=== PATIENT | male | born 1955 | race Caucasian/White ===

== ENCOUNTER 2023-08-05 07:51 | Inpatient (IN) ==
--- OUTSIDE RECORDS SUMMARY | 2023-08-05 08:07 | External Medical Summary | Summary of Care ---
Author Name Unknown Organization [facility] Address [address] [place] [address] Phone [phone] Care Team Providers Care Air Control/Anti Air Warfare Officer Name Role Phone Scot Savage DO Primary Care Provider [phone] Reason for Visit * Reason Comments Medication Refill Encounter Details Date Type Department Care Team (Late st Contact Info) Description 07/28/2023 Refill Family Practice [facility] [address] [place] [address] Scot Savage [facility] [address] [facility] [phone] HTN, goal below 130/80 Allergies No known active allergiesdocumented as of this encounter (statuses as of 07/28/2023) Medications Medication Sig Dispensed Refills Start Date End Date Status docusate sodium (COLACE) 50 MG Capsule Take by mouth at bedtime. 0 Active Dicyclomine HCl 10 MG Oral Capsule (Bentyl)Indications :Irritable bowel syndrome with both constipation and diarrhea TAKE ONE CAPSULE BY MOUTH FOUR TIMES A DAY NEEDED FOR ABDOMINAL PAIN 360 Capsule 1 01/20/2023 01/20/2024 Active Lubiprostone 24 MCG Oral Capsule (Amitiza) TAKE ONE CAPSULE BY MOUTH TWICE A DAY WITH MORNING AND EVENING MEALS 180 Capsule 1 02/10/2023 02/10/2024 Active hydroCHLOROthiazide 25 MG Oral Tablet (Hydrodiuril)Indica tions:HTN, goal below 130/80 Take 1 tablet by mouth every morning. 90 Tablet 0 03/21/2023 Active hydrOXYzine HCl 10 MG Oral Tablet (Atarax)Indications :Generalized anxiety disorder Take 1 Tablet by mouth 2 times a day as needed for Nausea or Anxiety. 120 Tablet 0 04/09/2023 Active DULoxetine HCl 60 MG Oral Capsule Delayed Release Particles (Cymbalta)Indicatio ns:Episode of recurrent major depressive disorder, unspecified depression episode severity (HCC) Take 1 Capsule by mouth in the morning. 90 Capsule 0 05/13/2023 Active busPIRone HCl 7.5 MG Oral Tablet (Buspar)Indications :Generalized anxiety disorder Take 2 Tablets by mouth in the morning and 2 Tablets before bedtime. 360 Tablet 0 06/07/2023 Active DULoxetine HCl 30 MG Oral Capsule Delayed Release Particles (Cymbalta)Indicatio ns:Generalized anxiety disorder,Major depressive disorder, recurrent episode, mild (HCC) Take 1 Capsule by mouth daily at noon. 90 Capsule 1 06/07/2023 Active Escitalopram Oxalate 20 MG Oral Tablet (Lexapro)Indication s:Generalized anxiety disorder,Major depressive disorder, recurrent episode, mild (HCC) Take 1 Tablet by mouth in the morning. 90 Tablet 1 06/07/2023 Active Levothyroxine Sodium 25 MCG Oral Tablet (Levoxyl) Take 1 Tablet by mouth in the morning. (at least 30 min prior to breakfast or other meds). 30 Tablet 11 06/08/2023 Active Alfuzosin HCl ER 10 MG Oral Tablet Extended Release 24 Hour (Uroxatral) Take 1 Tablet by mouth in the morning. 90 Tablet 3 06/15/2023 Active Pantoprazole Sodium 40 MG Oral Tablet Delayed Release (Protonix)Indicatio ns:Gastroesophageal reflux disease without esophagitis TAKE ONE TABLET BY MOUTH EVERY DAY BEFORE BREAKFAST 90 Tablet 3 07/07/2023 07/06/2024 Active Lisinopril 40 MG Oral Tablet Take 1 Tablet by mouth in the morning. 90 Tablet 3 07/14/2023 Active hydroCHLOROthiazide 25 MG Oral Tablet (Hydrodiuril)Indica tions:HTN, goal below 130/80 TAKE ONE TABLET BY MOUTH EVERY MORNING 90 Tablet 3 07/28/2023 07/27/2024 Active documented as of this encounter (statuses as of 07/28/2023) Active Problems Problem Noted Date Diagnosed Date Panic disorder 05/31/2023 JANUARY (generalized anxiety disorder) 02/26/2022 Major depressive disorder, recurrent, unspecifie d 03/15/2020 HTN, goal below 130/80 02/09/2020 Diverticulosis of large intestine without hemorr ramirez 02/09/2020 BPH with obstruction/lower urinary tract symptom s 02/09/2020 Current episode of major dep ressive disorder without prior episode 02/09/2020 Tobacco use disorder 02/09/2020 Irritable bowel syndrome wit h both constipation and diarrhea 02/09/2020 Rotator cuff tendonitis, right 02/09/2020 Alcohol abuse 02/09/2020 documented as of this encounter (statuses as of 07/28/2023) Immunizations Name Administration Dates Next Due COVID-19 mRNA, LNP-s, No Pre serve, 2-Dose Series (Indicee) 10/19/2020,09/28/2020 COVID-19, LNP-s, No Preserve , Ketan-sucrose, Ages 12+ (Pfizer) 02/26/2022,05/19/2021 Pneumococcal Polysaccharide PPV23 (Pneumovax) Season Influenza, Quad, PF, Adjuvanted, 65+ Yrs, IM (FLUAD) 03/15/2020 Seasonal Influenza, Quadrivalent Hd (Fluzone Hd) 05/18/2022 TDAP (age 10 and older)(Boostrix) 10/19/2016 Zoster Vaccine Recombinant (Shingrix) 08/21/2020 ,03/15/2020 documented as of this encounter Social History Tobacco Use Types Packs/Day Years Used Date Smoking Tobacco: Former Cigars Smokeless Tobacco: Never Comments:history of 1-2x yea rly used to be more frequent; none currently Alcohol Use Standard Drinks/Week Comments Yes 7 (1 standard drink = 0.6 oz pur e alcohol) AUDIT-C Answer Date Recorded Q1: How often do you have a drink containing alc ohol? 2-3 times a week 03/31/2022 Q2: How many drinks containi ng alcohol do you have on a typical day when you are drinking? 1 or 2 03/31/2022 Q3: How often do you have si x or more drinks on one occasion? Less than monthly 03/31/2022 PHQ-2 Answer Date Recorded PHQ Adult Total Score 2 02/26/2022 Hunger Vital Sign Answer Date Recorded Within the past 12 months, y ou worried that your food would run out before you got the money to buy more. Patient refused Within the past 12 months, t he food you bought just didn't last and you didn't have money to get more. Patient refused Sex and Gender Information Value Date Recorded Sex Assigned at Male 02/09/2020 8:02 AM EDT Gender Identity Male 02/09/2020 8:02 AM EDT Sexual Orientation Straight 02/09/2020 8: 02 AM EDT Job Start Date Occupation Industry Not on file Not on file Not on file documented as of this encounter Miscellaneous Notes * Telephone Encounter - Scot Savage DO - 07/28/2023 12:18 PM ESTSigned Prescriptions: Disp Refills hydroCHLOROthiazide 25 MG Oral Tablet (Hyd*90 Tab*3 Sig: TAKE ONE TABLET BY MOUTH EVERY MORNINGAuthorizing Provider: SCOT SAVAGE documented in this encounter Plan of Treatment Upcoming Encounters Date Type Department Care Team (Latest Contact Info) Description 08/26/2023 1:30 PM EST Hospital Encounter ENDO OSS, Endoscopy Room [facility] [address] [place] [place] [phone] Zane Olson MD [address] [place] [address] 08/26/2023 1:30 PM EST - 08/26/2023 2:00 PM EST Surgery ENDO [facility], Endoscopy Room [facility] [address] [phone] Zane Olson MD [address] [place] [address] COLONOSCOPY FLEXIBLE PROXIMAL DIAGNOSTIC 08/30/2023 12:30 PM EST Office Visit Psychiatry, [facility] [address] [facility] [place], [place] [address] Ofelia Nielsen CRNP [address] [facility] [place] [address] 11/30/2023 1:20 PM EDT Office Visit Family Practice [facility] [address] [place] [address] Scot Savage, [address] [place] [address] 12/21/2023 1:30 PM EDT Office Visit Urology, [facility] [address] [facility] [place] [address] Valentín Azul MD [address] [facility] [address] [place] [address] Scheduled Procedures Name Priority Associated Diagnoses Date/Ti me COLONOSCOPY FLEXIBLE PROXIMAL DIAGNOSTIC History of colon polyps 08/26/2023 1:30 PM EST Health Maintenance Due Date Last Done Comments Pneumococcal Vaccine: 65+ Years (2 - PCV) 02/08/2021 02/09/2020 Depression Screening 02/26/2023 02/26/2022 COVID-19 Vaccine ( - 2022-24 season) 2023 02/26/2022, 05/19/2021, 10/19/2020, Additional history exists Influenza Vaccine (FLU shot) (#1) 2023 05/18/2022, 03/15/2020 COLONOSCOPY-EVERY 3 YRS AGES 18-100 07/25/2023 07/25/2020, 07/25/2020 TSH 05/31/2024 05/31/2023, 02/09/2020 GFR 06/18/2024 06/18/2023, 1212/2022, 05/31/2023, Additional history exists Albumin/Creatinine Ratio 05/31/2026 05/31/2023, 0802/2022 Diabetes Screening 06/18/2026 06/18/2023, 1 08/17/2022, 05/31/2023, Additional history exists DTaP,Tdap,and Td Vaccines (2 - Td or Tdap) 10/19/2026 10/19/2016 Lipid Panel 05/31/2028 05/31/2023, 0707/2019, 10/17/2018 AAA Screening Completed 02/14/2020 Zoster Vaccines Completed 08/21/2020, 03/15/2020 GARDASIL-HPV IMMUNIZATION SERIES Aged Out No longer eligible based on patient's age to complete this topic Hepatitis B Aged Out No longer eligi ble based on patient's age to complete this topic MENINGOCOCCAL (MENACTRA/MENVEO) Aged Out No longer eligible based on patient's age to complete this topic documented as of this encounter Medical Devices Implanted Type Area City Letter Carrier Device Identifier Shelf Expiration Date Model / Serial / Lot Lens Intraoc 22.5 - [id number] - [id number] Implanted:Qty: 1 on 06/16/2022 by Garcia Winters MD at OR [facility] Left: Eye [employer] 02/08/2027 [id number] / [id number] / [id number] Lens Intraoc 23.0 - [id number] - [id number] Implanted:Qty: 1 on 06/30/2022 by Garcia Winters MD at OR [facility] Right: Eye [employer]OM[employer] 02/08/2027 [id number] / [id number] / [id number] documented as of this encounter Visit Diagnoses Diagnosis HTN, goal below 130/80 Unspecified essential hypertension History of colon polyps Personal history of colonic polyps documented in this encounter Advance Directives Latest Code Status on File Code Status Date Activated Date Inactivated Comments No Code 06/30/2022 9:33 AM 06/30/2022 3:38 PM Thi s order reflects the patients wishes and were consensually agreed upon. Question Answer Comments Discussion of Advance Directives occurred with: Patient Does the patient have a Living Will? No Does the patient have Health Care Power of Last Chalker? No Code Status History Code Status Date Activated Date Inactivated Comments No Code 06/16/2022 12:24 PM 06/16/2022 6:37 PM This order reflects the patients wishes and were consensually agreed upon. Question Answer Comments Discussion of Advance Directives occurred with: Patient Does the patient have a Living Will? No Does the patient have Health Care Power of Last Chalker? No Care Teams Air Control/Anti Air Warfare Officer Relationship Specialty Start Date End Date Scot Savage DO [address] [address] PCP - General Family Medicine 05/31/23 documented as of this encounter
--- OUTSIDE RECORDS SUMMARY | 2023-08-05 08:07 | External Medical Summary | Summary of Care ---
Author Name Unknown Organization [facility] Address [address] [place] [address] Phone [phone] Care Team Providers Care Agency Sales Representative Name Role Phone Scot Savage DO Primary Care Provider [phone] Reason for Visit * Reason Onset Date Comments Medication Refill 07/30/2023 Encounter Details Date Type Department Care Team (Late st Contact Info) Description 07/30/2023 Refill Family Practice [facility] [address] [place] [address] Scot Savage DO [address] [place] [address] Allergies No known active allergiesdocumented as of this encounter (statuses as of 07/31/2023) Medications Medication Sig Dispensed Refills Start Date End Date Status docusate sodium (COLACE) 50 MG Capsule Take by mouth at bedtime. 0 Active Dicyclomine HCl 10 MG Oral Capsule (Bentyl)Indication s:Irritable bowel syndrome with both constipation and diarrhea TAKE ONE CAPSULE BY MOUTH FOUR TIMES A DAY NEEDED FOR ABDOMINAL PAIN 360 Capsule 1 01/20/2023 4 Active Lubiprostone 24 MCG Oral Capsule (Amitiza) TAKE ONE CAPSULE BY MOUTH TWICE A DAY WITH MORNING AND EVENING MEALS 180 Capsule 1 02/10/2023 4 Active hydroCHLOROthiazid e 25 MG Oral Tablet (Hydrodiuril)Indic ations:HTN, goal below 130/80 Take 1 tablet by mouth every morning. 90 Tablet 0 03/21/2023 Active hydrOXYzine HCl 10 MG Oral Tablet (Atarax)Indication s:Generalized anxiety disorder Take 1 Tablet by mouth 2 times a day as needed for Nausea or Anxiety. 120 Tablet 0 04/09/2023 Active DULoxetine HCl 60 MG Oral Capsule Delayed Release Particles (Cymbalta)Indicati ons:Episode of recurrent major depressive disorder, unspecified depression episode severity (HCC) Take 1 Capsule by mouth in the morning. 90 Capsule 0 05/13/2023 Active busPIRone HCl 7.5 MG Oral Tablet (Buspar)Indication s:Generalized anxiety disorder Take 2 Tablets by mouth in the morning and 2 Tablets before bedtime. 360 Tablet 0 06/07/2023 Active DULoxetine HCl 30 MG Oral Capsule Delayed Release Particles (Cymbalta)Indicati ons:Generalized anxiety disorder,Major depressive disorder, recurrent episode, mild (HCC) Take 1 Capsule by mouth daily at noon. 90 Capsule 1 06/07/2023 Active Escitalopram Oxalate 20 MG Oral Tablet (Lexapro)Indicatio ns:Generalized anxiety disorder,Major depressive disorder, recurrent episode, mild (HCC) Take 1 Tablet by mouth in the morning. 90 Tablet 1 06/07/2023 Active Alfuzosin HCl ER 10 MG Oral Tablet Extended Release 24 Hour (Uroxatral) Take 1 Tablet by mouth in the morning. 90 Tablet 3 06/15/2023 Active Pantoprazole Sodium 40 MG Oral Tablet Delayed Release (Protonix)Indicati ons:Gastroesophage al reflux disease without esophagitis TAKE ONE TABLET BY MOUTH EVERY DAY BEFORE BREAKFAST 90 Tablet 3 07/07/2023 4 Active Lisinopril 40 MG Oral Tablet Take 1 Tablet by mouth in the morning. 90 Tablet 3 07/14/2023 Active hydroCHLOROthiazid e 25 MG Oral Tablet (Hydrodiuril)Indic ations:HTN, goal below 130/80 TAKE ONE TABLET BY MOUTH EVERY MORNING 90 Tablet 3 07/28/2023 5 Active Levothyroxine Sodium 25 MCG Oral Tablet (Levoxyl) Take 1 Tablet by mouth in the morning. (at least 30 min prior to breakfast or other meds). 90 Tablet 3 07/31/2023 Active Levothyroxine Sodium 25 MCG Oral Tablet (Levoxyl) Take 1 Tablet by mouth in the morning. (at least 30 min prior to breakfast or other meds). 30 Tablet 11 06/08/2023 4 Discontinue d(Refill) documented as of this encounter (statuses as of 07/31/2023) Active Problems Problem Noted Date Diagnosed Date [...] as of this encounter (statuses as of 07/31/2023) Immunizations Name Administration Dates Next Due COVID-19 mRNA, LNP-s, No Pre serve, 2-Dose Series (Pfizer) 10/19/2020,09/28/2020 COVID-19, LNP-s, No Preserve , Ketan-sucrose, [...] Telephone Encounter - Scot Savage DO - 07/31/2023 2:12 PM ESTSigned Prescriptions: Disp Refills Levothyroxine Sodium 25 MCG Oral Tablet (L*90 Tab*3 Sig: Take 1 Tablet by mouth in the morning. (at least 30 min prior to breakfast or other meds). Authorizing Provider: SCOT SAVAGE * Telephone Encounter - Cassidy Valdovinos LPN - 07/30/2023 2:43 PM ESTPending Prescriptions: Disp Refills Levothyroxine Sodium 25 MCG Oral Tablet (L*90 Tab*3 Sig: Take 1 Tablet by mouth in the morning. (at least 30 min prior to breakfast or other meds). * Telephone Encounter - Cassidy Valdovinos LPN - 07/30/2023 2:42 PM EST Pending Prescriptions: Disp Refills Levothyroxine Sodium 25 MCG Oral Tablet (*90 Tab*3 Sig: Take 1 Tablet by mouth in the morning. (at least 30 min prior to breakfast or other meds). Last Visit: 05/31/2023 (in office), 06/14/2020 (telemedicine) 90 DAY SUPPLY Next Visit: 11/30/2023 Last date the medication was ordered: 06/08/23 Patient Active Problem List Diagnosis Code HTN, goal below 130/80 I10 Diverticulosis of large intestine without hemorrhage K57.30 BPH with obstruction/lower urinary tract symptoms N40.1, N13.8 Current episode of major depressive disorder without prior episode F32.9 Tobacco use disorder F17.200 Irritable bowel syndrome with both constipation and diarrhea K58.2 Rotator cuff tendonitis, right M75.81 Alcohol abuse F10.10 Major depressive disorder, recurrent, unspecified (HCC) F33.9 JANUARY (generalized anxiety disorder) F41.1 Panic disorder F41.0 Labs: Lab Results Component Value Date/Time CREATININE - [facility] 1.1 06/18/2023 09:14 AM CREATININE - [facility] 1.1 02/09/2020 09:26 AM CREATININE, RANDOM URINE - [facility] 127 05/31/2023 12:37 PM CREATININE, RANDOM URINE - [facility] 121 03/15/2020 04:19 PM CREATININE-OUTSIDE LAB 1.06 10/17/2018 09:35 AM Lab Results Component Value Date/Time POTASSIUM - [facility] 3.5 06/18/2023 09:14 AM POTASSIUM - [facility] 4.4 02/09/2020 09:26 AM POTASSIUM-OUTSIDE LAB 3.9 10/17/2018 09:35 AM Lab Results Component Value Date/Time TSH - [facility] 6.58 (H) 05/31/2023 12:33 PM TSH - [facility] 3.24 02/09/2020 09:26 AM Lab Results Component Value Date/Time LDL (CALCULATED)-OUTSIDE LAB 87 10/17/2018 09:35 AM LDL CHOLESTEROL (CALCULATED) - [facility] 43 05/31/2023 12:33 PM LDL CHOLESTEROL (CALCULATED) - [facility] 76 02/09/2020 09:26 AM LDL CHOLESTEROL (DIRECT MEASURE) - [facility] NOT APPLICABLE 02/09/2020 09:26 AM Lab Results Component Value Date/Time ALT - [facility] 25 06/16/2023 12:49 PM ALT - [facility] 18 02/09/2020 09:26 AM ALT-OUTSIDE LAB 19 10/17/2018 09:35 AM Hemoglobin AIC Results: No results found for: "HEMOGLOBIN A1C" * Telephone Encounter - Deana Blackman OSA - 07/30/2023 1:05 PM EST Did you pend patient's preferred pharmacy and medication before forwarding?yes Pharmacy: [id number] [address] [facility] Pending Prescriptions: Disp Refills Levothyroxine Sodium 25 MCG Oral Tablet (*30 Tab*11 Sig: Take 1 Tablet by mouth in the morning. (at least 30 min prior to breakfast or other meds). Last Visit: 05/31/2023 (in office), 06/14/2020 (telemedicine) Next Visit: 11/30/2023 If no future appointments scheduled, and last appointment is greater than a year ago, please schedule patient for a follow-up appointment Last date the medication was ordered: 06.08.23 Is this request for a controlled substance?No 90 day refill request Urine Drug Screen:No results found for this or any previous visit. Patient Phone Numbers Labs: Lab Results Component Value Date/Time CREAT 1.1 06/18/2023 09:14 AM CREAT 1.1 02/09/2020 09:26 AM POTASSIUM 3.5 06/18/2023 09:14 AM POTASSIUM 4.4 02/09/2020 09:26 AM TSH 6.58 (H) 05/31/2023 12:33 PM TSH 3.24 02/09/2020 09:26 AM LDLCALC 43 05/31/2023 12:33 PM LDLCALC 76 02/09/2020 09:26 AM LDLDIRECT NOT APPLICABLE 02/09/2020 09:26 AM ALT 25 06/16/2023 12:49 PM ALT 18 02/09/2020 09:26 AM documented in this encounter Plan of Treatment Upcoming Encounters Date Type Department Care Team (Latest Contact Info) Description 08/26/2023 1:30 PM EST Hospital Encounter ENDO [facility], Endoscopy Room [facility] [address] [place] [address] Zane Olson MD [address] [place] [address] 08/26/2023 1:30 PM EST - 08/26/2023 2:00 PM EST Surgery ENDO [facility], Endoscopy Room [facility] [address] [place] [phone] Zane Olson MD [address] [place] [address] COLONOSCOPY FLEXIBLE PROXIMAL DIAGNOSTIC 08/30/2023 12:30 PM EST Office Visit Psychiatry, [facility] [address] [place] [address] Ofelia Nielsen CRNP [address] [place] [address] 11/30/2023 1:20 PM EDT Office Visit Family Practice [facility] [address] [place] [address] Scot Savage DO [address] [place] [address] 12/21/2023 1:30 PM EDT Office Visit Urology, [facility] [address] [place] [address] Valentín Azul MD [address] [place] [address] Scheduled Procedures Name Priority Associated Diagnoses Date/Ti me COLONOSCOPY FLEXIBLE PROXIMAL DIAGNOSTIC History of colon polyps 08/26/2023 1:30 PM EST Health Maintenance Due Date Last Done Comments Pneumococcal Vaccine: 65+ Years (2 - PCV) 02/08/2021 02/09/2020 Depression Screening 02/26/2023 02/26/2022 COVID-19 Vaccine ( - 2022- season) 2023 02/26/2022, 05/19/2021, 10/19/2020, Additional history exists Influenza Vaccine (FLU shot) (#1) 2023 05/18/2022, 03/15/2020 COLONOSCOPY-EVERY 3 YRS AGES 18-100 07/25/2023 07/25/2020, 07/25/2020 TSH 05/31/2024 05/31/2023, 02/09/2020 GFR 06/18/2024 06/18/2023, 1212/2022, 05/31/2023, Additional history exists Albumin/Creatinine Ratio 05/31/2026 05/31/2023, 08/02/2022 Diabetes Screening 06/18/2026 06/18/2023, 1 08/17/2022, 05/31/2023, Additional history exists DTaP,Tdap,and Td Vaccines (2 - Td or Tdap) 10/19/2026 10/19/2016 Lipid Panel 05/31/2028 05/31/2023, 07/3 07/2019, 10/17/2018 AAA Screening Completed 02/14/2020 Zoster Vaccines [...] this encounter Medical Devices Implanted Type Area Electronic Device Repairer Device Identifier Shelf Expiration Date Model / Serial / Lot Lens Intraoc 22.5 - [id number] - [id number] Implanted:Qty: 1 on 06/16/2022 by Garcia Winters MD at OR [facility] Left: Eye [employer] 02/08/2027 [id number] / [id number] / [id number] Lens Intraoc 23.0 - [id number] - [id number] Implanted:Qty: 1 on 06/30/2022 by Garcia Winters MD at OR [facility] Right: Eye [employer]OMB 02/08/2027 [id number] / [id number] / [id number] documented as of this encounter Advance Directives Latest Code Status on File Code Status Date Activated Date Inactivated Comments No Code 06/30/2022 9:33 AM 06/30/2022 3:38 PM Thi s order reflects the patients wishes and were consensually agreed upon. Question Answer Comments Discussion of Advance Directives occurred with: Patient Does the patient have a Living Will? No Does the patient have Health Care Power of Commercial Loan Assistant? No Code Status History Code Status Date Activated Date Inactivated Comments No Code 06/16/2022 12:24 PM 06/16/2022 6:37 PM This order reflects the patients wishes and were consensually agreed upon. Question Answer Comments Discussion of Advance Directives occurred with: Patient Does the patient have a Living Will? No Does the patient have Health Care Power of Commercial Loan Assistant? No Care Teams Agency Sales Representative Relationship Specialty Start Date End Date Scot Savage DO [address] [place] [address] PCP - General Family Medicine 05/31/23 documented as of this encounter
--- OUTSIDE RECORDS SUMMARY | 2023-08-05 08:07 | External Medical Summary | Summary of Care ---
Author Name Unknown Organization [facility] Address [address] [place] [address] Phone [phone] Care Team Providers Care Medical Data Analyst Name Role Phone Kimberly Sidhu DO Primary Care Provider [phone] Reason for Visit * Reason Comments Medication Management Follow Up Encounter Details Date Type Department Care Team (Late st Contact Info) Description 07/19/2023 12:30 PM EST Office Visit Psychiatry, [facility] [address] [place] [address] Ofelia Nielsen CRNP [address] [place] [address] Generalized anxiety disorder*; Major depressive disorder, recurrent episode, mild (HCC); Panic disorder; Insomnia due to other mental disorder Allergies No known active allergiesdocumented as of this encounter (statuses as of 07/21/2023) Medications Medication Sig Dispensed Refills Start Date [...] the morning. 90 Tablet 3 07/14/2023 Active documented as of this encounter (statuses as of 07/21/2023) Active Problems Problem Noted Date Diagnosed Date [...] as of this encounter (statuses as of 07/21/2023) Immunizations Name Administration Dates Next Due COVID-19 mRNA, LNP-s, No Pre serve, 2-Dose Series (Photoways) 10/19/2020,09/28/2020 COVID-19, LNP-s, No Preserve , Ketan-sucrose, [...] on file documented as of this encounter Progress Notes * Ofelia Nielsen CRNP - 07/19/2023 12:32 PM EST OUTPATIENT PSYCHIATRY DIVISION OF PSYCHIATRY [facility] [address] [place] [address] MEDICATION MANAGEMENT & PSYCHOTHERAPY RETURN VISIT NOTE Name: Haroon Colmenares : 1955 Date Seen: 07/19/23 LOCATION FROM WHICH SERVICE IS DELIVERED [facility] PATIENT'S CURRENT PHYSICAL LOCATION [facility] The patient was seen and interviewed, and available records and data were reviewed today. SUBJECTIVE: Haroon Colmenares is a 67 year old male presenting for follow-up of depression and anxiety. 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 He also relates experiencing mild to moderate depression on and off throughout his life. He states his current depressed mood and anxiety is related to his GI issues and his inability to find relief. He is currently participating in pelvic floor training with PT, as well as trying to eat better and living a better lifestyle. He relates that he loves life and is grateful for all that he has, but he wants to have his stomach and bowels to feel better. CURRENT PSYCHIATRIC PROVIDERS/SERVICES: none MEDICATION SIDE EFFECTS/ADHERENCE: Negative side effects from current prescribed psychotropic medications: none Medication adherence: good PREVIOUS PSYCHOTROPIC MEDICATION TRIALS: amitriptyline RELEVANT PSYCHIATRIC, MEDICAL, FAMILY OR SOCIAL HISTORY/UPDATE: Current living situation: Live in [facility] Marital status: Sexually active: n/a Plans for : n/a Contraceptive plan: n/a Children: 4 children (one son is incarcerated due to drug use; this is stressful for pt) Childhood/raised by: mother and father - good childhood Siblings: sister older brother History of past or current CYS involvement: none History of homelessness/prison living? none Social support/supportive people in life: oldest son Leisure/recreational activities: camp, fishing, hiking, camp style cooking, like to cook Hoahaoism/philosophical beliefs: none H.S. Graduate - technical school for [employer] retired from [employer] Mental illness: Mother had anxiety Completed/attempted suicides: no Drug and alcohol abuse: Son - heroin use Is seeing a woman who lives in his building. CHANGE IN SUBSTANCE USE PATTERNS: Occasionally has beer - approx 1-2 several times per week OBJECTIVE DATA: Review of patient's allergies indicates: No Known Allergies There were no vitals filed for this visit. There is no height or weight on file to calculate BMI. No height and weight on file for this encounter. Weight at last 3 appointments: Wt Readings from Last 3 Encounters: 05/31/23 67 kg (147 lb 12.8 oz) 07/27/22 70.7 kg (155 lb 14.4 oz) 06/30/22 68 kg (150 lb) LABORATORY RESULTS: Recent Results (from the past 1344 hour(s)) COMPREHENSIVE METABOLIC PANEL Collection Time: 05/31/23 12:33 PM Result Value Ref Range BUN 19 6 - 20 mg/dL Creatinine 1.2 0.6 - 1.2 mg/dL Estimated Glomerular Filtration Rate 65 >=60 mL/min Sodium 133 (L) 135 - 146 mmol/L Potassium 4.6 3.5 - 5.1 mmol/L Chloride 92 (L) 98 - 107 mmol/L CO2 26 22 - 32 mmol/L Anion Gap 15 7 - 15 mmol/L Glucose 96 70 - 120 mg/dL Albumin 4.5 3.8 - 5.0 g/dL AST 30 10 - 50 U/L Alkaline Phosphatase 77 35 - 130 U/L Bilirubin, Total 0.6 <=1.2 mg/dL Calcium 10.3 (H) 8.4 - 10.2 mg/dL Protein 7.4 6.0 - 8.3 g/dL ALT 40 10 - 50 U/L TSH WITH FREE T4 IF INDICATED Collection Time: 05/31/23 12:33 PM Result Value Ref Range TSH 6.58 (H) 0.27 - 4.20 uIU/mL LIPID PANEL WITH DIRECT LDL IF TG IS HIGH Collection Time: 05/31/23 12:33 PM Result Value Ref Range Triglycerides 121 <=174 mg/dL Cholesterol 126 <200 mg/dL HDL Cholesterol 59 >39 mg/dL Non-HDL Cholesterol 67 <=159 mg/dL LDL Cholesterol 43 <=129 mg/dL VITAMIN B12 Collection Time: 05/31/23 12:33 PM Result Value Ref Range Vitamin B12 617 232 - 1,245 pg/mL MAGNESIUM Collection Time: 05/31/23 12:33 PM Result Value Ref Range Magnesium 1.6 1.5 - 2.6 mg/dL PSA Collection Time: 05/31/23 12:33 PM Result Value Ref Range PSA 5.05 (H) <4.10 ng/mL CBC Collection Time: 05/31/23 12:33 PM Result Value Ref Range WBC 11.93 (H) 4.00 - 10.80 K/uL RBC 4.35 4.50 - 5.25 M/uL HGB 14.9 14.0 - 16.8 g/dL HCT 40.9 40.0 - 48.4 % MCV 94.0 82.0 - 99.5 fL MCH 34.3 27.0 - 34.0 pg MCHC 36.4 32.0 - 36.0 g/dL RDW 12.8 11.5 - 15.5 % PLT 419 (H) 140 - 400 K/uL MPV 9.5 6.6 - 11.1 fL DIFFERENTIAL, AUTOMATED Collection Time: 05/31/23 12:33 PM Result Value Ref Range WBC 11.93 (H) 4.00 - 10.80 K/uL Neutrophils % 68.2 40.0 - 75.0 % Lymphocytes % 19.4 18.0 - 42.0 % Monocytes % 8.2 1.0 - 11.0 % Eosinophils % 3.9 0.0 - 6.0 % Basophils % 0.3 0.0 - 2.0 % Absolute Neutrophils 8.14 (H) 1.80 - 7.70 K/uL Absolute Lymphocytes 2.31 1.00 - 4.80 K/ul Absolute Monocytes 0.98 0.00 - 1.10 K/uL Absolute Eosinophils 0.46 0.00 - 0.70 K/uL Absolute Basophils 0.04 0.00 - 0.20 K/uL PTH Collection Time: 05/31/23 12:33 PM Result Value Ref Range PTH 42 15 - 65 pg/mL 25-HYDROXY VITAMIN D Collection Time: 05/31/23 12:33 PM Result Value Ref Range 25-Hydroxy Vitamin D 76 >19 ng/mL T4, FREE Collection Time: 05/31/23 12:33 PM Result Value Ref Range T4, Free 1.2 0.9 - 1.7 ng/dL THYROID ANTIBODY AND TPO ANTIBODY Collection Time: 05/31/23 12:33 PM Result Value Ref Range Thyroid Peroxidase Antibody 206.1 (H) <34.0 IU/mL Thyroglobulin Antibody 99.6 <115.0 IU/mL ALBUMIN / CREATININE RATIO, URINE Collection Time: 05/31/23 12:37 PM Result Value Ref Range Albumin, Random Urine <1.20 mg/dL Creatinine, Random Urine 127 mg/dL Albumin / Creatinine Ratio, Urine <9 <30 mg/g Creat BASIC METABOLIC PANEL Collection Time: 06/16/23 12:49 PM Result Value Ref Range BUN 20 6 - 20 mg/dL Creatinine 1.5 (H) 0.6 - 1.2 mg/dL Estimated Glomerular Filtration Rate 51 (L) >=60 mL/min Sodium 132 (L) 135 - 146 mmol/L Potassium 3.9 3.5 - 5.1 mmol/L Chloride 91 (L) 98 - 107 mmol/L CO2 28 22 - 32 mmol/L Anion Gap 13 7 - 15 mmol/L Glucose 91 70 - 120 mg/dL Calcium 10.5 (H) 8.4 - 10.2 mg/dL CBC Collection Time: 06/16/23 12:49 PM Result Value Ref Range WBC 15.17 (H) 4.00 - 10.80 K/uL RBC 4.30 4.50 - 5.25 M/uL HGB 14.9 14.0 - 16.8 g/dL HCT 40.9 40.0 - 48.4 % MCV 95.1 82.0 - 99.5 fL MCH 34.7 27.0 - 34.0 pg MCHC 36.4 32.0 - 36.0 g/dL RDW 13.0 11.5 - 15.5 % PLT 409 (H) 140 - 400 K/uL MPV 10.1 6.6 - 11.1 fL DIFFERENTIAL, AUTOMATED Collection Time: 06/16/23 12:49 PM Result Value Ref Range WBC 15.17 (H) 4.00 - 10.80 K/uL Neutrophils % 67.6 40.0 - 75.0 % Lymphocytes % 21.4 18.0 - 42.0 % Monocytes % 8.2 1.0 - 11.0 % Eosinophils % 2.6 0.0 - 6.0 % Basophils % 0.2 0.0 - 2.0 % Absolute Neutrophils 10.25 (H) 1.80 - 7.70 K/uL Absolute Lymphocytes 3.24 1.00 - 4.80 K/ul Absolute Monocytes 1.25 (H) 0.00 - 1.10 K/uL Absolute Eosinophils 0.40 0.00 - 0.70 K/uL Absolute Basophils 0.03 0.00 - 0.20 K/uL DIFFERENTIAL, TECHNOLOGIST REVIEW Collection Time: 06/16/23 12:49 PM Result Value Ref Range nRBCs HEPATIC FUNCTION PANEL Collection Time: 06/16/23 12:49 PM Result Value Ref Range Albumin 4.6 3.8 - 5.0 g/dL AST 24 10 - 50 U/L Alkaline Phosphatase 77 35 - 130 U/L ALT 25 10 - 50 U/L Bilirubin, Total 0.6 <=1.2 mg/dL Bilirubin, Direct 0.2 0.0 - 0.3 mg/dL Protein 7.5 6.0 - 8.3 g/dL LIPASE Collection Time: 06/16/23 12:49 PM Result Value Ref Range Lipase 26 13 - 60 U/L BASIC METABOLIC PANEL Collection Time: 06/18/23 9:14 AM Result Value Ref Range BUN 15 6 - 20 mg/dL Creatinine 1.1 0.6 - 1.2 mg/dL Estimated Glomerular Filtration Rate 71 >=60 mL/min Sodium 130 (L) 135 - 146 mmol/L Potassium 3.5 3.5 - 5.1 mmol/L Chloride 92 (L) 98 - 107 mmol/L CO2 28 22 - 32 mmol/L Anion Gap 10 7 - 15 mmol/L Glucose 112 70 - 120 mg/dL Calcium 9.8 8.4 - 10.2 mg/dL CBC Collection Time: 06/18/23 9:14 AM Result Value Ref Range WBC 9.81 4.00 - 10.80 K/uL RBC 3.90 4.50 - 5.25 M/uL HGB 13.7 (L) 14.0 - 16.8 g/dL HCT 37.4 (L) 40.0 - 48.4 % MCV 95.9 82.0 - 99.5 fL MCH 35.1 27.0 - 34.0 pg MCHC 36.6 32.0 - 36.0 g/dL RDW 12.6 11.5 - 15.5 % PLT 364 140 - 400 K/uL MPV 9.8 6.6 - 11.1 fL DIFFERENTIAL, AUTOMATED Collection Time: 06/18/23 9:14 AM Result Value Ref Range WBC 9.81 4.00 - 10.80 K/uL Neutrophils % 64.7 40.0 - 75.0 % Lymphocytes % 22.1 18.0 - 42.0 % Monocytes % 9.7 1.0 - 11.0 % Eosinophils % 3.3 0.0 - 6.0 % Basophils % 0.2 0.0 - 2.0 % Absolute Neutrophils 6.35 1.80 - 7.70 K/uL Absolute Lymphocytes 2.17 1.00 - 4.80 K/ul Absolute Monocytes 0.95 0.00 - 1.10 K/uL Absolute Eosinophils 0.32 0.00 - 0.70 K/uL Absolute Basophils 0.02 0.00 - 0.20 K/uL REVIEW OF SYSTEMS: continues to experience abdominal pain and bowel discomfort at times MENTAL STATUS EVALUATION: General Appearance: appropriately dressed, appropriately groomed, and good eye contact Attitude/Behavior: cooperative, open and friendly, engaged Motor Behavior/Muscle Strength & Tone/Gait & Station: no abnormalities noted Speech: normal, rate, tone and volume and goal directed Mood: "I'm not really doing okay." Affect: euthymic Thought Process: linear Thought Content/Perceptions: denies suicidal ideations, homicidal ideations, auditory hallucinations, visual hallucinations, delusions, impulsivity to act out or preoccupation with violence; Patient does not appear to be internally preoccupied. No evidence of illusions, depersonalization, derealization, or dissociation. Attention span/concentration as evidenced by: ability to sustain attention to examiner - intact andspelling WORLD backwards - intact Orientation: Oriented to person, place, time, and situation Abstract Reasoning: not tested Recent memory as evidenced by recall of recent circumstances: intact Remote memory as evidenced by recall of remote life events: intact Language as evidenced by ability to repeat phrase and name object: intact Estimated Intelligence & Fund of Knowledge: Normal Insight: fair Judgement: fair Impulse Control: good Bradley Suicide Severity Rating Scale Results 07/19/2023 12:35 [place] SUICIDE SEVERITY RATING SCALE (C-SSRS) Have you wished you were or wished you could go to sleep and not wake up? (In the Past Month or Since Last Visit) No Have you had any actual thoughts of killing yourself? (In the Past Month or Since Last Visit) No Have you been thinking about how you might do this? (In the Past Month or Since Last Visit) No Have you had thoughts and had some intention of acting on them? (In the Past Month or Since Last Visit) No Have you started to work out or worked out the details of how to kill yourself? Do you intend to carry out this plan? (In the Past Month or Since Last Visit) No Have you ever done anything, started to do anything, or prepared to do anything to end your life? (Lifetime) No Was this within the past 3 months? No Level of Risk No Risk Identified Outpatient Adult Psychiatry Treatment Plan Treatment plan was developed on 04/09/23, treatment will continue to focus on goals below; Treatmentupdate will occur when clinically indicated or by 10/08/23. Patient's goals captured in patient's words: anxiety work Crisis Planning: What I can do if I ever experience a crisis (much worse symptoms, severe distress or thoughts of self-harm): walk away People I can call in the event of a crisis: Family Member son Additional resources I can utilize if the previous steps are ineffective (e.g: ED, hotlines): Suicide and Crisis [place] [id number] and [facility] Patient/Family Received Copy of Treatment Plan: Patient has access to [facility] Signature Obtained on Treatment Plan: Treatment plan developed with patient and/or family during telemedicine/telephonic visit. No treatment plan signature page was signed. Will obtain signatures once sessions resume in clinic. Expected family or significant other involvement: Offer Support and Crisis Support Patient strengths and facilitating factors to care:Recognizes need for change, Seeking help, Goal Oriented, Attempting to realize ones potential, Has a purpose in life, Good support system, Access tohousing, Cooperative and Able to care for own personal hygiene Patient Identified Needs/Goals Interventions/Type of Service Duration of Treatment Frequency of Treatment Objective/ Discharge Criteria Problem/Need1: Medication Management Medication Management 1 year Q2 Months Achieved maintenance treatment phase at full therapeutic dosage for 6-12 months ASSESSMENT, FORMULATION, AND PLAN: Haroon Colmenares is a 66 year old male with presenting symptoms of mild depression and generalized anxiety as noted above. He has been treated by PCP for mood and anxiety. In speaking with pt's son, Pt has not been tried on SSRI to date. Pt is unable to identify positive benefit from current medications. As Pt's son reported Cymbalta is prescribed for pain, this medication will remain as prescribed by PCP. After discussion, amitriptyline will be discontinued to avoid polypharmacy, as this is prescribed at a very low dose and reported for sleep; Pt is prescribed trazodone for sleep support. This will continue to be prescribed. Pt will start lexapro 5 mg for 7 days and then increase to 10 mg da radha for management of anxiety and depressive symptoms, as Lexapro is well tolerated and has low drug-drug interactions. Will follow up with pt and his son in 6 weeks for medication effectiveness. 05/27/22: Haroon presents as experiencing modest improvement in mood and anxiety. He discussed being involved in social activities and having a new relationship. He reminisced about his happy childhood and discussed being proud of his children. He continues to experience stomach and bowel pain and discussed the medical treatment/testing he is receiving to manage the pain he experiences. He did relate drinking alcohol relieved some of the discomfort. We discussed the possibility of alcohol promoting relaxation, but that alcohol is not beneficial to him. Recommendation made to increase Lexapro to further address anxiety and to support mood. Pt in agreement. Instructions provided for medication adjustment from 10 mg in the morning to 20 mg in the morning. All other medications will continue to be managed by PCP. 07/08/22: Pt appears more relaxed during appt today. He was receptive to feedback regarding positive communication. He feels depression and anxiety have improved and he presents with congruent affect. Increase in Lexapro has been helpful in reducing symptoms. No changes are indicated at this time with medication treatment plan. No prescriptions are needed today. 08/19/22: Pt presents with stable mood. He has a somewhat elevated level of anxiety due to continued GI discomfort with no defined medical reason. He is scheduled for small intestinal bacterial overgrowth (SIBO) breath test next week and is hopeful results assist in treatment plan to reduce his discomfort. At this time, no changes will be made with his medication plan, but based on SIBO testing results, adjustment to Cymbalta dose will be considered to further address mood, anxiety and pain. 09/16/22: Haroon presents with increased anxiety today. He is apprehensive about the benefit of antibiotic treatment to reduce/relieve his GI discomfort. We discussed benefits of exercise, establishinga daily schedule, and ways to identify negative thinking and challenge the negative with positive alternative thoughts. Haroon was receptive to feedback. At this time, no changes will be made with medication treatment plan. We will reassess after antibiotic course is completed, as anxiety and mood may improve with relief of GI concerns. If no improvement with mood/motivation, will consider addingWellbutrin. 10/09/22: Pt continues to experience GI discomfort even though he has finished antibiotic course. Hecontinues to experience anxiety and a sad mood. We discussed how anxiety and sadness can impact GI concerns. Haroon spoke of this anxiety related to the safety of one son who is currently incarcerated and struggles with MAURI, anxiety over the financial security of another son and the relationships between his children. These worried thoughts have significant impact on his health and mood. Haroon notes he had been without Lexapro for approx four days until new prescription refill was received. Wediscussed benefit of adding Buspar 7.5 mg BID to relieve anxiety. Pt is in agreement. 10/30/22: Continues to worry about his son, who is currently incarcerated. Feels addition of Buspar has been somewhat helpful; describes feeling somewhat happier. Is not feeling as irritable. Feels very positive about response to Buspar. Pt continues to have disrupted sleep nightly due to GI issues.He is scheduled to follow up with GI. Although mood is better, he continues to have anxiety at times. Pt related he and his son would like to discuss medication and the ability to reduce amount of medications if possible. Discussed that is sleep initiation is not an issue and he is able to return to sleep after waking for GI issues, trazodone can be used only as needed for sleep support. Plan is to increase Buspar to 7.5 mg three times a day for anxiety management. Change trazodone to as needed. 11/27/22: Feeling frustrated with his GI issues. Continues to have pain upon waking and urgency to have BM. Having intense, bizarre dreams that are waking him from sleep. He recently fell due to feeling need to void upon waking suddenly. Discussed notes/messages from GI provider from regarding symptom management. Pt feels if dreams were not disturbing his sleep he would feel better. Ptdoes related increased dose of Buspar has been helpful in reducing anxiety overall - he does not feel as irritable. Pt has continued to use trazodone routinely at night for sleep support. Discussed trazodone might be cause for dreams and recommended dc of med on trial to determine if this is the case. Pt is to reach out if sleep initiation is issue without trazodone. Pt is in agreement with plan.No other changes to med plan. 12/30/22: Pt's discussion is focused on bowel and bowel distress. Pt discussed that he is going to reach out to his PCP regarding referral to new GI specialist due to feeling dismissed by previous provider. Pt continues to have bizarre dreams even after stopping trazodone. The theme of the dreams isconfusion and being reprimanded in a work setting. He is consistently woken from the dreams with immediate need to empty his bowels, but then is unable to or has diarrhea. Pt confirms on nights he does not have dreams, he does not have GI urgency. We discussed connection between anxiety, dreams, and GI distress. Pt relates he continues to have worried thoughts. Pt shared that he feels anxiety started when his son got into trouble with the law. Pt was provided positive feedback regarding connecting this stressful event with is emotional response. Pt did divert the conversation back to physicalconcerns. Pt is in agreement with individual therapy, but has not been assigned to provider. He wasreferred approx one year ago to [facility] psychology. We will continue to discuss therapy options during appts. We discussed possible side effects of current medications. Due to GI distress, I will reach out to pt's PCP to discuss change from Cymbalta (currently prescribed by PCP for pain management). Plan: increase Buspar to 15 mg BID for improved anxiety management. (pt has large supply of 7.5 mg pills at home and would like to use the supply he has; he was instructed to take 2 tablets twice perday.) 01/20/23: Pt relates no significant change in anxiety symptoms with adjustment in Buspar dose/timing. He has not experienced any SE with slight increase in medication. He does relate working on improving his ability to cope with GI distress. He is only waking one time through the night now due to disrupted sleep. Troubling dreams have subsided. Pt relates his family is doing okay. Son is coming back to pt's living area around [place] after completing boot camp. His son was transitioned from incarceration to boot camp that is only 45 minutes away from pt's home. We discussed how patient feelsabout his son's MAURI and his recovery. Discussed pt's plans for visiting his son in the next two weeks. Pt is looking forward to the visit. Pt acknowledges his anxiety has somewhat decreased with his son's release from senior care setting. Pt presents with decreased anxiety. He appears more relaxed during the appt. Plan is to continue current medication as prescribed. 03/01/23: Pt continues to report bad dreams several times per week. These dreams are very real and they cause increased GI distress. Discussed increased anxiety. Pt in agreement with adding additionaldose of Cymbalta 30 mg at noon to his 60 mg AM dose to address pain, anxiety and mood. Pt appeared to have some confusion related to his current medications and the recommendation for additional doseof Cymbalta. Pt will bring list of medications to next appt. He was also encouraged to use a pill minder for ease of med administration through the week. 04/09/23: Pt's stomach is cramping and nights are not restful. Focused on medical concerns. Discussed bowels and prostate. Is in better control of his anxiety. Pt describes having "frantic" moments, sweat, chills, nausea, -in stores and when working on cars, two to three times/month for approx 15 minutes. States he has always had these episodes, but the were worse in the past. Pt states he is alway s thinking; worried thoughts. Pt identifies symptoms of panic attacks as noted below. Educated pt on what he is experiencing. Although he has some ongoing concerns physically and residual anxiety symptoms, he states overall he is managing symptoms of anxiety and depression a little better since last appt. Denies SE. Plan is to add panic disorder to working dx. Will start hydroxyzine 10 mg BID PRN for anxiety and panic attacks. Panic: Recurrent unexpected abrupt fear: yes Fear of another attack: yes Change in behavior related to attacks: no Physical symptoms Heart palpitations Sweating Weakness Nausea Dizzy/lightheaded heat sensations Derealization/depersonalization Fear of losing control 06/07/23: Patient reports he continues to have anxiety. These episodes have increased slightly from2-3 times per month to 3-4 times per month. Patient does not find hydroxyzine to be especially helpful. Patient discussed his medical status. He continues to have pain in his abdomen and is concerned with GI. His primary care provider has referred him to urology. Patient does have slightly elevated PSA. TSH also elevated at 6.58. We will collaborate with primary care provider regarding treatment. Patient continues to have disrupted sleep related to bowel pain stating he spends 2-3 hours per night in the bathroom. Psychosocially we discussed his son is to be released in July from incarceration. Plan is for his son to stay with his brother, patient's other son, and patient admits this makes him nervous. He wants his son to be successful but he is concerned nonetheless. We discussed how this may be impacting his abdominal pain and his increased anxiety level. Plan is to increase hydroxyzine to 20 mg as needed for improved benefit for anxiety management. No other changes to be made to medications at this time. 07/19/23: reviewed medications. Pt's anxiety is high. His son will be released from incarceration this month and he is very worried about this. We discussed what he control and what he cannot regarding his son. Pt states he can decide how to interact with his kids. We discussed pt's difficulty with not focusing on past. Discussed milk intake and alcohol intake. Pt admits he has not decreased alcohol. We discussed feelings of guilt related to alcohol use. Discussed [facility] [employer] and individual therapy - pt is declining both at this time. He continues to be concerned about GI discomfort and worried there is something wrong that isn't being found with testing. Plan is to continue medication as prescribed. Diagnosis: Major depressive disorder, recurrent, mild Generalized Anxiety Disorder Panic disorder Medications: Continue Duloxetine 60 mg in the morning and 30 mg at noon Continue Lexapro to 20 mg daily for anxiety and depressive symptoms Continue Buspar to 15 mg to BID for anxiety continue hydroxyzine 10 - 20 mg BID PRN for anxiety/panic attacks I have reviewed the patient's controlled substance dispensing history in the Prescription Drug Monitoring Program in compliance with the [facility] regulations before prescribing a controlled substance. Laboratory/Diagnostics: None Counseling: Continue to offer psychotherapy utilizing Supportive listening as adjunct to evaluation, managementand prescription of psychiatric medications. PCP/medical: Continue to follow up with primary care provider and/or medical specialists as scheduled/appropriate. Return Appointment: Haroon Colmenares is to return in 4 weeks. Sooner PRN. This treatment plan was reviewed and discussed with the patient. He and/or family had the opportunity to ask questions and agreed with the treatment plan and course of care. Crisis and Treatment Planning: The crisis plan was completed/reviewed and updated as appropriate with the patient. Haroon Colmenares participated in developing a crisis plan should he/she experience worsening of symptoms before next follow-up appointment, including being aware of what resources to use according to the urgency and severity of symptoms. Haroon Colmenares was able to verbalize understanding of the steps necessary to obtain help between appointments should be needed, from requesting a phone call, to requesting an appointment sooner, including reaching clinic after hours, or [facility], either at a local emergency department or by activating mobile crisis teams and EMS. Psychoeducation was provided regarding patient's diagnoses and potential treatment modalities, including psychotherapeutic and psychopharmacologic options for treatment. Risks, benefits, alternativesand side effects of medication/s were explained, and the patient verbalized understanding of the ris ks and benefits of using medication as prescribed. The benefits of treatment outweigh the risks. Patient cautioned not to drive, operate heavy machinery, or participate in other tasks requiring full cognitive alertness until they know how new medications will affect them. Pt encouraged to keep all medications out of the reach of children. The patient participated in the development of the treatment plan, verbalized understanding, voices no concerns and is agreeable to the treatment plan. Patient is making an informed medical decision to follow the recommendations outlined in this note. Directed pt to call with any questions or concerns, worsening symptoms and/or ask for earlier appointment. Risk Assessment: Risk assessment was performed for Haroon Colmenares. This patient is being treated for mental health conditions as characterized above; at the time of this visit, there was no indication that this patient was either a risk to self, others, or gravely disabled by symptoms of a mental illness. At the time of this evaluation, there were enough protective factors in place and it was deemed safe to continue with treatment on a outpatient basis with return to clinic in the timeframe described above. Health Maintenance: Haroon Colmenares was encouraged to keep up to date on regular health maintenanceper primary care provider recommendations. Haroon Colmenares was encouraged to keep active in productive hobbies and exercise, as this can help manage emotions, improve sleep, wellbeing and overall health. Pt was cautioned to not drink alcohol or use illicit drugs as these can make symptoms worse by b locking the effects of prescribed medications. Advised to avoid tobacco and products containing nicotine and to limit caffeine use. Nicotine and caffeine are stimulants that can cause difficulty withsymptom management and pose increased health risks. Please note >17 minutes of counseling time over and above medication management was spent with patient discussing self care and providing supportive therapy, including Supportive listening Ofelia Nielsen, MSN, MULTIPLE KNIFE EDGE TRIMMER OPERATOR, PMHNP-[facility] Psychiatry [facility] Current Outpatient Medications Medication Sig Dispense Refill DULoxetine HCl 60 MG Oral Capsule Delayed Release Particles (Cymbalta) Take 1 Capsule by mouth in the morning. 90 Capsule 0 docusate sodium (COLACE) 50 MG Capsule Take by mouth at bedtime. Dicyclomine HCl 10 MG Oral Capsule (Bentyl) TAKE ONE CAPSULE BY MOUTH FOUR TIMES A DAY NEEDED FOR ABDOMINAL PAIN 360 Capsule 1 Lubiprostone 24 MCG Oral Capsule (Amitiza) TAKE ONE CAPSULE BY MOUTH TWICE A DAY WITH MORNING AND EVENING MEALS 180 Capsule 1 hydroCHLOROthiazide 25 MG Oral Tablet (Hydrodiuril) Take 1 tablet by mouth every morning. 90 Tablet0 hydrOXYzine HCl 10 MG Oral Tablet (Atarax) Take 1 Tablet by mouth 2 times a day as needed for Nausea or Anxiety. 120 Tablet 0 busPIRone HCl 7.5 MG Oral Tablet (Buspar) Take 2 Tablets by mouth in the morning and 2 Tablets before bedtime. 360 Tablet 0 DULoxetine HCl 30 MG Oral Capsule Delayed Release Particles (Cymbalta) Take 1 Capsule by mouth daily at noon. 90 Capsule 1 Escitalopram Oxalate 20 MG Oral Tablet (Lexapro) Take 1 Tablet by mouth in the morning. 90 Tablet 1 Levothyroxine Sodium 25 MCG Oral Tablet (Levoxyl) Take 1 Tablet by mouth in the morning. (at least 30 min prior to breakfast or other meds). 30 Tablet 11 Alfuzosin HCl ER 10 MG Oral Tablet Extended Release 24 Hour (Uroxatral) Take 1 Tablet by mouth in the morning. 90 Tablet 3 Pantoprazole Sodium 40 MG Oral Tablet Delayed Release (Protonix) TAKE ONE TABLET BY MOUTH EVERY DAYBEFORE BREAKFAST 90 Tablet 3 Lisinopril 40 MG Oral Tablet Take 1 Tablet by mouth in the morning. 90 Tablet 3 No current facility-administered medications for this visit. documented in this encounter Plan of Treatment Upcoming Encounters Date Type Department Care Team (Latest Contact Info) Description 08/26/2023 1:30 PM EST Hospital Encounter ENDO OSSC, Endoscopy Room [facility] [address] [phone] Zane Olson MD [address] [address] 08/26/2023 1:30 PM EST - 08/26/2023 2:00 PM EST Surgery ENDO [facility], Endoscopy Room [facility] [address] [phone] Zane Olson MD [address] [address] COLONOSCOPY FLEXIBLE PROXIMAL DIAGNOSTIC 08/30/2023 12:30 PM EST Office Visit Psychiatry, [facility] [address] [facility] [place] [address] Ofelia Nielsen CRNP [address] [facility] [place] [address] 11/30/2023 1:20 PM EDT Office Visit Family Practice [facility] [address] [address] Kimberly Sidhu DO [address] [address] 12/21/2023 1:30 PM EDT Office Visit Urology, [facility] [address] [place] [address] Valentín Azul MD [address] [facility] [address] [address] Scheduled Procedures Name Priority Associated Diagnoses Date/Ti me COLONOSCOPY FLEXIBLE PROXIMAL DIAGNOSTIC History of colon polyps 08/26/2023 1:30 PM EST Health Maintenance Due Date Last Done Comments Pneumococcal Vaccine: 65+ Years (2 - PCV) 02/08/2021 02/09/2020 Depression Screening 02/26/2023 02/26/2022 COVID-19 Vaccine (5 - 2022-24 season) 2023 02/26/2022, 05/19/2021, 10/19/2020, Additional history exists Influenza Vaccine (FLU shot) (#1) 2023 05/18/2022, 03/15/2020 COLONOSCOPY-EVERY 3 YRS AGES 18-100 07/25/2023 07/25/2020, 07/25/2020 TSH 05/31/2024 05/31/2023, 02/09/2020 GFR 06/18/2024 06/18/2023, 12/12/2022, 05/31/2023, Additional history exists Albumin/Creatinine Ratio 05/31/2026 05/31/2023, 02/09 Diabetes Screening 06/18/2026 06/18/2023, 1 08/17/2022, 05/31/2023, Additional history exists DTaP,Tdap,and Td Vaccines (2 - Td or Tdap) 10/19/2026 10/19/2016 Lipid Panel 05/31/2028 05/31/2023, 01/11, 10/17/2018 AAA Screening Completed 02/14/2020 Zoster Vaccines [...] this encounter Medical Devices Implanted Type Area Retail Sales Manager Device Identifier Shelf Expiration Date Model / Serial / Lot Lens Intraoc 22.5 - [id number] - [id number] Implanted:Qty: 1 on 06/16/2022 by Garcia Winters MD at OR [facility] Left: Eye [employer]OM[employer] 02/08/2027 [id number] / [id number] / [id number] Lens Intraoc 23.0 - [id number] - [id number] Implanted:Qty: 1 on 06/30/2022 by Garcia Winters MD at OR [facility] Right: Eye [employer] LOMB 02/08/2027 [id number] / [id number] / [id number] documented as of this encounter Visit Diagnoses Diagnosis Generalized anxiety disorder- Primary Major depressive disorder, recurrent episode, mild (HCC) Major depressive disorder, recurrent episode, mild Panic disorder Panic disorder without agoraphobia Insomnia due to other mental disorder History of colon polyps Personal history of [...] the patient have Health Care Power of Chainstitch Pants Outseamer? No Code Status History Code Status Date Activated Date Inactivated Comments No Code 06/16/2022 12:24 PM 06/16/2022 6:37 PM This order reflects the patients wishes and were consensually agreed upon. Question Answer Comments Discussion of Advance Directives occurred with: Patient Does the patient have a Living Will? No Does the patient have Health Care Power of Chainstitch Pants Outseamer? No Care Teams Medical Data Analyst Relationship Specialty Start Date End Date Kimberly Sidhu DO [address] [address] PCP - General Family Medicine 05/31/23 documented as of this encounter
--- OUTSIDE RECORDS SUMMARY | 2023-08-05 08:07 | External Medical Summary | Summary of Care ---
Author Name Unknown Organization [facility] Address [address] [place] [address] Phone [phone] Care Team Providers Care Amusement Or Recreation Card Checker Name Role Phone Kimberly Sidhu DO Primary Care Provider [phone] Reason for Visit * Reason Onset Date Comments Appointment 08/04/2023 Pt calling to [place] all appointments scheduled. Encounter Details Date Type Department Care Team (Late st Contact Info) Description 08/04/2023 Telephone Family Practice [facility] [address] [facility] [address] [facility]hu [facility] [address] App[facility]ment (Pt calling to verify all appo... Allergies No known active allergiesdocumented as of this encounter (statuses as of 08/04/2023) Medications Medication Sig Dispensed Refills Start Date [...] MORNING 90 Tablet 3 07/28/2023 07/27/2024 Active Levothyroxine Sodium 25 MCG Oral Tablet (Levoxyl) Take 1 Tablet by mouth in the morning. (at least 30 min prior to breakfast or other meds). 90 Tablet 3 07/31/2023 Active documented as of this encounter (statuses as of 08/04/2023) Active Problems Problem Noted Date Diagnosed Date [...] as of this encounter (statuses as of 08/04/2023) Immunizations Name Administration Dates Next Due COVID-19 mRNA, LNP-s, No Pre serve, 2-Dose Series (Talko) 10/19/2020,09/28/2020 COVID-19, LNP-s, No Preserve , Ketan-sucrose, Ages 12+ (Talko) 02/26/2022,05/19/2021 Pneumococcal Polysaccharide PPV23 (Pneumovax) Season Influenza, [...] encounter Miscellaneous Notes * Telephone Encounter - Rima Floyd OSA - 08/04/2023 9:23 AM EST Pt calling to verify all appointments scheduled. documented in this encounter Plan of Treatment Upcoming Encounters Date Type Department Care Team (Latest Contact Info) Description 08/26/2023 1:30 PM EST Hospital Encounter ENDO OSSC, Endoscopy Room [facility] [address] [phone] Zane Olson MD [address] [address] 08/26/2023 1:30 PM EST - 08/26/2023 2:00 PM EST Surgery ENDO OSSC, Endoscopy Room [facility] [address] [phone] Zane Olson MD [address] [place] [address] COLONOSCOPY FLEXIBLE PROXIMAL DIAGNOSTIC 08/30/2023 12:30 PM EST Office Visit Psychiatry, [facility] [address] [place] [address] Ofelia Nielsen CRNP [address] [place] [address] 11/30/2023 1:20 PM EDT Office Visit Family Practice [facility] [address] [place] [address] Kimberly Sidhu DO [address] [place] [address] 12/21/2023 1:30 PM EDT Office Visit Urology, [facility] [address] [place] [address] Valentín Azul MD [address] [address] Scheduled Procedures Name Priority Associated Diagnoses Date/Ti me COLONOSCOPY FLEXIBLE PROXIMAL DIAGNOSTIC History of colon polyps 08/26/2023 1:30 PM EST Health Maintenance Due Date Last Done Comments Pneumococcal Vaccine: 65+ Years (2 - PCV) 02/08/2021 02/09/2020 Depression Screening 02/26/2023 02/26/2022 COVID-19 Vaccine (2022- season) 2023 02/26/2022, 05/19/2021, 10/19/2020, Additional history [...] this encounter Medical Devices Implanted Type Area Digital Marketing Assistant Device Identifier Shelf Expiration Date Model / Serial / Lot Lens Intraoc 22.5 - [id number] - [id number] Implanted:Qty: 1 on 06/16/2022 by Garcia Winters MD at OR [facility] Left: Eye [employer]CH [employer] LOMB 02/08/2027 [id number] / [id number] / [id number] Lens Intraoc 23.0 - [id number] - [id number] Implanted:Qty: 1 on 06/30/2022 by Garcia Winters MD at OR [facility] Right: Eye [employer]CH [employer] LOMB 02/08/2027 [id number] / [id number] / [id number] documented as of this encounter Advance Directives [...] the patient have Health Care Power of Radiation Therapy Technician? No Code Status History Code Status Date Activated Date Inactivated Comments No Code 06/16/2022 12:24 PM 06/16/2022 6:37 PM This order reflects the patients wishes and were consensually agreed upon. Question Answer Comments Discussion of Advance Directives occurred with: Patient Does the patient have a Living Will? No Does the patient have Health Care Power of Radiation Therapy Technician? No Care Teams Amusement Or Recreation Card Checker Relationship Specialty Start Date End Date Kimberly Sidhu DO [address] [address] PCP - General Family Medicine 05/31/23 documented as of this encounter
[2023-08-05 08:48] LABS: Basophils # (auto) 0.02 K/uL (0.00-0.20); Basophils % (auto) 0.2 %; Eosinophils # (auto) 0.05 K/uL (0.00-0.50); Eosinophils % (auto) 0.4 %; Hematocrit (blood only) 42.8 % (42.0-52.0); Hemoglobin 15.9 g/dl (14.0-18.0); Immature Granulocytes # (auto) 0.12 K/uL (0.01-0.20); Immature Granulocytes % (auto) 0.9 %; Lymphocytes # (auto) 1.99 K/uL (1.20-3.40); Lymphocytes % (auto) 15.2 %; Mean Corpuscular Hemoglobin 34.8 pg (25.0-34.0); Mean Corpuscular Hgb Conc 37.1 g/dL (32.0-36.0); Mean Corpuscular Volume 93.7 fL (80.0-100.0); Monocytes # (auto) 0.73 K/uL (0.11-0.59); Monocytes % (auto) 5.6 %; Neutrophils # (auto) 10.14 K/uL (1.40-6.50); Neutrophils % (auto) 77.7 %; Platelet Count 405 K/uL (130-400); RDW Standard Deviation 41.3 fL (36.4-46.3); Red Blood Count 4.57 M/uL (4.70-6.10); White Blood Count 13.05 K/ul (4.8-10.8)
[2023-08-05] MEDS ORDERED: SODIUM CHLORIDE 0.9% 500 ML IV SCH (09:00)
[2023-08-05] MEDS ORDERED: MECLIZINE HCL 25 MG TAB PO STA (09:02)
[2023-08-05] MEDS ORDERED: SODIUM CHLORIDE 0.9% 1,000 ML IV ONE (09:02)
--- NOTE | 2023-08-05 09:02 | Emergency Department Note ---
Impression & Plan Acute renal failure (ARF), Hyponatremia, Hypomagnesemia, Metabolic acidosis, Vertigo, Ambulatory dysfunction ED Provider Note NAME: JERONIMO DUBON AGE: 67 SEX: M : 1955 ARRIVES VIA: Walk-In INFORMANT: Patient, ED PROVIDER(S): Cj Mena MD CHIEF COMPLAINT: Vertigo MEDICAL DECISION MAKING: Patient presents due to concern for vertiginous symptoms and difficulty with balance and walking. IV was established blood work is obtained along with an EKG troponin CT of the head and CT angiography of the head and neck. Patient was ordered IV fluids as well as meclizine. After reviewing the patient's medication list I did ask whether not the patient did stop taking hydrochlorothiazide which was also mentioned in the patient's outpatient nephrology note. Family at bedside stated the patient was still taking this. Patient's blood work shows a white count of 13 with a normal H&H and mild thrombocytosis of 4-5. Kidney function acute renal failure and associated metabolic acidosis. Creat of 6. This is an acute change. CT angiography's were canceled given the patient's elevated creatinine. A lactate was ordered the patient did have a CT of the abdomen pelvis ordered. Magnesium low at 1.5. The patient was ordered replete meant. Alcohol ordered. I did speak with Dr. Berg who agreed with the plan of care but did suggest switching to an isotonic solution no NS which is Plasma-Lyte which was ordered. Nursing was advised to stop the normal saline. The patient did have urine and serum osmolality ordered and urine electrolytes. Subsequently did speak with Olimpia Kenyon PA-C and Dr. Holder. Patient was admitted to the medicine service. There is concern that the patient's acute renal failure may have been exacerbated by his history of chronic alcohol use poor p.o. intake doubling his lisinopril and not stopping his hydrochlorothiazide. Discussion w/ other healthcare providers: Olimpia Kenyon PA-C and Dr. Holder [facility] Dr. [place] nephrology Prior /Outside records reviewed: I did review most recent nephrology visit from July 14, [address] Peacock. Patient was noted to have recent episode of HUGO hypercalcemia and hyponatremia hyponatremia. After the initial visit sodium dropped to 127 and hydrochlorothiazide was stopped. Lisinopril was increased to 20 mg twice daily. Patient was advised to avoid excessive alcohol. Differential diagnosis: Benign positional vertigo, dehydration, hypovolemia, anemia, infection, hypoglycemia, electrolyte abnormalities, arrhythmia, tox among others were considered. Diagnostics, as interpreted by me: ECG: Normal sinus rhythm, rate of 86, normal intervals, normal axis no ST elevations or TWI. Cardiac monitoring: An order was placed for continuous cardiac monitoring. The monitor shows a rate of 85 with sinus rhythm. Patient was placed on pulse oximetry Medical decision rules: None Imaging studies: I informally interpreted the patient's CT head which does not show obvious ICH with formal report to follow. I informally interpreted the patient's CT abdomen pelvis which does not show obvious hydronephrosis. HPI: Patient presents due to concern for gait and balance and difficulty with walking. This been ongoing for the last week. Patient denies any chest pains or shortness of breath. Initial triage assessment was that the patient had syncope which was not true per her son at bedside. The patient states that he gets lightheaded dizzy and feels off balance to reduce fall to his knees. The patient believes that he did strike the front of his head this morning. The patient denies any hearing loss or changes in elevation or underwater activities. The patient has had tinnitus bilaterally for "some time." Patient denies any chest pains or shortness of breath. The patient is had chronic abdominal issues and has a history of diverticulosis and constipation but without any recent bouts of diverticulitis. Patient states that he does drink alcohol but does not drink daily. Son also provides history stating that he was recently seen by Dr. Peacock and did have medication changes but is unsure as to what medication was removed but that his lisinopril was increased to 40 mg. Further history was obtained from the sons at bedside while the patient was out of the room. They do report that the patient has suffered from more excessive alcohol use but in light of the patient's worsening kidney function this month they had advised him to stop believes that he had started to stop drinking but unsure as to whether or not he had any recent. PAST MEDICAL HISTORY: See Below PAST SURGICAL HISTORY: See Below SOCIAL HISTORY: See Below HOME MEDICATIONS: See Below ALLERGIES: See Below VITALS: See Below PHYSICAL EXAMINATION: GENERAL: NAD, non-toxic. EYE EXAM: Normal conjunctiva. PERRL, no anisocoria and EOM's grossly intact w/o pain. OROPHARYNX: Dry mucus membranes, grossly normal dentition. NECK: Supple, no nuchal rigidity, no adenopathy, non-tender. No signs of meningismus. FROM of the neck with good chin to chest and neck extension. No stridor. LUNGS: Clear to auscultation. Normal chest wall mechanics. HEART: NSR, no MRG. ABDOMEN: Abdomen soft, non-tender, no masses, no rebound or guarding. BACK: No CVA TTP. SKIN: No rashes and no bruising. UPPER EXTREMITIES: Upper extremities are grossly normal. LOWER EXTREMITIES: Grossly normal, no edema. NEURO EXAM: A&O x3, cranial nerves II-XII grossly intact, normal speech, moves all 4 extremities. Difficulty with upper extremity [id number] with eyes closed. After several tries he does accomplish this but initially strikes his forehead. Good [id number]. No sensory deficits. Past Med/Surg History Medical History (Updated 08/05/23 @ 10:45 by Cj Mena MD) Hypomagnesemia Hypokalemia Hypercalcemia Hyponatremia Acute kidney injury Diverticulitis HTN (hypertension) Surgical History (Updated 08/24/22 @ 08:53 by Elvia Galeas RN) History of bilateral cataract extraction H/O hernia repair History of ankle surgery bilateral Social History Smoking Status: Never smoker Preferred Language: Tanzanian Feels Safe at Home: Yes Allergies Allergies Allergy/AdvReac Type Severity Reaction Status Date / Time No Known Allergies Allergy Verified 07/14/23 12:42 Home Meds Home Medications Medication Instructions Recorded Confirmed dicyclomine 10 mg capsule 10 mg PO QID PRN Abdominal Pain 02/18/20 08/05/23 escitalopram oxalate 20 mg tablet 20 mg PO DAILY 08/24/22 08/05/23 lubiprostone 24 mcg capsule 24 mcg PO BID 08/24/22 08/05/23 pantoprazole 40 mg tablet,delayed 40 mg PO QAM 08/24/22 08/05/23 release alfuzosin 10 mg tablet,extended 10 mg PO QAM 06/17/23 08/05/23 release 24 hr duloxetine 30 mg capsule,delayed 30 mg PO .NOON 06/17/23 08/05/23 release levothyroxine 25 mcg tablet 25 mcg PO QAM 06/17/23 08/05/23 buspirone 7.5 mg tablet 15 mg PO BID 08/05/23 08/05/23 duloxetine 60 mg capsule,delayed 60 mg PO QAM 08/05/23 08/05/23 release hydrochlorothiazide 25 mg tablet 25 mg PO QAM 08/05/23 08/05/23 lisinopril 40 mg tablet 40 mg PO QAM 08/05/23 08/05/23 Previous Rx's Medication Instructions Recorded magnesium chloride 71.5 mg 71.5 mg PO BID #60 tabs 06/28/23 (magnesium chloride) tablet,delayed release (Slow-Mag) Results & Data (ED) Vital Signs Vital Signs - 24 hr 08/05/23 07:53 08/05/23 08:24 08/05/23 08:47 Temperature 36.5 C Temperature Source Temporal Artery Scan Pulse Rate 96 H 77 Pulse Rhythm Regular Respiratory Rate 22 Respiratory Effort / Characteristics Non-Labored Spontaneous Respiratory Depth Normal Blood Pressure 100/83 Blood Pressure Mean 88 Pulse Oximetry 98 99 Oxygen Delivery Method Room Air Room Air Sepsis Recent Fever Within 48 Hours No Sepsis New/Unexplained Change in Mental Status No Sepsis Action Taken by Nursing No Action Required 08/05/23 08:49 Temperature Temperature Source Pulse Rate Pulse Rhythm Respiratory Rate Respiratory Effort / Characteristics Respiratory Depth Blood Pressure Blood Pressure Mean Pulse Oximetry Oxygen Delivery Method Room Air Sepsis Recent Fever Within 48 Hours Sepsis New/Unexplained Change in Mental Status Sepsis Action Taken by Retirement Medications Current Medication List: was personally reviewed by me Laboratory Data Attestation: I reviewed the patient's lab results. 08/05/23 08:06 08/05/23 08:06 Lab Results 08/05/23 08/05/23 Range/Units 08:06 10:11 WBC 13.05 H (4.8-10.8) K/ul RBC 4.57 L (4.70-6.10) M/uL Hgb 15.9 (14.0-18.0) g/dl Hct 42.8 (42.0-52.0) % MCV 93.7 (80.0-100.0) fL MCH 34.8 H (25.0-34.0) pg MCHC 37.1 H (32.0-36.0) g/dL RDW Std Deviation 41.3 (36.4-46.3) fL RDW Coeff of Suresh 12.0 (11.5-14.5) % Plt Count 405 H (130-400) K/uL MPV 11.0 (9.4-12.4) fL Immature Gran % (Auto) 0.9 % Neut % (Auto) 77.7 % Lymph % (Auto) 15.2 % [place] % (Auto) 5.6 % Eos % (Auto) 0.4 % Baso % (Auto) 0.2 % Neut # (Auto) 10.14 H (1.40-6.50) K/uL Lymph # (Auto) 1.99 (1.20-3.40) K/uL [place] # (Auto) 0.73 H (0.11-0.59) K/uL Eos # (Auto) 0.05 (0.00-0.50) K/uL Baso # (Auto) 0.02 (0.00-0.20) K/uL Immature Gran # (Auto) 0.12 (0.01-0.20) K/uL PT 10.9 (9.0-12.0) Seconds INR 1.0 (0.9-1.1) APTT 30 (21-31) Seconds PTT Ratio 1.1 Sodium 127 L (136-145) mmol/L Potassium 3.7 (3.5-5.1) mmol/L Chloride 94 L (98-107) mmol/L Carbon Dioxide 16 L (21-32) mmol/L Anion Gap 17 H (3-11) BUN 66 H (6-23) mg/dl Creatinine 6.26 H* (0.6-1.4) mg/dl Est Cr Clr Drug Dosing Not Reportable Est GFR ( Amer) 9.6 ml/min Est GFR (Non-Af Amer) 8.3 ml/min BUN/Creatinine Ratio 10.5 (10-20) Glucose 112 H (70-99(Fasting)) mg/dl Osmolality 288 (280-300) mOsm/kg Lactate 1.8 (0.4-2.0) mmol/L Calcium 10.8 H (8.6-10.3) mg/dl Magnesium 1.5 L (1.7-2.4) mg/dl Total Bilirubin 0.6 (0.2-1.0) mg/dl AST 11 L (13-39) U/L ALT 12 (7-52) U/L Alkaline Phosphatase 49 (34-104) U/L Troponin I High Sens 10.9 (0-20) pg/ml Total Protein 7.8 (6.0-8.3) gm/dl Albumin 4.5 (3.4-5.0) gm/dl Globulin 3.3 (2.5-4.0) gm/dl Albumin/Globulin Ratio 1.4 (0.9-2) Administered Medications Parenteral Electrolytes (Plasma-Lyte A Ph 7.4) 1,000 mls @ 999 mls/hr IV .Q1H1M ONE Stop: 08/05/23 10:47 Last Admin: 08/05/23 10:30 Dose: 999 mls/hr Documented By: HAIR Discontinued Medications Sodium Chloride (Nss) 500 mls @ 999 mls/hr IV .Q31M SADIA Stop: 08/05/23 09:30 Last Admin: 08/05/23 10:05 Dose: Not Given Documented By: HAIR Sodium Chloride (Nss) 1,000 mls @ 999 mls/hr IV .Q1H1M ONE Stop: 08/05/23 10:02 Last Admin: 08/05/23 10:05 Dose: Not Given Documented By: HAIR Meclizine HCl (Meclizine Hcl 25 Mg Tab) 25 mg PO NOW STA Stop: 08/05/23 09:03 Last Admin: 08/05/23 09:42 Dose: 25 mg Documented By: HAIR Imaging Data Radiologist's Impression: Head CT 08/05/23 09:00 CT head/brain wo con CLINICAL HISTORY: 67 years-old Male with syncope. Acute syncope with confusion TECHNIQUE: Multiple axial CT images of the head were obtained without contrast. A dose lowering technique was utilized adhering to the principles of ALARA. CT DOSE: 625.8 mGy.cm COMPARISON: None. FINDINGS: No acute intracranial hemorrhage, midline shift, intracranial mass, hydrocephalus, territorial ischemia or abnormal extra-axial collection. Involutional changes with white matter hypodensities, likely representing chronic microvascular ischemic disease. The calvarium is intact. The paranasal sinuses, mastoid air cells, and middle ear cavities are clear. IMPRESSION: No acute intracranial abnormality. ACT 112: Negative or not required by law. The above report was generated using voice recognition software. It may contain grammatical, syntax or spelling errors. Electronically signed by: Moisés Guerrier M.D. 08/05/2023 10:19 AM Abdomen/Pelvis CT 08/05/23 09:[address] WITHOUT CONTRAST CT DOSE: 628.37 mGy.cm HISTORY: Acute renal failure arf TECHNIQUE: Multiaxial CT images of the abdomen and pelvis were performed without contrast. A dose lowering technique was utilized adhering to the principles of ALARA. COMPARISON STUDY: CT 02/18/2020 FINDINGS: No acute abnormality identified within the imaged lower chest. 6 mm indeterminate subpleural nodule of the basal right lower lobe on image 42. No free air. The unenhanced spleen, and adrenal glands are unremarkable. There is questioned fundal adenomyomatosis of the gallbladder. There are a few scattered subcentimeter parenchymal calcifications of the pancreas suggestive of sequela of chronic pancreatitis. Unremarkable liver. There is mild nonspecific bilateral perinephric stranding. Subcentimeter hypodensity of the superior pole right kidney is too small to characterize, likely a small cyst. No renal or ureteral calculi or hydronephrosis. Decompressed bladder with circumferential wall thickening. Prostatomegaly. Atherosclerosis of the aorta without aneurysm. No lymphadenopathy. There is no bowel obstruction or bowel wall thickening. Colonic diverticulosis. Normal appendix. Tiny fat filled umbilical hernia. No acute fracture identified. IMPRESSION: 1. No renal or ureteral calculi or hydronephrosis. 2. Prostatectomy with findings suggestive of chronic outlet obstruction. Correlate with urinalysis. 3. Colonic diverticulosis. 4. 6 mm solid nodule of the right lower lobe. 5. Additional findings as above. Please refer to below summary of Fleischner criteria recommendations for follow- up of incidental CT nodules (Tito Collins, Guidelines for management of small pulmonary nodules detected on CT scans: A statement from the Fleischner Society, Radiology 237: [phone].) SOLID NODULES Solitary nodule size: <6 mm * Low risk patients: no follow-up needed * high risk patients: optional CT at 12 months Note: newly detected indeterminate nodule in persons 35 years of age or older. * Low risk patients: minimal or absent history of smoking and/or other known risk factors * high risk patients: history of smoking or of other known risk factors (e.g. first degree relative with lung cancer, or exposure to asbestos, radon, uranium) * if a nodule up to 8 mm is partly solid or is ground glass further follow-up is required after 24 months to exclude possible slow growing adenocarcinoma (FRANCIE) ACT 112: Negative or not required by law. The above report was generated using voice recognition software. It may contain grammatical, syntax or spelling errors. Electronically signed by: Moisés Guerrier M.D. 08/05/2023 10:34 AM Discharge Plan Visit Data Chief Complaint: Syncope Stated Complaint: syncope yesterday and today, disoriented ED Provider: Cj Mena Discharge Problem: Acute renal failure (ARF), Hyponatremia, Hypomagnesemia, Metabolic acidosis, Vertigo, Ambulatory dysfunction Forms Stand Alone Forms: [facility] [employer] Prescriptions Prescriptions: No Action Slow-Mag 71.5 mg tablet,delayed release (DR/EC) 71.5 mg PO BID Qty: 60 3RF Rx Instructions: Please advise to take 2 tab bid today and then continue 1 tab bid levothyroxine 25 mcg tablet 25 mcg PO QAM alfuzosin 10 mg tablet extended release 24 hr 10 mg PO QAM Rx Instructions: administer after the same meal each day dicyclomine 10 mg Capsule 10 mg PO QID PRN (Reason: Abdominal Pain) duloxetine 30 mg capsule,delayed release(DR/EC) 30 mg PO .NOON buspirone 7.5 mg tablet 15 mg PO BID hydrochlorothiazide 25 mg tablet 25 mg PO QAM lisinopril 40 mg tablet 40 mg PO QAM duloxetine 60 mg capsule,delayed release(DR/EC) 60 mg PO QAM pantoprazole 40 mg Tablet,Delayed Release (Dr/Ec) 40 mg PO QAM escitalopram oxalate 20 mg Tablet 20 mg PO DAILY lubiprostone 24 mcg Capsule 24 mcg PO BID Referrals Referrals: Michele Bone DO [Primary Care Provider] - Discharge Problem: Acute renal failure (ARF) Qualifiers: Acute renal failure type: unspecified Qualified Code(s): N17.9 - Acute kidney failure, unspecified
[2023-08-05 09:09] LABS: Alanine Aminotransferase 12 U/L (7-52); Albumin Globulin Ratio 1.4 (0.9-2); Albumin Level 4.5 gm/dl (3.4-5.0); Alkaline Phosphatase 49 U/L (34-104); Anion Gap 17 (3-11); Aspartate Aminotransferase 11 U/L (13-39); BUN Creatinine Ratio 10.5 (10-20); Bilirubin,Total 0.6 mg/dl (0.2-1.0); Blood Urea Nitrogen 66 mg/dl (6-23); Calcium 10.8 mg/dl (8.6-10.3); Carbon Dioxide 16 mmol/L (21-32); Chloride 94 mmol/L (98-107); Est GFR (African American) 9.6 ml/min; Est GFR (Non-African American) 8.3 ml/min; Globulin 3.3 gm/dl (2.5-4.0); Glucose 112 mg/dl (70-99(Fasting)); Potassium 3.7 mmol/L (3.5-5.1); Sodium 127 mmol/L (136-145); Total Protein 7.8 gm/dl (6.0-8.3)
[2023-08-05 09:14] LABS: Troponin I High Sensitivity 10.9 pg/ml (0-20)
[2023-08-05 09:17] LABS: Partial Thromboplastin Ratio 1.1; Partial Thromboplastin Time 30 Seconds (21-31); Prothrombin Time 10.9 Seconds (9.0-12.0)
[2023-08-05 09:27] LABS: Magnesium 1.5 mg/dl (1.7-2.4)
[2023-08-05] MEDS ORDERED: PLASMA-LYTE A 1,000 ML IV ONE (09:47)
[2023-08-05] MEDS ORDERED: MAGNESIUM SULFATE / D5W 1 GM/100 ML BAG IV STA (09:47)
--- NOTE | 2023-08-05 10:21 | CT Scan Report ---
CT head/brain wo con CLINICAL HISTORY: 67 years-old Male with syncope. Acute syncope with confusion TECHNIQUE: Multiple axial CT images of the head were obtained without contrast. A dose lowering tech nique was utilized adhering to the principles of ALARA. CT DOSE: 625.8 mGy.cm COMPARISON: None. FINDINGS: No acute intracranial hemorrhage, midline shift, intracranial mass, hydrocephalus, territorial ischem ia or abnormal extra-axial collection. Involutional changes with white matter hypodensities, likely r epresenting chronic microvascular ischemic disease. The calvarium is intact. The paranasal sinuses, mastoid air cells, and middle ear cavities are clear . IMPRESSION: No acute intracranial abnormality. ACT 112: Negative or not required by law. The above report was generated using voice recognition software. It may contain grammatical, syntax o r spelling errors. Electronically signed by: Moisés Guerrier M.D. 08/05/2023 10:19 AM
--- NOTE | 2023-08-05 10:37 | CT Scan Report ---
ABDOMEN AND PELVIS CT WITHOUT CONTRAST CT DOSE: 628.37 mGy.cm HISTORY: Acute renal failure arf TECHNIQUE: Multiaxial CT images of the abdomen and pelvis were performed without contrast. A dose lo wering technique was utilized adhering to the principles of ALARA. COMPARISON STUDY: CT 02/18/2020 FINDINGS: No acute abnormality identified within the imaged lower chest. 6 mm indeterminate subpleura l nodule of the basal right lower lobe on image 42. No free air. The unenhanced spleen, and adrenal g lands are unremarkable. There is questioned fundal adenomyomatosis of the gallbladder. There are a fe w scattered subcentimeter parenchymal calcifications of the pancreas suggestive of sequela of chronic pancreatitis. Unremarkable liver. There is mild nonspecific bilateral perinephric stranding. Subcentimeter hypodensity of the superior pole right kidney is too small to characterize, likely a small cyst. No renal or ureteral calculi or hydronephrosis. Decompressed bladder with circumferential wall thickening. Prostatomegaly. Atheroscle rosis of the aorta without aneurysm. No lymphadenopathy. There is no bowel obstruction or bowel wall thickening. Colonic diverticulosis. Normal appendix. Tiny fat filled umbilical hernia. No acute fracture identified. IMPRESSION: 1. No renal or ureteral calculi or hydronephrosis. 2. Prostatectomy with findings suggestive of chronic outlet obstruction. Correlate with urinalysis. 3. Colonic diverticulosis. 4. 6 mm solid nodule of the right lower lobe. 5. Additional findings as above. Please refer to below summary of Fleischner criteria recommendations for follow-up of incidental CT n odules (Tito Collins, Guidelines for management of small pulmonary nodules detected on CT scans: A sta tement from the Fleischner Society, Radiology 237: [phone].) SOLID NODULES Solitary nodule size: <6 mm * Low risk patients: no follow-up needed * high risk patients: optional CT at 12 months Note: newly detected indeterminate nodule in persons 35 years of age or older. * Low risk patients: minimal or absent history of smoking and/or other known risk factors * high risk patients: history of smoking or of other known risk factors (e.g. first degree relative with lung cancer, or exposure to asbestos, radon, uranium) * if a nodule up to 8 mm is partly solid or is ground glass further follow-up is required after 24 m onths to exclude possible slow growing adenocarcinoma (FRANCIE) ACT 112: Negative or not required by law. The above report was generated using voice recognition software. It may contain grammatical, syntax o r spelling errors. Electronically signed by: Moisés Guerrier M.D. 08/05/2023 10:34 AM
--- NOTE | 2023-08-05 10:44 | History & Physical Report ---
Date of Service August 05, 2023 Assessment & Plan (1) Acute kidney injury superimposed on CKD: Plan: This is a 67-year-old male with PMH of hypertension, BPH, depression, tobacco use, alcohol use disorder, generalized anxiety disorder, IBS with constipation and diarrhea and other medical problems listed below who presents with dizziness, difficulty with balance and walking. In setting of chronic alcohol use, poor nutrition, dehydration and chronic bladder outlet obstruction Cr elevated at 6.26 (baseline Cr ~1.1) Urine lytes pending Recently saw Dr. Nguyen and was instructed to dc hctz and increased lisinopril to 40mg but unfortunately there was miscommunication and patient has continued hctz Discontinue hctz Hold lisinopril in setting of HUGO Avoid any contrasted imaging studies until Cr improves CT abd/pelvis with prostatectomy with findings suggestive of chronic outlet obstruction. Correlate with urinalysis Recently started on alfuzosin by urology. Bladder scan Q6H and monitor for retention ED provider discussed with Dr. Milton of nephrology who suggested switching to an isotonic solution, so Plasma-Lyte was ordered. Appreciate nephro recs Repeat BMP pending, avoid nephrotoxic agents (2) Ambulatory dysfunction: (3) Disequilibrium: Plan: In setting of chronic etoh use CT head without acute abnormalities Obtaining brain MRI wo contrast to rule out stroke giving cerebellar symptoms although underlying chronic alcoholism is a major contributor Fall precautions, eventual PT/OT (4) Alcohol use disorder: Plan: Daily bourbon and beer, extensive discussion about importance of etoh cessation for overall health with sons at bedside AWSS protocol, PRN ativan, B12 and Folate levels pending, plan to supplement (5) High anion gap metabolic acidosis: Plan: AG 17, bicarb 16 in setting of HUGO Monitor with serial BMPs, expect improvement with resolution of kidney injury, improvement of nutritional status (6) Hyponatremia: Plan: Sodium 127 (noted to be chronically low 125-132 in setting of alcoholism). Serum osm WNL, urine osm and lytes pending Monitor with serial BMPs Nephrology consulted as above (7) Bladder outlet obstruction: Plan: Cont alfuzosin for now, consider addition of Flomax, bladder scan as above. Established with Dr. Azul of [facility] urology (8) Hypomagnesemia: Plan: Initial Mag 1.5 in ED. Replaced, cont. home PO supplement (9) HTN (hypertension): Plan: BP lower end of normal at 105/60. Holding lisinopril, hctx discontinued. Continue to monitor DVT Ppx: SQ heparin Code status: FULL PCP: [facility] Dispo: Admitted to PCU Patient seen in collaboration with Dr. Holder. Please see addendum. I spent a total of 80 minutes coordinating, documenting, and providing care for this patient excluding time spent in the performance of separately billed services. History of Present Illness Primary Care Provider: Michele Bone DO This is a 67-year-old male with PMH of hypertension, BPH, depression, tobacco use, alcohol use disorder, generalized anxiety disorder, IBS with constipation and diarrhea and other medical problems listed below who presents with dizziness, difficulty with balance and walking. Patient is a poor historian, but states he has been having intermittent issues with dizziness, weakness and coordination with walking over the past few weeks. He felt his worse this morning around 4 AM, and called his sons for help. It took both of them to help him ambulate into the car and come to the ED for further evaluation. Patient with significant alcoholism at baseline, endorsing 1/2 pint of bourbon daily and up to an additional 3 16 ounce beers a day. Last drink was last evening. Follows with Dr. Nguyen of nephrology and was last seen at the beginning of July with recent episode of HUGO, hypercalcemia and hyponatremia. At that time, creatinine was 1.5 with sodium of 130 and calcium of 10.2. [place] that hyponatremia and hypercalcemia were multifactorial including excessive alcohol consumption and hydrochlorothiazide. Was directed to discontinue hydrochlorothiazide and lisinopril was increased to 20 mg twice daily, however there was some confusion about medication reconciliation due to switching PCPs and patient has continued on the HCTZ as well as increasing lisinopril to 40 mg daily. Currently feels comfortable at rest although rundown. Also with intermittent feelings of nausea in the morning over the past few years and has undergone an outpatient workup with scope per family that was negative. Does have history of diverticulosis and IBS but states abdominal symptoms have not changed or worsened recently. Denies any fever, chills, headache, chest pain, shortness of breath, vomiting, dysuria, diarrhea or constipation. No blood in bowel movements. ED provider discussed with Dr. Milton of nephrology who suggested switching to an isotonic solution, so Plasma-Lyte was ordered. Allergies Allergy/AdvReac Type Severity Reaction Status Date / Time No Known Allergies Allergy Verified 07/14/23 12:42 Home Medications Medication Instructions Recorded Confirmed Type dicyclomine 10 mg capsule 10 mg PO QID PRN Abdominal Pain 02/18/20 08/05/23 History lubiprostone 24 mcg capsule 24 mcg PO BID 08/24/22 08/05/23 History pantoprazole 40 mg tablet,delayed 40 mg PO QAM 08/24/22 08/05/23 History release alfuzosin 10 mg tablet,extended 10 mg PO QAM 06/17/23 08/05/23 History release 24 hr levothyroxine 25 mcg tablet 25 mcg PO QAM 06/17/23 08/05/23 History magnesium chloride 71.5 mg 71.5 mg PO BID #60 tabs 06/28/23 08/05/23 Rx (magnesium chloride) tablet,delayed release (Slow-Mag) buspirone 7.5 mg tablet 15 mg PO BID 08/05/23 08/05/23 History duloxetine 60 mg capsule,delayed 60 mg PO QAM 08/05/23 08/05/23 History release hydrochlorothiazide 25 mg tablet 25 mg PO QAM 08/05/23 08/05/23 History lisinopril 40 mg tablet 40 mg PO QAM 08/05/23 08/05/23 History Past Med/Surg History Medical History (Updated 08/05/23 @ 13:22 by Olimpia Kenyon PA-C) Alcohol use disorder Hypomagnesemia Hyponatremia Diverticulitis HTN (hypertension) Surgical History History of bilateral cataract extraction H/O hernia repair History of ankle surgery bilateral Family History (Updated 08/05/23 @ 13:17 by Olimpia Kenyon PA-C) Other Mood disorder Social History Smoking Status: Never smoker Preferred Language: Azeri Feels Safe at Home: Yes Review of Systems Review of Systems: At least ten systems reviewed and negative except as noted in the HPI. Physical Exam Physical Exam: General Appearance: WD/WN, vitals as above, NAD, sitting up in bed, pleasant, conversing easily Head: normocephalic, atraumatic Eyes: normal inspection, PERRL, conjunctivae normal, anicteric sclerae, no nystagmus ENT: external ear and nose normal, oropharynx with dry mucous membranes, poor dentition Neck: normal visual inspection, trachea midline, no thyromegaly Respiratory: normal respiratory effort, lungs clear to auscultation, no wheeze, rales, rhonchi. No accessory muscle use Cardiovascular: regular rate, rhythm, no murmur, normal peripheral pulses, no BLE edema. Vessels: no JVD Chest: normal inspection of chest Abdomen/GI: normal bowel sounds, soft, nontender, no hepatosplenomegaly Extremities/Musculoskeletal: no cyanosis or clubbing, extremities motor strength 5/5 Neurologic: PERRL, EOMI, accommodation nl, no face palsy, no dysarthria, CN's II-XI intact bilaterally and moves all extremities, + some dysmetria noted on [id number] Psychiatric: A+Ox3, euthymic affect Skin: no rashes, normal color, warm/dry Results & Data Results & Data Vital Signs (Past 12 Hours) Vital Signs Temp Pulse Resp BP Pulse Ox O2 Del Method 08/05/23 08:49 Room Air 08/05/23 08:47 99 Room Air 08/05/23 08:24 77 08/05/23 07:53 36.5 C 96 H 22 100/83 98 Room Air Laboratory Results Short CBC 08/05/23 Range/Units 08:06 WBC 13.05 H (4.8-10.8) K/ul Hgb 15.9 (14.0-18.0) g/dl Hct 42.8 (42.0-52.0) % Plt Count 405 H (130-400) K/uL BMP 08/05/23 08:06 Sodium 127 L Potassium 3.7 Chloride 94 L Carbon Dioxide 16 L BUN 66 H Creatinine 6.26 H* Glucose 112 H Calcium 10.8 H Liver Function 08/05/23 Range/Units 08:06 Total Bilirubin 0.6 (0.2-1.0) mg/dl AST 11 L (13-39) U/L ALT 12 (7-52) U/L Alkaline Phosphatase 49 (34-104) U/L Albumin 4.5 (3.4-5.0) gm/dl Diagnostic Findings Head CT 08/05/23 09:00 CT head/brain wo con CLINICAL HISTORY: 67 years-old Male with syncope. Acute syncope with confusion TECHNIQUE: Multiple axial CT images of the head were obtained without contrast. A dose lowering technique was utilized adhering to the principles of ALARA. CT DOSE: 625.8 mGy.cm COMPARISON: None. FINDINGS: No acute intracranial hemorrhage, midline shift, intracranial mass, hydrocephalus, territorial ischemia or abnormal extra-axial collection. Involutional changes with white matter hypodensities, likely representing chronic microvascular ischemic disease. The calvarium is intact. The paranasal sinuses, mastoid air cells, and middle ear cavities are clear. IMPRESSION: No acute intracranial abnormality. ACT 112: Negative or not required by law. The above report was generated using voice recognition software. It may contain grammatical, syntax or spelling errors. Electronically signed by: Moisés Guerrier M.D. 08/05/2023 10:19 AM Abdomen/Pelvis CT 08/05/23 09:[address] WITHOUT CONTRAST CT DOSE: 628.37 mGy.cm HISTORY: Acute renal failure arf TECHNIQUE: Multiaxial CT images of the abdomen and pelvis were performed without contrast. A dose lowering technique was utilized adhering to the principles of ALARA. COMPARISON STUDY: CT 02/18/2020 FINDINGS: No acute abnormality identified within the imaged lower chest. 6 mm indeterminate subpleural nodule of the basal right lower lobe on image 42. No free air. The unenhanced spleen, and adrenal glands are unremarkable. There is questioned fundal adenomyomatosis of the gallbladder. There are a few scattered subcentimeter parenchymal calcifications of the pancreas suggestive of sequela of chronic pancreatitis. Unremarkable liver. There is mild nonspecific bilateral perinephric stranding. Subcentimeter hypodensity of the superior pole right kidney is too small to characterize, likely a small cyst. No renal or ureteral calculi or hydronephrosis. Decompressed bladder with circumferential wall thickening. Prostatomegaly. Atherosclerosis of the aorta without aneurysm. No lymphadenopathy. There is no bowel obstruction or bowel wall thickening. Colonic diverticulosis. Normal appendix. Tiny fat filled umbilical hernia. No acute fracture identified. IMPRESSION: 1. No renal or ureteral calculi or hydronephrosis. 2. Prostatectomy with findings suggestive of chronic outlet obstruction. Correlate with urinalysis. 3. Colonic diverticulosis. 4. 6 mm solid nodule of the right lower lobe. 5. Additional findings as above. Please refer to below summary of Fleischner criteria recommendations for follow- up of incidental CT nodules (Tito Collins, Guidelines for management of small pulmonary nodules detected on CT scans: A statement from the Fleischner So [facility], Radiology 237: [phone].) SOLID NODULES Solitary nodule size: <6 mm * Low risk patients: no follow-up needed * high risk patients: optional CT at 12 months Note: newly detected indeterminate nodule in persons 35 years of age or older. * Low risk patients: minimal or absent history of smoking and/or other known risk factors * high risk patients: history of smoking or of other known risk factors (e.g. first degree relative with lung cancer, or exposure to asbestos, radon, uranium) * if a nodule up to 8 mm is partly solid or is ground glass further follow-up is required after 24 months to exclude possible slow growing adenocarcinoma (FRANCIE) ACT 112: Negative or not required by law. The above report was generated using voice recognition software. It may contain grammatical, syntax or spelling errors. Electronically signed by: Moisés Guerrier M.D. 08/05/2023 10:34 AM Code Status & VTE Plan VTE Prophylaxis Plan VTE Prophylaxis will be ordered: Yes Supervising Physician Co-Signing Physician Notes I have seen and examined the patient and have discussed the case with the provider above. I agree with the assessment and plan as stated. 67-year-old alcoholic man presents with fatigue disequilibrium and acute renal failure. Workup also revealed a sodium of 127. Patient is a chronic alcoholic drinking 2+ beer cans and half pint of bourbon daily, last drink was last evening. In addition to the alcoholic malnutrition that is present he is also been taking an increased dose of lisinopril in addition to his HCTZ as noted above. He does have prostate enlargement and is taking Uroxatrol for this. He reports some suprapubic "soreness" but no guero dysuria. Urine studies are pending. He does report a chronic annoying discomfort in his epigastric region stating this is not as high to be heartburn and not as strong to be pain. We discussed a trial of Carafate which she was in support of. He is very clear in his statements that he is an alcoholic and needs to quit drinking. All of these issues have likely contributed to his worsening kidney function and subsequent dizziness, fatigue and imbalance. On exam vitals are stable and he is in no acute distress. He is a medium to thin build with poor dentition. He has no gross focal neurologic deficits and no asterixis. CV and pulmonary exams are unremarkable. Abdomen is soft nontender nondistended. Skin is warm and dry. Workup including CBC with mild leukocytosis and platelet count likely secondary to reactive thrombocytosis present. Chemistry panel reflects a NAGMA with hyponatremia and a BUN of 66 creatinine of 6.26 with a baseline of 1-1.1. Glucose is normal. Calcium is elevated at 10.8 and mag is 1.5. LFTs and INR are within normal limits. Additional urine studies are pending. Head CT and abdominal pelvis CT were reviewed. Troponin normal and EKG without evidence of acute ischemia. 1. Acute renal failure 2. Alcoholism at risk for withdrawal 3. Disequilibrium 4. NAGMA 5. Hyponatremia/hypomagnesemia 6. BPH As noted above acute renal failure likely secondary to a combination of factors including BPH, poor nutrition and p.o. intake, alcoholism, increased dose of lisinopril and ongoing HCTZ. Agree with consulting nephrology and continuing with IV fluid administration with frequent BMP checks. No contrasted studies were performed today and will continue to renally dose medications and hold JEANNETTE and diuretic at this time. Regarding his alcoholism continue with [facility] protocol for patient at risk. Rehab strongly recommended. Disequilibrium may be a side effect of ongoing underlying systemic issues however agree with plans for MRI of brain without contrast to ensure no evidence of stroke is present. Will also check B12 and folate and will give supplemental thiamine empirically. Acidosis expected to improve with improvement of renal failure. Magnesium replaced and continue monitoring sodium closely. Encourage p.o. solid food intake. Urine studies pending. Appreciate nephrology recommendations. Would avoid additional meclizine in setting of BPH to avoid urinary retention as an undesirable side effect. Patient also has been rapidly titrated on his SSRI recently, Cymbalta 30mg to 60mg and then to Lexapro 20mg by different providers. It is unclear how much of any or all he has actually been ingesting, but doesn't exhibit signs/symptoms of serotonin syndrome at this time. This may be contributing to his hyponatremia, also. [place], I spent a total [id number] coordinating, documenting, and providing care for this patient excluding time spent in the performance of separately billed services
[2023-08-05] MEDS ORDERED: MAGNESIUM SULFATE / D5W 1 GM/100 ML BAG IV ONE (12:26)
[2023-08-05] MEDS ORDERED: LORazepam 1 MG TAB PO PRN (12:27)
[2023-08-05] MEDS ORDERED: THIAMINE HCL 100 MG TAB PO STA (13:05)
[2023-08-05] MEDS ORDERED: THIAMINE HCL 100 MG TAB PO SCH (13:15)
[2023-08-05] MEDS: SUCRALFATE 1 GM/10 ML UDC PO SCH ×3 (13:40→20:47)
[2023-08-05 13:50] LABS: Phosphorus 3.1 mg/dl (2.5-4.9)
[2023-08-05 13:57] LABS: Thyroid Stimulating Hormone 1.601 uIu/ml (0.300-4.500)
[2023-08-05 14:07] LABS: Folate (Folic Acid),Ser orPlas 7.36 ng/ml (>5.38)
[2023-08-05] MEDS ORDERED: ONDANSETRON INJ 2 MG/ML 2 ML VIAL IV PRN (14:08)
[2023-08-05] MEDS ORDERED: ACETAMINOPHEN 325 MG TAB PO PRN (14:08)
[2023-08-05] MEDS ORDERED: Patient's HEIGHT &/or WEIGHT Needed STA (14:26)
[2023-08-05] MEDS ORDERED: DULoxetine HCL 30 MG CAP PO SCH (14:30)
[2023-08-05 14:46] LABS: Anion Gap 13 (3-11); BUN Creatinine Ratio 11.8 (10-20); Blood Urea Nitrogen 66 mg/dl (6-23); Calcium 9.6 mg/dl (8.6-10.3); Carbon Dioxide 19 mmol/L (21-32); Chloride 95 mmol/L (98-107); Est GFR (African American) 11.1 ml/min; Est GFR (Non-African American) 9.5 ml/min; Glucose 107 mg/dl (70-99(Fasting)); Sodium 127 mmol/L (136-145)
[2023-08-05] MEDS: HEPARIN SOD 5,000 UNIT/0.5 ML VIAL SQ SCH ×2 (15:43→20:48)
[2023-08-05 16:12] LABS: Appearance Urine Cloudy (Clear); Bacteria Urine Automated Negative (Negative); Bilirubin Urine Negative (Negative); Blood Urine Negative (Negative); Color Urine Yellow; Glucose Urine UA Negative (Negative); Ketones Urine Negative (Negative); Leukocyte Esterase Urine Negative (Negative); Nitrite Urine Negative (Negative); Protein Urine Trace (Negative); Specific Gravity Urine 1.012 (1.000-1.030); Urobilinogen Urine Negative (Negative)
[2023-08-05 16:35] LABS: Urine Potassium 26.2 mmol/L
[2023-08-05] MEDS ORDERED: PLASMA-LYTE A 1,000 ML IV SCH (18:15)
[2023-08-05 18:50] LABS: Calcium 9.6 mg/dl (8.6-10.3); Creatinine Clr Calc Pharmacy 10.6 ml/min; Est GFR (African American) 12.4 ml/min; Est GFR (Non-African American) 10.7 ml/min; Potassium 3.4 mmol/L (3.5-5.1)
--- NOTE | 2023-08-05 19:52 | Magnetic Resonance Report ---
MR brain wo con CLINICAL HISTORY: ataxia, dysmetria TECHNIQUE: Multiplanar and multisequence MR images of the brain were obtained without intravenous con trast. Comparison: Comparison is made to CT head 08/05/2023 FINDINGS: Multiple tiny foci of restricted diffusion are seen in the right peripheral cerebrum. The white matte r is unremarkable. Ex vacuo ventriculomegaly and sulcal enlargement is noted compatible with diffuse volume loss. No mass is seen. There is no mass effect or midline shift. There is no evidence of acute intraparenchymal hemorrhage. No extra axial fluid collections are seen. The corpus callosum, pituita ry gland, and cerebellar tonsils appear grossly unremarkable. Flow voids of the major intracranial arterial vessels are identified. The imaged portions of the para nasal sinuses, mastoid air cells, and orbits are unremarkable. 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 No evidence of hemorrhage. ACT 112: Negative or not required by law. Electronically signed by: Dewayne Pillai M.D. 08/05/2023 7:49 PM
--- NOTE | 2023-08-05 19:57 | Electrocardiogram Report ---
Test Reason : Blood Pressure : / mmHG Vent. Rate : 086 BPM Atrial Rate : 086 BPM P-R Int : 140 ms QRS Dur : 082 ms QT Int : 378 ms P-R-T Axes : 050 -09 023 degrees QTc Int : 452 ms Normal sinus rhythm Cannot rule out Inferior infarct , age undetermined Abnormal ECG No previous ECGs available Confirmed by Elio Harmon ([id number]) on 08/05/2023 7:57:10 PM Referred By: Confirmed By:Chapito Harmon
[2023-08-05] MEDS ORDERED: PHARMACIST DISCHARGE MED REC CONSULT PRN (20:14)
[2023-08-05] MEDS ORDERED: ASPIRIN 81 MG CHEW PO ONE (20:14)
[2023-08-05] MEDS: LUBIPROSTONE 8 MCG CAP PO SCH (20:46)
[2023-08-05] MEDS: busPIRone 7.5 MG TAB PO SCH (20:46)
[2023-08-05] MEDS: MAGNESIUM CHLORIDE W/CALCIUM 64MG DELAYED REL TAB PO SCH (20:47)
[2023-08-05 22:21] LABS: BUN Creatinine Ratio 13.6 (10-20); Calcium 9.7 mg/dl (8.6-10.3); Creatinine Clr Calc Pharmacy 11.4 ml/min; Est GFR (African American) 13.6 ml/min; Est GFR (Non-African American) 11.7 ml/min; Potassium 3.3 mmol/L (3.5-5.1)
[2023-08-06 01:17] LABS: BUN Creatinine Ratio 15.1 (10-20); Calcium 9.4 mg/dl (8.6-10.3); Creatinine Clr Calc Pharmacy 12.3 ml/min; Est GFR (African American) 14.9 ml/min; Est GFR (Non-African American) 12.9 ml/min; Potassium 3.3 mmol/L (3.5-5.1)
[2023-08-06] MEDS ORDERED: POTASSIUM CHLORIDE CRTAB 20 MEQ TABCR PO STA (02:29)
[2023-08-06] MEDS ORDERED: ALBUMIN 25% 25 GM/100 ML VIAL IV ONE ×2 (02:29→07:00)
[2023-08-06] MEDS: ATORVASTATIN 40 MG TAB PO SCH ×2 (03:36→21:08)
[2023-08-06 05:35] LABS: Base Excess VBG -5.2 mEq/L; HCO3 VBG 19 mmol/L; Oxygen Saturation VBG 98.6 %; PCO2 VBG 32 mmHg (38-50); PO2 VBG 91 mmHg; pH VBG 7.38 (7.36-7.41)
[2023-08-06 05:46] LABS: Basophils # (auto) 0.02 K/uL (0.00-0.20); Basophils % (auto) 0.3 %; Eosinophils % (auto) 1.4 %; Hematocrit (blood only) 35.1 % (42.0-52.0); Immature Granulocytes # (auto) 0.03 K/uL (0.01-0.20); Immature Granulocytes % (auto) 0.4 %; Lymphocytes % (auto) 24.2 %; Mean Corpuscular Volume 94.6 fL (80.0-100.0); Mean Platelet Volume 10.5 fL (9.4-12.4); Monocytes # (auto) 0.52 K/uL (0.11-0.59); Monocytes % (auto) 7.4 %; Neutrophils # (auto) 4.65 K/uL (1.40-6.50); Neutrophils % (auto) 66.3 %; Platelet Count 318 K/uL (130-400); RDW Coefficient of Variation 12.1 % (11.5-14.5); RDW Standard Deviation 42.2 fL (36.4-46.3); Red Blood Count 3.71 M/uL (4.70-6.10); White Blood Count 7.02 K/ul (4.8-10.8)
[2023-08-06 05:56] LABS: BUN Creatinine Ratio 17.1 (10-20); Calcium 9.5 mg/dl (8.6-10.3); Chol HDL Ratio 3.2 (0-5); Creatinine Clr Calc Pharmacy 14.1 ml/min; Est GFR (African American) 17.6 ml/min; Est GFR (Non-African American) 15.2 ml/min; Magnesium 2.5 mg/dl (1.7-2.4); Potassium 3.9 mmol/L (3.5-5.1)
[2023-08-06] MEDS: HEPARIN SOD 5,000 UNIT/0.5 ML VIAL SQ SCH ×3 (06:41→21:09)
[2023-08-06 07:03] LABS: Estimated Average Glucose 94 mg/dl; Hemoglobin A1C 4.9 % (4.5-5.6)
--- NOTE | 2023-08-06 07:29 | Ultrasound Report ---
CAROTID ARTERY ULTRASOUND CLINICAL HISTORY: embolic stroke COMPARISON STUDY: None. TECHNIQUE: Real-time, grayscale, and color Doppler sonography of the carotid and vertebral arteries w as performed. Images were viewed in the transverse and longitudinal planes. FINDINGS: There is moderate atherosclerotic plaque. Velocity measurements are listed below. COMMON CAROTID PEAK SYSTOLIC VELOCITY (CM/S): RIGHT 87 LEFT 101 ICA PEAK SYSTOLIC VELOCITY (CM/S): RIGHT 121 LEFT 92 Systolic ratios between the internal to common carotid arteries were normal. Antegrade flow is seen in the vertebral arteries. The external carotid arteries are patent. IMPRESSION: Moderate atherosclerotic plaque without evidence for a hemodynamically significant steno sis. ACT 112: Negative or not required by law. Electronically signed by: Luis Eduardo Dowling M.D. 08/06/2023 7:26 AM
[2023-08-06] MEDS: POLYETHYLENE (MIRALAX) 17 GM PACK PO PRN (08:18)
[2023-08-06] MEDS: LEVOTHYROXINE SODIUM 25 MCG TABLET PO SCH (08:19)
[2023-08-06] MEDS: FOLIC ACID 1 MG TAB PO SCH (08:20)
[2023-08-06] MEDS: LUBIPROSTONE 8 MCG CAP PO SCH ×2 (08:20→21:08)
[2023-08-06] MEDS: busPIRone 7.5 MG TAB PO SCH ×2 (08:20→21:11)
[2023-08-06] MEDS: MAGNESIUM CHLORIDE W/CALCIUM 64MG DELAYED REL TAB PO SCH ×2 (08:21→21:10)
[2023-08-06] MEDS: SUCRALFATE 1 GM/10 ML UDC PO SCH ×4 (08:22→21:08)
[2023-08-06] MEDS ORDERED: THIAMINE HCL 100 MG TAB PO SCH (09:00)
--- NOTE | 2023-08-06 09:44 | Nephrology Consultation ---
Date of Consultation August 06, 2023 Assessment & Plan (1) Acute kidney injury superimposed on CKD: Baseline creatinine 1.2-1.5 mg/dL. No proteinuria by history. HUGO consistent with prerenal physiology complicated by HCTZ and lisinopril use. Creatinine is trending down. Electrolytes acceptable. Volume status remains hypovolemic. CT did not demonstrate hydronephrosis. There is no emergent indication for dialysis. UA notable for microscopic hematuria and hyaline casts. Urine microscopy will be repeated this AM. Continue IVF to encourage a positive fluid balance. Document strict I/O's. Repeat metabolic profile this afternoon. Medications are appropriately dosed for kidney function. Hold HCTZ and lisinopril. Favor electrolyte neutral or balanced IVF to normal saline, as needed in setting of metabolic acidosis. Oral NaHCO3 replacement ordered. (2) Bladder outlet obstruction: Maintained on Flomax now. CT did not demonstrate hydronephrosis or evidence of obstructive nephropathy. Bladder scan PRN. (3) Hypomagnesemia: Attributed to HCTZ and ETOH. Replacement provided. Repeat labs ordered. (4) Hyponatremia: Remains volume depleted. I suspect this is a manifestation of ETOH, poor oral solute intake, and HCTZ. Oral free water restriction has been established. Document strict I/O's. Repeat sodium pending. Cannot exclude underlying SIADH. HCTZ held. Encourage oral solute. Repeat urine osmolality ordered now to help guide IVF use. CT did demonstrate a 6 mm RLL nodule in a smoker which will require follow up evaluation. (5) HTN (hypertension): BP acceptable. Lisinopril and HCTZ held. (6) Hypercalcemia: Attributed to HCTZ. Prospective monitoring. Cannot exclude underlying pathology such as malignancy, sarcoidosis, hyperparathyroidism, or plasma cell disorder but these would be much less likely. Haroon has not had findings to support another diagnosis. Hold HCTZ and provide close outpatient follow up with Dr. Nguyen post discharge. History of Present Illness Reason for Consultation: HUGO Requesting Physician: Alfred Veronica MD Attending Physician: Alfred Veronica MD History of Present Illness Mr. Haroon Colmenares is a 67 year-old male with hypertension, IBS-C, chronic lower back pain, OA/DJD, BPH, JANUARY/MDD, hypothyroidism, smoking history, and alcohol abuse. Haroon has been following with Dr. Nguyen in the [facility] nephrology clinic for evaluation of a history of hyponatremia, hypomagnesemia, and hypercalcemia. Laboratory studies in May 2022 notable for a serum creatinine of 1.2 mg/dL, sodium of 133 mmol/L, and calcium of 10.3 mg/dL. In June 2022, creat 1.5 mg/dL, sodium 132 mmol/L, and calcium 10.5 mg/dL. Electrolyte abnormalities were attributed to alcohol use disorder and hydrochlo rothiazide. It was recommended that Haroon stop HCTZ and increase lisinopril. He misunderstood and increased lisinopril but did not stop HCTZ. Haroon states that he continued to feel well but developed some difficulty voiding approximately 1 month ago prompting evaluation with Dr. Azul in the urology clinic. Evaluation demonstrated BPH. Symptoms included weak stream and sensation of incomplete v oid. Haroon denies dysuria or hematuria. He denies pain. Alfuzosin was prescribed but Haroon does not feel there was significant improvement in the medication. He states that he has been taking the medication for 3-4 weeks. Otherwise, there has not been any recent change in medications. Haroon admits that he has been drinking excessively and not eating regular meals. He presented to the ER at [facility] yesterday with complaints of feeling dizzy as well was difficulty walking due to loss of balance. Evaluation notable for a serum creatinine >6 mg/dL, sodium of 127 mmol/L, and calcium of 10.8 mg/dL. Haroon was found to be volume depleted and received 1 L NSS in the ER. He was then admitted with IV plasma-lyte infusing. CT of the abdomen demonstrated the kidneys to be unobstructed. Evidence of chronic bladder outlet obstruction noted without hydronephrosis. Haroon has been non-oliguric. Creatinine is trending down. Isotonic fluids were stopped due to persistent hyponatremia. SP albumin was inf using this AM. Haroon denies any recent NSAID use. He denies diarrhea. He reports improved urine output overnight. He feels well overall this AM. No fevers or chills reported. Dizziness has improved. CT abdomen and pelvis did demonstrate a 6 mm solid RLL pulmonary nodule. MRI of the head demonstrated multiple punctate foci consistent with small embolic infarcts. Haroon is maintained on monitoring for potential alcohol withdrawal. He has received thiamine and folic acid. Appetite is good. Urine microscopy on admission notable for 10-30 RBC, no RBCs, 5-10 hyaline casts. Urine osmolality 282 mOsm/L. Allergies Allergy/AdvReac Type Severity Reaction Status Date / Time No Known Allergies Allergy Verified 07/14/23 12:42 Home Medications Medication Instructions Recorded Confirmed Type dicyclomine 10 mg capsule 10 mg PO QID PRN Abdominal Pain 02/18/20 08/05/23 History lubiprostone 24 mcg capsule 24 mcg PO BID 08/24/22 08/05/23 History pantoprazole 40 mg tablet,delayed 40 mg PO QAM 08/24/22 08/05/23 History release alfuzosin 10 mg tablet,extended 10 mg PO QAM 06/17/23 08/05/23 History release 24 hr levothyroxine 25 mcg tablet 25 mcg PO QAM 06/17/23 08/05/23 History magnesium chloride 71.5 mg 71.5 mg PO BID #60 tabs 06/28/23 08/05/23 Rx (magnesium chloride) tablet,delayed release (Slow-Mag) buspirone 7.5 mg tablet 15 mg PO BID 08/05/23 08/05/23 History duloxetine 60 mg capsule,delayed 60 mg PO QAM 08/05/23 08/05/23 History release hydrochlorothiazide 25 mg tablet 25 mg PO QAM 08/05/23 08/05/23 History lisinopril 40 mg tablet 40 mg PO QAM 08/05/23 08/05/23 History Patient History Medical History Alcohol use disorder Hypomagnesemia Hyponatremia Diverticulitis HTN (hypertension) Surgical History History of bilateral cataract extraction H/O hernia repair History of ankle surgery bilateral Family History Other Mood disorder Social History Smoking Status: Former smoker Second Hand Exposure: No; Do You Dip or Chew Tobacco: No; Tobacco Cessation Education Requested by Patient: No Hx Alcohol Use: Yes Alcohol type: hard liquor Hx Substance Use: No Preferred Language: Georgian Communication Ability: Effective Environmental Lawyer Required: No Beliefs That Will Affect Care: None Current Living Situation: Alone Other Information That Helps Us Care for You: No Feels Safe at Home: Yes Safety Concerns: Feels Safe At This Time Assistive Devices: None Review of Systems Review of Systems: All systems reviewed & are unremarkable except as noted in HPI & below Physical Exam Constitutional: well developed; no acute distress Eyes: no scleral abnormality and no corneal abnormality ENMT: Mouth: no oral mucosal abnormality and oral mucous membranes not dry Neck: normal visual inspection and trachea midline Respiratory: normal respiratory effort Auscultation: lungs clear to auscultation bilaterally Cardiovascular: Rate/Rhythm: regular rate Heart Sounds: normal S1 and normal S2 Extremities: no edema Musculoskeletal: Extremities: no cyanosis and no clubbing Skin: + turgor decreased; no lesions Neurologic: Motor/Sensory: no tremor and no asterixis Psychiatric: Orientation: alert and oriented x 3 Results & Data Vital Signs (Past 12 Hours) Vital Signs Temp Pulse Pulse Resp BP Pulse Ox O2 Del Method 08/06/23 07:33 36.7 C 66 16 112/74 100 Room Air 08/06/23 03:09 36.5 C 79 18 112/67 96 Room Air 08/05/23 22:05 100 H 08/05/23 22:00 36.4 C L 89 18 100/66 100 Room Air Laboratory Results Laboratory Results - last 24 hr 08/05/23 08/05/23 08/05/23 08:06 10:07 10:11 WBC RBC Hgb Hct MCV MCH MCHC RDW Std Deviation RDW Coeff of Suresh Plt Count MPV Immature Gran % (Auto) Neut % (Auto) Lymph % (Auto) [place] % (Auto) Eos % (Auto) Baso % (Auto) Neut # (Auto) Lymph # (Auto) [place] # (Auto) Eos # (Auto) Baso # (Auto) Immature Gran # (Auto) VBG pH VBG pCO2 VBG pO2 VBG HCO3 VBG O2 Saturation VBG Base Excess Sodium Potassium Chloride Carbon Dioxide Anion Gap BUN Creatinine Est Cr Clr Drug Dosing Est GFR ( Amer) Est GFR (Non-Af Amer) BUN/Creatinine Ratio Glucose Estimat Average Glucose Hemoglobin A1c Osmolality 288 Lactate 1.8 Calcium Phosphorus Magnesium Total Creatine Kinase Triglycerides Cholesterol LDL Cholesterol, Calc VLDL Cholesterol, Calc HDL Cholesterol Cholesterol/HDL Ratio Vitamin B12 Folate TSH Urine Color Urine Appearance Urine pH Ur Specific [place] Urine Protein Urine Glucose (UA) Urine Ketones Urine Blood Urine Nitrite Urine Bilirubin Urine Urobilinogen Ur Leukocyte Esterase Urine WBC (Auto) Urine RBC (Auto) U Hyaline Cast (Auto) U Epithel Cells (Auto) Urine Bacteria (Auto) Urine Osmolality Urine Sodium Urine Potassium Urine Chloride Ethyl Alcohol mg/dL < 10.0 08/05/23 08/05/23 08/05/23 13:10 14:08 15:48 WBC RBC Hgb Hct MCV MCH MCHC RDW Std Deviation RDW Coeff of Suresh Plt Count MPV Immature Gran % (Auto) Neut % (Auto) Lymph % (Auto) [place] % (Auto) Eos % (Auto) Baso % (Auto) Neut # (Auto) Lymph # (Auto) [place] # (Auto) Eos # (Auto) Baso # (Auto) Immature Gran # (Auto) VBG pH VBG pCO2 VBG pO2 VBG HCO3 VBG O2 Saturation VBG Base Excess Sodium 127 L Potassium 4.0 Chloride 95 L Carbon Dioxide 19 L Anion Gap 13 H BUN 66 H Creatinine 5.59 H* D Est Cr Clr Drug Dosing Not Reportable Est GFR ( Amer) 11.1 Est GFR (Non-Af Amer) 9.5 BUN/Creatinine Ratio 11.8 Glucose 107 H Estimat Average Glucose Hemoglobin A1c Osmolality Lactate Calcium 9.6 Phosphorus 3.1 Magnesium Total Creatine Kinase 101 Triglycerides Cholesterol LDL Cholesterol, Calc VLDL Cholesterol, Calc HDL Cholesterol Cholesterol/HDL Ratio Vitamin B12 1327 H Folate 7.36 TSH 1.601 Urine Color Yellow Urine Appearance Cloudy A Urine pH 5.0 Ur Specific [place] 1.012 Urine Protein Trace H Urine Glucose (UA) Negative Urine Ketones Negative Urine Blood Negative Urine Nitrite Negative Urine Bilirubin Negative Urine Urobilinogen Negative Ur Leukocyte Esterase Negative Urine WBC (Auto) 1-5 Urine RBC (Auto) 10-30 H U Hyaline Cast (Auto) 5-10 H U Epithel Cells (Auto) 10-20 H Urine Bacteria (Auto) Negative Urine Osmolality 282 L Urine Sodium 34 Urine Potassium 26.2 Urine Chloride 32 Ethyl Alcohol mg/dL 08/05/23 08/05/23 08/06/23 17:55 21:35 00:47 WBC RBC Hgb Hct MCV MCH MCHC RDW Std Deviation RDW Coeff of Suresh Plt Count MPV Immature Gran % (Auto) Neut % (Auto) Lymph % (Auto) [place] % (Auto) Eos % (Auto) Baso % (Auto) Neut # (Auto) Lymph # (Auto) [place] # (Auto) Eos # (Auto) Baso # (Auto) Immature Gran # (Auto) VBG pH VBG pCO2 VBG pO2 VBG HCO3 VBG O2 Saturation VBG Base Excess Sodium 126 L 129 L 127 L Potassium 3.4 L 3.3 L 3.3 L Chloride 96 L 96 L 99 Carbon Dioxide 16 L 20 L 17 L Anion Gap 14 H 13 H 11 BUN 66 H 64 H 66 H Creatinine 5.09 H* D 4.72 H* D 4.37 H D Est Cr Clr Drug Dosing 10.6 11.4 12.3 Est GFR ( Amer) 12.4 13.6 14.9 Est GFR (Non-Af Amer) 10.7 11.7 12.9 BUN/Creatinine Ratio 13.0 13.6 15.1 Glucose 94 90 110 H Estimat Average Glucose Hemoglobin A1c Osmolality Lactate Calcium 9.6 9.7 9.4 Phosphorus Magnesium Total Creatine Kinase Triglycerides Cholesterol LDL Cholesterol, Calc VLDL Cholesterol, Calc HDL Cholesterol Cholesterol/HDL Ratio Vitamin B12 Folate TSH Urine Color Urine Appearance Urine pH Ur Specific [place] Urine Protein Urine Glucose (UA) Urine Ketones Urine Blood Urine Nitrite Urine Bilirubin Urine Urobilinogen Ur Leukocyte Esterase Urine WBC (Auto) Urine RBC (Auto) U Hyaline Cast (Auto) U Epithel Cells (Auto) Urine Bacteria (Auto) Urine Osmolality Urine Sodium Urine Potassium Urine Chloride Ethyl Alcohol mg/dL 08/06/23 05:23 WBC 7.02 RBC 3.71 L Hgb 13.0 L D Hct 35.1 L MCV 94.6 MCH 35.0 H MCHC 37.0 H RDW Std Deviation 42.2 RDW Coeff of Suresh 12.1 Plt Count 318 MPV 10.5 Immature Gran % (Auto) 0.4 Neut % (Auto) 66.3 Lymph % (Auto) 24.2 [place] % (Auto) 7.4 Eos % (Auto) 1.4 Baso % (Auto) 0.3 Neut # (Auto) 4.65 Lymph # (Auto) 1.70 [place] # (Auto) 0.52 Eos # (Auto) 0.10 Baso # (Auto) 0.02 Immature Gran # (Auto) 0.03 VBG pH 7.38 VBG pCO2 32 L VBG pO2 91 VBG HCO3 19 VBG O2 Saturation 98.6 VBG Base Excess -5.2 Sodium 128 L Potassium 3.9 Chloride 99 Carbon Dioxide 16 L Anion Gap 13 H BUN 65 H Creatinine 3.81 H D Est Cr Clr Drug Dosing 14.1 Est GFR ( Amer) 17.6 Est GFR (Non-Af Amer) 15.2 BUN/Creatinine Ratio 17.1 Glucose 92 Estimat Average Glucose 94 Hemoglobin A1c 4.9 Osmolality Lactate Calcium 9.5 Phosphorus Magnesium 2.5 H Total Creatine Kinase Triglycerides 109 Cholesterol 115 LDL Cholesterol, Calc 57 VLDL Cholesterol, Calc 22 HDL Cholesterol 36 Cholesterol/HDL Ratio 3.2 Vitamin B12 Folate TSH Urine Color Urine Appearance Urine pH Ur Specific [place] Urine Protein Urine Glucose (UA) Urine Ketones Urine Blood Urine Nitrite Urine Bilirubin Urine Urobilinogen Ur Leukocyte Esterase Urine WBC (Auto) Urine RBC (Auto) U Hyaline Cast (Auto) U Epithel Cells (Auto) Urine Bacteria (Auto) Urine Osmolality Urine Sodium Urine Potassium Urine Chloride Ethyl Alcohol mg/dL Diagnostic Findings ABDOMEN AND PELVIS CT WITHOUT CONTRAST COMPARISON STUDY: CT 02/18/2020 FINDINGS: No acute abnormality identified within the imaged lower chest. 6 mm indeterminate subpleural nodule of the basal right lower lobe on image 42. No free air. The unenhanced spleen, and adrenal glands are unremarkable. There is questioned fundal adenomyomatosis of the gallbladder. There are a few scattered subcentimeter parenchymal calcifications of the pancreas suggestive of sequela of chronic pancreatitis. Unremarkable liver. There is mild nonspecific bilateral perinephric stranding. Subcentimeter hypoden sity of the superior pole right kidney is too small to characterize, likely a small cyst. No renal or ureteral calculi or hydronephrosis. Decompressed bladder with circumferential wall thickening. Prostatomegaly. Atherosclerosis of the aorta without aneurysm. No lymphadenopathy. There is no bowel obstruction or bowel wall thickening. Colonic diverticulosis. Normal appendix. Tiny fat filled umbilical hernia. No acute fracture identified. IMPRESSION: 1. No renal or ureteral calculi or hydronephrosis. 2. Prostatectomy with findings suggestive of chronic outlet obstruction. Correlate with urinalysis. 3. Colonic diverticulosis. 4. 6 mm solid nodule of the right lower lobe. PG Care Time/CCT Total # of Minutes Spent Total Time Spent with Patient: Total time spent is greater than 50% in coordination of care (as documented) at patient's floor/unit and/or counseling patient: Coding Level of Care Code 53246 IN/OBS CONSULT LVL 4,60M Diagnoses Acute kidney injury superimposed on CKD N17.9; N18.9 Bladder outlet obstruction N32.0 Hypomagnesemia E83.42 Hyponatremia E87.1 HTN (hypertension) I10 Hypercalcemia E83.52
[2023-08-06 10:19] LABS: Hyaline Casts Urine 0-5 /lpf (0-5)
[2023-08-06 10:20] LABS: Bacteria Urine 1+ (Negative); Mucus Urine Present (None Prsent); RBC Urine 0-4 /hpf (0-4); WBC Urine 0-5 /hpf (0-5)
[2023-08-06] MEDS: ASPIRIN 81 MG ECTAB PO SCH (10:30)
[2023-08-06] MEDS: PANTOprazole 40 MG TAB PO SCH (10:30)
[2023-08-06] MEDS: TAMSULOSIN HCL 0.4 MG CAP PO SCH (10:30)
[2023-08-06] MEDS: DULoxetine HCL 60 MG CAP PO SCH (10:30)
[2023-08-06] MEDS: SODIUM BICARBONATE 650 MG TAB PO SCH ×2 (11:20→21:10)
[2023-08-06] MEDS ORDERED: THIAMINE HCL 500 MG in SODIUM CHLORIDE 0.9% 50 ML IV STA (11:48)
[2023-08-06] MEDS ORDERED: PLASMA-LYTE A 500 ML IV ONE (12:23)
--- NOTE | 2023-08-06 13:01 | Neurology Consultation ---
Date of Consultation August 06, 2023 Assessment & Plan (1) Stroke: Plan 67 y/o male with history of HTN and alcohol use disorder that presented with two month history of dizziness and gait instability upon standing, worsening over the last week. Found to have acute on chronic kidney injury at admission. MRI brain with punctate restricted diffusion in right cerebral hemisphere, which is most likely an incidental finding. History is suggestive of orthostasis in the setting of volume depletion. Would proceed with remainder of stroke work-up including MRA and zio patch. 1. MRA head/neck 2. Orthostatic vitals 3. Telemetry 4. Zio patch on discharge 5. Aspirin 81 mg 6. Atorvastatin [address]/PT/OT Telehealth Consultation Telehealth Information Telehealth Information: I performed this visit using a real-time telehealth connection between my location and the patients location ([facility]). After connecting through interactive tele-video, patient was identified by name and date of and/or wristband check.Patient (or authorized healthcare reimbursement representative) was informed that this was a telemedicine visit and it was being conducted confidentially over secure lines. My office door was closed and no one else was present in the room with me.Patient (or authorized healthcare reimbursement representative) provided consent to proceed with the visit, expressed an un derstanding of privacy and security of the telemedicine visit, and gave permission to have a hospital reimbursement representative in the room in order to assist with the visit and to conduct portions of the visit, as needed. I informed the patient (or authorized healthcare reimbursement representative) that I reviewed their record and presented the opportunity for them to ask any questions regarding the visit today. The patient agreed to participate. 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 Anai Holder Attending Physician: Alfred Veronica MD History of Present Illness He states that for about two months, he has had dizziness with standing. He describes this dizziness as lightheadedness but denies any room spinning sens ation. After a while, it started to be these episodes would be associated with gait imbalance when he first stoop up and sometimes falling. However, he states this would improve or resolve the longer he was standing. Over the last week, he noticed that the symptoms started to worsen, with shaking of his legs when he stands up and feeling that he was generally weak with standing.He has also sometimes had blurred vision when these symptoms happen. He is unsure but thinks when his legs shake they may also tingle a bit. He denies any change in his speech, vision loss, diplopia, or numbness. Allergies Allergy/AdvReac Type Severity Reaction Status Date / Time No Known Allergies Allergy Verified 07/14/23 12:42 Home Medications Medication Instructions Recorded Confirmed Type dicyclomine 10 mg capsule 10 mg PO QID PRN Abdominal Pain 02/18/20 08/05/23 History lubiprostone 24 mcg capsule 24 mcg PO BID 08/24/22 08/05/23 History pantoprazole 40 mg tablet,delayed 40 mg PO QAM 08/24/22 08/05/23 History release alfuzosin 10 mg tablet,extended 10 mg PO QAM 06/17/23 08/05/23 History release 24 hr levothyroxine 25 mcg tablet 25 mcg PO QAM 06/17/23 08/05/23 History magnesium chloride 71.5 mg 71.5 mg PO BID #60 tabs 06/28/23 08/05/23 Rx (magnesium chloride) tablet,delayed release (Slow-Mag) buspirone 7.5 mg tablet 15 mg PO BID 08/05/23 08/05/23 History duloxetine 60 mg capsule,delayed 60 mg PO QAM 08/05/23 08/05/23 History release hydrochlorothiazide 25 mg tablet 25 mg PO QAM 08/05/23 08/05/23 History lisinopril 40 mg tablet 40 mg PO QAM 08/05/23 08/05/23 History Patient History Medical History Alcohol use disorder Hypomagnesemia Hyponatremia Diverticulitis HTN (hypertension) Surgical History History of bilateral cataract extraction H/O hernia repair History of ankle surgery bilateral Family History Other Mood disorder Social History Smoking Status: Former smoker Second Hand Exposure: No; Do You Dip or Chew Tobacco: No; Tobacco Cessation Education Requested by Patient: No Hx Alcohol Use: Yes Alcohol type: hard liquor Hx Substance Use: No Preferred Language: Czech Communication Ability: Effective Hospital Security Officer Required: No Beliefs That Will Affect Care: None Current Living Situation: Alone Other Information That Helps Us Care for You: No Feels Safe at Home: Yes Safety Concerns: Feels Safe At This Time Assistive Devices: None Physical Exam AAO X 3 No aphasia or dsyarthria VFF grossly intact EOMI, no nystagmus Facial sensations intact No facial asymmetry No facial asymmetry Tongue protrudes midline Motor: Mves Results & Data Vital Signs (Past 12 Hours) Vital Signs Temp Pulse Pulse Resp BP Pulse Ox O2 Del Method 08/06/23 11:20 36.3 C L 79 18 109/68 100 Room Air 08/06/23 08:00 61 08/06/23 07:33 36.7 C 66 16 112/74 100 Room Air 08/06/23 03:09 36.5 C 79 18 112/67 96 Room Air Laboratory Results WBC 7.02, HGB 13.0, HCT 35.1, Plts 318, venous blood gas ph 7.38, pCO@ 32, pO2 91, Sodium 126, carbon dioxide 16, BUN 65, Creatinine 3.81, Glucose 92, A1C 4.9, Calcium 9.5, phosphorous 3.1, magnesium 2.5, , LDL 57, B12 1327, folate 7.36, TS H 1.601, Urine negative nitrite, negative leukocyte esterase, 10-30 RBC, bacteria 1+, urine sodium 34, urine osmolality 356 Diagnostic Findings CTH: No acute intracranial abnormality. MRI: Multiple punctate foci of restricted diffusion compatible with small embolic infarcts. No evidence of hemorrhage. Carotid doppler:Moderate atherosclerotic plaque without evidence for a hemodynamically significant stenosis. TTE: EF 60-65%, normal sized left atrium, no ASD or shunt
[2023-08-06] MEDS: SODIUM CHLORIDE 1 GM TABLET PO SCH ×2 (14:05→21:09)
--- NOTE | 2023-08-06 14:26 | Hospitalist Progress Note ---
Date of Service August 06, 2023 Assessment & Plan (1) Stroke: (2) Disequilibrium: Plan 67-year-old male with PMH of hypertension, BPH, depression, tobacco use, alcohol use disorder, generalized anxiety disorder, IBS with constipation and diarrhea and other medical problems listed below who presents with dizziness, difficulty with balance and walking. He is being managed for the following: Ambulatory dysfunction Disequilibrium Stroke Chronic alcohol use disorder Patient came in with complaint of intermittent issues with dizziness, weakness and coordination with walking over the past few weeks. Admitting CT head with no acute finding. 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 Carotid artery ultrasound with moderate atherosclerotic plaque without evidence for a hemodynamically significant stenosis. Chronic alcohol use disorder could also be contributing to his ambulatory dysfunction. Echo with EF of 60 to 65%, grade 1 diastolic dysfunction, no interatrial shunt noted. No atrial septal defect noted. A1c 4.9, LDL 57. Fall precaution, PT/OT. Orthostatic vitals. Neurology evaluated, agrees with aspirin and statin, other recs are Zio patch monitoring on discharge, MRA head and neck. Will get MRA head and neck once renal function improved. Continue with neurochecks and telemetry monitoring. Telemetry review with no A-fib since presentation. Patient consumes alcohol (1/2 pint of bourbon daily and upto additional three 16 ounces beers a day) regularly for many years per Pt, last drink 08/04 evening, VADIM S protocol. Folic acid and IV thiamine. Monitor replete electrolytes. Patient understands that he needs to quit drinking, he is not willing to go to inpatient alcoholic rehab at this time. But he will think about it once disc harged per him. Acute kidney injury over CKD II High anion gap metabolic acidosis: Likely secondary to acute renal injury. NaHCO3 ordered. Trend with improvement in renal function. In setting of chronic alcohol use, poor nutrition, dehydration and chronic bladder outlet obstruction At presentation Cr elevated at 6.26 (baseline Cr ~1.2-1.5) Recently saw Dr. Nguyen and was instructed to dc hctz and increased lisinopril to 40mg but unfortunately there was miscommunication and patient has continued hctz CTAP with no hydronephrosis. Consistent with prerenal physiology. DC hydrochlorothiazide. Hold lisinopril. Continue with IV fluid, creatinine trending down. Labs today afternoon and in AM. Avoid any contrasted imaging studies until Cr improves Chronic bladder outlet obstruction: CT abd/pelvis with prostatectomy with findings suggestive of chronic outlet obstruction. Urinalysis negative for UTI. Recently started on alfuzosin by urology. Bladder scan Q6H and monitor for retention Cont alfuzosin for now, consider addition of Flomax, bladder scan as above. Established with Dr. Azul of [facility] urology Follow-up with urology on discharge. RLL nodule: 6 mm solid nodule noted on CTAP at admission. Follow-up CT scan in 12 months. Hyponatremia: Admitting sodium of 127, chronically low sodium in the range of 1 25-1 32 in the setting of chronic alcoholic use disorder/poor solute intake complicated by HCTZ use. Neurology on board, appreciate recommendation. Increase protein intake in diet. Hypomagnesemia: Monitor and replete. Hypertension: Blood pressure fairly under control. Hold lisinopril. HCTZ d iscontinued. Continue to monitor. Resume blood pressure medication gradually as able. DVT Ppx: SQ heparin Code status: FULL PCP: Nahum Dispo: Admitted to PCU Admission and Anticipated Discharge Date Admission Date: August 05, 2023 Subjective Patient was seen and examined at bedside. Patient was sitting up in bed, on room air, resting comfortably, not in any acute distress. Patient reports eating okay and moving bowels okay, denies headache or chest pain or abdominal pain. Patient reports having balance problem with ambulation. Physical Exam Physical Exam: GENERAL: Alert and oriented x3. NAD, on RA. Appears older than his stated age. HEENT: No pallor, no icterus. Pupils equal, round and reactive to light. Oral mucosa moist. NECK: No JVD, no neck masses. HEART: S1 and S2 heard. Regular rate and rhythm. No murmur, no gallop. RESPIRATORY SYSTEM: Normal AP diameter. No accessory muscle use. No wheezing, no crackles. ABDOMEN: Soft, bowel sounds present, nontender, no distention. CENTRAL NERVOUS SYSTEM: No facial droop. Speech is clear. Obeys simple commands. Moves extremities. EXTREMITIES: No edema, no erythema seen. Results & Data Results & Data Vital Signs (Past 12 Hours) Vital Signs Temp Pulse Pulse Resp BP Pulse Ox O2 Del Method 08/06/23 11:20 36.3 C L 79 18 109/68 100 Room Air 08/06/23 08:00 61 08/06/23 07:33 36.7 C 66 16 112/74 100 Room Air 08/06/23 03:09 36.5 C 79 18 112/67 96 Room Air
[2023-08-06] MEDS ORDERED: LORazepam 1 MG TAB PO PRN ×2 (15:13)
[2023-08-06] MEDS ORDERED: Ativan PO Alcohol Withdrawal--Active Protocol PO PRN (15:13)
[2023-08-06] MEDS: PLASMA-LYTE A 1,000 ML IV SCH (15:27)
[2023-08-06 15:32] LABS: Albumin Level 4.4 gm/dl (3.4-5.0); BUN Creatinine Ratio 18.2 (10-20); Calcium 9.6 mg/dl (8.6-10.3); Creatinine Clr Calc Pharmacy 16.6 ml/min; Est GFR (African American) 21.4 ml/min; Est GFR (Non-African American) 18.5 ml/min; Magnesium 2.3 mg/dl (1.7-2.4); Phosphorus 1.6 mg/dl (2.5-4.9); Potassium 3.9 mmol/L (3.5-5.1)
[2023-08-06] MEDS ORDERED: POTASSIUM PHOS 3 MMOL/1 ML INFUSION IV STA (16:02)
[2023-08-06] MEDS ORDERED: POTASSIUM PHOSPHATE 15 MMOL in SODIUM CHLORIDE 0.9% 250 ML IV ONE (16:30)
[2023-08-07] MEDS: LEVOTHYROXINE SODIUM 25 MCG TABLET PO SCH (06:02)
[2023-08-07] MEDS: HEPARIN SOD 5,000 UNIT/0.5 ML VIAL SQ SCH ×3 (06:02→20:49)
[2023-08-07 07:27] LABS: Basophils # (auto) 0.02 K/uL (0.00-0.20); Basophils % (auto) 0.3 %; Eosinophils # (auto) 0.14 K/uL (0.00-0.50); Eosinophils % (auto) 2.1 %; Hematocrit (blood only) 33.9 % (42.0-52.0); Hemoglobin 12.3 g/dl (14.0-18.0); Immature Granulocytes # (auto) 0.01 K/uL (0.01-0.20); Immature Granulocytes % (auto) 0.1 %; Lymphocytes # (auto) 1.77 K/uL (1.20-3.40); Lymphocytes % (auto) 26.5 %; Mean Corpuscular Hemoglobin 34.5 pg (25.0-34.0); Mean Corpuscular Hgb Conc 36.3 g/dL (32.0-36.0); Mean Platelet Volume 11.1 fL (9.4-12.4); Monocytes # (auto) 0.57 K/uL (0.11-0.59); Monocytes % (auto) 8.5 %; Neutrophils # (auto) 4.18 K/uL (1.40-6.50); Neutrophils % (auto) 62.5 %; Platelet Count 302 K/uL (130-400); RDW Coefficient of Variation 12.1 % (11.5-14.5); RDW Standard Deviation 42.5 fL (36.4-46.3); Red Blood Count 3.57 M/uL (4.70-6.10); White Blood Count 6.69 K/ul (4.8-10.8)
[2023-08-07 08:16] LABS: BUN Creatinine Ratio 21.3 (10-20); Calcium 9.1 mg/dl (8.6-10.3); Creatinine Clr Calc Pharmacy 23.9 ml/min; Est GFR (African American) 33.2 ml/min; Est GFR (Non-African American) 28.7 ml/min; Phosphorus 2.6 mg/dl (2.5-4.9)
[2023-08-07] MEDS: ASPIRIN 81 MG ECTAB PO SCH (08:30)
[2023-08-07] MEDS: DULoxetine HCL 60 MG CAP PO SCH (08:30)
[2023-08-07] MEDS: MAGNESIUM CHLORIDE W/CALCIUM 64MG DELAYED REL TAB PO SCH ×2 (08:30→20:48)
[2023-08-07] MEDS: SODIUM BICARBONATE 650 MG TAB PO SCH ×2 (08:30→20:47)
[2023-08-07] MEDS: THIAMINE HCL 200 MG in SODIUM CHLORIDE 0.9% 50 ML IV SCH (08:31)
[2023-08-07] MEDS: LUBIPROSTONE 8 MCG CAP PO SCH ×2 (08:31→20:48)
[2023-08-07] MEDS: busPIRone 7.5 MG TAB PO SCH ×2 (08:31→20:48)
[2023-08-07] MEDS: SODIUM CHLORIDE 1 GM TABLET PO SCH ×2 (08:31→20:47)
[2023-08-07] MEDS: TAMSULOSIN HCL 0.4 MG CAP PO SCH (08:31)
[2023-08-07] MEDS: PANTOprazole 40 MG TAB PO SCH (08:31)
[2023-08-07] MEDS: FOLIC ACID 1 MG TAB PO SCH (08:31)
[2023-08-07] MEDS: SUCRALFATE 1 GM/10 ML UDC PO SCH ×4 (08:32→20:46)
--- NOTE | 2023-08-07 08:57 | Nephrology Progress Note ---
Date of Service August 07, 2023 Assessment & Plan (1) Acute kidney injury: Plan: * HUGO due to dehydration in the setting of thiazide + ACEi therapy * Thiazide and ACEi have been held. Patient is tolerating gentle hydration. Creatinine peaked at 6.26 but has improved to 2.25 this am. Patient is nonoliguric * Volume status and electrolyte balance remain acceptable at this time. Continue gentle hydration w/ Plasmalyte * Continue NaHCO3 supplementation * PRP in am (2) Chronic kidney disease, stage II (mild): Plan: * Baseline Cr 1.2-1.5. Primary Community Program Assistant is Dr. Nguyen (3) Hyponatremia: Plan: * Serum Na 134 this am * Continue NaCl 1g po BID * CT did demonstrate a 6 mm RLL nodule in a smoker which will require follow up evaluation. (4) Hypomagnesemia: Plan: * Attributed to HCTZ and ETOH * Now corrected (5) HTN (hypertension): Plan: * BP acceptable * Lisinopril and HCTZ held due to HUGO (6) Bladder outlet obstruction: Plan: * Maintained on Flomax. CT did not demonstrate hydronephrosis or evidence of obstructive nephropathy Admission and Anticipated Discharge Date Admission Date: August 05, 2023 Subjective Mr. Colmenares was evaluated in his hospital room this morning. He was tolerating IV hydration without dyspnea or edema. Mr. Colmenares denied fever, flank pain or difficulty voiding. He voiced no new medical concerns. Review of Systems Constitutional: no fever Eyes: no problem reported Ear, Nose, Mouth, Throat: no problem reported Respiratory: no cough and no dyspnea Cardiovascular: no chest pain Gastrointestinal: no abdominal pain, no nausea, no vomiting and no diarrhea/loose stools Genitourinary: no dysuria, no difficulty urinating or no hematuria Integumentary: no rash Physical Exam Constitutional: not in distress Eyes: PERRL, conjunctivae normal, anicteric sclerae ENMT: external ear and nose normal, oropharynx normal Neck: trachea midline, no thyromegaly Respiratory: normal respiratory effort, lungs clear to auscultation Cardiovascular: Rate/Rhythm: regular rate and regular rhythm Gastrointestinal (Abdomen): normal bowel sounds, soft, nontender, no hepatosplenomegaly Skin: no rashes, warm and dry Neurologic: awake Speech / Cognition: normal speech Results & Data Vital Signs (Past 12 Hours) Vital Signs Temp Pulse Pulse Resp BP Pulse Ox O2 Del Method 08/07/23 07:48 63 08/07/23 07:42 36.6 C 65 16 93/61 L 98 Room Air 08/07/23 03:18 36.7 C 65 18 93/61 L 98 Room Air 08/06/23 23:56 73 08/06/23 23:20 36.5 C 69 18 95/62 L 99 Room Air Laboratory Results Laboratory Results - last 24 hr 08/06/23 08/06/23 08/06/23 09:40 10:25 14:51 WBC RBC Hgb Hct MCV MCH MCHC RDW Std Deviation RDW Coeff of Suresh Plt Count MPV Immature Gran % (Auto) Neut % (Auto) Lymph % (Auto) [place] % (Auto) Eos % (Auto) Baso % (Auto) Neut # (Auto) Lymph # (Auto) [place] # (Auto) Eos # (Auto) Baso # (Auto) Immature Gran # (Auto) Sodium 126 L 129 L Potassium 3.9 Chloride 98 Carbon Dioxide 22 Anion Gap 9 BUN 59 H Creatinine 3.24 H D Est Cr Clr Drug Dosing 16.6 Est GFR ( Amer) 21.4 Est GFR (Non-Af Amer) 18.5 BUN/Creatinine Ratio 18.2 Glucose 104 H Calcium 9.6 Phosphorus 1.6 L D Magnesium 2.3 Albumin 4.4 Urine RBC 0-4 Urine WBC 0-5 Ur Epithelial Cells 5-10 H Urine Bacteria 1+ H Hyaline Casts 0-5 Urine Mucus Present A Urine Osmolality 356 L 08/07/23 07:00 WBC 6.69 RBC 3.57 L Hgb 12.3 L Hct 33.9 L MCV 95.0 MCH 34.5 H MCHC 36.3 H RDW Std Deviation 42.5 RDW Coeff of Suresh 12.1 Plt Count 302 MPV 11.1 Immature Gran % (Auto) 0.1 Neut % (Auto) 62.5 Lymph % (Auto) 26.5 [place] % (Auto) 8.5 Eos % (Auto) 2.1 Baso % (Auto) 0.3 Neut # (Auto) 4.18 Lymph # (Auto) 1.77 [place] # (Auto) 0.57 Eos # (Auto) 0.14 Baso # (Auto) 0.02 Immature Gran # (Auto) 0.01 Sodium 134 L Potassium 4.0 Chloride 105 Carbon Dioxide 22 Anion Gap 7 BUN 48 H Creatinine 2.25 H D Est Cr Clr Drug Dosing 23.9 Est GFR ( Amer) 33.2 Est GFR (Non-Af Amer) 28.7 BUN/Creatinine Ratio 21.3 H Glucose 99 Calcium 9.1 Phosphorus 2.6 D Magnesium 2.0 Albumin Urine RBC Urine WBC Ur Epithelial Cells Urine Bacteria Hyaline Casts Urine Mucus Urine Osmolality PG Care Time/CCT Total # of Minutes Spent Total Time Spent with Patient: Total time spent is greater than 50% in coordination of care (as documented) at patient's floor/unit and/or counseling patient: Coding Level of Care Code 11537 SUB INP/OBS CARE 3/50MIN Diagnoses Acute kidney injury N17.9 Chronic kidney disease, stage II (mild) N18.2 Hyponatremia E87.1 Hypomagnesemia E83.42 HTN (hypertension) I10 Bladder outlet obstruction N32.0
[2023-08-07] MEDS: PLASMA-LYTE A 1,000 ML IV SCH (11:04)
--- NOTE | 2023-08-07 14:29 | Hospitalist Progress Note ---
Date of Service August 07, 2023 Assessment & Plan (1) Stroke: (2) Disequilibrium: Plan 67-year-old male with PMH of hypertension, BPH, depression, tobacco use, alcohol use disorder, generalized anxiety disorder, IBS with constipation and diarrhea and other medical problems listed below who presents with dizziness, difficulty with balance and walking. He is being managed for the following: Ambulatory dysfunction Disequilibrium Stroke Chronic alcohol use disorder Patient came in with complaint of intermittent issues with dizziness, weakness and coordination with walking over the past few weeks. Admitting CT head with no acute finding. 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 Carotid artery ultrasound with moderate atherosclerotic plaque without evidence for a hemodynamically significant stenosis. Chronic alcohol use disorder could also be contributing to his ambulatory dysfunction. Echo with EF of 60 to 65%, grade 1 diastolic dysfunction, no interatrial shunt noted. No atrial septal defect noted. A1c 4.9, LDL 57. Fall precaution, PT/OT. Orthostatic vitals negative. Neurology evaluated, agrees with aspirin and statin, other recs are Zio patch monitoring on discharge, MRA head and neck. Will get MRA head and neck once renal function improved. Continue with neurochecks and telemetry monitoring. Patient consumes alcohol (1/2 pint of bourbon daily and upto additional three 16 ounces beers a day) regularly for many years per Pt, last drink 08/04 evening, VADIM S protocol. Folic acid and IV thiamine. Monitor replete electrolytes. Patient understands that he needs to quit drinking, he is not willing to go to inpatient alcoholic rehab at this time. But he will think about it once discharged per him. Acute kidney injury over CKD II High anion gap metabolic acidosis: Likely secondary to acute renal injury. NaHCO3 ordered. Trend with improvement in renal function. In setting of chronic alcohol use, poor nutrition, dehydration and chronic bladder outlet obstruction At presentation Cr elevated at 6.26 (baseline Cr ~1.2-1.5) Recently saw Dr. Nguyen and was instructed to dc hctz and increased lisinopril to 40mg but unfortunately there was miscommunication and patient has continued hctz CTAP with no hydronephrosis. Consistent with prerenal physiology. DC hydrochlorothiazide. Hold lisinopril. Continue with IV fluid, creatinine trending down. Labs in AM. Avoid any contrasted imaging studies until Cr improves Chronic bladder outlet obstruction: CT abd/pelvis with prostatectomy with findings suggestive of chronic outlet obstruction. Urinalysis negative for UTI. Recently started on alfuzosin by urology. Bladder scan Q6H and monitor for retention Cont alfuzosin for now, consider addition of Flomax, bladder scan as above. Established with Dr. Azul of [facility] urology Follow-up with urology on discharge. RLL nodule: 6 mm solid nodule noted on CTAP at admission. Follow-up CT scan in 12 months. Hyponatremia: Admitting sodium of 127, chronically low sodium in the range of 1 25-1 32 in the setting of chronic alcoholic use disorder/poor solute intake complicated by HCTZ use. Nephrology on board, appreciate recommendation. Increase protein intake in diet. Hypomagnesemia: Monitor and replete. Hypertension: Blood pressure fairly under control. Hold lisinopril. HCTZ discontinued. Continue to monitor. Resume blood pressure medication gradually as able. DVT Ppx: SQ heparin Code status: FULL PCP: Nahum Dispo: Admitted to PCU Pt's son eduar was updated over the phone 08/07, answered all this queries. about 15 min. he voice understanding. Admission and Anticipated Discharge Date Admission Date: August 05, 2023 Subjective Patient was seen and examined at bedside. Patient was sitting up in bed, on room air, resting comfortably, not in any acute distress. Patient reports eating okay and moving bowels okay, denies headache or chest pain or abdominal pain. Patient reports having balance problem with ambulation. Reports improving ambulation and declined PT therapy. Physical Exam Physical Exam: GENERAL: Alert and oriented x3. NAD, on RA. Appears older than his stated age. HEENT: No pallor, no icterus. Pupils equal, round and reactive to light. Oral mucosa moist. NECK: No JVD, no neck masses. HEART: S1 and S2 heard. Regular rate and rhythm. No murmur, no gallop. RESPIRATORY SYSTEM: Normal AP diameter. No accessory muscle use. No wheezing, no crackles. ABDOMEN: Soft, bowel sounds present, nontender, no distention. CENTRAL NERVOUS SYSTEM: No facial droop. Speech is clear. Obeys simple commands. Moves extremities. EXTREMITIES: No edema, no erythema seen. Results & Data Results & Data Vital Signs (Past 12 Hours) Vital Signs Temp Pulse Pulse Resp BP Pulse Ox O2 Del Method 08/07/23 11:41 36.7 C 79 18 113/72 100 Room Air 08/07/23 07:48 63 08/07/23 07:42 36.6 C 65 16 93/61 L 98 Room Air 08/07/23 03:18 36.7 C 65 18 93/61 L 98 Room Air
[2023-08-07] MEDS: ATORVASTATIN 40 MG TAB PO SCH (20:47)
[2023-08-08] MEDS ORDERED: LORazepam 0.5 MG TAB PO STA (01:41)
[2023-08-08] MEDS: HEPARIN SOD 5,000 UNIT/0.5 ML VIAL SQ SCH ×4 (06:00→20:55)
[2023-08-08] MEDS: LEVOTHYROXINE SODIUM 25 MCG TABLET PO SCH (06:00)
[2023-08-08 06:35] LABS: Basophils # (auto) 0.02 K/uL (0.00-0.20); Basophils % (auto) 0.3 %; Eosinophils # (auto) 0.14 K/uL (0.00-0.50); Eosinophils % (auto) 1.8 %; Hematocrit (blood only) 34.6 % (42.0-52.0); Hemoglobin 12.4 g/dl (14.0-18.0); Immature Granulocytes # (auto) 0.01 K/uL (0.01-0.20); Immature Granulocytes % (auto) 0.1 %; Lymphocytes % (auto) 33.1 %; Mean Corpuscular Hemoglobin 34.3 pg (25.0-34.0); Mean Corpuscular Hgb Conc 35.8 g/dL (32.0-36.0); Mean Corpuscular Volume 95.6 fL (80.0-100.0); Mean Platelet Volume 11.4 fL (9.4-12.4); Monocytes # (auto) 0.71 K/uL (0.11-0.59); Neutrophils # (auto) 4.37 K/uL (1.40-6.50); Neutrophils % (auto) 55.7 %; Platelet Count 291 K/uL (130-400); RDW Coefficient of Variation 12.1 % (11.5-14.5); RDW Standard Deviation 42.4 fL (36.4-46.3); Red Blood Count 3.62 M/uL (4.70-6.10); White Blood Count 7.85 K/ul (4.8-10.8)
[2023-08-08 07:06] LABS: BUN Creatinine Ratio 23.6 (10-20); Calcium 9.1 mg/dl (8.6-10.3); Creatinine Clr Calc Pharmacy 36.4 ml/min; Est GFR (African American) 55.2 ml/min; Est GFR (Non-African American) 47.6 ml/min; Potassium 4.1 mmol/L (3.5-5.1)
[2023-08-08] MEDS: ASPIRIN 81 MG ECTAB PO SCH (07:45)
[2023-08-08] MEDS: MAGNESIUM CHLORIDE W/CALCIUM 64MG DELAYED REL TAB PO SCH ×2 (07:46→20:55)
[2023-08-08] MEDS: FOLIC ACID 1 MG TAB PO SCH (07:46)
[2023-08-08] MEDS: TAMSULOSIN HCL 0.4 MG CAP PO SCH (07:46)
[2023-08-08] MEDS: LUBIPROSTONE 8 MCG CAP PO SCH ×2 (07:47→20:56)
[2023-08-08] MEDS: PANTOprazole 40 MG TAB PO SCH (07:47)
[2023-08-08] MEDS: SODIUM CHLORIDE 1 GM TABLET PO SCH (07:48)
[2023-08-08] MEDS: SODIUM BICARBONATE 650 MG TAB PO SCH (07:48)
[2023-08-08] MEDS: busPIRone 7.5 MG TAB PO SCH ×2 (07:48→20:55)
[2023-08-08] MEDS: DULoxetine HCL 60 MG CAP PO SCH (07:49)
[2023-08-08] MEDS: SUCRALFATE 1 GM/10 ML UDC PO SCH ×4 (07:49→20:55)
[2023-08-08] MEDS: THIAMINE HCL 200 MG in SODIUM CHLORIDE 0.9% 50 ML IV SCH (07:59)
--- NOTE | 2023-08-08 09:25 | Nephrology Progress Note ---
Date of Service August 08, 2023 Assessment & Plan (1) Acute kidney injury: Plan: * HUGO due to dehydration in the setting of thiazide + ACEi therapy * Thiazide and ACEi have been held. IV hydration provided. Creatinine peaked at 6.26 but has improved to 1.48 this am. Patient is nonoliguric * Volume status and electrolyte balance remain acceptable at this time. IVF has been stopped. Encourage oral hydration * Serum bicarbonate has corrected. Will stop NaHCO3 supplement * PRP in am (2) Chronic kidney disease, stage II (mild): Plan: * Baseline Cr 1.2-1.5. Primary Management Planner is Dr. Nguyen (3) Hyponatremia: Plan: * Serum Na 136 this am * Will stop NaCl supplement * CT did demonstrate a 6 mm RLL nodule in a smoker which will require follow up evaluation. (4) Hypomagnesemia: Plan: * Attributed to HCTZ and ETOH * Now corrected (5) HTN (hypertension): Plan: * BP acceptable * Continue to hold Lisinopril and HCTZ (6) Bladder outlet obstruction: Plan: * Maintained on Flomax. CT did not demonstrate hydronephrosis or evidence of obstructive nephropathy Admission and Anticipated Discharge Date Admission Date: August 05, 2023 Subjective Mr. Colmenares was evaluated in his hospital room this morning. Mr. Colmenares denied fever, flank pain or difficulty voiding. He voiced no new medical concerns. Review of Systems Constitutional: no fever Eyes: no problem reported Ear, Nose, Mouth, Throat: no problem reported Respiratory: no cough and no dyspnea Cardiovascular: no chest pain Gastrointestinal: no abdominal pain, no nausea, no vomiting and no diarrh ea/loose stools Genitourinary: no dysuria, no difficulty urinating or no hematuria Integumentary: no rash Physical Exam Constitutional: not in distress Eyes: PERRL, conjunctivae normal, anicteric sclerae ENMT: external ear and nose normal, oropharynx normal Neck: trachea midline, no thyromegaly Respiratory: normal respiratory effort, lungs clear to auscultation Cardiovascular: Rate/Rhythm: regular rate and regular rhythm Gastrointestinal (Abdomen): normal bowel sounds, soft, nontender, no hepatosplenomegaly Skin: no rashes, warm and dry Neurologic: awake Speech / Cognition: normal speech Results & Data Vital Signs (Past 12 Hours) Vital Signs Temp Pulse Pulse Resp BP Pulse Ox O2 Del Method 01/28/24 07:38 36.6 C 72 18 111/72 99 Room Air 08/08/23 07:06 71 08/08/23 06:10 68 20 118/76 96 Room Air 08/08/23 02:00 68 08/07/23 23:31 36.7 C 64 18 124/68 95 Room Air Laboratory Results Laboratory Results - last 24 hr 08/08/23 05:29 WBC 7.85 RBC 3.62 L Hgb 12.4 L Hct 34.6 L MCV 95.6 MCH 34.3 H MCHC 35.8 RDW Std Deviation 42.4 RDW Coeff of Suresh 12.1 Plt Count 291 MPV 11.4 Immature Gran % (Auto) 0.1 Neut % (Auto) 55.7 Lymph % (Auto) 33.1 [place] % (Auto) 9.0 Eos % (Auto) 1.8 Baso % (Auto) 0.3 Neut # (Auto) 4.37 Lymph # (Auto) 2.60 [place] # (Auto) 0.71 H Eos # (Auto) 0.14 Baso # (Auto) 0.02 Immature Gran # (Auto) 0.01 Sodium 136 Potassium 4.1 Chloride 107 Carbon Dioxide 24 Anion Gap 5 BUN 35 H Creatinine 1.48 H D Est Cr Clr Drug Dosing 36.4 Est GFR ( Amer) 55.2 Est GFR (Non-Af Amer) 47.6 BUN/Creatinine Ratio 23.6 H Glucose 88 Calcium 9.1 PG Care Time/CCT Total # of Minutes Spent Total Time Spent with Patient: Total time spent is greater than 50% in coordination of care (as documented) at patient's floor/unit and/or counseling patient: Coding Level of Care Code 68419 SUB INP/OBS CARE 3/50MIN Diagnoses Acute kidney injury N17.9 Chronic kidney disease, stage II (mild) N18.2 Hyponatremia E87.1 Hypomagnesemia E83.42 HTN (hypertension) I10 Bladder outlet obstruction N32.0
--- NOTE | 2023-08-08 18:30 | Hospitalist Progress Note ---
Date of Service August 08, 2023 Assessment & Plan (1) Stroke: (2) Disequilibrium: Plan 67-year-old male with PMH of hypertension, BPH, depression, tobacco use, alcohol use disorder, generalized anxiety disorder, IBS with constipation and diarrhea and other medical problems listed below who presents with dizziness, difficulty with balance and walking. He is being managed for the following: Ambulatory dysfunction Disequilibrium Stroke Chronic alcohol use disorder Patient came in with complaint of intermittent issues with dizziness, weakness and coordination with walking over the past few weeks. Admitting CT head with no acute finding. 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 Carotid artery ultrasound with moderate atherosclerotic plaque without evidence for a hemodynamically significant stenosis. Chronic alcohol use disorder could also be contributing to his ambulatory dysfunction. Echo with EF of 60 to 65%, grade 1 diastolic dysfunction, no interatrial shunt noted. No atrial septal defect noted. A1c 4.9, LDL 57. Fall precaution, PT/OT. Orthostatic vitals negative. Neurology evaluated, agrees with aspirin and statin, other recs are Zio patch monitoring on discharge, MRA head and neck. Will get MRA head and neck once renal function improved. Continue with neurochecks and telemetry monitoring. Patient consumes alcohol (1/2 pint of bourbon daily and upto additional three 16 ounces beers a day) regularly for many years per Pt, last drink 08/04 evening, VADIM S protocol. Folic acid and IV thiamine. Monitor replete electrolytes. Patient understands that he needs to quit drinking, he is not willing to go to inpatient alcoholic rehab at this time. But he will think about it once discharged per him. Acute kidney injury over CKD II High anion gap metabolic acidosis: Likely secondary to acute renal injury. NaHCO3 ordered. Trend with improvement in renal function. In setting of chronic alcohol use, poor nutrition, dehydration and chronic bladder outlet obstruction At presentation Cr elevated at 6.26 (baseline Cr ~1.2-1.5) Recently saw Dr. Nguyen and was instructed to dc hctz and increased lisinopril to 40mg but unfortunately there was miscommunication and patient has continued hctz CTAP with no hydronephrosis. Consistent with prerenal physiology. DC hydrochlorothiazide. Hold lisinopril. s/p IV fluid, creatinine trending down. Labs in AM. Avoid any contrasted imaging studies until Cr improves Chronic bladder outlet obstruction: CT abd/pelvis with prostatectomy with findings suggestive of chronic outlet obstruction. Urinalysis negative for UTI. Recently started on alfuzosin by urology. Bladder scan Q6H and monitor for re tention Cont alfuzosin for now, consider addition of Flomax, bladder scan as above. Established with Dr. Azul of [facility] urology Follow-up with urology on discharge. RLL nodule: 6 mm solid nodule noted on CTAP at admission. Follow-up CT scan in 12 months. Pt and pt's son were made aware. Hyponatremia: Admitting sodium of 127, chronically low sodium in the range of 1 25-1 32 in the setting of chronic alcoholic use disorder/poor solute intake complicated by HCTZ use. Nephrology on board, appreciate recommendation. Increase protein intake in diet. Hypomagnesemia: Monitor and replete. Hypertension: Blood pressure fairly under control. Hold lisinopril. HCTZ discontinued. Continue to monitor. Resume blood pressure medication gradually as able. DVT Ppx: SQ heparin Code status: FULL PCP: Nahum Dispo: Admitted to PCU Pt's son eduar was updated over the phone 08/07, answered all this queries. about 15 min. he voice understanding. Admission and Anticipated Discharge Date Admission Date: August 05, 2023 Subjective Patient was seen and examined at bedside. Patient was sitting up in bed, on room air, resting comfortably, not in any acute distress. Patient reports eating okay and moving bowels okay, denies headache or chest pain or abdominal pain. Patient reports having balance problem with ambulation. Reports improving ambulation and has declined PT therapy. Physical Exam Physical Exam: GENERAL: Alert and oriented x3. NAD, on RA. Appears older than his stated age. HEENT: No pallor, no icterus. Pupils equal, round and reactive to light. Oral mucosa moist. NECK: No JVD, no neck masses. HEART: S1 and S2 heard. Regular rate and rhythm. No murmur, no gallop. RESPIRATORY SYSTEM: Normal AP diameter. No accessory muscle use. No wheezing, no crackles. ABDOMEN: Soft, bowel sounds present, nontender, no distention. CENTRAL NERVOUS SYSTEM: No facial droop. Speech is clear. Obeys simple commands. Moves extremities. EXTREMITIES: No edema, no erythema seen. Results & Data Results & Data Vital Signs (Past 12 Hours) Vital Signs Temp Pulse Pulse Resp BP Pulse Ox O2 Del Method 08/08/23 15:44 36.7 C 62 19 106/70 98 Room Air 08/08/23 15:01 62 08/08/23 11:17 36.7 C 78 18 112/73 99 Room Air 08/08/23 07:38 36.6 C 72 18 111/72 99 Room Air 08/08/23 07:06 71
[2023-08-08] MEDS: ATORVASTATIN 40 MG TAB PO SCH (20:55)
[2023-08-09] MEDS: HEPARIN SOD 5,000 UNIT/0.5 ML VIAL SQ SCH ×3 (05:58→20:51)
[2023-08-09] MEDS: LEVOTHYROXINE SODIUM 25 MCG TABLET PO SCH (05:58)
[2023-08-09 06:40] LABS: Hematocrit (blood only) 35.6 % (42.0-52.0); Hemoglobin 12.7 g/dl (14.0-18.0); Mean Corpuscular Hemoglobin 34.3 pg (25.0-34.0); Mean Corpuscular Hgb Conc 35.7 g/dL (32.0-36.0); Mean Corpuscular Volume 96.2 fL (80.0-100.0); Mean Platelet Volume 11.3 fL (9.4-12.4); Platelet Count 296 K/uL (130-400); RDW Coefficient of Variation 12.2 % (11.5-14.5); RDW Standard Deviation 43.3 fL (36.4-46.3); White Blood Count 8.29 K/ul (4.8-10.8)
[2023-08-09 07:03] LABS: BUN Creatinine Ratio 18.7 (10-20); Calcium 9.4 mg/dl (8.6-10.3); Creatinine Clr Calc Pharmacy 35.9 ml/min; Est GFR (African American) 54.3 ml/min; Est GFR (Non-African American) 46.8 ml/min; Magnesium 1.5 mg/dl (1.7-2.4); Phosphorus 1.8 mg/dl (2.5-4.9); Potassium 4.6 mmol/L (3.5-5.1)
[2023-08-09] MEDS: busPIRone 7.5 MG TAB PO SCH ×2 (07:26→20:53)
[2023-08-09] MEDS: POLYETHYLENE (MIRALAX) 17 GM PACK PO PRN (07:26)
[2023-08-09] MEDS: LUBIPROSTONE 8 MCG CAP PO SCH ×2 (07:27→20:52)
[2023-08-09] MEDS: ASPIRIN 81 MG ECTAB PO SCH (07:27)
[2023-08-09] MEDS: DULoxetine HCL 60 MG CAP PO SCH (07:27)
[2023-08-09] MEDS: TAMSULOSIN HCL 0.4 MG CAP PO SCH (07:27)
[2023-08-09] MEDS: SUCRALFATE 1 GM/10 ML UDC PO SCH ×4 (07:28→20:52)
[2023-08-09] MEDS: MAGNESIUM CHLORIDE W/CALCIUM 64MG DELAYED REL TAB PO SCH ×2 (07:28→20:52)
[2023-08-09] MEDS: THIAMINE HCL 200 MG in SODIUM CHLORIDE 0.9% 50 ML IV SCH (07:28)
[2023-08-09] MEDS: PANTOprazole 40 MG TAB PO SCH (07:29)
[2023-08-09] MEDS: FOLIC ACID 1 MG TAB PO SCH (07:29)
--- NOTE | 2023-08-09 08:55 | Nephrology Progress Note ---
Date of Service August 09, 2023 Assessment & Plan (1) Acute kidney injury: Plan: * HUGO due to dehydration in the setting of thiazide + ACEi therapy * Thiazide and ACEi have been held. IV hydration provided. Creatinine peaked at 6.26 but has improved to 1.5 this am. Patient is nonoliguric * Volume status and electrolyte balance remain acceptable at this time. Continue to encourage oral hydration * Serum bicarbonate has corrected, NaHCO3 supplement has been stopped * PRP in am (2) Chronic kidney disease, stage II (mild): Plan: * Baseline Cr 1.2-1.5. Primary Adult Education Professional is Dr. Nguyen (3) Hyponatremia: Plan: * Serum Na 137 this am * NaCl supplement has been stopped * CT did demonstrate a 6 mm RLL nodule in a smoker which will require follow up evaluation. (4) Hypomagnesemia: Plan: * Attributed to HCTZ and ETOH * On MgCl 65 mg po BID (5) HTN (hypertension): Plan: * BP acceptable * Continue to hold Lisinopril and HCTZ (6) Bladder outlet obstruction: Plan: * Maintained on Flomax. CT did not demonstrate hydronephrosis or evidence of obstructive nephropathy (7) Embolic stroke: Plan: * 08/05/23 Brain MRI - Multiple punctate foci of restricted diffusion compatible with small embolic infarcts. No evidence of hemorrhage * 08/06/23 Carotid doppler - Moderate atherosclerotic plaque without evidence for a hemodynamically significant stenosis * Neurology distributed energy systems consultant recommends MRA of brain and Zio patch Admission and Anticipated Discharge Date Admission Date: August 05, 2023 Subjective Mr. Colmenares was evaluated in his hospital room this morning. He slept poorly and c/o constipation Review of Systems Constitutional: no fever Eyes: no problem reported Ear, Nose, Mouth, Throat: no problem reported Respiratory: no cough and no dyspnea Cardiovascular: no chest pain Gastrointestinal: no abdominal pain, no nausea, no vomiting and no diarrhea/loose stools Genitourinary: no dysuria, no difficulty urinating or no hematuria Integumentary: no rash Physical Exam Constitutional: not in distress Eyes: PERRL, conjunctivae normal, anicteric sclerae ENMT: external ear and nose normal, oropharynx normal Neck: trachea midline, no thyromegaly Respiratory: normal respiratory effort, lungs clear to auscultation Cardiovascular: Rate/Rhythm: regular rate and regular rhythm Gastrointestinal (Abdomen): normal bowel sounds, soft, nontender, no hepato splenomegaly Skin: no rashes, warm and dry Neurologic: awake Speech / Cognition: normal speech Results & Data Vital Signs (Past 12 Hours) Vital Signs Temp Pulse Pulse Resp BP BP Pulse Ox 08/09/23 08:31 58 L 08/09/23 07:12 36.4 C L 64 18 147/85 H 100 08/09/23 04:17 36.4 C L 64 18 148/89 H 100 08/09/23 00:13 64 08/08/23 22:54 36.6 C 20 105/62 98 O2 Del Method 08/09/23 08:31 08/09/23 07:12 Room Air 08/09/23 04:17 Room Air 08/09/23 00:13 08/08/23 22:54 Room Air Laboratory Results Laboratory Results - last 24 hr 08/09/23 05:52 WBC 8.29 RBC 3.70 L Hgb 12.7 L Hct 35.6 L MCV 96.2 MCH 34.3 H MCHC 35.7 RDW Std Deviation 43.3 RDW Coeff of Suresh 12.2 Plt Count 296 MPV 11.3 Sodium 137 Potassium 4.6 Chloride 108 H Carbon Dioxide 25 Anion Gap 4 BUN 28 H Creatinine 1.50 H Est Cr Clr Drug Dosing 35.9 Est GFR ( Amer) 54.3 Est GFR (Non-Af Amer) 46.8 BUN/Creatinine Ratio 18.7 Glucose 98 Calcium 9.4 Phosphorus 1.8 L Magnesium 1.5 L PG Care Time/CCT Total # of Minutes Spent Total Time Spent with Patient: Total time spent is greater than 50% in coordination of care (as documented) at patient's floor/unit and/or counseling patient: Coding Level of Care Code 26062 SUB INP/OBS CARE 3/50MIN Diagnoses Acute kidney injury N17.9 Chronic kidney disease, stage II (mild) N18.2 Hyponatremia E87.1 Hypomagnesemia E83.42 HTN (hypertension) I10 Bladder outlet obstruction N32.0 Embolic stroke I63.9
--- NOTE | 2023-08-09 09:06 | Pharmacy Report ---
- Date of Service August 09, 2023 - Pharmacy CVA/TIA Medication Review Medications to Prevent Stroke handout has been added to the patients discharge packet. Antiplatelet(s) * Aspirin 81 mg PO daily Cholesterol * High intensity statin: atorvastatin 40 mg daily DVT Prophylaxis * Heparin SQ Therapeutic Anticoagulation * No history of Afib/Aflutter noted Type 2 Diabetes * Patient does not have T2DM
[2023-08-09] MEDS: MAGNESIUM SULFATE / D5W 1 GM/100 ML BAG IV SCH ×2 (09:10→11:02)
[2023-08-09] MEDS: POT PHOSPHATE MONOBASIC W/ SOD TAB PO SCH ×4 (10:05→20:52)
[2023-08-09] MEDS: SODIUM CHLORIDE 0.9% 1,000 ML IV SCH (10:06)
[2023-08-09] MEDS ORDERED: SENNA 8.6 MG TAB PO PRN (13:37)
[2023-08-09] MEDS ORDERED: LORazepam 0.5 MG TAB PO PRN (13:38)
--- NOTE | 2023-08-09 15:53 | Hospitalist Progress Note ---
Date of Service August 09, 2023 Assessment & Plan (1) Stroke: (2) Disequilibrium: Plan 67-year-old male with PMH of hypertension, BPH, depression, tobacco use, alcohol use disorder, generalized anxiety disorder, IBS with constipation and diarrhea and other medical problems listed below who presents with dizziness, difficulty with balance and walking. He is being managed for the following: Ambulatory dysfunction Disequilibrium Stroke Chronic alcohol use disorder Patient came in with complaint of intermittent issues with dizziness, weakness and coordination with walking over the past few weeks. Admitting CT head with no acute finding. 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 Carotid artery ultrasound with moderate atherosclerotic plaque without evidence for a hemodynamically significant stenosis. Chronic alcohol use disorder could also be contributing to his ambulatory dysfunction. Echo with EF of 60 to 65%, grade 1 diastolic dysfunction, no interatrial shunt noted. No atrial septal defect noted. A1c 4.9, LDL 57. Fall precaution, PT/OT. Orthostatic vitals negative. Neurology evaluated, agrees with aspirin and statin, other recs are Zio patch monitoring on discharge, MRA head and neck. Discussed with nephrology, will get MRA head and neck today. As needed Ativan dose prior to MRI ordered. Continue with neurochecks and telemetry monitoring. Patient consumes alcohol (1/2 pint of bourbon daily and upto additional three 16 ounces beers a day) regularly for many years per Pt, last drink 08/04 evening, VADIM S protocol. Folic acid and IV thiamine. Monitor replete electrolytes. Patient understands that he needs to quit drinking, he is not willing to go to inpatient alcoholic rehab at this time. But he will think about it once discharged per him. On gentle ivf due contrast studies Acute kidney injury over CKD II High anion gap metabolic acidosis: Likely secondary to acute renal injury. NaHCO3 ordered. Trend with improvement in renal function. In setting of chronic alcohol use, poor nutrition, dehydration and chronic bladder outlet obstruction At presentation Cr elevated at 6.26 (baseline Cr ~1.2-1.5) Recently saw Dr. Nguyen and was instructed to dc hctz and increased lisinopril to 40mg but unfortunately there was miscommunication and patient has continued hctz CTAP with no hydronephrosis. Consistent with prerenal physiology. DC hydrochlorothiazide. Hold lisinopril. s/p IV fluid, creatinine trending down. Labs in AM. Continue to hold lisinopril and hydrochlorothiazide per nephrology. Chronic bladder outlet obstruction: CT abd/pelvis with prostatectomy with findings suggestive of chronic outlet obstruction. Urinalysis negative for UTI. Recently started on alfuzosin by urology. Bladder scan Q6H and monitor for retention Cont alfuzosin for now, consider addition of Flomax, bladder scan as above. Established with Dr. Azul of [facility] urology Follow-up with urology on discharge. RLL nodule: 6 mm solid nodule noted on CTAP at admission. Follow-up CT scan in 12 months. Pt and pt's son were made aware. Hyponatremia: Admitting sodium of 127, chronically low sodium in the range of 1 25-1 32 in the setting of chronic alcoholic use disorder/poor solute intake c omplicated by HCTZ use. Nephrology on board, appreciate recommendation. Increase protein intake in diet. Hypomagnesemia: Monitor and replete. Hypertension: Blood pressure fairly under control. Hold lisinopril. HCTZ discontinued. Continue to monitor. Resume blood pressure medication gradually as able. DVT Ppx: SQ heparin Code status: FULL PCP: Nahum Dispo: Admitted to PCU Pt's son eduar was updated over the phone 08/07, answered all this queries. about 15 min. he voice understanding. Admission and Anticipated Discharge Date Admission Date: August 05, 2023 Subjective Patient was seen and examined at bedside. Patient was sitting up in bed, on room air, eating his breakfast, not in any acute distress. Patient reports eating okay and has not moved bowels and asking for bowel regimen, added Senokot on top of as needed MiraLAX, denies headache or chest pain or abdominal pain. Patient now reports moving around okay without issues. He feels comfortable. Physical Exam Physical Exam: GENERAL: Alert and oriented x3. NAD, on RA. Appears older than his stated age. HEENT: No pallor, no icterus. Pupils equal, round and reactive to light. Oral mucosa moist. NECK: No JVD, no neck masses. HEART: S1 and S2 heard. Regular rate and rhythm. No murmur, no gallop. RESPIRATORY SYSTEM: Normal AP diameter. No accessory muscle use. No wheezing, no crackles. ABDOMEN: Soft, bowel sounds present, nontender, no distention. CENTRAL NERVOUS SYSTEM: No facial droop. Speech is clear. Obeys simple commands. Moves extremities. EXTREMITIES: No edema, no erythema seen. Results & Data Results & Data Vital Signs (Past 12 Hours) Vital Signs Temp Pulse Pulse Resp BP BP Pulse Ox 08/09/23 15:40 36.5 C 74 18 154/89 H 99 08/09/23 15:00 68 08/09/23 11:58 36.8 C 88 18 123/81 100 08/09/23 08:31 58 L 08/09/23 07:12 36.4 C L 64 18 147/85 H 100 08/09/23 04:17 36.4 C L 64 18 148/89 H 100 O2 Del Method 08/09/23 15:40 Room Air 08/09/23 15:00 08/09/23 11:58 Room Air 08/09/23 08:31 08/09/23 07:12 Room Air 08/09/23 04:17 Room Air
--- NOTE | 2023-08-09 17:15 | Magnetic Resonance Report ---
MR ANGIOGRAM OF THE BRAIN CLINICAL HISTORY: Stroke. COMPARISON STUDY: MRI of the brain dated 08/05/2023. TECHNIQUE: 3-D [id number] MR angiography of the intracranial circulation is performed. 3-D tumble views are created and assessed. IV contrast was not administered for this examination. FINDINGS: The internal carotid arteries are widely patent bilaterally, as are the anterior and middle cerebral arteries. The vertebrobasilar system and posterior cerebral arteries are widely patent. The right vertebral artery is dominant. There is no aneurysm, high-grade stenosis, or focal vessel cuto ff seen throughout the intracranial circulation. IMPRESSION: Unremarkable MR angiogram of the brain. ACT 112: Negative or not required by law. Electronically signed by: Yo Hunt M.D. 08/09/2023 5:13 PM
--- NOTE | 2023-08-09 18:08 | Magnetic Resonance Report ---
MR ANGIOGRAM OF THE NECK COMBO CLINICAL HISTORY: Stroke. COMPARISON STUDY: Carotid artery ultrasound dated 08/05/2023. TECHNIQUE: Axial 3-D [id number] MR angiography of the neck is performed. Subsequently, following the IV administration of 6.5 cc of Gadavist. Coronal MR angiogram of the neck was performed to corrob orate the findings. 3-D reformats are created and assessed. All measurements were calculated based on NASCET criteria. FINDINGS: Visualized portions of the thoracic aorta are normal in caliber. The aortic arch demonstrat es bovine variant anatomy. The subclavian arteries are widely patent bilaterally. The right common ca rotid artery is widely patent. There is approximately 50% stenosis at the origin of the right interna l carotid artery. The remainder of the right internal carotid artery is widely patent, as is the righ t external carotid artery. The left common carotid artery is widely patent, as are the left internal and external carotid arteries. The vertebral arteries are widely patent. The vertebral arteries are c odominant. The visualized intracranial vessels at the skull base appear patent. IMPRESSION: 1. There is approximately 50% stenosis at the origin of the right internal carotid artery. 2. Otherwise unremarkable MR angiogram of the neck. ACT 112: Negative or not required by law. Electronically signed by: Yo Hunt M.D. 08/09/2023 6:06 PM
[2023-08-09] MEDS: ATORVASTATIN 40 MG TAB PO SCH (20:52)
[2023-08-10] MEDS: HEPARIN SOD 5,000 UNIT/0.5 ML VIAL SQ SCH ×3 (05:43→20:07)
[2023-08-10] MEDS: LEVOTHYROXINE SODIUM 25 MCG TABLET PO SCH (05:43)
[2023-08-10] MEDS: SODIUM CHLORIDE 0.9% 1,000 ML IV SCH (05:44)
[2023-08-10 07:13] LABS: BUN Creatinine Ratio 19.5 (10-20); Calcium 9.2 mg/dl (8.6-10.3); Creatinine Clr Calc Pharmacy 43.8 ml/min; Est GFR (Non-African American) 59.5 ml/min; Magnesium 1.6 mg/dl (1.7-2.4); Phosphorus 2.8 mg/dl (2.5-4.9); Potassium 4.1 mmol/L (3.5-5.1)
[2023-08-10] MEDS: ASPIRIN 81 MG ECTAB PO SCH (08:17)
[2023-08-10] MEDS: busPIRone 7.5 MG TAB PO SCH ×2 (08:17→20:06)
[2023-08-10] MEDS: PANTOprazole 40 MG TAB PO SCH (08:18)
[2023-08-10] MEDS: TAMSULOSIN HCL 0.4 MG CAP PO SCH (08:18)
[2023-08-10] MEDS: MAGNESIUM CHLORIDE W/CALCIUM 64MG DELAYED REL TAB PO SCH ×2 (08:18→20:06)
[2023-08-10] MEDS: SUCRALFATE 1 GM/10 ML UDC PO SCH ×4 (08:18→20:05)
[2023-08-10] MEDS: FOLIC ACID 1 MG TAB PO SCH (08:18)
[2023-08-10] MEDS: DULoxetine HCL 60 MG CAP PO SCH (08:18)
[2023-08-10] MEDS: THIAMINE HCL 200 MG in SODIUM CHLORIDE 0.9% 50 ML IV SCH (08:18)
[2023-08-10] MEDS: POLYETHYLENE (MIRALAX) 17 GM PACK PO PRN (08:18)
[2023-08-10] MEDS: POT PHOSPHATE MONOBASIC W/ SOD TAB PO SCH ×4 (08:18→20:06)
[2023-08-10] MEDS: LUBIPROSTONE 8 MCG CAP PO SCH ×2 (08:18→20:06)
--- NOTE | 2023-08-10 08:57 | Nephrology Progress Note ---
Date of Service August 10, 2023 Assessment & Plan (1) Acute kidney injury: Plan: * HUGO due to dehydration in the setting of thiazide and ACEi therapy - resolved * Thiazide and ACEi have been held. IV hydration provided. Creatinine peaked at 6.26 but has improved to 1.2 this am. Patient is nonoliguric * Encourage oral hydration * No further Nephrology evaluation indicated at this time. Will sign off. Please have patient follow up w/ Dr. Nguyen within 2 weeks of hospital discharge (2) Chronic kidney disease, stage II (mild): Plan: * Baseline Cr 1.2-1.5. Primary Vehicle Controls Engineer is Dr. Nguyen (3) Hyponatremia: Plan: * Corrected - serum Na 139 this am * CT did demonstrate a 6 mm RLL nodule in a smoker which will require follow up evaluation. (4) Hypomagnesemia: Plan: * Attributed to HCTZ and ETOH * On MgCl 65 mg po BID * Serum Mg improved to 1.6 this am (5) HTN (hypertension): Plan: * BP acceptable * Continue to hold Lisinopril and HCTZ (6) Bladder outlet obstruction: Plan: * Maintained on Flomax. CT did not demonstrate hydronephrosis or evidence of obstructive nephropathy (7) Embolic stroke: Plan: * 08/05/23 Brain MRI - Multiple punctate foci of restricted diffusion compatible with small embolic infarcts. No evidence of hemorrhage * 08/06/23 Carotid doppler - Moderate atherosclerotic plaque without evidence for a hemodynamically significant stenosis * 08/09/23 MRA of head and neck - 50% stneosis at origin of R ICA. No other vascular aneurysm or stenosis reported * Neurology oracle identity management consultant recommends Zio patch Admission and Anticipated Discharge Date Admission Date: August 05, 2023 Subjective Mr. Colmenares was evaluated in his hospital room this morning. He reports that his constipation is mildly improved this am and he is tolerating small amounts of an oral diet Review of Systems Constitutional: no fever Eyes: no problem reported Ear, Nose, Mouth, Throat: no problem reported Respiratory: no cough and no dyspnea Cardiovascular: no chest pain Gastrointestinal: no abdominal pain, no nausea, no vomiting and no diarrhea/loose stools Genitourinary: no dysuria, no difficulty urinating or no hematuria Integumentary: no rash Physical Exam Constitutional: not in distress Eyes: PERRL, conjunctivae normal, anicteric sclerae ENMT: external ear and nose normal, oropharynx normal Neck: trachea midline, no thyromegaly Respiratory: normal respiratory effort, lungs clear to auscultation Cardiovascular: Rate/Rhythm: regular rate and regular rhythm Gastrointestinal (Abdomen): normal bowel sounds, soft, nontender, no hepa tosplenomegaly Skin: no rashes, warm and dry Neurologic: awake Speech / Cognition: normal speech Results & Data Vital Signs (Past 12 Hours) Vital Signs Temp Pulse Pulse Resp BP Pulse Ox O2 Del Method 08/10/23 07:59 36.5 C 80 18 143/87 H 99 Room Air 08/10/23 04:32 36.5 C 68 18 145/88 H 100 Room Air 08/09/23 23:13 58 L 08/09/23 22:47 36.5 C 59 L 20 114/74 98 Room Air Laboratory Results Laboratory Results - last 24 hr 08/10/23 06:03 Sodium 139 Potassium 4.1 Chloride 109 H Carbon Dioxide 25 Anion Gap 5 BUN 24 H Creatinine 1.23 Est Cr Clr Drug Dosing 43.8 Est GFR ( Amer) 69.0 Est GFR (Non-Af Amer) 59.5 BUN/Creatinine Ratio 19.5 Glucose 88 Calcium 9.2 Phosphorus 2.8 D Magnesium 1.6 L PG Care Time/CCT Total # of Minutes Spent Total Time Spent with Patient: Total time spent is greater than 50% in coordination of care (as documented) at patient's floor/unit and/or counseling patient: Coding Level of Care Code 96441 SUB INP/OBS CARE 3/50MIN Diagnoses Acute kidney injury N17.9 Chronic kidney disease, stage II (mild) N18.2 Hyponatremia E87.1 Hypomagnesemia E83.42 HTN (hypertension) I10 Bladder outlet obstruction N32.0 Embolic stroke I63.9
[2023-08-10] MEDS: MAGNESIUM SULFATE / D5W 1 GM/100 ML BAG IV SCH ×3 (09:09→13:59)
--- NOTE | 2023-08-10 14:42 | XRay Report ---
KUB CLINICAL HISTORY: Generalized abdominal pain. Nausea. FINDINGS: 2 AP supine abdominal radiographs are correlated with abdominal CT dated 08/05/2023. There i s a nonobstructed abdominal bowel gas pattern. No evidence of intraperitoneal free air is seen on the se supine images. There are no abnormal abdominal calcifications. The bony structures appear intact. The lung bases are clear as imaged. IMPRESSION: No acute abnormality is identified. Electronically signed by: Yo Hunt M.D. 08/10/2023 2:41 PM
[2023-08-10] MEDS ORDERED: LACTULOSE SYRUP 20 GM/30 ML UDC PO PRN (14:58)
--- NOTE | 2023-08-10 15:05 | Hospitalist Progress Note ---
Date of Service August 10, 2023 Assessment & Plan (1) Stroke: (2) Disequilibrium: Plan 67-year-old male with PMH of hypertension, BPH, depression, tobacco use, alcohol use disorder, generalized anxiety disorder, IBS with constipation and diarrhea and other medical problems listed below who presents with dizziness, difficulty with balance and walking. He is being managed for the following: Ambulatory dysfunction Disequilibrium Stroke Chronic alcohol use disorder Patient came in with complaint of intermittent issues with dizziness, weakness and coordination with walking over the past few weeks. Admitting CT head with no acute finding. 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 Carotid artery ultrasound with moderate atherosclerotic plaque without evidence for a hemodynamically significant stenosis. Chronic alcohol use disorder could also be contributing to his ambulatory dysfunction. Echo with EF of 60 to 65%, grade 1 diastolic dysfunction, no interatrial shunt noted. No atrial septal defect noted. A1c 4.9, LDL 57. Fall precaution, PT/OT. Orthostatic vitals negative. Neurology evaluated, agrees with aspirin and statin, other recs are Zio patch monitoring on discharge, MRA head and neck. Discussed with nephrology, will get MRA head and neck today. As needed Ativan dose prior to MRI ordered. Continue with neurochecks and telemetry monitoring. Patient consumes alcohol (1/2 pint of bourbon daily and upto additional three 16 ounces beers a day) regularly for many years per Pt, last drink 08/04 evening, VADIM S protocol. Folic acid and IV thiamine. Monitor replete electrolytes. Patient understands that he needs to quit drinking, he is not willing to go to inpatient alcoholic rehab at this time. But he will think about it once discharged per him. Acute kidney injury over CKD II High anion gap metabolic acidosis: Likely secondary to acute renal injury. NaHCO3 ordered. Trend with improvement in renal function. In setting of chronic alcohol use, poor nutrition, dehydration and chronic bladder outlet obstruction At presentation Cr elevated at 6.26 (baseline Cr ~1.2-1.5) Recently saw Dr. Nguyen and was instructed to dc hctz and increased lisinopril to 40mg but unfortunately there was miscommunication and patient has continued hctz CTAP with no hydronephrosis. Consistent with prerenal physiology. DC hydrochlorothiazide. s/p IV fluid, creatinine trended down. Labs in AM. Discussed with nephrology, resuming lisinopril for blood pressure control Chronic bladder outlet obstruction: CT abd/pelvis with prostatectomy with findings suggestive of chronic outlet obstruction. Urinalysis negative for UTI. Recently started on alfuzosin by urology. Bladder scan Q6H and monitor for retention Cont alfuzosin for now. Established with Dr. Azul of [facility] urology Follow-up with urology on discharge. RLL nodule: 6 mm solid nodule noted on CTAP at admission. Follow-up CT scan in 12 months. Pt and pt's son were made aware. Hyponatremia: Admitting sodium of 127, chronically low sodium in the range of 1 25-1 32 in the setting of chronic alcoholic use disorder/poor solute intake complicated by HCTZ use. Nephrology on board, appreciate recommendation. Increase protein intake in diet. Hypomagnesemia: Monitor and replete. Hypertension: Blood pressure fairly under control. Resumed lisinopril. HCTZ discontinued. Continue to monitor. DVT Ppx: SQ heparin Code status: FULL PCP: Nahum Dispo: Admitted to PCU, likely DC tomorrow. Pt's son eduar was updated over the phone 08/07, answered all this queries. about 15 min. he voice understanding. Patient's 2 sons updated at bedside, they would like to take him tomorrow. Admission and Anticipated Discharge Date Admission Date: August 05, 2023 Subjective Patient was seen and examined at bedside. Patient was sitting up in bed, on room air, not in any acute distress. Patient reports cramping abdominal pain, x-ray KUB reviewed with no acute finding. It appears that it is his chronic intermittent abdominal pain which has been extensively evaluated by GI as an outpatient. Discussed with patient's sons at bedside later in the day, they did not feel him comfortable going home today, would like to take him tomorrow. Patient has not moved bowels in several days, will give lactulose dose, follow. Patient reports eating okay, denies headache or chest pain or abdominal pain. Patient now reports moving around okay without issues. He feels comfortable. Physical Exam Physical Exam: GENERAL: Alert and oriented x3. NAD, on RA. Appears older than his stated age. HEENT: No pallor, no icterus. Pupils equal, round and reactive to light. Oral mucosa moist. NECK: No JVD, no neck masses. HEART: S1 and S2 heard. Regular rate and rhythm. No murmur, no gallop. RESPIRATORY SYSTEM: Normal AP diameter. No accessory muscle use. No wheezing, no crackles. ABDOMEN: Soft, bowel sounds present, nontender, no distention. CENTRAL NERVOUS SYSTEM: No facial droop. Speech is clear. Obeys simple commands. Moves extremities. EXTREMITIES: No edema, no erythema seen. Results & Data Results & Data Vital Signs (Past 12 Hours) Vital Signs Temp Pulse Resp BP Pulse Ox O2 Del Method 08/10/23 11:47 36.7 C 81 18 150/89 H 99 Room Air 08/10/23 07:59 36.5 C 80 18 143/87 H 99 Room Air 08/10/23 04:32 36.5 C 68 18 145/88 H 100 Room Air
[2023-08-10] MEDS: lisinopril 40 MG TAB PO SCH (16:24)
[2023-08-10] MEDS: ATORVASTATIN 40 MG TAB PO SCH (20:06)
[2023-08-11] MEDS: LEVOTHYROXINE SODIUM 25 MCG TABLET PO SCH (05:56)
[2023-08-11] MEDS: HEPARIN SOD 5,000 UNIT/0.5 ML VIAL SQ SCH (05:59)
[2023-08-11] MEDS: POLYETHYLENE (MIRALAX) 17 GM PACK PO PRN (07:09)
[2023-08-11] MEDS ORDERED: ALPRAZolam 0.5 MG TABLET PO STA (07:34)
[2023-08-11] MEDS ORDERED: MAGNESIUM HYDROXIDE SUSP 30 ML UDC PO ONE (07:34)
[2023-08-11 07:39] LABS: BUN Creatinine Ratio 13.9 (10-20); Calcium 9.6 mg/dl (8.6-10.3); Creatinine Clr Calc Pharmacy 50.6 ml/min; Est GFR (African American) 74.8 ml/min; Est GFR (Non-African American) 64.6 ml/min; Magnesium 1.9 mg/dl (1.7-2.4); Potassium 4.1 mmol/L (3.5-5.1)
[2023-08-11] MEDS: ASPIRIN 81 MG ECTAB PO SCH (09:41)
[2023-08-11] MEDS: SUCRALFATE 1 GM/10 ML UDC PO SCH (09:41)
[2023-08-11] MEDS: FOLIC ACID 1 MG TAB PO SCH (09:41)
[2023-08-11] MEDS: LUBIPROSTONE 8 MCG CAP PO SCH (09:42)
[2023-08-11] MEDS: TAMSULOSIN HCL 0.4 MG CAP PO SCH (09:42)
[2023-08-11] MEDS: busPIRone 7.5 MG TAB PO SCH (09:42)
[2023-08-11] MEDS: MAGNESIUM CHLORIDE W/CALCIUM 64MG DELAYED REL TAB PO SCH (09:42)
[2023-08-11] MEDS: PANTOprazole 40 MG TAB PO SCH (09:43)
[2023-08-11] MEDS: lisinopril 40 MG TAB PO SCH (09:43)
[2023-08-11] MEDS: DULoxetine HCL 60 MG CAP PO SCH (09:43)
[2023-08-11] MEDS: THIAMINE HCL 200 MG in SODIUM CHLORIDE 0.9% 50 ML IV SCH (09:44)
--- NOTE | 2023-08-11 15:58 | Discharge Summary ---
Date of Service August 11, 2023 Admission HPI Per Admitting Provider This is a 67-year-old male with PMH of hypertension, BPH, depression, tobacco use, alcohol use disorder, generalized anxiety disorder, IBS with constipation and diarrhea and other medical problems listed below who presents with dizziness, difficulty with balance and walking. Patient is a poor historian, but states he has been having intermittent issues with dizziness, weakness and coordination with walking over the past few weeks. He felt his worse this morning around 4 AM, and called his sons for help. It took both of them to help him ambulate into the car and come to the ED for further evaluation. Patient with significant alcoholism at baseline, endorsing 1/2 pint of bourbon daily and up to an additional 3 16 ounce beers a day. Last drink was last evening. Follows with Dr. Nguyen of nephrology and was last seen at the beginning of July with recent episode of HUGO, hypercalcemia and hyponatremia. At that time, creatinine was 1.5 with sodium of 130 and calcium of 10.2. [place] that hyponatremia and hypercalcemia were multifactorial including excessive alcohol consumption and hydrochlorothiazide. Was directed to discontinue hydrochlorothiazide and lisinopril was increased to 20 mg twice daily, however there was some confusion about medication reconciliation due to switching PCPs and patient has continued on the HCTZ as well as increasing lisinopril to 40 mg daily. Currently feels comfortable at rest although rundown. Also with intermittent feelings of nausea in the morning over the past few years and has undergone an outpatient workup with scope per family that was negative. Does have history of diverticulosis and IBS but states abdominal symptoms have not changed or worsened recently. Denies any fever, chills, headache, chest pain, shortness of breath, vomiting, dysuria, diarrhea or constipation. No blood in bowel movements. ED provider discussed with Dr. Milton of nephrology who suggested switching to an isotonic solution, so Plasma-Lyte was ordered. Admission Exam Per Admitting Provider General Appearance: WD/WN, vitals as above, NAD, sitting up in bed, pleasant, conversing easily Respiratory: normal respiratory effort, lungs clear to auscultation, no wheeze, rales, rhonchi. No accessory muscle use Cardiovascular: regular rate, rhythm, no murmur, normal peripheral pulses, no BLE edema. Vessels: no JVD Chest: normal inspection of chest Abdomen/GI: normal bowel sounds, soft, nontender, no hepatosplenomegaly Extremities/Musculoskeletal: no cyanosis or clubbing, extremities motor strength 5/5 Neurologic: PERRL, EOMI, accommodation nl, no face palsy, no dysarthria, CN's II-XI intact bilaterally and moves all extremities, + some dysmetria noted on [id number] Psychiatric: A+Ox3, euthymic affect Skin: no rashes, normal color, warm/dry Principal Diagnosis Ambulatory dysfunction Disequilibrium Stroke Chronic alcohol use disorder Acute kidney injury over CKD II High anion gap metabolic acidosis Discharge Exam GENERAL: Alert and oriented x3. NAD, on RA. Appears older than his stated age. HEENT: No pallor, no icterus. Pupils equal, round and reactive to light. Oral mucosa moist. NECK: No JVD, no neck masses. HEART: S1 and S2 heard. Regular rate and rhythm. No murmur, no gallop. RESPIRATORY SYSTEM: Normal AP diameter. No accessory muscle use. No wheezing, no crackles. ABDOMEN: Soft, bowel sounds present, nontender, no distention. CENTRAL NERVOUS SYSTEM: No facial droop. Speech is clear. Obeys simple commands. Moves extremities. EXTREMITIES: No edema, no erythema seen. Discharge Data Allergies Allergy/AdvReac Type Severity Reaction Status Date / Time No Known Allergies Allergy Verified 07/14/23 12:42 Consultations 08/05/23 11:25 ED Decision to Admit Stat 08/05/23 13:40 Consult Nephrology Routine 08/05/23 20:15 Consult Neurology Routine Ordered Studies 08/05/23 09:00 CT head/brain wo con Stat 08/05/23 09:47 CT abd pelvis wo con Stat 08/05/23 12:26 MRI Brain [MR brain wo con] Routine 08/05/23 20:14 US carotid doppler BI Routine 08/09/23 09:00 MR angio head wo con Routine MR angio neck wo/w con Routine Hospital Course (1) Stroke: (2) Disequilibrium: Plan 67-year-old male with PMH of hypertension, BPH, depression, tobacco use, alcohol use disorder, generalized anxiety disorder, IBS with constipation and diarrhea and other medical problems listed below who presents with dizziness, difficulty with balance and walking. He is being managed for the following: Ambulatory dysfunction Disequilibrium Stroke Chronic alcohol use disorder Patient came in with complaint of intermittent issues with dizziness, weakness and coordination with walking over the past few weeks. Admitting CT head with no acute finding. 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 Carotid artery ultrasound with moderate atherosclerotic plaque without evidence for a hemodynamically significant stenosis. Chronic alcohol use disorder could also be contributing to his ambulatory dysfunction. Echo with EF of 60 to 65%, grade 1 diastolic dysfunction, no interatrial shunt noted. No atrial septal defect noted. A1c 4.9, LDL 57. MRA head and neck did not show any acute finding. During hospitalization,neurology evaluated, agrees with aspirin and statin, other recs are Zio patch monitoring on discharge, Acute kidney injury over CKD II In setting of chronic alcohol use, poor nutrition, dehydration and chronic bladder outlet obstruction At presentation Cr elevated at 6.26 (baseline Cr ~1.2-1.5) Recently saw Dr. Nguyen and was instructed to dc hctz and increased lisinopril to 40mg but unfortunately there was miscommunication and patient has continued hctz CTAP with no hydronephrosis. At discharge, creatinine has down trended and normalized. Hydrochlorothiazide were stopped at discharge. Chronic bladder outlet obstruction: CT abd/pelvis with prostatectomy with findings suggestive of chronic outlet obstruction. Urinalysis negative for UTI. Recently started on alfuzosin by urology. n Cont alfuzosin for now. Established with Dr. Azul of [facility] urology Follow-up with urology on discharge. RLL nodule: 6 mm solid nodule noted on CTAP at admission. Follow-up CT scan in 12 months. Discussion was done with patient. Please note the above document was generated using voice recognition software. It may contain grammatical, syntax or spelling errors. Any formal questions or concerns about the content, text or information contained within the body of this dictation should be directly addressed to the provider for clarification Total Time Total Time Spent Total Time Spent (In Minutes): 45 Total Time Includes: Examination of the Patient, Discharge Planning, Medication Reconciliation, Communication With Other Providers and Other Discharge Plan Discharge Items Patient Disposition: Home - Self-Care Reason For Visit: HUGO, HIGH ANION GAP ACIDOSIS Discharge Diagnosis: Ambulatory dysfunction Stroke HUGO Activity: Resume your previous activity Non-emergency contact: Primary Care Provider Call non-emergency contact if: you have any medication questions and your symptoms worsen Follow-up/Referrals: Annmarie Nguyen MD [Physician] - 08/25/23 1:15 pm Celeste Rothman PA-C [Physician Tank Car Repairer] - 09/14/23 11:20 am (Date & Time 09/14/2023 11:20 AM Provider Celeste Rothman PA-C Department Neurology [facility] ) Kimberly Sidhu DO [Outside Practitioners] - 08/17/23 3:00 pm (Date & Time 08/17/2023 3:00 PM Provider Eleanor Benítez DO Department Family Practice [facility] ) Diet: Regular Addtl Attending Provider Instructions: You were admitted to the hospital due to ambulatory dysfunction. MRI of the brain was done which suggest small strokes. You are prescribed following medications: 1) take Lipitor 40 mg once a day 2) take aspirin 81 mg once a day. You will need outpatient Zio patch monitor to monitor irregular heart rhythms. Please follow-up with your primary care doctor as scheduled. For the high blood pressure, please stop taking hydrochlorothiazide. Continue taking lisinopril. Follow-up with your business applications manager. Pending Studies at Discharge: No Stand-Alone Forms: My [facility] [employer], Smoking Cessation, Medications to Prevent Stroke Medications and DC Order Prescriptions: New atorvastatin 40 mg Tablet 40 mg PO HS Qty: 30 0RF aspirin 81 mg Tablet,Delayed Release (Dr/Ec) 81 mg PO QAM Qty: 30 0RF Continued Slow-Mag 71.5 mg tablet,delayed release (DR/EC) 71.5 mg PO BID Qty: 60 3RF Rx Instructions: Please advise to take 2 tab bid today and then continue 1 tab bid levothyroxine 25 mcg tablet 25 mcg PO QAM alfuzosin 10 mg tablet extended release 24 hr 10 mg PO QAM Rx Instructions: administer after the same meal each day dicyclomine 10 mg Capsule 10 mg PO QID PRN (Reason: Abdominal Pain) buspirone 7.5 mg tablet 15 mg PO BID lisinopril 40 mg tablet 40 mg PO QAM duloxetine 60 mg capsule,delayed release(DR/EC) 60 mg PO QAM pantoprazole 40 mg Tablet,Delayed Release (Dr/Ec) 40 mg PO QAM lubiprostone 24 mcg Capsule 24 mcg PO BID Discontinued hydrochlorothiazide 25 mg tablet 25 mg PO QAM Discharge Orders: Discharge Order (Routine); Ordered 08/11/23 Ordered By: Joseph Hall Admission Data Admit Date/Time: 08/05/23 10:42 Attending Provider: Joseph Hall Admit Provider: Anai Holder Primary Care Provider: Michele Bone Other Providers: Anai Holder; Romeo Milton; Queenie Rene Other Interventions: Discharge Summary Assessment (RN) Last Done: 08/11/23 10:36
== END 2023-08-11 11:23 | disposition home or self-care (01) | DRG 682 ==
LOC: ED 07:51 → EDINP 10:42 → SUATTDRO 10:42 → 2S 19:29

== ENCOUNTER 2023-08-25 11:08 | Inpatient (IN) ==
--- NOTE | 2023-08-25 11:23 | Emergency Department Note ---
Impression & Plan Acute renal failure, Hypomagnesemia, Generalized weakness ED Provider Note HISTORY OF PRESENT ILLNESS: Patient is a 67-year-old male presenting with lightheadedness and hypotension. Patient reports he woke up this morning and was feeling generally unwell. Son reports that the patient called him and stated that his blood pressure was in the 170s systolic but he did not feel well so son went over to the patient's house. Son reports that the patient had lowered himself to the ground and stated he did not feel well and felt lightheaded. States the patient's eyes rolled to the back of his head and he started falling backwards but did not strike his head. Patient denies any chest pain or shortness of breath. Reports poor oral intake since being discharged from the hospital. He reports chronic diarrhea. Denies any nausea or vomiting. Reports constant abdominal pain that has been ongoing for weeks. He denies any fevers. Denies any dysuria or hematuria. On EMS arrival, the patient's blood pressure was in the 70s systolic. He was given 500 cc of fluid and route. ROS: as above PHYSICAL EXAM: Constitutional: Patient appears in no acute distress. HENT: Head: Normocephalic and atraumatic. Eyes: EOMI, PERRL Mouth/Throat: Mucous membranes moist. Neck: Trachea midline. Neck supple. Cardiovascular: RRR, No murmurs, rubs or gallops. Intact distal pulses. Pulmonary/Chest: No respiratory distress. Breath sounds clear and equal bilaterally. No wheezes or rales. Abdominal: Abdomen soft, no tenderness, rebound or guarding. Musculoskeletal: No edema, tenderness or deformity noted. Skin: Warm and dry. No rash, erythema, pallor or cyanosis Psychiatric: Appropriate mood and affect for situation. Neurological: Alert and keenly responsive. CN II-XII grossly intact, moving all extremities equally and fully. MDM: - Vitals signs stable. - History obtained via patient. Patient presents with lightheadedness and hypotension. Patient reports that he woke up this morning feeling generally unwell. He states that he felt lightheaded like he was going to pass out and lowered himself to the ground. He did make it to his bed and son found him in bed. States that when he tried to get him up his eyes rolled into the back of his head and he became unresponsive for seconds. They called 911. Patient denies any chest pain or shortness of breath. Reports chronic diarrhea. Denies any nausea or vomiting. Denies any fevers or dysuria. - Chronic conditions affecting care: CVA; hypomagnesemia; hyponatremia; HTN - Differential diagnoses include, but are not limited to: CVA; electrolyte abnormality; dysrhythmia; dehydration; pneumonia; UTI - Order placed for continuous cardiac monitoring. At this time, monitor showed rate of 92 bpm with normal sinus rhythm, per my interpretation. - External medical records reviewed. EMS run sheet was reviewed. Patient was initially hypotensive on their arrival and he was given 500 cc of fluid and route. - EKG interpreted by myself showed normal sinus rhythm. Rate 94 bpm. QT 368. No acute ischemic changes. - Laboratory workup interpreted by myself showed leukocytosis (WBC 12.58); normal lactate; slight hyponatremia (Na 135); elevated anion gap (14); acute renal failure (Cr 6.96); normal troponin; hypomagnesemia (Mg 1.4); normal procalcitonin; normal lipase; negative serum ethanol - UA negative for infection - UDS positive for THC - Patient given 1g IV magnesium for electrolyte replacement and 2L NS for hydration. Sharma catheter inserted to monitor I&O in setting of acute renal failure - CT abdomen/pelvis wo contrast negative for acute pathology. - Patient given 50 mcg IV fentanyl for pain after Sharma insertion. - Discussion was had with clinical care leader about patient's case and need for admission - Hospitalist consulted for admission - Patient admitted to [facility] for further evaluation and management. ASSESSMENT AND PLAN: Diagnosis: acute renal failure; hypomagnesemia; generalized weakness Plan: admit Past Med/Surg History Medical History Embolic stroke Alcohol use disorder Hypomagnesemia Hyponatremia Diverticulitis HTN (hypertension) Surgical History History of bilateral cataract extraction H/O hernia repair History of ankle surgery bilateral Family History Other Mood disorder Social History Smoking Status: Former smoker Second Hand Exposure: No; Do You Dip or Chew Tobacco: No; Hx Alcohol Use: Yes Alcohol type: hard liquor Hx Substance Use: No Preferred Language: Chinese Communication Ability: Effective Toy Packer Required: No Beliefs That Will Affect Care: None Current Living Situation: Alone Feels Safe at Home: Yes Assistive Devices: None Allergies Allergies Allergy/AdvReac Type Severity Reaction Status Date / Time No Known Allergies Allergy Verified 07/14/23 12:42 Home Meds Home Medications Medication Instructions Recorded Confirmed dicyclomine 10 mg capsule 10 mg PO QID PRN Abdominal Pain 02/18/20 08/25/23 lubiprostone 24 mcg capsule 24 mcg PO BID 08/24/22 08/25/23 pantoprazole 40 mg tablet,delayed 40 mg PO QAM 08/24/22 08/25/23 release alfuzosin 10 mg tablet,extended 10 mg PO QAM 06/17/23 08/25/23 release 24 hr levothyroxine 25 mcg tablet 25 mcg PO QAM 06/17/23 08/25/23 buspirone 7.5 mg tablet 15 mg PO BID 08/05/23 08/25/23 duloxetine 60 mg capsule,delayed 60 mg PO QAM 08/05/23 08/25/23 release lisinopril 40 mg tablet 40 mg PO QAM 08/05/23 08/25/23 hydroxyzine HCl 10 mg tablet 10 mg PO BID PRN anxiety 08/25/23 08/25/23 Previous Rx's Medication Instructions Recorded magnesium chloride 71.5 mg 71.5 mg PO BID #60 tabs 06/28/23 (magnesium chloride) tablet,delayed release (Slow-Mag) aspirin 81 mg tablet,delayed 81 mg PO QAM #30 tabs 08/11/23 release atorvastatin 40 mg tablet 40 mg PO HS #30 tabs 08/11/23 Results & Data (ED) Vital Signs Vital Signs - 24 hr 08/25/23 11:17 08/25/23 11:31 Temperature 36.7 C Temperature Source Oral Pulse Rate 91 H 93 H Respiratory Rate 23 Respiratory Depth Normal Blood Pressure 116/76 Blood Pressure Mean 89 Pulse Oximetry 99 Oxygen Delivery Method Room Air Sepsis Recent Fever Within 48 Hours No Sepsis New/Unexplained Change in Mental Status No Sepsis Action Taken by Nursing No Action Required Laboratory Data 08/25/23 11:25 08/25/23 11:25 Lab Results 08/25/23 08/25/23 08/25/23 Range/Units 11:25 11:44 11:45 WBC 12.58 H (4.8-10.8) K/ul RBC 4.29 L (4.70-6.10) M/uL Hgb 14.5 (14.0-18.0) g/dl Hct 41.0 L (42.0-52.0) % MCV 95.6 (80.0-100.0) fL MCH 33.8 (25.0-34.0) pg MCHC 35.4 (32.0-36.0) g/dL RDW Std Deviation 43.2 (36.4-46.3) fL RDW Coeff of Suresh 12.4 (11.5-14.5) % Plt Count 359 (130-400) K/uL MPV 11.0 (9.4-12.4) fL Immature Gran % (Auto) 0.5 % Neut % (Auto) 80.2 % Lymph % (Auto) 13.8 % [place] % (Auto) 4.7 % Eos % (Auto) 0.6 % Baso % (Auto) 0.2 % Neut # (Auto) 10.10 H (1.40-6.50) K/uL Lymph # (Auto) 1.73 (1.20-3.40) K/uL [place] # (Auto) 0.59 (0.11-0.59) K/uL Eos # (Auto) 0.08 (0.00-0.50) K/uL Baso # (Auto) 0.02 (0.00-0.20) K/uL Immature Gran # (Auto) 0.06 (0.01-0.20) K/uL PT 10.9 (9.0-12.0) Seconds INR 1.0 (0.9-1.1) Sodium 135 L (136-145) mmol/L Potassium 4.3 (3.5-5.1) mmol/L Chloride 106 (98-107) mmol/L Carbon Dioxide 15 L (21-32) mmol/L Anion Gap 14 H (3-11) BUN 49 H (6-23) mg/dl Creatinine 6.96 H* (0.6-1.4) mg/dl Est Cr Clr Drug Dosing 7.7 ml/min Est GFR ( Amer) 8.5 ml/min Est GFR (Non-Af Amer) 7.3 ml/min BUN/Creatinine Ratio 7.0 L (10-20) Glucose 115 H (70-99(Fasting)) mg/dl Lactate 1.2 (0.4-2.0) mmol/L Calcium 10.1 (8.6-10.3) mg/dl Phosphorus 3.2 (2.5-4.9) mg/dl Magnesium 1.4 L (1.7-2.4) mg/dl Total Bilirubin 0.4 (0.2-1.0) mg/dl AST 11 L (13-39) U/L ALT 16 (7-52) U/L Alkaline Phosphatase 58 (34-104) U/L Troponin I High Sens 9.1 (0-20) pg/ml Total Protein 7.4 (6.0-8.3) gm/dl Albumin 4.3 (3.4-5.0) gm/dl Globulin 3.1 (2.5-4.0) gm/dl Albumin/Globulin Ratio 1.4 (0.9-2) Lipase 58 (11-82) U/L Procalcitonin 0.47 (0-0.5) ng/ml Urine Color Urine Appearance (Clear) Urine pH (4.5-7.5) Ur Specific [place] (1.000-1.030) Urine Protein (Negative) Urine Glucose (UA) (Negative) Urine Ketones (Negative) Urine Blood (Negative) Urine Nitrite (Negative) Urine Bilirubin (Negative) Urine Urobilinogen (Negative) Ur Leukocyte Esterase (Negative) Urine WBC (Auto) (0-5) /hpf Urine RBC (Auto) (0-4) /hpf U Hyaline Cast (Auto) (0-5) /lpf U Epithel Cells (Auto) (0-5) /lpf Urine Bacteria (Auto) (Negative) Ur Renal Epithelial Cell Urine Crystals Urine Yeast Urine Opiates Screen (Neg) Ur Methadone, Qual (Neg) Urine Barbiturates (Neg) Ur Phencyclidine (PCP) (Neg) U Amphetamin/Meth Scrn (Neg) MDMA (Ecstasy) Screen (Neg) U Benzodiazepines Scrn (Neg) Ur Cocaine Metabolite (Neg) U Marijuana (THC) Screen (Neg) Ethyl Alcohol mg/dL (<10.0) mg/dl Adenovirus (PCR) Not Detected (NotDetected) B. pertussis DNA (PCR) Not Detected (NotDetected) B.parapertussis DNA PCR Not Detected (NotDetected) C. pneumoniae DNA (PCR) Not Detected (NotDetected) Coronavirus OC43 (PCR) Not Detected (NotDetected) Coronavirus HKU1 (PCR) Not Detected (NotDetected) Coronavirus 229E (PCR) Not Detected (NotDetected) SARS-CoV-2 (PCR) Not Detected (NotDetected) Coronavirus NL63 (PCR) Not Detected (NotDetected) Human Metapneumovir PCR Not Detected (NotDetected) Influenza Type A (PCR) Not Detected (NotDetected) Influenza Type B (PCR) Not Detected (NotDetected) M. pneumoniae (PCR) Not Detected (NotDetected) Parainfluenza 1 (PCR) Not Detected (NotDetected) Parainfluenza 2 (PCR) Not Detected (NotDetected) Parainfluenza 3 (PCR) Not Detected (NotDetected) Parainfluenza 4 (PCR) Not Detected (NotDetected) RSV (PCR) Not Detected (NotDetected) Entero/Rhino (PCR) Not Detected (NotDetected) 08/25/23 08/25/23 Range/Units 11:59 Unknown WBC (4.8-10.8) K/ul RBC (4.70-6.10) M/uL Hgb (14.0-18.0) g/dl Hct (42.0-52.0) % MCV (80.0-100.0) fL MCH (25.0-34.0) pg MCHC (32.0-36.0) g/dL RDW Std Deviation (36.4-46.3) fL RDW Coeff of Suresh (11.5-14.5) % Plt Count (130-400) K/uL MPV (9.4-12.4) fL Immature Gran % (Auto) % Neut % (Auto) % Lymph % (Auto) % [place] % (Auto) % Eos % (Auto) % Baso % (Auto) % Neut # (Auto) (1.40-6.50) K/uL Lymph # (Auto) (1.20-3.40) K/uL [place] # (Auto) (0.11-0.59) K/uL Eos # (Auto) (0.00-0.50) K/uL Baso # (Auto) (0.00-0.20) K/uL Immature Gran # (Auto) (0.01-0.20) K/uL PT (9.0-12.0) Seconds INR (0.9-1.1) Sodium (136-145) mmol/L Potassium (3.5-5.1) mmol/L Chloride (98-107) mmol/L Carbon Dioxide (21-32) mmol/L Anion Gap (3-11) BUN (6-23) mg/dl Creatinine (0.6-1.4) mg/dl Est Cr Clr Drug Dosing ml/min Est GFR ( Amer) ml/min Est GFR (Non-Af Amer) ml/min BUN/Creatinine Ratio (10-20) Glucose (70-99(Fasting)) mg/dl Lactate (0.4-2.0) mmol/L Calcium (8.6-10.3) mg/dl Phosphorus (2.5-4.9) mg/dl Magnesium (1.7-2.4) mg/dl Total Bilirubin (0.2-1.0) mg/dl AST (13-39) U/L ALT (7-52) U/L Alkaline Phosphatase (34-104) U/L Troponin I High Sens (0-20) pg/ml Total Protein (6.0-8.3) gm/dl Albumin (3.4-5.0) gm/dl Globulin (2.5-4.0) gm/dl Albumin/Globulin Ratio (0.9-2) Lipase (11-82) U/L Procalcitonin (0-0.5) ng/ml Urine Color Dark Yellow Urine Appearance Turbid A (Clear) Urine pH 5.0 (4.5-7.5) Ur Specific [place] 1.015 (1.000-1.030) Urine Protein 2+ H (Negative) Urine Glucose (UA) Negative (Negative) Urine Ketones Negative (Negative) Urine Blood 3+ H (Negative) Urine Nitrite Negative (Negative) Urine Bilirubin Negative (Negative) Urine Urobilinogen Negative (Negative) Ur Leukocyte Esterase Trace H (Negative) Urine WBC (Auto) 5-10 H (0-5) /hpf Urine RBC (Auto) 5-10 H (0-4) /hpf U Hyaline Cast (Auto) 1-5 (0-5) /lpf U Epithel Cells (Auto) >30 H (0-5) /lpf Urine Bacteria (Auto) Negative (Negative) Ur Renal Epithelial Cell Not Reportable Urine Crystals Not Reportable Urine Yeast Not Reportable Urine Opiates Screen Neg (Neg) Ur Methadone, Qual Neg (Neg) Urine Barbiturates Neg (Neg) Ur Phencyclidine (PCP) Neg (Neg) U Amphetamin/Meth Scrn Neg (Neg) MDMA (Ecstasy) Screen Neg (Neg) U Benzodiazepines Scrn Neg (Neg) Ur Cocaine Metabolite Neg (Neg) U Marijuana (THC) Screen Pos H (Neg) Ethyl Alcohol mg/dL < 10.0 (<10.0) mg/dl Adenovirus (PCR) (NotDetected) B. pertussis DNA (PCR) (NotDetected) B.parapertussis DNA PCR (NotDetected) C. pneumoniae DNA (PCR) (NotDetected) Coronavirus OC43 (PCR) (NotDetected) Coronavirus HKU1 (PCR) (NotDetected) Coronavirus 229E (PCR) (NotDetected) SARS-CoV-2 (PCR) (NotDetected) Coronavirus NL63 (PCR) (NotDetected) Human Metapneumovir PCR (NotDetected) Influenza Type A (PCR) (NotDetected) Influenza Type B (PCR) (NotDetected) M. pneumoniae (PCR) (NotDetected) Parainfluenza 1 (PCR) (NotDetected) Parainfluenza 2 (PCR) (NotDetected) Parainfluenza 3 (PCR) (NotDetected) Parainfluenza 4 (PCR) (NotDetected) RSV (PCR) (NotDetected) Entero/Rhino (PCR) (NotDetected) Administered Medications Sodium Chloride (Nss) 2,000 mls @ 999 mls/hr IV .Q2H1M ONE Stop: 08/25/23 14:26 Last Admin: 08/25/23 12:35 Dose: 999 mls/hr Documented By: NRB Discontinued Medications Fentanyl Citrate (Fentanyl Citrate Pf 100 Mcg/2 Ml Vial) 50 mcg IV NOW STA Stop: 08/25/23 13:34 Last Admin: 08/25/23 13:42 Dose: 50 mcg Documented By: SLB Sodium Chloride (Nss) 1,000 mls @ 999 mls/hr IV .Q1H1M STA Stop: 08/25/23 12:21 Last Infusion: 08/25/23 12:33 Dose: Infused Documented By: Admin: 08/25/23 11:41 Dose: 999 mls/hr Documented By: NRB Imaging Data Radiologist's Impression: Chest X-Ray 08/25/23 11:21 XR chest 1V portable CLINICAL HISTORY: lightheadedness TECHNIQUE: Single frontal radiograph of the chest was obtained. Comparison: None available at the time of this dictation. FINDINGS: No lines and tubes are seen. The aorta is tortuous. The remainder of the cardiomediastinal silhouette is unremarkable. The lungs are clear. No evidence of pleural effusion or pneumothorax. IMPRESSION: No acute chest disease. ACT 112: Negative or not required by law. Electronically signed by: Dewayne Pillai M.D. 08/25/2023 11:55 AM Abdomen/Pelvis CT 08/25/23 12:27 CT abd pelvis wo con CLINICAL HISTORY: acute renal failure; abdominal pain TECHNIQUE: Helical axial images of the abdomen and pelvis were obtained. Automated dose lowering techniques and/or adjustment according to patient size were utilized for this exam. This exam was performed without intravenous contrast. CT DOSE: 673.24 mGy.cm COMPARISON: Comparison is made to CT abdomen pelvis 07/26/2023 FINDINGS: Lower chest: Bibasilar atelectasis versus scarring is seen. Stable right lower lobe nodule measuring 6 mm. Liver: Unremarkable. No focal lesions are seen. Gallbladder and biliary tree: No calcified gallstones. Normal caliber wall. No intra- or extrahepatic biliary ductal dilation. Pancreas: Unremarkable, no focal lesions. Spleen: Unremarkable. Adrenals: Unremarkable. Kidneys and ureters: Perinephric stranding is noted bilaterally. Bladder: Sharma catheter is seen. Reproductive organs: Prostatomegaly is seen. Bowel: Diverticulosis is seen without evidence of diverticulitis. Lymph nodes Retroperitoneal: Unremarkable. Pelvic: Unremarkable. Mesenteric: Unremarkable. Peritoneum: Normal. Vessels: Atherosclerotic calcifications are seen. Abdominal wall: A fat-containing umbilical hernia is seen. Bones: Degenerative changes in the visualized spine. IMPRESSION: 1. No acute abnormalities and in particular no evidence of hydronephrosis. Bladder wall thickening may be due to underdistention or chronic outlet obstruction. 2. Stable right lower lobe nodule. ACT 112: Negative or not required by law. Electronically signed by: Dewayne Pillai M.D. 08/25/2023 2:05 PM Discharge Plan Visit Data Chief Complaint: Hypotension ED Provider: Mikci De Oliveira Discharge Problem: Acute renal failure, Hypomagnesemia, Generalized weakness Forms Stand Alone Forms: [employer] Prescriptions Prescriptions: No Action Slow-Mag 71.5 mg tablet,delayed release (DR/EC) 71.5 mg PO BID Qty: 60 3RF Rx Instructions: Please advise to take 2 tab bid today and then continue 1 tab bid levothyroxine 25 mcg tablet 25 mcg PO QAM alfuzosin 10 mg tablet extended release 24 hr 10 mg PO QAM Rx Instructions: administer after the same meal each day dicyclomine 10 mg Capsule 10 mg PO QID PRN (Reason: Abdominal Pain) buspirone 7.5 mg tablet 15 mg PO BID lisinopril 40 mg tablet 40 mg PO QAM duloxetine 60 mg capsule,delayed release(DR/EC) 60 mg PO QAM atorvastatin 40 mg Tablet 40 mg PO HS Qty: 30 0RF aspirin 81 mg Tablet,Delayed Release (Dr/Ec) 81 mg PO QAM Qty: 30 0RF pantoprazole 40 mg Tablet,Delayed Release (Dr/Ec) 40 mg PO QAM lubiprostone 24 mcg Capsule 24 mcg PO BID hydroxyzine HCl 10 mg tablet 10 mg PO BID PRN (Reason: anxiety ) Referrals Referrals: Michele Bone DO [Outside Practitioners] -
[2023-08-25] MEDS: SODIUM CHLORIDE 0.9% 1,000 ML IV STA (11:41)
[2023-08-25 11:48] LABS: Basophils # (auto) 0.02 K/uL (0.00-0.20); Basophils % (auto) 0.2 %; Eosinophils # (auto) 0.08 K/uL (0.00-0.50); Eosinophils % (auto) 0.6 %; Hemoglobin 14.5 g/dl (14.0-18.0); Immature Granulocytes # (auto) 0.06 K/uL (0.01-0.20); Immature Granulocytes % (auto) 0.5 %; Lymphocytes # (auto) 1.73 K/uL (1.20-3.40); Lymphocytes % (auto) 13.8 %; Mean Corpuscular Hemoglobin 33.8 pg (25.0-34.0); Mean Corpuscular Hgb Conc 35.4 g/dL (32.0-36.0); Mean Corpuscular Volume 95.6 fL (80.0-100.0); Monocytes # (auto) 0.59 K/uL (0.11-0.59); Monocytes % (auto) 4.7 %; Neutrophils % (auto) 80.2 %; Platelet Count 359 K/uL (130-400); RDW Coefficient of Variation 12.4 % (11.5-14.5); RDW Standard Deviation 43.2 fL (36.4-46.3); Red Blood Count 4.29 M/uL (4.70-6.10); White Blood Count 12.58 K/ul (4.8-10.8)
--- NOTE | 2023-08-25 11:57 | XRay Report ---
XR chest 1V portable CLINICAL HISTORY: lightheadedness TECHNIQUE: Single frontal radiograph of the chest was obtained. Comparison: None available at the time of this dictation. FINDINGS: No lines and tubes are seen. The aorta is tortuous. The remainder of the cardiomediastinal silhouette is unremarkable. The lungs are clear. No evidence of pleural effusion or pneumothorax. IMPRESSION: No acute chest disease. ACT 112: Negative or not required by law. Electronically signed by: Dewayne Pillai M.D. 08/25/2023 11:55 AM
[2023-08-25 12:25] LABS: Prothrombin Time 10.9 Seconds (9.0-12.0)
[2023-08-25 12:26] LABS: Albumin Globulin Ratio 1.4 (0.9-2); Albumin Level 4.3 gm/dl (3.4-5.0); Bilirubin,Total 0.4 mg/dl (0.2-1.0); Calcium 10.1 mg/dl (8.6-10.3); Creatinine Clr Calc Pharmacy 7.7 ml/min; Est GFR (African American) 8.5 ml/min; Est GFR (Non-African American) 7.3 ml/min; Globulin 3.1 gm/dl (2.5-4.0); Magnesium 1.4 mg/dl (1.7-2.4); Potassium 4.3 mmol/L (3.5-5.1); Total Protein 7.4 gm/dl (6.0-8.3); Troponin I High Sensitivity 9.1 pg/ml (0-20)
[2023-08-25] MEDS: SODIUM CHLORIDE 0.9% 2,000 ML IV ONE (12:35)
[2023-08-25 12:41] LABS: Adenovirus PCR Not Detected (NotDetected); Bordetella parapertussis PCR Not Detected (NotDetected); Bordetella pertussis PCR Not Detected (NotDetected); Chlamydia pneumoniae PCR Not Detected (NotDetected); Coronavirus 229E PCR Not Detected (NotDetected); Coronavirus CoV-2 (COVID19)PCR Not Detected (NotDetected); Coronavirus HKU1 PCR Not Detected (NotDetected); Coronavirus NL63 PCR Not Detected (NotDetected); Coronavirus OC43PCR Not Detected (NotDetected); Human Metapneumovirus PCR Not Detected (NotDetected); Influenza A PCR Not Detected (NotDetected); Influenza B PCR Not Detected (NotDetected); Mycoplasma pneumoniae PCR Not Detected (NotDetected); Parainfluenza Virus 1 PCR Not Detected (NotDetected); Parainfluenza Virus 2 PCR Not Detected (NotDetected); Parainfluenza Virus 3 PCR Not Detected (NotDetected); Parainfluenza Virus 4 PCR Not Detected (NotDetected); Respiratory Syncytial VirusPCR Not Detected (NotDetected); Rhinovirus/Enterovirus PCR Not Detected (NotDetected)
[2023-08-25 13:34] LABS: Appearance Urine Turbid (Clear); Bacteria Urine Automated Negative (Negative); Bilirubin Urine Negative (Negative); Blood Urine 3+ (Negative); Color Urine Dark Yellow; Epithelial Cell Urine Auto >30 /lpf (0-5); Glucose Urine UA Negative (Negative); Ketones Urine Negative (Negative); Leukocyte Esterase Urine Trace (Negative); Nitrite Urine Negative (Negative); Protein Urine 2+ (Negative); Specific Gravity Urine 1.015 (1.000-1.030); Urobilinogen Urine Negative (Negative)
[2023-08-25] MEDS: fentaNYL citrate PF 100 MCG/2 ML VIAL IV STA (13:42)
[2023-08-25 14:04] LABS: Amphetamines+Metham, Urine Neg (Neg); Barbiturates, Urine Neg (Neg); Benzodiazepine, Urine Neg (Neg); Cocaine, Urine Neg (Neg); MDMA (Ecstacy), Urine Neg (Neg); Marijuana, Urine Pos (Neg); Methadone, Urine Neg (Neg); Opiate, Urine Neg (Neg); Phencyclidine, Urine Neg (Neg)
--- NOTE | 2023-08-25 14:06 | CT Scan Report ---
CT abd pelvis wo con CLINICAL HISTORY: acute renal failure; abdominal pain TECHNIQUE: Helical axial images of the abdomen and pelvis were obtained. Automated dose lowering tech niques and/or adjustment according to patient size were utilized for this exam. This exam was perfor med without intravenous contrast. CT DOSE: 673.24 mGy.cm COMPARISON: Comparison is made to CT abdomen pelvis 07/26/2023 FINDINGS: Lower chest: Bibasilar atelectasis versus scarring is seen. Stable right lower lobe nodule measuring 6 mm. Liver: Unremarkable. No focal lesions are seen. Gallbladder and biliary tree: No calcified gallstones. Normal caliber wall. No intra- or extrahepatic biliary ductal dilation. Pancreas: Unremarkable, no focal lesions. Spleen: Unremarkable. Adrenals: Unremarkable. Kidneys and ureters: Perinephric stranding is noted bilaterally. Bladder: Sharma catheter is seen. Reproductive organs: Prostatomegaly is seen. Bowel: Diverticulosis is seen without evidence of diverticulitis. Lymph nodes Retroperitoneal: Unremarkable. Pelvic: Unremarkable. Mesenteric: Unremarkable. Peritoneum: Normal. Vessels: Atherosclerotic calcifications are seen. Abdominal wall: A fat-containing umbilical hernia is seen. Bones: Degenerative changes in the visualized spine. IMPRESSION: 1. No acute abnormalities and in particular no evidence of hydronephrosis. Bladder wall thickening m ay be due to underdistention or chronic outlet obstruction. 2. Stable right lower lobe nodule. ACT 112: Negative or not required by law. Electronically signed by: Dewayne Pillai M.D. 08/25/2023 2:05 PM
--- NOTE | 2023-08-25 14:27 | History & Physical Report ---
Date of Service August 25, 2023 Assessment & Plan (1) Acute renal failure: (2) High anion gap metabolic acidosis: (3) Hypomagnesemia: (4) Generalized weakness: (5) Bladder outlet obstruction: (6) Leukocytosis: Plan This is a 67-year-old male who has a significant past medical history of recent diagnosis of CVA, HTN, hypothyroidism, BPH, depression with anxiety, alcohol abuse disorder, tobacco use disorder, IBS who presents to ED secondary to generalized weakness. Acute renal failure High anion gap metabolic acidosis Generalized weakness Bladder outlet obstruction Admit to med tele place on 1/2NS bicarb gtt 125cc/hr repeat bmp @ 1900 repeat urine microscopy in a.m consult nephrology pt follows with [facility] recurrent HUGO likely all pre renal CT a/p still w/o evidence of obstructive nephropathy consult urology to eval for b.o.o. hold lisinopril for now, will place on oral hydralazine PRN avoid nephrotoxic agents Hypomagnesemia replace Leukocytosis possible reactive empirically place on IV ceftriaxone await urine culture Hx of CVA recent dx on ASA, statin currently has ZIO monitor in place on LACW Generalized weakness PT/OT Alcohol use disorder reports being abstinent for 3 weeks add thiamine and folic acid DVT ppx: SQ Heparin FULL CODE PCP: Kimberly Sidhu Dispo: admit to tele Pt was seen and examined in collaboration with Dr. Jeffers, please see addendum A total of 76 minutes was spent coordinating, documenting, and providing care for this patient excluding time spent in the performance of separately billed services. This included personally viewing all current laboratories and imaging studies, medication reconciliation, outpatient chart review, and discussion with specialists. History of Present Illness Chief Complaint: Weakness. Primary Care Provider: Kimberly Sidhu, This is a 67-year-old male who has a significant past medical history of recent diagnosis of CVA HTN, hypothyroidism, BPH, depression with anxiety, alcohol abuse disorder, tobacco use disorder, IBS who presents to ED secondary to generalized weakness. Of significance patient was recently hospitalized 08/04 to 08/11 secondary to dizziness, difficulty with balance and walking. On admission MRI was obtained which was suggestive of small embolic infarcts in the right peripheral cerebrum. He was also diagnosed with HUGO on admission with a creatinine at 6.26. It was felt this was secondary to use of HCTZ, lisinopril as well as overall poor nutrition status. Upon discharge patient creatinine had returned to baseline with IV hydration. He was seen and evaluated by nephrology. He also had a component of hyponatremia. He was also seen and evaluated by neurology during admission who recommended continuing with aspirin, statin and obtaining a Zio patch monitoring at discharge. An echocardiogram was obtained during that admission which revealed an EF of 60 to 65%, grade 1 diastolic dysfunction. He states he came to hospital because he, "passed out." This has been going on for a few weeks. After being discharged he feels he didn't get any better. He woke up this morning feeling generally unwell. According to ED provider history was provided by son that he went over to the patient's house and the patient was reporting he felt lightheaded. He was sitting on the ground and 1 son tried to help him get up states the patient's eyes rolled to the back of his head that he started falling backwards. He did not strike his head. He overall reports poor oral intake since discharge. He does live alone at home. He has a previous history of alcohol abuse but states he has been abstinent since the beginning of his last hospitalization. He currently denies any fever, chills, sweats, chest pain, shortness of breath, change in vision or hearing, nausea, vomiting, abdominal pain he is currently having excruciating pain in his penis. A Sharma catheter was placed in the ED as directed by ED provider for strict intake and output. He does admit to using marijuana but states it was last used months ago. In ED patient remained hemodynamically stable. Allergies Allergy/AdvReac Type Severity Reaction Status Date / Time No Known Allergies Allergy Verified 07/14/23 12:42 Home Medications Medication Instructions Recorded Confirmed Type dicyclomine 10 mg capsule 10 mg PO QID PRN Abdominal Pain 02/18/20 08/25/23 History lubiprostone 24 mcg capsule 24 mcg PO BID 08/24/22 08/25/23 History pantoprazole 40 mg tablet,delayed 40 mg PO QAM 08/24/22 08/25/23 History release alfuzosin 10 mg tablet,extended 10 mg PO QAM 06/17/23 08/25/23 History release 24 hr levothyroxine 25 mcg tablet 25 mcg PO QAM 06/17/23 08/25/23 History magnesium chloride 71.5 mg 71.5 mg PO BID #60 tabs 06/28/23 08/25/23 Rx (magnesium chloride) tablet,delayed release (Slow-Mag) buspirone 7.5 mg tablet 15 mg PO BID 08/05/23 08/25/23 History duloxetine 60 mg capsule,delayed 60 mg PO QAM 08/05/23 08/25/23 History release lisinopril 40 mg tablet 40 mg PO QAM 08/05/23 08/25/23 History aspirin 81 mg tablet,delayed 81 mg PO QAM #30 tabs 08/11/23 08/25/23 Rx release atorvastatin 40 mg tablet 40 mg PO HS #30 tabs 08/11/23 08/25/23 Rx hydroxyzine HCl 10 mg tablet 10 mg PO BID PRN anxiety 08/25/23 08/25/23 History Past Med/Surg History Medical History Embolic stroke Alcohol use disorder Hypomagnesemia Hyponatremia Diverticulitis HTN (hypertension) Surgical History History of bilateral cataract extraction H/O hernia repair History of ankle surgery bilateral Family History Other Mood disorder Social History Smoking Status: Former smoker Second Hand Exposure: No; Do You Dip or Chew Tobacco: No; Hx Alcohol Use: No Hx Substance Use: No Preferred Language: Maltese Communication Ability: Effective Purchasing Administrator Required: No Beliefs That Will Affect Care: None Current Living Situation: Alone Feels Safe at Home: Yes Safety Concerns: Feels Safe At This Time Assistive Devices: None Review of Systems Review of Systems: All systems reviewed & are unremarkable except as noted in HPI & below Physical Exam Physical Exam: please refer to Dr. Jeffers addendum for physical exam findings. Results & Data Results & Data Vital Signs (Past 12 Hours) Vital Signs Temp Pulse Resp BP Pulse Ox O2 Del Method 08/25/23 11:31 93 H 08/25/23 11:17 36.7 C 91 H 23 116/76 99 Room Air Laboratory Results I have independently reviewed and interpreted patient's admitting labs including CBC, CMP, PT/INR, mag, lipase, procal, and troponin. UA and resp biofire also reviewed. +Marijuana on drug screen. Diagnostic Findings Chest X-Ray 08/25/23 11:21 XR chest 1V portable CLINICAL HISTORY: lightheadedness TECHNIQUE: Single frontal radiograph of the chest was obtained. Comparison: None available at the time of this dictation. FINDINGS: No lines and tubes are seen. The aorta is tortuous. The remainder of the cardiomediastinal silhouette is unremarkable. The lungs are clear. No evidence of pleural effusion or pneumothorax. IMPRESSION: No acute chest disease. ACT 112: Negative or not required by law. Electronically signed by: Dewayne Pillai M.D. 08/25/2023 11:55 AM Abdomen/Pelvis CT 08/25/23 12:27 CT abd pelvis wo con CLINICAL HISTORY: acute renal failure; abdominal pain TECHNIQUE: Helical axial images of the abdomen and pelvis were obtained. Automated dose lowering techniques and/or adjustment according to patient size were utilized for this exam. This exam was performed without intravenous contrast. CT DOSE: 673.24 mGy.cm COMPARISON: Comparison is made to CT abdomen pelvis 07/26/2023 FINDINGS: Lower chest: Bibasilar atelectasis versus scarring is seen. Stable right lower lobe nodule measuring 6 mm. Liver: Unremarkable. No focal lesions are seen. Gallbladder and biliary tree: No calcified gallstones. Normal caliber wall. No intra- or extrahepatic biliary ductal dilation. Pancreas: Unremarkable, no focal lesions. Spleen: Unremarkable. Adrenals: Unremarkable. Kidneys and ureters: Perinephric stranding is noted bilaterally. Bladder: Sharma catheter is seen. Reproductive organs: Prostatomegaly is seen. Bowel: Diverticulosis is seen without evidence of diverticulitis. Lymph nodes Retroperitoneal: Unremarkable. Pelvic: Unremarkable. Mesenteric: Unremarkable. Peritoneum: Normal. Vessels: Atherosclerotic calcifications are seen. Abdominal wall: A fat-containing umbilical hernia is seen. Bones: Degenerative changes in the visualized spine. IMPRESSION: 1. No acute abnormalities and in particular no evidence of hydronephrosis. Bladder wall thickening may be due to underdistention or chronic outlet obstruction. 2. Stable right lower lobe nodule. ACT 112: Negative or not required by law. Electronically signed by: Dewayne Pillai M.D. 08/25/2023 2:05 PM Medications Administered Medication List Sodium Chloride (Nss) 2,000 mls @ 999 mls/hr IV .Q2H1M ONE Stop: 08/25/23 14:26 Last Admin: 08/25/23 12:35 Dose: 999 mls/hr Documented By: NRB Discontinued Medications Fentanyl Citrate (Fentanyl Citrate Pf 100 Mcg/2 Ml Vial) 50 mcg IV NOW STA Stop: 08/25/23 13:34 Last Admin: 08/25/23 13:42 Dose: 50 mcg Documented By: HAIR Sodium Chloride (Nss) 1,000 mls @ 999 mls/hr IV .Q1H1M STA Stop: 08/25/23 12:21 Last Infusion: 08/25/23 12:33 Dose: Infused Documented By: Admin: 08/25/23 11:41 Dose: 999 mls/hr Documented By: NRB ECG Additional Comments: I have independently reviewed and interpreted patient's admitting EKG which revealed: 94 NSR, QTC 460ms no st or t wave changes COVID-19 Results Results COVID-19 Adm Lab Results: RBC 4.29 M/uL (4.70-6.10) L 08/25/23 WBC 12.58 K/ul (4.8-10.8) H 08/25/23 Hgb 14.5 g/dl (14.0-18.0) 08/25/23 Hct 41.0 % (42.0-52.0) L 08/25/23 Plt Count 359 K/uL (130-400) 08/25/23 Neutrophils (%) (Auto) 80.2 % 08/25/23 Lymphocytes (%) (Auto) 13.8 % 08/25/23 Monocytes # (Auto) 0.59 K/uL (0.11-0.59) 08/25/23 Eosinophils # (Auto) 0.08 K/uL (0.00-0.50) 08/25/23 Immature Granulocyte % (Auto) 0.5 % 08/25/23 Neutrophils # (Auto) 10.10 K/uL (1.40-6.50) H 08/25/23 Lymphocytes # (Auto) 1.73 K/uL (1.20-3.40) 08/25/23 Monocytes # (Auto) 0.59 K/uL (0.11-0.59) 08/25/23 Eosinophils # (Auto) 0.08 K/uL (0.00-0.50) 08/25/23 Basophils # (Auto) 0.02 K/uL (0.00-0.20) 08/25/23 Immature Granulocyte # (Auto) 0.06 K/uL (0.01-0.20) 4 Na 136 mmol/L (136-145) 08/25/23 K 4.2 mmol/L (3.5-5.1) 08/25/23 Cl 111 mmol/L (98-107) H 08/25/23 CO2 15 mmol/L (21-32) L 08/25/23 Anion Gap 10 (3-11) 08/25/23 BUN 47 mg/dl (6-23) H 08/25/23 Creatinine 6.53 mg/dl (0.6-1.4) H* 08/25/23 BUN/Creatinine Ratio 7.2 (10-20) L 08/25/23 Glucose Level 112 mg/dl (70-99(Fasting)) H 08/25/23 Ca 8.7 mg/dl (8.6-10.3) 08/25/23 Phosphorus Level 3.2 mg/dl (2.5-4.9) 08/25/23 Total Bilirubin 0.4 mg/dl (0.2-1.0) 08/25/23 AST/SGOT 11 U/L (13-39) L 08/25/23 ALT/SGPT 16 U/L (7-52) 08/25/23 Alkaline Phosphatase 58 U/L (34-104) 08/25/23 Total Protein 7.4 gm/dl (6.0-8.3) 08/25/23 Albumin 4.3 gm/dl (3.4-5.0) 08/25/23 Globulin 3.1 gm/dl (2.5-4.0) 08/25/23 Albumin/Globulin Ratio 1.4 (0.9-2) 08/25/23 Procalcitonin 0.47 ng/ml (0-0.5) 08/25/23 INR 1.0 (0.9-1.1) 08/25/23 Adenovirus (PCR) Not Detected (NotDetected) 08/25/23 B. parapertussis DNA (PCR) Not Detected (NotDetected) 08/12 11/02 B. pertussis DNA (PCR) Not Detected (NotDetected) 08/25/23 C. pneumoniae DNA (PCR) Not Detected (NotDetected) Coronavirus Type OC43 (PCR) Not Detected (NotDetected) Coronavirus Type HKU1 (PCR) Not Detected (NotDetected) Coronavirus Type 229E (PCR) Not Detected (NotDetected) COVID-19 PCR Not Detected (NotDetected) 08/25/23 Coronavirus Type NL63 (PCR) Not Detected (NotDetected) Human Metapneumovirus (PCR) Not Detected (NotDetected) Influenza Virus Type A (PCR) Not Detected (NotDetected) Influenza Virus Type B (PCR) Not Detected (NotDetected) M. pneumoniae (PCR) Not Detected (NotDetected) 08/25/23 Parainfluenza Type 1 (PCR) Not Detected (NotDetected) 08/12 11/02 Parainfluenza Type 2 (PCR) Not Detected (NotDetected) 08/12 11/02 Parainfluenza Type 3 (PCR) Not Detected (NotDetected) 08/12 11/02 Parainfluenza Type 4 (PCR) Not Detected (NotDetected) 08/12 11/02 RSV (PCR) Not Detected (NotDetected) 08/25/23 Enterovirus/Rhinovirus (PCR) Not Detected (NotDetected) Chest X-Ray 08/25/23 Code Status & VTE Plan Code Status FULL CODE Supervising Physician Co-Signing Physician Notes Patient is a 67-year-old male with history of CVA, BPH, alcohol use disorder and other medical problems presents with history of generalized weakness and near syncope. He was recently hospitalized at [facility] and was treated for CVA, ambulatory dysfunction, disequilibrium, HUGO. Patient is a very poor historian. He admits to have poor oral intake and has been having ongoing diarrhea. He states being unwell since last discharge. Reports intermittent dizziness and has been having issues with balance and ambulation. He denies any recent alcohol and THC use since last discharge. Please review HPI for complete details of presentation. Blood work showed leukocytosis 12.58 K, sodium 135, bicarbonate 15, anion gap 14, BUN 49, creatinine 6.96, glucose 115, magnesium 1.4. Chest x- ray showed no acute process. CT abdomen suggestive bladder wall thickening, possible chronic outlet obstruction. Also noted right lower lobe lung nodule. Patient is admitted for management of HUGO, anion gap metabolic acidosis, hypomagnesemia. Generalized weakness likely secondary to acute renal failure. Hold lisinopril. Avoid nephrotoxic agents as able. Continue IV fluids with bicarbonate. Nephrology consulted. Bladder scan as needed. Replace electrolytes as needed. PT OT, fall precautions requested. On exam patient is moderately built and nourished, mild distress secondary to catheter pain, normocephalic atraumatic, EOMI, normal breath sounds, clear to auscultation, S1- S2, no murmur, no pedal edema, abdomen soft, nontender, normal bowel sounds, alert, awake, oriented, grossly no focal deficits. I personally interviewed and examined at bedside. Patient's care is coordinated with Kayla Merritt PA-C. I have reviewed the advanced practitioner's documentation, and I agree with, and take responsibility for that plan of care. Please refer to the documentation above for details of patient's presentation and for discussion of other issues. I spent a total of30 minutes coordinating, documenting, and providing care for this patient excluding time spent in the performance of separately billed services.
[2023-08-25] MEDS ORDERED: STAT IV/IM STA (15:17)
[2023-08-25] MEDS ORDERED: hydrOXYzine HCl 10 MG TAB PO PRN (15:26)
[2023-08-25] MEDS ORDERED: PHENAZOPYRIDINE HCL 200 MG TAB PO PRN (15:26)
[2023-08-25] MEDS ORDERED: ONDANSETRON INJ 2 MG/ML 2 ML VIAL IV PRN (15:26)
[2023-08-25] MEDS ORDERED: DICYCLOMINE HCL 10 MG CAP PO PRN (15:26)
[2023-08-25] MEDS: MAGNESIUM SULFATE / D5W 1 GM/100 ML BAG IV SCH (15:42)
[2023-08-25] MEDS: MoRPHine SULFATE 2 MG/ML CARP IV PRN (15:42)
[2023-08-25] MEDS: SODIUM BICARBONATE 8.4% 75 MEQ in SODIUM CHLORIDE 0.45 % 1,000 ML IV SCH (15:42)
[2023-08-25] MEDS: MAGNESIUM SULFATE / D5W 1 GM/100 ML BAG IV STA (15:58)
[2023-08-25] MEDS: hydrALAZINE 10 MG TAB PO PRN (16:10)
--- NOTE | 2023-08-25 16:21 | Urology Consultation ---
Date of Consultation August 25, 2023 Assessment & Plan (1) Acute kidney injury: (2) Bladder outlet obstruction: (3) Hematuria, microscopic: Plan 67-year-old male admitted for acute renal failure. Urology consulted for possible bladder outlet obstruction. Given that he has 2 [address] scans without hydronephrosis, I do not suspect this is related to bladder outlet obstruction. His creatinine improved last visit back to baseline before discharge without catheter placement. His CT scan again today shows no evidence of bladder outlet obstruction causing his HUGO as there is no hydronephrosis. The reads do question bladder wall thickening but without hydronephrosis, and HUGO in the setting is not typically due to obstruction in nature. No urgent urologic intervention necessary Based on minimal output from catheter and no hydronephrosis on CT scan, I do not think this is obstructive in nature Recommend further workup by medicine and nephrology No indication to have catheter from a urologic perspective. Management per primary team. Can add oxybutynin as needed for catheter discomfort. Patient can follow-up with primary urologist (Steve Montiel). He did have microscopic hematuria so they should follow-up with that in clinic as well. Urology to sign off History of Present Illness Attending Physician: Evangelista Jeffers MD History of Present Illness 67-year-old male admitted due to an HUGO. He recently was admitted to the hospital for the same issue on 08/04/2023. Creatinine had returned to baseline prior to discharge and he had been evaluated by nephrology. A CT scan at that visit was performed which I independently reviewed and showed no hydronephrosis or obstructive uropathy. He returned to the hospital today with weakness. Labs were significant with an HUGO with a creatinine of 6.96. Urinalysis did show 5-[address] scan of the abdomen pelvis was again performed after catheter was well-placed which I independently reviewed and shows no hydronephrosis. Patient reports he had a small amount of difficulty urinating before he came in here but per nursing, minimal output when catheter was placed. He does follow with Dr. zAul with Steve and recently saw him. He has a follow-up with him in a couple weeks per the patient. He does have significant bother from the catheter Allergies Allergy/AdvReac Type Severity Reaction Status Date / Time No Known Allergies Allergy Verified 07/14/23 12:42 Home Medications Medication Instructions Recorded Confirmed Type dicyclomine 10 mg capsule 10 mg PO QID PRN Abdominal Pain 02/18/20 08/25/23 History lubiprostone 24 mcg capsule 24 mcg PO BID 08/24/22 08/25/23 History pantoprazole 40 mg tablet,delayed 40 mg PO QAM 08/24/22 08/25/23 History release alfuzosin 10 mg tablet,extended 10 mg PO QAM 06/17/23 08/25/23 History release 24 hr levothyroxine 25 mcg tablet 25 mcg PO QAM 06/17/23 08/25/23 History magnesium chloride 71.5 mg 71.5 mg PO BID #60 tabs 06/28/23 08/25/23 Rx (magnesium chloride) tablet,delayed release (Slow-Mag) buspirone 7.5 mg tablet 15 mg PO BID 08/05/23 08/25/23 History duloxetine 60 mg capsule,delayed 60 mg PO QAM 08/05/23 08/25/23 History release lisinopril 40 mg tablet 40 mg PO QAM 08/05/23 08/25/23 History aspirin 81 mg tablet,delayed 81 mg PO QAM #30 tabs 08/11/23 08/25/23 Rx release atorvastatin 40 mg tablet 40 mg PO HS #30 tabs 08/11/23 08/25/23 Rx hydroxyzine HCl 10 mg tablet 10 mg PO BID PRN anxiety 08/25/23 08/25/23 History Patient History Medical History Embolic stroke Alcohol use disorder Hypomagnesemia Hyponatremia Diverticulitis HTN (hypertension) Surgical History History of bilateral cataract extraction H/O hernia repair History of ankle surgery bilateral Family History Other Mood disorder Social History Smoking Status: Former smoker Second Hand Exposure: No; Do You Dip or Chew Tobacco: No; Hx Alcohol Use: Yes Alcohol type: hard liquor Hx Substance Use: No Preferred Language: Luxembourgish Communication Ability: Effective Marketing Associate Required: No Beliefs That Will Affect Care: None Current Living Situation: Alone Feels Safe at Home: Yes Assistive Devices: None Review of Systems Review of Systems: 14 point review of systems negative outs zack of what is listed above in HPI Physical Exam Physical Exam: General: Alert and oriented, no acute distress HEENT: Normocephalic, mucous membranes moist Pulmonary: Nonlabored respirations Abdomen: Nondistended : Circumcised phallus with orthotopic meatus. Catheter in place draining clear yellow urine Extremities: Moves all 4 spontaneously Neuro: No gross deficits Skin: Warm, dry, no rashes noted Results & Data Vital Signs (Past 12 Hours) Vital Signs Temp Pulse Resp BP Pulse Ox O2 Del Method 08/25/23 11:31 93 H 08/25/23 11:17 36.7 C 91 H 23 116/76 99 Room Air PG Care Time/CCT Total # of Minutes Spent Total Time Spent with Patient: Total time spent is greater than 50% in coordination of care (as documented) at patient's floor/unit and/or counseling patient: Coding Level of Care Code 58498 INT INP/OBS CARE 2/55MIN Diagnoses Acute kidney injury N17.9 Bladder outlet obstruction N32.0 Hematuria, microscopic R31.29
[2023-08-25] MEDS: PLASMA-LYTE A 1,000 ML IV SCH (16:34)
[2023-08-25] MEDS: cefTRIAXone SODIUM 1,000 MG in DEXTROSE 5 % MINI-B 50 ML IV SCH (16:51)
--- NOTE | 2023-08-25 18:18 | Nephrology Consultation ---
Date of Consultation August 25, 2023 Assessment & Plan (1) Acute kidney injury superimposed on CKD: Baseline creatinine 1.2-1.5 mg/dL. No proteinuria by history. HUGO consistent with prerenal physiology complicated by lisinopril use. Urine output improving. Electrolytes acceptable. Volume status remains hypovolemic. CT did not demonstrate hydronephrosis. There is no emergent indication for dialysis. UA notable for microscopic hematuria and hyaline casts. Urine microscopy will be repeated tomorrow. Continue IVF to encourage a positive fluid balance. Document strict I/O's. Repeat metabolic profile tomorrow AM. Medications are appropriately dosed for kidney function. Hold lisinopril. In setting of metabolic acidosis, 1/2 NS + NaHCO3 is being provided. (2) Bladder outlet obstruction: Maintained on Flomax now. CT did not demonstrate hydronephrosis or evidence of obstructive nephropathy. Sharma remains in place. (3) HTN (hypertension): BP acceptable. Lisinopril and HCTZ held. (4) Hypomagnesemia: IV replacement infusing. Repeat labs tomorrow AM. History of Present Illness Reason for Consultation: HUGO Requesting Physician: Evangelista Jeffers MD Attending Physician: Evangelista Jeffers MD History of Present Illness Mr. Haroon Colmenares is a 67 year-old male with hypertension, IBS-C, chronic lower back pain, OA/DJD, BPH, JANUARY/MDD, hypothyroidism, smoking history, and alcohol abuse. Haroon has been following with Dr. Nguyen in the [facility] nephrology clinic for a history of hyponatremia, hypomagnesemia, and hypercalcemia. Electrolyte abnormalities have been attributed to alcohol use disorder and hydrochlorothiazide. He has a baseline serum creatinine of 1.2 mg/dL. He was admitted to [facility] from August 05 through with acute kidney injury attributed to dehydration complicated by thiazide and ACEi use. Creatinine peaked at 6.25 mg/dL and improved to 1.2 mg/dL with supportive care. There was some concern for urinary retention at that time. However, this was no well supported. Haroon developed some difficulty voiding approximately 2 months ago prompting evaluation with Dr. Azul in the urology clinic. Evaluation demonstrated BPH. Symptoms included weak stream and sensation of incomplete void. Haroon denies dysuria or hematuria. He denies pain. Alfuzosin was prescribed but Haroon has not experienced significant improvement in the medication. He appeared to be voiding reasonably during his recent hospitalization without significant PVR documented. Otherwise, there have not been any recent change in medications. However, Haroon is not able to identify his home medications. He expressed significant confusion regarding his medications. He states "I take 10 pills in the morning and another half-dozen in the afternoon." He does not recall stopping HCTZ. In the past there was concern that he inadvertently doubled his HCTZ when asked to stop the medication. He denies any NSAID use. He presented to the ER at [facility] today reporting that he passed out. He states that he has not felt well since his recent hospitalization. He felt particularly weak today. He was extremely lightheaded and weak. A presyncope or syncopal event occurred when his son tried to lift him to stand. Appetite has been poor and Haroon admits to not eating well. He has not consumed alcohol since his recent hospitalization. He denies diarrhea but states that he is having small and loose bowel movements multiple times each day. He states that sometimes he feels the urge to move his bowels but simply passes air. CT abdomen and pelvis did not demonstrate the kidneys to be obstructed. The study was obtained post Sharma placement. UA demonstrates 2+ protein, 3+ blood. Microscopy notable for 5-10 WBC, 5-10 RBC, and hyaline casts. Haroon presented with a serum creatinine of 6.25 mg/dL. Electrolytes are normal. IVF are being provided. Sharma was placed in the ER. There was not a significant amount of urine when Sharma was initially inserted. Urine output has increased. Haroon is not non-oliguric with clear yellow urine draining into Sharma bag. Allergies Allergy/AdvReac Type Severity Reaction Status Date / Time No Known Allergies Allergy Verified 07/14/23 12:42 Home Medications Medication Instructions Recorded Confirmed Type dicyclomine 10 mg capsule 10 mg PO QID PRN Abdominal Pain 02/18/20 08/25/23 History lubiprostone 24 mcg capsule 24 mcg PO BID 08/24/22 08/25/23 History pantoprazole 40 mg tablet,delayed 40 mg PO QAM 08/24/22 08/25/23 History release alfuzosin 10 mg tablet,extended 10 mg PO QAM 06/17/23 08/25/23 History release 24 hr levothyroxine 25 mcg tablet 25 mcg PO QAM 06/17/23 08/25/23 History magnesium chloride 71.5 mg 71.5 mg PO BID #60 tabs 06/28/23 08/25/23 Rx (magnesium chloride) tablet,delayed release (Slow-Mag) buspirone 7.5 mg tablet 15 mg PO BID 08/05/23 08/25/23 History duloxetine 60 mg capsule,delayed 60 mg PO QAM 08/05/23 08/25/23 History release lisinopril 40 mg tablet 40 mg PO QAM 08/05/23 08/25/23 History aspirin 81 mg tablet,delayed 81 mg PO QAM #30 tabs 08/11/23 08/25/23 Rx release atorvastatin 40 mg tablet 40 mg PO HS #30 tabs 08/11/23 08/25/23 Rx hydroxyzine HCl 10 mg tablet 10 mg PO BID PRN anxiety 08/25/23 08/25/23 History Patient History Medical History Embolic stroke Alcohol use disorder Hypomagnesemia Hyponatremia Diverticulitis HTN (hypertension) Surgical History History of bilateral cataract extraction H/O hernia repair History of ankle surgery bilateral Family History Other Mood disorder Social History Smoking Status: Former smoker Second Hand Exposure: No; Do You Dip or Chew Tobacco: No; Hx Alcohol Use: No Hx Substance Use: No Preferred Language: Filipino Communication Ability: Effective Enamel Shader Required: No Beliefs That Will Affect Care: None Current Living Situation: Alone Feels Safe at Home: Yes Safety Concerns: Feels Safe At This Time Assistive Devices: None Review of Systems Review of Systems: All systems reviewed & are unremarkable except as noted in HPI & below Physical Exam Constitutional: well developed; no acute distress Eyes: no scleral abnormality and no corneal abnormality ENMT: Mouth: no oral mucosal abnormality and oral mucous membranes not dry Neck: normal visual inspection and trachea midline Respiratory: normal respiratory effort Auscultation: lungs clear to auscultation bilaterally Cardiovascular: Rate/Rhythm: regular rate Heart Sounds: normal S1 and normal S2 Extremities: no edema Musculoskeletal: Extremities: no cyanosis and no clubbing Skin: + turgor decreased; no lesions Neurologic: Motor/Sensory: no tremor and no asterixis Psychiatric: Orientation: alert and oriented x 3 Results & Data Vital Signs (Past 12 Hours) Vital Signs Temp Pulse Pulse Resp BP BP Pulse Ox 08/25/23 17:46 92 H 08/25/23 16:40 36.8 C 90 18 117/75 98 08/25/23 15:30 89 21 120/83 98 08/25/23 15:20 90 08/25/23 14:30 96 H 19 110/84 99 08/25/23 14:00 91 H 26 H 122/75 97 08/25/23 13:30 97 H 32 H 132/79 08/25/23 13:00 85 26 H 108/80 08/25/23 12:30 90 22 111/81 08/25/23 11:39 95 H 22 94/72 L 98 08/25/23 11:31 93 H 08/25/23 11:17 36.7 C 91 H 23 116/76 99 O2 Del Method 08/25/23 17:46 08/25/23 16:40 Room Air 08/25/23 15:30 08/25/23 15:20 08/25/23 14:30 08/25/23 14:00 08/25/23 13:30 08/25/23 13:00 08/25/23 12:30 08/25/23 11:39 08/25/23 11:31 08/25/23 11:17 Room Air Laboratory Results Laboratory Results - last 24 hr 08/25/23 08/25/23 08/25/23 11:25 11:44 11:45 WBC 12.58 H RBC 4.29 L Hgb 14.5 Hct 41.0 L MCV 95.6 MCH 33.8 MCHC 35.4 RDW Std Deviation 43.2 RDW Coeff of Suresh 12.4 Plt Count 359 MPV 11.0 Immature Gran % (Auto) 0.5 Neut % (Auto) 80.2 Lymph % (Auto) 13.8 Sublette % (Auto) 4.7 Eos % (Auto) 0.6 Baso % (Auto) 0.2 Neut # (Auto) 10.10 H Lymph # (Auto) 1.73 Sublette # (Auto) 0.59 Eos # (Auto) 0.08 Baso # (Auto) 0.02 Immature Gran # (Auto) 0.06 PT 10.9 INR 1.0 Sodium 135 L Potassium 4.3 Chloride 106 Carbon Dioxide 15 L Anion Gap 14 H BUN 49 H Creatinine 6.96 H* Est Cr Clr Drug Dosing 7.7 Est GFR ( Amer) 8.5 Est GFR (Non-Af Amer) 7.3 BUN/Creatinine Ratio 7.0 L Glucose 115 H Lactate 1.2 Calcium 10.1 Phosphorus 3.2 Magnesium 1.4 L Total Bilirubin 0.4 AST 11 L ALT 16 Alkaline Phosphatase 58 Troponin I High Sens 9.1 Total Protein 7.4 Albumin 4.3 Globulin 3.1 Albumin/Globulin Ratio 1.4 Lipase 58 Procalcitonin 0.47 Urine Color Urine Appearance Urine pH Ur Specific Woodson Urine Protein Urine Glucose (UA) Urine Ketones Urine Blood Urine Nitrite Urine Bilirubin Urine Urobilinogen Ur Leukocyte Esterase Urine WBC (Auto) Urine RBC (Auto) U Hyaline Cast (Auto) U Epithel Cells (Auto) Urine Bacteria (Auto) Ur Renal Epithelial Cell Urine Crystals Urine Yeast Urine Opiates Screen Ur Methadone, Qual Urine Barbiturates Ur Phencyclidine (PCP) U Amphetamin/Meth Scrn MDMA (Ecstasy) Screen U Benzodiazepines Scrn Ur Cocaine Metabolite U Marijuana (THC) Screen U Marijuana THC Carboxy Drug Screen Comment Ethyl Alcohol mg/dL Adenovirus (PCR) Not Detected B. pertussis DNA (PCR) Not Detected B.parapertussis DNA PCR Not Detected C. pneumoniae DNA (PCR) Not Detected Coronavirus OC43 (PCR) Not Detected Coronavirus HKU1 (PCR) Not Detected Coronavirus 229E (PCR) Not Detected SARS-CoV-2 (PCR) Not Detected Coronavirus NL63 (PCR) Not Detected Human Metapneumovir PCR Not Detected Influenza Type A (PCR) Not Detected Influenza Type B (PCR) Not Detected M. pneumoniae (PCR) Not Detected Parainfluenza 1 (PCR) Not Detected Parainfluenza 2 (PCR) Not Detected Parainfluenza 3 (PCR) Not Detected Parainfluenza 4 (PCR) Not Detected RSV (PCR) Not Detected Entero/Rhino (PCR) Not Detected 02/14/24 02/14/24 11:59 Unknown WBC RBC Hgb Hct MCV MCH MCHC RDW Std Deviation RDW Coeff of Suresh Plt Count MPV Immature Gran % (Auto) Neut % (Auto) Lymph % (Auto) Sublette % (Auto) Eos % (Auto) Baso % (Auto) Neut # (Auto) Lymph # (Auto) Sublette # (Auto) Eos # (Auto) Baso # (Auto) Immature Gran # (Auto) PT INR Sodium Potassium Chloride Carbon Dioxide Anion Gap BUN Creatinine Est Cr Clr Drug Dosing Est GFR ( Amer) Est GFR (Non-Af Amer) BUN/Creatinine Ratio Glucose Lactate Calcium Phosphorus Magnesium Total Bilirubin AST ALT Alkaline Phosphatase Troponin I High Sens Total Protein Albumin Globulin Albumin/Globulin Ratio Lipase Procalcitonin Urine Color Dark Yellow Urine Appearance Turbid A Urine pH 5.0 Ur Specific Woodson 1.015 Urine Protein 2+ H Urine Glucose (UA) Negative Urine Ketones Negative Urine Blood 3+ H Urine Nitrite Negative Urine Bilirubin Negative Urine Urobilinogen Negative Ur Leukocyte Esterase Trace H Urine WBC (Auto) 5-10 H Urine RBC (Auto) 5-10 H U Hyaline Cast (Auto) 1-5 U Epithel Cells (Auto) >30 H Urine Bacteria (Auto) Negative Ur Renal Epithelial Cell Not Reportable Urine Crystals Not Reportable Urine Yeast Not Reportable Urine Opiates Screen Neg Ur Methadone, Qual Neg Urine Barbiturates Neg Ur Phencyclidine (PCP) Neg U Amphetamin/Meth Scrn Neg MDMA (Ecstasy) Screen Neg U Benzodiazepines Scrn Neg Ur Cocaine Metabolite Neg U Marijuana (THC) Screen Pos H U Marijuana THC Carboxy Pending Drug Screen Comment Pending Ethyl Alcohol mg/dL < 10.0 Adenovirus (PCR) B. pertussis DNA (PCR) B.parapertussis DNA PCR C. pneumoniae DNA (PCR) Coronavirus OC43 (PCR) Coronavirus HKU1 (PCR) Coronavirus 229E (PCR) SARS-CoV-2 (PCR) Coronavirus NL63 (PCR) Human Metapneumovir PCR Influenza Type A (PCR) Influenza Type B (PCR) M. pneumoniae (PCR) Parainfluenza 1 (PCR) Parainfluenza 2 (PCR) Parainfluenza 3 (PCR) Parainfluenza 4 (PCR) RSV (PCR) Entero/Rhino (PCR) Diagnostic Findings CT abd pelvis wo con COMPARISON: Comparison is made to CT abdomen pelvis 07/26/2023 FINDINGS: Lower chest: Bibasilar atelectasis versus scarring is seen. Stable right lower lobe nodule measuring 6 mm. Liver: Unremarkable. No focal lesions are seen. Gallbladder and biliary tree: No calcified gallstones. Normal caliber wall. No intra- or extrahepatic biliary ductal dilation. Pancreas: Unremarkable, no focal lesions. Spleen: Unremarkable. Adrenals: Unremarkable. Kidneys and ureters: Perinephric stranding is noted bilaterally. Bladder: Sharma catheter is seen. Reproductive organs: Prostatomegaly is seen. Bowel: Diverticulosis is seen without evidence of diverticulitis. Lymph nodes Retroperitoneal: Unremarkable. Pelvic: Unremarkable. Mesenteric: Unremarkable. Peritoneum: Normal. Vessels: Atherosclerotic calcifications are seen. Abdominal wall: A fat-containing umbilical hernia is seen. Bones: Degenerative changes in the visualized spine. IMPRESSION: 1. No acute abnormalities and in particular no evidence of hydronephrosis. Bladder wall thickening may be due to underdistention or chronic outlet obstruction. 2. Stable right lower lobe nodule. PG Care Time/CCT Total # of Minutes Spent Total Time Spent with Patient: Total time spent is greater than 50% in coordination of care (as documented) at patient's floor/unit and/or counseling patient: Coding Level of Care Code 45539 IN/OBS CONSULT LVL 5,80M Diagnoses Acute kidney injury superimposed on CKD N17.9; N18.9 Bladder outlet obstruction N32.0 HTN (hypertension) I10 Hypomagnesemia E83.42
--- OUTSIDE RECORDS SUMMARY | 2023-08-25 18:34 | External Medical Summary | Summary of Care ---
Author Name Unknown Organization [facility] Address [address] [place] [address] Phone [phone] Care Team Providers Care Qa Specialist Name Role Phone Kimberly Sidhu DO Primary Care Provider [phone] Reason for Visit * Reason Comments Outpatient Testing Encounter Details Date Type Department Care Team (Late st Contact Info) Description 08/17/2023 4:40 PM EST Laboratory Laboratory, [facility] [address] [place] [address] [facility] [address] [place] [address] Acquired hypothyroidism; Hypercalcemia; Leukocytosis, unspecified type; Thrombocytosis; Hyponatremia; HTN, goal below 130/80; HUGO (acute kidney injury) (HCC); Alcohol abuse Allergies No known active allergiesdocumented as of this encounter (statuses as of 08/17/2023) Medications Medication Sig Dispensed Refills Start Date [...] MEALS 180 Capsule 1 02/10/2023 02/10/2024 Active hydrOXYzine HCl 10 MG Oral Tablet [...] before bedtime. 360 Tablet 0 06/07/2023 Active Alfuzosin HCl ER 10 MG [...] the morning. 90 Tablet 3 07/14/2023 Active Levothyroxine Sodium 25 MCG Oral Tablet (Levoxyl) Take 1 Tablet by mouth in the morning. (at least 30 min prior to breakfast or other meds). 90 Tablet 3 07/31/2023 Active Atorvastatin Calcium 40 MG Oral Tablet (Lipitor) 1 Tablet. 0 08/11/2023 Active Aspirin 81 MG Oral Tablet ChewableIndications :Cerebrovascular accident (CVA) due to embolism of cerebral artery (HCC) Take 1 Tablet by mouth in the morning. with food.. 0 08/17/2023 Active Slow-Mag 71.5-119 MG Oral Tablet Delayed Release (Magnesium Cl-Calcium Carbonate) Take 71.5 mg by mouth in the morning and 71.5 mg before bedtime. 0 08/17/2023 Active documented as of this encounter (statuses as of 08/17/2023) Active Problems Problem Noted Date Diagnosed Date [...] as of this encounter (statuses as of 08/17/2023) Immunizations Name Administration Dates Next Due COVID-19 [...] on file documented as of this encounter Plan of Treatment Upcoming Encounters Date Type Department Care Team (Latest Contact Info) Description 08/26/2023 1:30 PM EST Hospital Encounter ENDO [facility], Endoscopy Room [facility] [address] [place] [phone] Zane Olson MD [address] [place] [phone] 08/26/2023 1:30 PM EST - 08/26/2023 2:00 PM EST Surgery ENDO [facility], Endoscopy Room [facility] [address] [place] [phone] Zane Olson MD [address] [place] [id number] COLONOSCOPY FLEXIBLE PROXIMAL DIAGNOSTIC 08/30/2023 12:30 PM EST Office Visit Psychiatry, [facility] [address] [facility] [place] [address] Ofelia Nielsen CRNP [address] [facility] [place] [address] 09/14/2023 11:20 AM EST Office Visit Neurology [facility] [place] [address] [place] [address] Celeste Rothman PA-C [address] [place] [address] 11/30/2023 1:20 PM EDT Office Visit [facility] [address] [place] [address] Kimberly Sidhu DO [address] [place] [phone] 12/21/2023 1:30 PM EDT Office Visit Urology, [facility] [address] [facility] [place] [address] Valentín Azul MD [address] [place] [address] 08/17/2024 10:00 AM EST Imaging Radiology [facility] [facility], [place] [address] [facility] [place] [address] Pending Results Name Type Priority Associated Diagnoses Date /Time TSH WITH FREE T4 IF INDICATED Lab Routine Acquired hypothyroidism 08/17/2023 4:38 PM EST COMPREHENSIVE METABOLIC PANEL Lab Routine Hypercalcemia Leukocytosis, unspecified type Thrombocytosis Hyponatremia Acquired hypothyroidism 08/17/2023 4:38 PM EST CBC WITH WBC DIFFERENTIAL AND ANEMIA REFLEX WORKUP Lab Routine HTN, goal below 130/80 HUGO (acute kidney injury) ([facility]) 08/17/2023 4:38 PM EST AMMONIA Lab Routine Alcohol abuse 08/17/2023 4:38 PM EST VITAMIN B12 Lab Routine Alcohol abuse 08/17/2023 4:38 PM EST FOLIC ACID Lab Routine Alcohol abuse 08/17/2023 4:38 PM EST ANEMIA CBC Lab Routine HTN, goal below 130/80 HUGO (acute kidney injury) ([facility]) 08/17/2023 4:38 PM EST DIFFERENTIAL, AUTOMATED Lab Routine HTN, goal below 130/80 HUGO (acute kidney injury) ([facility]) 08/17/2023 4:38 PM EST ANEMIA REFLEX CHEMISTRY HOLD Lab Routine HTN, goal below 130/80 HUGO (acute kidney injury) ([facility]) 08/17/2023 4:38 PM EST Scheduled Procedures Name Priority Associated Diagnoses Date/Ti me COLONOSCOPY FLEXIBLE PROXIMAL DIAGNOSTIC History of colon polyps 08/26/2023 1:30 PM EST Health Maintenance Due Date Last Done Comments Pneumococcal Vaccine: 65+ Years (2 - PCV) 02/08/2021 02/09/2020 Depression Screening 02/26/2023 02/26/2022 COVID-19 Vaccine (2022-24 season) 2023 02/26/2022, 05/19/2021, 05/19/2021, Additional history exists Influenza Vaccine (FLU shot) [...] this encounter Medical Devices Implanted Type Area Strategy Manager Device Identifier Shelf Expiration Date Model / Serial / Lot Lens Intraoc 22.5 - [id number] - [id number] Implanted:Qty: 1 on 06/16/2022 by Garcia Winters MD at OR [facility] Left: Eye [employer] 02/08/2027 [id number] / [id number] / [id number] Lens Intraoc 23.0 - [id number] - [id number] Implanted:Qty: 1 on 06/30/2022 by Garcia Winters MD at OR [facility] Right: Eye [employer]OM[employer] 02/08/2027 [id number] / [id number] / [id number] documented as of this encounter Visit Diagnoses Diagnosis Acquired hypothyroidism Unspecified hypothyroidism Hypercalcemia Leukocytosis, unspecified type Thrombocytosis Essential thrombocythemia Hyponatremia Hyposmolality and/or hyponatremia HTN, goal below 130/80 Unspecified essential hypertension HUGO (acute kidney injury) (HCC) Acute kidney failure, unspecified Alcohol abuse Alcohol abuse, unspecified History of colon polyps Personal history of [...] the patient have Health Care Power of Block Mechanic? No Code Status History Code Status Date Activated Date Inactivated Comments No Code 06/16/2022 12:24 PM 06/16/2022 6:37 PM This order reflects the patients wishes and were consensually agreed upon. Question Answer Comments Discussion of Advance Directives occurred with: Patient Does the patient have a Living Will? No Does the patient have Health Care Power of Block Mechanic? No Care Teams Qa Specialist Relationship Specialty Start Date End Date Kimberly Sidhu DO [address] [place] [phone] PCP - General Family Medicine 05/31/23 documented as of this encounter
--- OUTSIDE RECORDS SUMMARY | 2023-08-25 18:34 | External Medical Summary | Summary of Care ---
Author Name Unknown Organization [facility] Address [address] [place] [address] Phone [phone] Care Team Providers Care Welding Machine Operator Submerged Arc Name Role Phone Kimberly Sidhu DO Primary Care Provider [phone] Reason for Visit * Reason Onset Date Comments Advice 08/18/2023 Encounter Details Date Type Department Care Team (Late st Contact Info) Description 08/18/2023 Telephone Family Practice [facility] [address] [place] [address] Eleanor Benítez DO [address] [place] [address] Advice Allergies No known active allergiesdocumented as of this encounter (statuses as of 08/20/2023) Medications Medication Sig Dispensed Refills Start Date [...] Calcium 40 MG Oral Tablet (Lipitor) 1 Tablet at bedtime. 0 08/11/2023 Active Aspirin 81 MG Oral Tablet ChewableIndications :Cerebrovascular accident (CVA) due to embolism of cerebral artery (HCC) Take 1 Tablet by mouth in the morning. with food.. 0 08/17/2023 Active Slow-Mag 71.5-119 MG Oral Tablet Delayed Release (Magnesium Cl-Calcium Carbonate) Take 71.5 mg by mouth in the morning and 71.5 mg before bedtime. 0 08/17/2023 Active Folic Acid 1 MG Oral TabletIndications:F olic acid deficiency Take 1 Tablet by mouth in the morning. 90 Tablet 3 08/18/2023 Active documented as of this encounter (statuses as of 08/20/2023) Active Problems Problem Noted Date Diagnosed Date [...] as of this encounter (statuses as of 08/20/2023) Immunizations Name Administration Dates Next Due COVID-19 [...] encounter Miscellaneous Notes * Telephone Encounter - Irene Sosa LPN - 08/20/2023 11:12 AM EST Called work number and spoke with pt's son regarding message below, he will check to be sure he picked of the supplement at the pharmacy and is taking it. * Telephone Encounter - Eleanor Benítez DO - 08/18/2023 3:04 PM EST Please call patient His folic acid levels are low This can impair memory, nerve functioning Rec starting a supplement which I sent to pharmacy - 1 daily F/u w/pcp as scheduled documented in this encounter Plan of Treatment Upcoming Encounters Date Type Department Care Team (Latest Contact Info) Description 08/30/2023 12:30 PM EST Office Visit Psychiatry, [facility] [address] [place] [address] Ofelia Nielsen CRNP [address] [place] [address] 09/14/2023 11:20 AM EST Office Visit Neurology [facility] [address] [place] [address] Celeste Rothman PA-C [address] [place] [address] 10/18/2023 2:30 PM EDT Hospital Encounter ENDO [facility], Endoscopy Room [facility] [address] [place] [phone] Zane Olson MD [address] [place] [address] 10/18/2023 2:30 PM EDT - 10/18/2023 3:00 PM EDT Surgery ENDO [facility], Endoscopy Room [facility] [address] [place] [phone] Zane Olson MD [address] [place] [address] COLONOSCOPY FLEXIBLE PROXIMAL DIAGNOSTIC 11/30/2023 1:20 PM EDT Office Visit Family Practice [facility] [address] [place] [address] Kimberly Sidhu DO [address] [place] [address] 12/21/2023 1:30 PM EDT Office Visit Urology, [facility] [address] [place] [address] Valentín Azul MD [address] [facility] [address] [place] [address] [address] 08/17/2024 10:00 AM EST Imaging Radiology [address] [place] [address] Scheduled Procedures Name Priority Associated Diagnoses Date/Ti me COLONOSCOPY FLEXIBLE PROXIMAL DIAGNOSTIC Recall History of colon polyps 10/18/2023 2:30 PM EDT Health Maintenance Due Date Last Done Comments Pneumococcal Vaccine: 65+ Years (2 - PCV) 02/08/2021 02/09/2020 Depression Screening 02/26/2023 02/26/2022 COVID-19 Vaccine (5 - 2022-24 season) 2023 02/26/2022, 05/19/2021, 05/19/2021, Additional history exists Influenza Vaccine (FLU shot) (#1) 2023 05/18/2022, 03/15/2020 COLONOSCOPY-EVERY 3 YRS AGES 18-100 07/25/2023 07/25/2020, 07/25/2020 GFR 08/17/2024 08/17/2023, 02/2023, 06/16/2023, Additional history exists TSH 08/17/2024 08/17/2023, 05/13, 02/09/2020 Albumin/Creatinine Ratio 05/31/2026 05/31/2023, 02/09 Diabetes Screening 08/17/2026 08/17/2023, 1 08/19/2022, 06/16/2023, Additional history exists DTaP,Tdap,and Td Vaccines (2 [...] this encounter Medical Devices Implanted Type Area Information And Data Architect Analyst Device Identifier Shelf Expiration Date Model / Serial / Lot Lens Intraoc 22.5 - [id number] - [id number] Implanted:Qty: 1 on 06/16/2022 by Garcia Winters MD at OR [facility] Left: Eye [employer] LOMB 02/08/2027 [id number] / [id number] / [id number] Lens Intraoc 23.0 - [id number] - [id number] Implanted:Qty: 1 on 06/30/2022 by Garcia Winters MD at OR [facility] Right: Eye BAUSCH & LOMB 02/08/2027 [id number] / [id number] / [id number] documented as of this encounter Visit Diagnoses Diagnosis Folic acid deficiency- Primary Other B-complex deficiencies History of colon polyps Personal history of [...] the patient have Health Care Power of Gaming Department Head? No Code Status History Code Status Date Activated Date Inactivated Comments No Code 06/16/2022 12:24 PM 06/16/2022 6:37 PM This order reflects the patients wishes and were consensually agreed upon. Question Answer Comments Discussion of Advance Directives occurred with: Patient Does the patient have a Living Will? No Does the patient have Health Care Power of Gaming Department Head? No Care Teams Welding Machine Operator Submerged Arc Relationship Specialty Start Date End Date Kimberly Sidhu DO [address] [address] PCP - General Family Medicine 05/31/23 documented as of this encounter
--- OUTSIDE RECORDS SUMMARY | 2023-08-25 18:34 | External Medical Summary ---
Author Name Unknown Address Unknown Organization [id number]:LAB[facility]ATORY [facility] [place] - [address] [place] [address] Laboratory Report Ordering Provider Test Date Status GLENISINNA 08/17/2023 16:38:21 Final Observation Date Value Abnormality Reference (Units ) Status WBC, Total 08/17/2023 16:38:21 11.68 Above high normal 4 .00-10.80 (K/uL) Final RBC 08/17/2023 16:38:21 4.19 4.50-5.25 (M/uL) Final Hemoglobin 08/17/2023 16:38:21 14.4 14.0-16.8 (g/dL) Final Anemia reflex testing trigge rs on a HGB < 12.0 for Females and HGB < 13.0 for Males in accordance with the WHO Anemia Guidelines
Anemia reflex testing triggers on a HGB < 12.0 for Females and HGB < 13.0 for Males in accordance with the WHO Anemia Guidelines HCT 08/17/2023 16:38:21 42.9 40.0-48.4 (%) Final MCV 08/17/2023 16:38:21 102.4 82.0-99.5 (fL) Final MCH 08/17/2023 16:38:21 34.4 27.0-34.0 (pg) Final MCHC 08/17/2023 16:38:21 33.6 32.0-36.0 (g/dL) Final RDW 08/17/2023 16:38:21 12.4 11.5-15.5 (%) Final Platelets 08/17/2023 16:38:21 361 140-400 (K /uL) Final MPV 08/17/2023 16:38:21 12.1 6.6-11.1 ( fL) Final Nucleated erythrocytes/100 leukocytes [Ratio] in Blood by Automated count 08/17/2023 16:38:21 0 <=0 (/100 WBCs) [facility] Performing Location [facility] - [address] [facility] [address]
--- OUTSIDE RECORDS SUMMARY | 2023-08-25 18:34 | External Medical Summary ---
Author Name Unknown Address Unknown Organization [id number]:[facility] [place] [address] [facility] [place] [address] Laboratory Report Ordering Provider Test Date Status JANETTE ELLISON 08/17/2023 16:38:21 Final Observation Date Value Abnormality Reference (Units ) Status BUN 08/17/2023 16:38:21 14 6-20 (mg/dL) Final Creatinine 08/17/2023 16:38:21 1.4 Above high normal 0.6-1.2 (mg/dL) Final Glomerular filtration rate/1.73 sq M.predicted [Volume Rate/Area] in Serum, Plasma or Blood by Creatinine-based formula (CKD-EPI) 08/17/2023 16:38:21 54 Below low normal >=60 (mL/min) Final eGFR is calculated based on the CKD-EPI 2020 equation SODIUM 08/17/2023 16:38:21 137 135-146 (m mol/L) Final Potassium 08/17/2023 16:38:21 4.5 3.5-5.1 (m mol/L) Final Cl 08/17/2023 16:38:21 101 98-107 (mm ol/L) Final CO2 08/17/2023 16:38:21 23 22-32 (mmo l/L) Final Anion gap 08/17/2023 16:38:21 13 7-15 (mmol /L) Final Glucose 08/17/2023 16:38:21 91 70-120 (mg /dL) Final Albumin 08/17/2023 16:38:21 4.6 3.8-5.0 (g /dL) Final AST (Aspartate aminotransferase) 08/17/2023 16:38:21 18 10-50 (U/L) Final Alk Phos 08/17/2023 16:38:21 73 35-130 (U/ L) Final Bilirubin, Total 08/17/2023 16:38:21 <0.2 <=1 .2 (mg/dL) Final Calcium 08/17/2023 16:38:21 10.1 8.4-10.2 ( mg/dL) Final Protein 08/17/2023 16:38:21 7.0 6.0-8.3 (g /dL) Final ALT (Alanine aminotransferase) 08/17/2023 16:38:21 27 10-50 (U/L) Final Performing Location [place] [facility] [place] [facility] [address] [facility] [address]
--- OUTSIDE RECORDS SUMMARY | 2023-08-25 18:34 | External Medical Summary ---
Author Name Unknown Address Unknown Organization K01[place] [facility] [place] [address] [facility] [address] Laboratory Report Ordering Provider Test Date Status GLENISINNA 08/17/2023 16:38:21 Final Observation Date Value Abnormality Reference (Units ) Status SYNC LEUKOCYTES IN BLOOD BY AUTOMATED COUNT 08/17/2023 16:38:21 11.68 Above high normal 4.00-10.80 (K/uL) Final Segs 08/17/2023 16:38:21 65.0 40.0-75.0 (%) Final Lymphs % 08/17/2023 16:38:21 22.7 18.0-42.0 (%) Final Monos 08/17/2023 16:38:21 8.0 1.0-11.0 (%) Final Eosinophils 08/17/2023 16:38:21 3.7 0.0-6.0 (%) Final Basos 08/17/2023 16:38:21 0.3 0.0-2.0 (%) Final Immature Granulocyte, Percent 08/17/2023 16:38:21 0.3 0.0-2.0 (%) Final Absolute Segs 08/17/2023 16:38:21 7.60 1.80-7.70 (K/uL) Final Lymphs, absolute 08/17/2023 16:38:21 2.65 1.00-4.80 (K/ul) Final Monos, Abs 08/17/2023 16:38:21 0.93 0.00-1.10 (K/uL) Final Eos, Abs 08/17/2023 16:38:21 0.43 0.00-0.70 (K/uL) Final Basos, Abs 08/17/2023 16:38:21 0.03 0.00-0.20 (K/uL) Final Immature Granulocytes, Number 08/17/2023 16:38:21 0.04 0.00-0.20 (K/uL) Final Performing Location [place] [facility] [place] [address] [facility] [address]
--- OUTSIDE RECORDS SUMMARY | 2023-08-25 18:34 | External Medical Summary | Summary of Care ---
Author Name Unknown Organization [facility] Address [address] [place] [address] Phone [phone] Care Team Providers Care Pairer Odds Name Role Phone Kimberly Sidhu DO Primary Care Provider [phone] Reason for Visit * Reason Onset Date Comments Appointment Canceled 08/18/2023 colonoscopy Encounter Details Date Type Department Care Team (Late st Contact Info) Description 08/18/2023 Telephone OR [facility], Operating Room [facility] [address] [place] [phone] Zane Olson MD [address] [place] [address] Appointment Canceled (colonoscopy) Allergies No known active allergiesdocumented as of this encounter (statuses as of 08/19/2023) Medications Medication Sig Dispensed Refills Start Date [...] the morning. 90 Tablet 3 08/18/2023 Active Escitalopram Oxalate 20 MG Oral Tablet (Lexapro) Take 1 Tablet by mouth in the morning. 0 Active documented as of this encounter (statuses as of 08/19/2023) Active Problems Problem Noted Date Diagnosed Date [...] as of this encounter (statuses as of 08/19/2023) Immunizations Name Administration Dates Next Due COVID-19 mRNA, LNP-s, No Pre serve, 2-Dose Series ([employer]) 10/19/2020,09/28/2020 COVID-19, LNP-s, No Preserve , Ketan-sucrose, [...] encounter Miscellaneous Notes * Telephone Encounter - Leni Martinez OSA - 08/19/2023 10:44 AM EST Spoke to pt's son, res'd colon to 01/11/24. * Telephone Encounter - Angela Daniel RN - 08/18/2023 5:03 PM EST Pt just had zio patch applied 08/17/23-will need postponed for approx 4 weeks -2 weeks to complete study and 2 weeks for results. Son aware. Please contact him at 0930 tomorrow to get pt resched. Thankyou documented in this encounter Plan of Treatment Upcoming Encounters Date Type Department Care Team (Latest Contact Info) Description 08/30/2023 12:30 PM EST Office Visit Psychiatry, [facility] [address] [place] [address] Ofelia Nielsen CRNP [address] [place] [address] [place] [address] 09/14/2023 11:20 AM EST Office Visit [facility] [address] [place] [address] Celeste Rothman PA-C [address] [place] [place] [address] 11/30/2023 1:20 PM EDT Office Visit Family Practice [facility] [address] [facility] [place] [address] Kimberly Sidhu DO [address] [place] [address] 12/21/2023 1:30 PM EDT Office Visit Urology, [facility] [place] [address] Valentín Azul MD [address] [place] [address] [place] [address] 01/11/2024 2:00 PM EDT Hospital Encounter ENDO [facility], Endoscopy Room [facility] [address] [place] [phone] Zane Olson MD [address] [facility] [place] [address] 01/11/2024 2:00 PM EDT - 01/11/2024 2:30 PM EDT Surgery ENDO [facility], Endoscopy Room [facility] [address] [place] [phone] Zane Olson MD 132 [facility] [place] [address] COLONOSCOPY FLEXIBLE PROXIMAL DIAGNOSTIC 08/17/2024 10:00 AM EST Imaging Radiology [facility] 1st [facility] 132 [facility] [place] [address] Scheduled Procedures Name Priority Associated Diagnoses Date/Ti me COLONOSCOPY FLEXIBLE PROXIMAL DIAGNOSTIC Recall History of colon polyps 01/11/2024 2:00 PM EDT Health Maintenance Due Date Last Done Comments Pneumococcal Vaccine: 65+ Years (2 - PCV) 02/08/2021 02/09/2020 Depression Screening 02/26/2023 02/26/2022 COVID-19 Vaccine (2022-24 season) 2023 02/26/2022, 05/19/2021, 05/19/2021, Additional history exists Influenza Vaccine (FLU shot) (#1) 2023 05/18/2022, 03/15/2020 COLONOSCOPY-EVERY 3 YRS AGES 18-100 07/25/2023 07/25/2020, 07/25/2020 GFR 08/17/2024 08/17/2023, 1202/2023, 06/16/2023, Additional history exists TSH 08/17/2024 08/17/2023, [...] this encounter Medical Devices Implanted Type Area Human Intelligence Device Identifier Shelf Expiration Date Model / Serial / Lot Lens Intraoc 22.5 - [id number] - [id number] Implanted:Qty: 1 on 06/16/2022 by Garcia Winters MD at OR [facility] Left: Eye [employer]CH [employer] LOMB 02/08/2027 [id number] / [id number] / [id number] Lens Intraoc 23.0 - [id number] - [id number] Implanted:Qty: 1 on 06/30/2022 by Garcia Winters MD at OR [facility] Right: Eye BAUSCH [employer] LOMB 02/08/2027 [id number] / [id number] / [id number] documented as of this encounter Advance Directives [...] the patient have Health Care Power of Chief Controller? No Code Status History Code Status Date Activated Date Inactivated Comments No Code 06/16/2022 12:24 PM 06/16/2022 6:37 PM This order reflects the patients wishes and were consensually agreed upon. Question Answer Comments Discussion of Advance Directives occurred with: Patient Does the patient have a Living Will? No Does the patient have Health Care Power of Chief Controller? No Care Teams Pairer Odds Relationship Specialty Start Date End Date Kimberly Sidhu DO [address] [place] [address] PCP - General Family Medicine 05/31/23 documented as of this encounter
--- OUTSIDE RECORDS SUMMARY | 2023-08-25 18:34 | External Medical Summary | Summary of Care ---
Author Name Unknown Organization [facility] Address [address] [place] [address] Phone [phone] Care Team Providers Care Coroner Technician Name Role Phone Kimberly Sidhu DO Primary Care Provider [phone] Reason for Visit * Reason Onset Date Comments Appointment Canceled 08/18/2023 colonoscopy Advice 08/18/2023 Encounter Details Date Type Department Care Team (Late st Contact Info) Description 08/18/2023 Telephone OR [facility], Operating Room [facility] [address] [place] [phone] Zane Olson MD [address] [place] [address] Appointment Canceled (colonoscopy); Advice Allergies No known active allergiesdocumented as [...] mRNA, LNP-s, No Pre serve, 2-Dose Series ([employer]) 10/19/2020,09/28/2020 COVID-19, LNP-s, No Preserve , Ketan-sucrose, [...] Encounter - Leni Martinez OSA - 08/19/2023 4:32 PM EST Spoke to pt's son, res'd colon to 10/18/23. * Telephone Encounter - Osmany Thomson OSA - 08/19/2023 11:10 AM EST Pts son Haroon called in regarding his procedure. When he spoke to someone the other day there was a date of October 17 available and at the time of talking to someone he wasn't able to make that date. Since then he was able to figure something out and is calling back to see if he can still have hisdad scheduled for that date. Please reach out to pt's son Haroon at [phone]. Thank you * Telephone Encounter - Leni Martinez OSA [...] 08/30/2023 12:30 PM EST Office Visit Psychiatry, [facility] [address] [place] [address] NielsenOfelia CRNP 200 [facility] [address] 09/14/2023 11:20 AM EST Office Visit Neurology [facility] [place] [address] [place] [address] Celeste Rothman PA-C 200 [facility] [place] [address] 10/18/2023 2:30 PM EDT Hospital Encounter ENDO [facility], Endoscopy Room [facility] [address] [place] [phone] Zane Olson MD [address] [place] [address] 10/18/2023 2:30 PM EDT - 10/18/2023 3:00 PM EDT Surgery ENDO [facility], Endoscopy Room [facility] [address] [place] [phone] Zane Olson MD [address] [place] [address] COLONOSCOPY FLEXIBLE PROXIMAL DIAGNOSTIC 11/30/2023 1:20 PM EDT Office Visit [facility] [address] [place] [address] Kimberly Sidhu DO [address] [place] [address] 12/21/2023 1:30 PM EDT Office Visit Urology, [facility] 132 [facility] [place] [address] Valentín Azul MD 27 [facility] [address] [place] [address] 08/17/2024 10:00 AM EST Imaging Radiology [facility] 1st [facility] 132 [facility] [place] [address] Scheduled Procedures Name Priority Associated Diagnoses Date/Ti me COLONOSCOPY FLEXIBLE PROXIMAL DIAGNOSTIC Recall History of colon polyps 10/18/2023 2:30 PM EDT Health Maintenance Due Date Last Done Comments Pneumococcal Vaccine: 65+ Years (2 - PCV) 02/08/2021 02/09/2020 Depression Screening 02/26/2023 02/26/2022 COVID-19 Vaccine ( season) 2023 02/26/2022, 05/19/2021, 05/19/2021, Additional history exists Influenza Vaccine (FLU shot) (#1) 2023 05/18/2022, 03/15/2020 COLONOSCOPY-EVERY 3 YRS AGES 18-100 07/25/2023 07/25/2020, 07/25/2020 GFR 08/17/2024 08/17/2023, 1202/2023, 06/16/2023, Additional history exists TSH 08/17/2024 08/17/2023, 05/13, 02/09/2020 Albumin/Creatinine Ratio 05/31/2026 05/31/2023, 0802/2022 Diabetes Screening 08/17/2026 08/17/2023, 1 08/19/2022, 06/16/2023, [...] this encounter Medical Devices Implanted Type Area Ironworker Helper Shop Device Identifier Shelf Expiration Date Model / Serial / Lot Lens Intraoc 22.5 - [id number] - [id number] Implanted:Qty: 1 on 06/16/2022 by Garcia Winters MD at OR [facility] Left: Eye [employer]USCH [employer] LOMB 02/08/2027 [id number] / [id number] / [id number] Lens Intraoc 23.0 - [id number] - [id number] Implanted:Qty: 1 on 06/30/2022 by Garcia Winters MD at OR [facility] Right: Eye [employer] LOMB 02/08/2027 [id number] / [id number] / [id number] documented as of this encounter Advance Directives [...] the patient have Health Care Power of Manager Maintenance? No Code Status History Code Status Date Activated Date Inactivated Comments No Code 06/16/2022 12:24 PM 06/16/2022 6:37 PM This order reflects the patients wishes and were consensually agreed upon. Question Answer Comments Discussion of Advance Directives occurred with: Patient Does the patient have a Living Will? No Does the patient have Health Care Power of Manager Maintenance? No Care Teams Coroner Technician Relationship Specialty Start Date End Date Kimberly Sidhu DO [address] [address] PCP - General Family Medicine 05/31/23 documented as of this encounter
--- OUTSIDE RECORDS SUMMARY | 2023-08-25 18:34 | External Medical Summary ---
Author Name Unknown Address Unknown Organization K01:[facility] - [address] [place] [address] Laboratory Report Ordering Provider Test Date Status INNA GALVIN 08/17/2023 16:38:21 Final Observation Date Value Abnormality Reference (Units ) Status Ammonia 08/17/2023 16:38:21 17 11-35 (umo l/L) Final Performing Location [facility] - [address] [place] [address]
--- OUTSIDE RECORDS SUMMARY | 2023-08-25 18:34 | External Medical Summary | Summary of Care ---
Author Name Unknown Organization [facility] Address [address] [place] [address] Phone [phone] Care Team Providers Care Curator Medical Museum Name Role Phone Kimberly Sidhu DO Primary Care Provider [phone] Reason for Referral * Social Care (Within 10 days (routine)) - Authorized Specialty Diagnoses / Procedures Referred By Contac t Referred To Contact Heat Treater Helper Diagnoses Cerebrovascular accident (CVA) due to embolism of cerebral artery (HCC) Eleanor Benítez DO [address] [place] [address] Referral ID Status Reason Start Date Expiration Date Visits Requested Visits Authorized [id number] Authorized Specialty Services Required 08/17/2023 999 999 Question Answer Role Cream Gatherer Cream Gatherer Referral Reason Transition of Care (ARI)/High Risk for Readmission Referral Priority Within 10 days (routine) Where should this appointment be scheduled? [facility] Comments Is patient being transitioned from [facility] to Complex Case Management? No * Precert (Within 10 days (routine)) - Pending Review Specialty Diagnoses / Procedures Referred By Contac t Referred To Contact Radiology Diagnoses Incidental lung nodule, > 3mm and < 8mm Procedures CT CHEST LUNG NODULE FOLLOW UP (NOT SCREENING PROGRAM) Eleanor Benítez DO [address] [place] [address] Referral ID Status Reason Start Date Expiration Date V isits Requested Visits Authorized [id number] Pending Review 08/17/2024 999 999 Reason for Visit * Reason Onset Date Comments Hospital Follow-Up Pt here for h ospital follow up, Hospital Follow-Up 08/17/2023 Encounter Details Date Type Department Care Team (Latest Contact Info) Description 08/17/2023 3:00 PM EST Office Visit [facility] [address] [place] [address] Eleanor Benítez DO [address] [place] [address] Hospital discharge follow-up*; Incidental lung nodule, > 3mm and < 8mm; Cerebrovascular accident (CVA) due to embolism of cerebral artery (HCC); Alcohol abuse; HTN, goal below 130/80; HUGO (acute kidney injury) (HCC); Heart failure, unspecified HF chronicity, unspecified heart failure type (HCC); Alcoholism (HCC); Major depressive disorder, recurrent episode, mild (HCC); Acquired hypothyroidism Allergies No known active allergiesdocumented as of this encounter (statuses as of 08/21/2023) Medications Medication Sig Dispensed Refills Start Date [...] MEALS 180 Capsule 1 02/10/2023 4 Active hydrOXYzine HCl 10 MG Oral Tablet [...] 08/11/2023 Active Aspirin 81 MG Oral Tablet ChewableIndication s:Cerebrovascular accident (CVA) due to embolism of cerebral artery (HCC) Take 1 Tablet by mouth in the morning. with food.. 0 08/17/2023 Active Slow-Mag 71.5-119 MG Oral Tablet Delayed Release (Magnesium Cl-Calcium Carbonate) Take 71.5 mg by mouth in the morning and 71.5 mg before bedtime. 0 08/17/2023 Active hydroCHLOROthiazid e 25 MG Oral Tablet (Hydrodiuril)Indic ations:HTN, goal below 130/80 Take 1 tablet by mouth every morning. 90 Tablet 0 03/21/2023 4 Discontinue d(Medicatio n List Clean Up) DULoxetine HCl 30 MG Oral Capsule Delayed Release Particles (Cymbalta)Indicati ons:Generalized anxiety disorder,Major depressive disorder, recurrent episode, mild (HCC) Take 1 Capsule by mouth daily at noon. 90 Capsule 1 06/07/2023 4 Discontinue d(Medicatio n List Clean Up) Escitalopram Oxalate 20 MG Oral Tablet (Lexapro)Indicatio ns:Generalized anxiety disorder,Major depressive disorder, recurrent episode, mild (HCC) Take 1 Tablet by mouth in the morning. 90 Tablet 1 06/07/2023 4 Discontinue d(Medicatio n List Clean Up) hydroCHLOROthiazid e 25 MG Oral Tablet (Hydrodiuril)Indic ations:HTN, goal below 130/80 TAKE ONE TABLET BY MOUTH EVERY MORNING 90 Tablet 3 07/28/2023 4 Discontinue d(Medicatio n List Clean Up) documented as of this encounter (statuses as of 08/21/2023) Active Problems Problem Noted Date Diagnosed Date Heart failure 08/21/2023 Alcoholism 08/21/2023 Major depressive disorder, recurrent episode, mi ld 08/21/2023 Acquired hypothyroidism 08/21/2023 Panic disorder 05/31/2023 JANUARY (generalized anxiety disorder) [...] as of this encounter (statuses as of 08/21/2023) Immunizations Name Administration Dates Next Due COVID-19 mRNA, LNP-s, No Pre serve, 2-Dose Series (KOEZY) 10/19/2020,09/28/2020 COVID-19, LNP-s, No Preserve , Ketan-sucrose, [...] on file documented as of this encounter Last Filed Vital Signs Vital Sign Reading Time Taken Comments Blood Pressure 108/72 08/17/2023 3:04 PM EST Pulse 84 08/17/2023 3:04 PM EST Temperature 37.2 C (98.9 F) 08/17/2023 3:04 PM ES T Respiratory Rate 18 08/17/2023 3:04 PM EST Oxygen Saturation - - Inhaled Oxygen Concentration - - Weight 65.3 kg (144 lb) 08/17/2023 3:04 PM EST Height 157.5 cm (5' 2") 08/17/2023 3:04 PM EST Body Mass Index 26.34 08/17/2023 3:04 PM EST documented in this encounter Progress Notes * Genna Mcintyre LPN - 08/17/2023 4:50 PM EST 08/17/23 4:50 PM Date to Remove: 08/31/2023 Time to Remove: 1650 Serial Number: [id number] Ordering Provider: Eleanor Benítez MD CC Results: cardio Genna Mcintyre LPN Zio patch applied in clinic, as per provider orders. /zio * Eleanor Benítez, DO - 08/17/2023 3:27 PM EST SUBJECTIVE: Haroon Colmenares is a 67 year old male. Chief Complaint Patient presents with Hospital Follow-Up Pt here for hospital follow up, Hospital Follow-Up Recent Admission: Patient was recently admitted to [facility]. Admitted 08/05/23. The date of discharge was 08/11/23. Discharge report received and reviewed. HPI: Pt reports he went to the hospital for dizziness, fall. Was kept for suspected stroke/TIA. Pt continues to have symptoms of lightheadedness, has to take his time standing up. MRI brain suggested small infarct of R peripheral cerebellum. Continues on ASA and statin, seen by neurology - zio patch recommended. Cr was 6.26, hctz discontinued. Also has hx of bladder outlet obstruction, started on alfuzosin. Ptreports some improvement in urinary flow. He's also having abd pain/diarrhea that is continued. Last drink of etoh was 2 weeks ago. He plans to do this on his own but will ask for help if needed. Patient Active Problem List Diagnosis Code HTN, [...] (generalized anxiety disorder) F41.1 Panic disorder F41.0 Current Outpatient Medications Medication Sig Dispense Refill docusate sodium (COLACE) 50 MG Capsule Take by mouth at bedtime. Dicyclomine HCl 10 MG Oral Capsule (Bentyl) TAKE ONE CAPSULE BY MOUTH FOUR TIMES A DAY NEEDED FOR ABDOMINAL PAIN 360 Capsule 1 Lubiprostone 24 MCG Oral Capsule (Amitiza) TAKE ONE CAPSULE BY MOUTH TWICE A DAY WITH MORNING AND EVENING MEALS 180 Capsule 1 hydrOXYzine HCl 10 MG Oral Tablet (Atarax) Take 1 Tablet by mouth 2 times a day as needed for Nausea or Anxiety. 120 Tablet 0 DULoxetine HCl 60 MG Oral Capsule Delayed Release Particles (Cymbalta) Take 1 Capsule by mouth in the morning. 90 Capsule 0 busPIRone HCl 7.5 MG Oral Tablet (Buspar) Take 2 Tablets by mouth in the morning and 2 Tablets before bedtime. 360 Tablet 0 Alfuzosin HCl ER 10 MG Oral Tablet Extended Release 24 Hour (Uroxatral) Take 1 Tablet by mouth in the morning. 90 Tablet 3 Pantoprazole Sodium 40 MG Oral Tablet Delayed Release (Protonix) TAKE ONE TABLET BY MOUTH EVERY DAYBEFORE BREAKFAST 90 Tablet 3 Lisinopril 40 MG Oral Tablet Take 1 Tablet by mouth in the morning. 90 Tablet 3 Levothyroxine Sodium 25 MCG Oral Tablet (Levoxyl) Take 1 Tablet by mouth in the morning. (at least 30 min prior to breakfast or other meds). 90 Tablet 3 Atorvastatin Calcium 40 MG Oral Tablet (Lipitor) 1 Tablet. No current facility-administered medications for this visit. Current and discharge medications have been reconciled. Review of patient's allergies indicates: No Known Allergies OBJECTIVE: BP 108/72 | Pulse 84 | Temp 37.2 C (98.9 F) (Tympanic) | Resp 18 | Ht 1.575 m (5' 2") | Wt 65.3kg (144 lb) | BMI 26.34 kg/m | BSA 1.69 m Review Of Systems: No fever or chills No PFEIFFER, dizziness, lightheadedness No ear pain, rhinorrhea, sore throat, or sinus pain No chest pain or palpitations No SOB or wheezing No heartburn, abd pain, nausea, vomitnig No diarrhea, constipation, or bloody/dark tarry stools No urinary frequency, dysuria or incontinence No lower extremity edema No depression or anxiety PHYSICAL EXAM: General: alert, healthy and no distress Heart: regular rate & rhythm, no murmurs and no gallops Lungs: chest symmetric with normal AP diameter, no chest deformities noted, lungs clear to auscultation Extremities: no joint deformities, effusion, or inflammation, no edema ASSESSMENT: Hospital discharge follow-up (Primary) - DISCH MED RECON CUR MED LIS Incidental lung nodule, > 3mm and < 8mm - CT CHEST LUNG NODULE FOLLOW UP (NOT SCREENING PROGRAM); Future; Expected date: 08/17/2024 Cerebrovascular accident (CVA) due to embolism of cerebral artery (HCC) - DISCH MED RECON CUR MED LIS - EXTERNAL EKG 8 TO 15 DAYS; Future; Expected date: 08/18/2023 - Aspirin 81 MG Oral Tablet Chewable; Take 1 Tablet by mouth in the morning. with food.. - POPULATION HEALTH REFERRAL OP Alcohol abuse - AMMONIA; Future; Expected date: 08/17/2023 - VITAMIN B12; Future; Expected date: 08/17/2023 - FOLIC ACID; Future; Expected date: 08/17/2023 HTN, goal below 130/80 - COMPREHENSIVE METABOLIC PANEL; Future; Expected date: 08/17/2023 - CBC WITH WBC DIFFERENTIAL AND ANEMIA REFLEX WORKUP; Future; Expected date: 08/17/2023 HUGO (acute kidney injury) (HCC) - COMPREHENSIVE METABOLIC PANEL; Future; Expected date: 08/17/2023 - CBC WITH WBC DIFFERENTIAL AND ANEMIA REFLEX WORKUP; Future; Expected date: 08/17/2023 Other orders - Slow-Mag 71.5-119 MG Oral Tablet Delayed Release (Magnesium Cl-Calcium Carbonate); Take 71.5 mg by mouth in the morning and 71.5 mg before bedtime. Follow Up: Return in 3 months (on 11/15/2023). PLAN: Keep specialist appointments as above, continue to avoid alcohol Eleanor Benítez DO documented in this encounter Nursing Notes * Genna Mcintyre LPN - 08/17/2023 3:04 PM EST The patient has been properly identified by confirmation of name and date of . Chief Complaint Patient presents with Hospital Follow-Up Pt here for hospital follow up, documented in this encounter Plan of Treatment Upcoming Encounters Date Type Department Care Team (Latest Contact Info) Description 08/30/2023 12:30 PM EST Office Visit Psychiatry, [place] [address] [place] [address] Ofelia Nielsen CRNP [address] [place] [address] 09/14/2023 11:20 AM EST Office Visit Neurology [facility] [place] [address] [place] [address] Celeste Rothman PA-C [address] [place] [address] 10/18/2023 2:30 PM EDT Hospital Encounter ENDO [facility], Endoscopy Room [facility] [address] [place] [phone] Zane Olson MD [address] [place] [address] 10/18/2023 2:30 PM EDT - 10/18/2023 3:00 PM EDT Surgery ENDO [facility], Endoscopy Room [facility] [address] [place] [phone] Zane Olson MD [address] [place] [address] COLONOSCOPY FLEXIBLE PROXIMAL DIAGNOSTIC 11/30/2023 1:20 PM EDT Office Visit Family Practice [facility] [address] [place] [address] Kimberly Sidhu DO [address] [place] [address] 12/21/2023 1:30 PM EDT Office Visit Urology, [facility] [address] [place] [address] Valentín Azul MD [address] [facility] [address] [place] [address] 08/17/2024 10:00 AM EST Imaging Radiology [address], [place] [address] [facility] [place] [address] Scheduled Orders Name Type Priority Associated Diagnoses Orde r Schedule EXTERNAL EKG 8 TO 15 DAYS Holter Routine Cerebrovascular accident (CVA) due to embolism of cerebral artery (HCC) Expected: 08/18/2023 (Approximate), Expires: 08/17/2024 CT CHEST LUNG NODULE FOLLOW UP (NOT SCREENING PROGRAM) Medical Imaging Routine Incidental lung nodule, > 3mm and < 8mm Expected: 08/17/2024 (Approximate), Expires: 09/14/2024 Scheduled Procedures Name Priority Associated Diagnoses Date/Ti me COLONOSCOPY FLEXIBLE PROXIMAL DIAGNOSTIC Recall History of colon polyps 10/18/2023 2:30 PM EDT Scheduled Referrals Name Type Priority Associated Diagnoses Orde r Schedule POPULATION HEALTH REFERRAL OP Referral Within 10 days (routine) Cerebrovascular accident (CVA) due to embolism of cerebral artery (HCC) Ordered: 08/17/2023 Health Maintenance Due Date Last Done Comments Pneumococcal Vaccine: 65+ Years (2 - PCV) 02/08/2021 02/09/2020 Depression Screening 02/26/2023 02/26/2022 COVID-19 Vaccine (2022- season) 2023 02/26/2022, 05/19/2021, 05/19/2021, Additional history [...] Tdap) 10/19/2026 10/19/2016 Lipid Panel 05/31/2028 05/31/2023, 07/07/2019, 10/17/2018 AAA Screening Completed 02/14/2020 Zoster Vaccines [...] this encounter Medical Devices Implanted Type Area Boat Diesel Motor Mechanic Device Identifier Shelf Expiration Date Model / Serial / Lot Lens Intraoc 22.5 - [id number] - [id number] Implanted:Qty: 1 on 06/16/2022 by Garcia Winters MD at OR [facility] Left: Eye [employer]CH [employer] LOMB 02/08/2027 [id number] / [id number] / [id number] Lens Intraoc 23.0 - [id number] - [id number] Implanted:Qty: 1 on 06/30/2022 by Garcia Winters MD at OR [facility] Right: Eye BAUSCH & LOMB 02/08/2027 [id number] / [id number] / [id number] documented as of this encounter Results * (ABNORMAL) FOLIC ACID (08/17/2023 4:38 PM EST) Pathologist [facility] Folic Acid 4.1(L) >4.5 ng/mL 08/18/2023 5:13 AM EST LABORATORY [facility] Blood Venous blood specimen / Unknown Venipuncture / Unknown 08/17/2023 4:38 PM EST 08/17/2023 4:38 PM EST Eleanor Benítez DO LAB BLOOD ORDERABLE S LABORATORY [facility] [address] [place] [address] * VITAMIN B12 (08/17/2023 4:38 PM EST) [facility] Vitamin B12 1,968 432 - 1,245 pg/mL 08/18/2023 5:13 AM EST LAB[facility]ATORY [facility] Blood Venous blood specimen / Unknown Venipuncture / Unknown 08/17/2023 4:38 PM EST 08/17/2023 4:38 PM EST Eleanor Emmanuel Radhajeanna GOVEA LAB BLOOD ORDERABLE S Performing Organization Address City/Special Care Hospital/ZIP Co de Phone Number LABORATORY [facility] [address] [place] [address] * AMMONIA (08/17/2023 4:38 PM EST) Ammonia 17 11 - 35 umol/L 08/17/2023 10:38 PM EST LAB[facility]ATORY [facility] Blood Venous blood specimen / Unknown Venipuncture / Unknown 08/17/2023 4:38 PM EST 08/17/2023 4:38 PM EST Eleanor Emmanuel Jackelin LAB BLOOD ORDERABLE S Performing Organization Address [facility] de Phone Number LABORATORY [facility] [address] [place] [address] documented in this encounter Visit Diagnoses Diagnosis Hospital discharge follow-up- Primary Other follow-up examination Incidental lung nodule, > 3mm and < 8mm Solitary pulmonary nodule Cerebrovascular accident (CVA) due to embolism of cerebral artery (HCC) Alcohol abuse Alcohol abuse, unspecified HTN, goal below 130/80 Unspecified essential hypertension HUGO (acute kidney injury) (HCC) Acute kidney failure, unspecified Heart failure, unspecified HF chronicity, unspecified heart failure type (HCC) Alcoholism (HCC) Other and unspecified alcohol dependence, unspecified drinking behavior Major depressive disorder, recurrent episode, mild (HCC) Major depressive disorder, recurrent episode, mild Acquired hypothyroidism Unspecified hypothyroidism History of colon polyps Personal history of [...] patient have Health Care Power of Manager Database Administration? No Code Status History Code Status Date Activated Date Inactivated Comments No Code 06/16/2022 12:24 PM 06/16/2022 6:37 PM This order reflects the patients wishes and were consensually agreed upon. Question Answer Comments Discussion of Advance Directives occurred with: Patient Does the patient have a Living Will? No Does the patient have Health Care Power of Manager Database Administration? No Care Teams Curator Medical Museum Relationship Specialty Start Date End Date Kimberly Sidhu DO [address] [place] [address] PCP - General Family Medicine 05/31/23 documented as of this encounter
--- OUTSIDE RECORDS SUMMARY | 2023-08-25 18:34 | External Medical Summary | Summary of Care ---
Author Name Unknown Organization [facility] Address [address] [place] [address] Phone [phone] Care Team Providers Care Radio Station Manager Name Role Phone Kimberly Sidhu DO Primary Care Provider [phone] Reason for Visit * Reason Onset Date Comments Appointment Canceled 08/18/2023 colonoscopy Advice 08/18/2023 Encounter Details Date Type Department Care Team (Late st Contact Info) Description 08/18/2023 Telephone OR [facility], Operating Room [facility] [address] [place] [phone] Zane Olson MD [address] [place] [address] Appointment Canceled (colonoscopy); Advice Allergies No known [...] mRNA, LNP-s, No Pre serve, 2-Dose Series ([employer]) 10/19/2020,09/28/2020 COVID-19, LNP-s, No Preserve , Ketan-sucrose, [...] encounter Miscellaneous Notes * Telephone Encounter - Osmany Thomson OSA [...] reach out to pt's son Haroon at [phone]. Thank you * Telephone Encounter - Leni [...] at 0930 tomorrow to get pt resched. Markusyou documented in this encounter Plan of Treatment Upcoming Encounters Date Type Department Care Team (Latest Contact Info) Description 08/30/2023 12:30 PM EST [facility] [address] [place] [address] Ofelia Nielsen CRNP [address] [place] [address] 09/14/2023 11:20 AM EST Office Visit Neurology [facility] [place] [address] [facility] [place] [address] Celeste Rothman PA-C [address] [facility] [place] [address] 11/30/2023 1:20 PM EDT Office Visit Family Practice [facility] [address] [place] [address] Kimberly Sidhu DO [address] [place] [address] 12/21/2023 1:30 PM EDT Office Visit Urology, [facility] [address] [place] [address] Valentín Azul MD [address] [place] [address] [place] [address] 01/11/2024 2:00 PM EDT Hospital Encounter ENDO [facility], Endoscopy Room [facility] [address] [place] [phone] Zane Olson MD [address] [place] [address] 01/11/2024 2:00 PM EDT - 01/11/2024 2:30 PM EDT Surgery ENDO [facility], Endoscopy Room [facility] [address] [place] [phone] Zane Olson MD [address] [place] [address] COLONOSCOPY FLEXIBLE PROXIMAL DIAGNOSTIC 08/17/2024 10:00 AM EST Imaging Radiology [address] [facility] [place] [address] Scheduled Procedures Name Priority Associated Diagnoses Date/Ti me COLONOSCOPY FLEXIBLE PROXIMAL DIAGNOSTIC Recall History of colon polyps 01/11/2024 2:00 PM EDT Health Maintenance Due Date Last Done Comments Pneumococcal Vaccine: 65+ Years (2 - PCV) 02/08/2021 02/09/2020 Depression Screening 02/26/2023 02/26/2022 COVID-19 Vaccine ( - 2022-24 season) 2023 02/26/2022, 05/19/2021, 05/19/2021, [...] this encounter Medical Devices Implanted Type Area Exterior Work Helper Device Identifier Shelf Expiration Date Model / Serial / Lot Lens Intraoc 22.5 - [id number] - [id number] Implanted:Qty: 1 on 06/16/2022 by Garcia Winters MD at OR [facility] Left: Eye BAUSCH [employer] LOMB 02/08/2027 [id number] / [id number] / [id number] Lens Intraoc 23.0 - [id number] - [id number] Implanted:Qty: 1 on 06/30/2022 by Garcia Winters MD at OR [facility] Right: Eye BAUSCH & LOMB 02/08/2027 [id number] / [id number] / [id number] documented as of this encounter Advance Directives [...] the patient have Health Care Power of Direct Customer Service Representative? No Code Status History Code Status Date Activated Date Inactivated Comments No Code 06/16/2022 12:24 PM 06/16/2022 6:37 PM This order reflects the patients wishes and were consensually agreed upon. Question Answer Comments Discussion of Advance Directives occurred with: Patient Does the patient have a Living Will? No Does the patient have Health Care Power of Direct Customer Service Representative? No Care Teams Radio Station Manager Relationship Specialty Start Date End Date Kimberly Sidhu DO [address] [place] [address] PCP - General Family Medicine 05/31/23 documented as of this encounter
--- OUTSIDE RECORDS SUMMARY | 2023-08-25 18:35 | External Medical Summary ---
Author Name Unknown Address Unknown Organization K01:LABORATORY [facility] - [address] [place] [address] Laboratory Report Ordering Provider Test Date Status INNA GALVIN 08/17/2023 16:38:21 Final Observation Date Value Abnormality Reference (Units ) Status Folic Acid 08/17/2023 16:38:21 4.1 Below low normal >4 .5 (ng/mL) Final Performing Location LABORATORY [facility] - [address] [place] [address]
[2023-08-25] MEDS: LUBIPROSTONE 8 MCG CAP PO SCH (20:00)
[2023-08-25] MEDS: ATORVASTATIN 40 MG TAB PO SCH (20:00)
[2023-08-25] MEDS: busPIRone 7.5 MG TAB PO SCH (20:00)
[2023-08-25 20:03] LABS: BUN Creatinine Ratio 7.2 (10-20); Calcium 8.7 mg/dl (8.6-10.3); Creatinine Clr Calc Pharmacy 8.2 ml/min; Est GFR (African American) 9.2 ml/min; Est GFR (Non-African American) 7.9 ml/min; Potassium 4.2 mmol/L (3.5-5.1)
[2023-08-25] MEDS: HEPARIN SOD 5,000 UNIT/0.5 ML VIAL SQ SCH (21:01)
[2023-08-26] MEDS: POLYETHYLENE (MIRALAX) 17 GM PACK PO PRN (03:32)
[2023-08-26] MEDS: LEVOTHYROXINE SODIUM 25 MCG TABLET PO SCH (05:30)
--- NOTE | 2023-08-26 06:01 | Electrocardiogram Report ---
Test Reason : Blood Pressure : / mmHG Vent. Rate : 094 BPM Atrial Rate : 094 BPM P-R Int : 118 ms QRS Dur : 082 ms QT Int : 368 ms P-R-T Axes : 005 004 034 degrees QTc Int : 460 ms Normal sinus rhythm Normal ECG When compared with ECG of 05-AUG-2023 08:03, Minimal criteria for Inferior infarct are no longer Present Confirmed by Nitesh Laughlin ([id number]) on 08/26/2023 6:01:01 AM Referred By: Confirmed By:Nitesh Laughlin
--- NOTE | 2023-08-26 07:24 | Hospitalist Progress Note ---
Date of Service August 26, 2023 Assessment & Plan (1) Acute renal failure: (2) High anion gap metabolic acidosis: (3) Hypomagnesemia: (4) Generalized weakness: (5) Bladder outlet obstruction: (6) Leukocytosis: Plan This is a 67-year-old male who has a significant past medical history of recent diagnosis of CVA, HTN, hypothyroidism, BPH, depression with anxiety, alcohol abuse disorder, tobacco use disorder, IBS who presents to ED secondary to generalized weakness. Acute renal failure High anion gap metabolic acidosis Generalized weakness Bladder outlet obstruction Admit to med tele place on 1/2NS bicarb gtt 125cc/hr repeat bmp @ 1900 repeat urine microscopy in a.m consult nephrology pt follows with [facility] recurrent HUGO likely all pre renal CT a/p still w/o evidence of obstructive nephropathy consult urology to [facility] for b.o.o. hold lisinopril for now, will place on oral hydralazine PRN avoid nephrotoxic agents Hypomagnesemia replace Leukocytosis possible reactive empirically place on IV ceftriaxone await urine culture Hx of CVA recent dx on ASA, statin currently has ZIO monitor in place on LACW Generalized weakness PT/OT Alcohol use disorder reports being abstinent for 3 weeks add thiamine and folic acid DVT ppx: SQ Heparin FULL CODE PCP: Kimberly Sidhu Dispo: admit to tele Pt was seen and examined in collaboration with Dr. Jeffers, please see addendum A total of 76 minutes was spent coordinating, documenting, and providing care for this patient excluding time spent in the performance of separately billed services. This included personally viewing all current laboratories and imaging studies, medication reconciliation, outpatient chart review, and discussion with specialists. Admission and Anticipated Discharge Date Admission Date: August 25, 2023 Subjective Pt seen in follow up of HUGO Results & Data Results & Data Vital Signs (Past 12 Hours) Vital Signs Temp Pulse Pulse Resp BP Pulse Ox O2 Del Method 08/26/23 07:10 68 08/26/23 04:01 36.5 C 78 20 106/57 L 95 Room Air 08/26/23 00:03 75 08/25/23 19:36 36.3 C L 88 20 119/69 98 Room Air
--- NOTE | 2023-08-26 07:32 | Hospitalist Progress Note ---
Date of Service August 26, 2023 Assessment & Plan (1) Acute renal failure: (2) High anion gap metabolic acidosis: (3) Hypomagnesemia: (4) Generalized weakness: (5) Bladder outlet obstruction: (6) Leukocytosis: Plan Mr. Colmenares is a 67-year-old male who has a significant past medical history of recent diagnosis of CVA, HTN, hypothyroidism, BPH, depression with anxiety, alcohol abuse disorder, tobacco use disorder, IBS who presented to ED secondary to generalized weakness on 08/26/2023. Renal function slowly improving. Son provided a lot of information regarding nutritional status, noting that abdominal pain is contributing; however, extensive OP work up has been pursued and all tests (hydrogen breath tests, EGD, c-scopes negative). Son reports finding patient in status with poor nutrition. Will plan family meeting to discuss goals with patient in general, including introducing idea of psych evalaution. #Acute renal failure on CKDIII, recurrent #High anion gap metabolic acidosis, improving #BPH Thought to be prerenal, complicated by ACEi Continue 1/2NS bicarb gtt 125cc/hr consult nephrology, reviewed recommendations -discontinue lisinopril CT a/p still w/o evidence of obstructive nephropathy, prostatomegaly noted avoid nephrotoxic agents Continue bauman Strict I/Os Ordered BMP in am #Hypomagnesemia replace #Leukocytosis*downtrending Perinephric stranding on imaging bilaterally possible reactive empirically place on IV ceftriaxone await urine culture #Recent CVA MRI brain with punctate restricted diffusion in right cerebral hemisphere 07/2023 recent dx Continue ASA, statin currently has ZIO monitor in place on LACW -Monitor on tele #Generalized weakness PT/OT #Major depressive disorder #Anxiety -Continue home Buspar 15mg BID -Continue duloxetine 60mg qam #Alcohol use disorder reports being abstinent for 3 weeks, confirmed by son Continue thiamine and folic acid #Chronic IBS-C #Chronic abdominal pain -Follows [facility], IP c-scope scheduled -Previously on Linzess, now continues on Amitiza BID -Bentyl 10mg TID prn DVT ppx: SQ Heparin FULL CODE PCP: Kimberly Sidhu Dispo: monitor on tele Admission and Anticipated Discharge Date Admission Date: August 25, 2023 Subjective Patient evaluated at bedside Reports pain at bauman site and discomfort since anchor broke loose Denies any other acute concerns at this Physical Exam Constitutional: WD/WN, vitals as above Respiratory: normal respiratory effort, lungs clear to auscultation Gastrointestinal (Abdomen): normal bowel sounds, soft, nontender, no hepatospl enomegaly Results & Data Results & Data Vital Signs (Past 12 Hours) Vital Signs Temp Pulse Pulse Resp BP Pulse Ox O2 Del Method 08/26/23 07:10 68 08/26/23 04:01 36.5 C 78 20 106/57 L 95 Room Air 08/26/23 00:03 75 08/25/23 19:36 36.3 C L 88 20 119/69 98 Room Air Laboratory Results Short CBC 08/26/23 Range/Units 07:33 WBC 9.49 (4.8-10.8) K/ul Hgb 12.0 L (14.0-18.0) g/dl Hct 33.6 L (42.0-52.0) % Plt Count 302 (130-400) K/uL BMP 08/25/23 08/26/23 19:17 07:33 Sodium 136 139 Potassium 4.2 4.2 Chloride 111 H 113 H Carbon Dioxide 15 L 18 L BUN 47 H 48 H Creatinine 6.53 H* D 5.47 H* D Glucose 112 H 90 Calcium 8.7 8.5 L Liver Function 08/26/23 Range/Units 07:33 Total Bilirubin 0.3 (0.2-1.0) mg/dl AST 13 (13-39) U/L ALT 11 (7-52) U/L Alkaline Phosphatase 45 (34-104) U/L Albumin 3.3 L (3.4-5.0) gm/dl Urine 08/25/23 08/26/23 Range/Units Unknown Unknown Urine Color Dark Yellow Yellow Urine Appearance Turbid A Cloudy A (Clear) Urine pH 5.0 5.5 (4.5-7.5) Ur Specific [address] 1.015 1.008 (1.000-1.030) Urine Protein 2+ H Trace H (Negative) Urine Glucose (UA) Negative Negative (Negative) Medications Administered Home Medications Medication Instructions Recorded Confirmed Last Taken dicyclomine 10 mg capsule 10 mg PO QID PRN Abdominal Pain 02/18/20 08/25/23 02/18/20 12:00 lubiprostone 24 mcg capsule 24 mcg PO BID 08/24/22 08/25/23 08/04/23 pantoprazole 40 mg tablet,delayed 40 mg PO QAM 08/24/22 08/25/23 08/04/23 release alfuzosin 10 mg tablet,extended 10 mg PO QAM 06/17/23 08/25/23 08/04/23 release 24 hr levothyroxine 25 mcg tablet 25 mcg PO QAM 06/17/23 08/25/23 08/04/23 magnesium chloride 71.5 mg 71.5 mg PO BID #60 tabs 06/28/23 08/25/23 08/04/23 (magnesium chloride) tablet,delayed release (Slow-Mag) buspirone 7.5 mg tablet 15 mg PO BID 08/05/23 08/25/23 08/04/23 duloxetine 60 mg capsule,delayed 60 mg PO QAM 08/05/23 08/25/23 08/04/23 release lisinopril 40 mg tablet 40 mg PO QAM 08/05/23 08/25/23 08/04/23 aspirin 81 mg tablet,delayed 81 mg PO QAM #30 tabs 08/11/23 08/25/23 Unknown release atorvastatin 40 mg tablet 40 mg PO HS #30 tabs 08/11/23 08/25/23 Unknown hydroxyzine HCl 10 mg tablet 10 mg PO BID PRN anxiety 08/25/23 08/25/23 Unknown Active Medications Generic Name Dose Route Start Last Admin Trade Name Freq PRN Reason Stop Dose Admin Aspirin 81 mg 08/26/23 09:00 08/26/23 08:55 Aspirin 81 Mg Ectab PO 09/25/23 08:59 81 mg QAM SADIA Administration Atorvastatin Calcium 40 mg 08/25/23 21:00 08/25/23 20:00 Atorvastatin 40 Mg Tab PO 09/24/23 20:59 40 mg HS SADIA Administration Buspirone HCl 15 mg 08/25/23 21:00 08/26/23 08:56 Buspirone 7.5 Mg Tab PO 09/24/23 20:59 15 mg BID SADIA Administration Duloxetine HCl 60 mg 08/26/23 09:00 08/26/23 08:56 Duloxetine Hcl 60 Mg Cap PO 09/25/23 08:59 60 mg QAM SADIA Administration Folic Acid 1 mg 08/26/23 09:00 08/26/23 08:55 Folic Acid 1 Mg Tab PO 09/25/23 08:59 1 mg QAM SADIA Administration Heparin Sodium (Porcine) 5,000 units 08/25/23 22:00 08/26/23 05:29 Heparin Sod 5,000 Unit/0.5 Ml Vial SQ 09/24/23 21:59 5,000 units Q8 SADIA Administration Hydralazine HCl 10 mg 08/25/23 15:26 08/25/23 16:10 Hydralazine 10 Mg Tab PO 09/24/23 15:25 10 mg Q6 PRN Administration sbp > 180 Sodium Bicarbonate 75 meq/ 1,075 mls @ 125 mls/hr 08/25/23 15:30 08/26/23 10:03 Sodium Chloride IV 09/24/23 15:29 125 mls/hr .[id number] SADIA Administration Ceftriaxone Sodium 1,000 mg/ 50 mls @ 100 mls/hr 08/25/23 16:00 08/25/23 17:32 Dextrose IV 09/04/23 15:59 Infused Q24H SADIA Infusion Protocol Levothyroxine Sodium 25 mcg 08/26/23 06:30 08/26/23 05:30 Levothyroxine Sodium 25 Mcg Tablet PO 09/25/23 06:29 25 mcg DAILYBB SADIA Administration Lubiprostone 24 mcg 08/25/23 21:00 08/26/23 08:55 Lubiprostone 8 Mcg Cap PO 09/24/23 20:59 24 mcg BID SADIA Administration Morphine Sulfate 2 mg 08/25/23 15:26 08/25/23 15:42 Morphine Sulfate 2 Mg/Ml Carp IV 09/08/23 15:25 2 mg Q4H PRN Administration severe pain, 7,8,9, 10 Pantoprazole Sodium 40 mg 08/26/23 09:00 08/26/23 08:55 Pantoprazole 40 Mg Tab PO 09/25/23 08:59 40 mg QAM SADIA Administration Polyethylene Glycol 17 gm 08/25/23 15:26 08/26/23 03:32 Polyethylene (Miralax) 17 Gm Pack PO 09/24/23 15:25 17 gm DAILY PRN Administration Constipation Tamsulosin HCl 0.4 mg 08/26/23 09:00 08/26/23 08:56 Tamsulosin Hcl 0.4 Mg Cap PO 09/25/23 08:59 0.4 mg QAM SADIA Administration Thiamine HCl 100 mg 08/26/23 09:00 08/26/23 08:55 Thiamine Hcl 100 Mg Tab PO 09/25/23 08:59 100 mg QAM SADIA Administration
[2023-08-26 07:58] LABS: Basophils # (auto) 0.03 K/uL (0.00-0.20); Basophils % (auto) 0.3 %; Eosinophils # (auto) 0.18 K/uL (0.00-0.50); Eosinophils % (auto) 1.9 %; Hematocrit (blood only) 33.6 % (42.0-52.0); Immature Granulocytes # (auto) 0.05 K/uL (0.01-0.20); Immature Granulocytes % (auto) 0.5 %; Lymphocytes # (auto) 1.74 K/uL (1.20-3.40); Lymphocytes % (auto) 18.3 %; Mean Corpuscular Hemoglobin 34.1 pg (25.0-34.0); Mean Corpuscular Hgb Conc 35.7 g/dL (32.0-36.0); Mean Corpuscular Volume 95.5 fL (80.0-100.0); Mean Platelet Volume 11.2 fL (9.4-12.4); Monocytes # (auto) 0.82 K/uL (0.11-0.59); Monocytes % (auto) 8.6 %; Neutrophils # (auto) 6.67 K/uL (1.40-6.50); Neutrophils % (auto) 70.4 %; Platelet Count 302 K/uL (130-400); RDW Coefficient of Variation 12.5 % (11.5-14.5); RDW Standard Deviation 43.8 fL (36.4-46.3); Red Blood Count 3.52 M/uL (4.70-6.10); White Blood Count 9.49 K/ul (4.8-10.8)
[2023-08-26 08:20] LABS: Albumin Globulin Ratio 1.4 (0.9-2); Albumin Level 3.3 gm/dl (3.4-5.0); BUN Creatinine Ratio 8.8 (10-20); Bilirubin,Total 0.3 mg/dl (0.2-1.0); Calcium 8.5 mg/dl (8.6-10.3); Creatinine Clr Calc Pharmacy 10.7 ml/min; Est GFR (African American) 11.4 ml/min; Est GFR (Non-African American) 9.8 ml/min; Globulin 2.3 gm/dl (2.5-4.0); Magnesium 1.8 mg/dl (1.7-2.4); Phosphorus 3.4 mg/dl (2.5-4.9); Potassium 4.2 mmol/L (3.5-5.1); Total Protein 5.6 gm/dl (6.0-8.3)
[2023-08-26] MEDS: THIAMINE HCL 100 MG TAB PO SCH (08:55)
[2023-08-26] MEDS: FOLIC ACID 1 MG TAB PO SCH (08:55)
[2023-08-26] MEDS: ASPIRIN 81 MG ECTAB PO SCH (08:55)
[2023-08-26] MEDS: PANTOprazole 40 MG TAB PO SCH (08:55)
[2023-08-26] MEDS: DULoxetine HCL 60 MG CAP PO SCH (08:56)
[2023-08-26] MEDS: TAMSULOSIN HCL 0.4 MG CAP PO SCH (08:56)
[2023-08-26 09:55] LABS: Appearance Urine Cloudy (Clear); Bacteria Urine Automated Negative (Negative); Bilirubin Urine Negative (Negative); Blood Urine 2+ (Negative); Color Urine Yellow; Epithelial Cell Urine Auto 20-30 /lpf (0-5); Glucose Urine UA Negative (Negative); Ketones Urine Negative (Negative); Leukocyte Esterase Urine 1+ (Negative); Nitrite Urine Negative (Negative); Protein Urine Trace (Negative); Specific Gravity Urine 1.008 (1.000-1.030); Urobilinogen Urine Negative (Negative); pH Urine 5.5 (4.5-7.5)
--- NOTE | 2023-08-26 10:07 | Nephrology Progress Note ---
Date of Service August 26, 2023 Assessment & Plan (1) Acute kidney injury superimposed on CKD: Plan: Baseline creatinine 1.2-1.5 mg/dL. No proteinuria by history. HUGO consistent with prerenal physiology complicated by lisinopril use. Urine output improving. Electrolytes acceptable. Volume status acceptable. CT did not demonstrate hydronephrosis. There is no emergent indication for dialysis. UA notable for microscopic hematuria and hyaline casts. Urine microscopy will be repeated today. Continue IVF to encourage a positive fluid balance. Document strict I/O's. Repeat metabolic profile tomorrow AM. Medications are appropriately dosed for kidney function. Hold lisinopril. In setting of metabolic acidosis, 1/2 NS + NaHCO3 is being provided. (2) Bladder outlet obstruction: Plan: Flomax started. CT did not demonstrate hydronephrosis or evidence of obstructive nephropathy. Sharma remains in place. (3) HTN (hypertension): Plan: BP acceptable. Lisinopril and HCTZ held. (4) Hypomagnesemia: Plan: Improved with IV replacement. Repeat labs tomorrow AM. Admission and Anticipated Discharge Date Admission Date: August 25, 2023 Subjective no acute events overnight. No complaints this AM. Reports some mild discomfort from Sharma. Appetite is good. Tolerating IVF. Good urine output. BP acceptable. Review of Systems Review of Systems: All systems reviewed & are unremarkable except as noted in HPI & below Physical Exam Constitutional: well developed; no acute distress Eyes: no scleral abnormality and no corneal abnormality ENMT: Mouth: no oral mucosal abnormality and oral mucous membranes not dry Neck: normal visual inspection and trachea midline Respiratory: normal respiratory effort Auscultation: lungs clear to auscultation bilaterally Cardiovascular: Rate/Rhythm: regular rate Heart Sounds: normal S1 and normal S2 Extremities: no edema Musculoskeletal: Extremities: no cyanosis and no clubbing Skin: + turgor decreased; no lesions Neurologic: Motor/Sensory: no tremor and no asterixis Psychiatric: Orientation: alert and oriented x 3 Results & Data Vital Signs (Past 12 Hours) Vital Signs Temp Pulse Pulse Resp BP Pulse Ox O2 Del Method 08/26/23 07:54 36.7 C 67 20 108/71 96 Room Air 08/26/23 07:10 68 08/26/23 04:01 36.5 C 78 20 106/57 L 95 Room Air 02/15/24 00:03 75 Laboratory Results Laboratory Results - last 24 hr 08/25/23 08/25/23 08/25/23 11:25 11:44 11:45 WBC 12.58 H RBC 4.29 L Hgb 14.5 Hct 41.0 L MCV 95.6 MCH 33.8 MCHC 35.4 RDW Std Deviation 43.2 RDW Coeff of Suresh 12.4 Plt Count 359 MPV 11.0 Immature Gran % (Auto) 0.5 Neut % (Auto) 80.2 Lymph % (Auto) 13.8 [place] % (Auto) 4.7 Eos % (Auto) 0.6 Baso % (Auto) 0.2 Neut # (Auto) 10.10 H Lymph # (Auto) 1.73 [place] # (Auto) 0.59 Eos # (Auto) 0.08 Baso # (Auto) 0.02 Immature Gran # (Auto) 0.06 PT 10.9 INR 1.0 Sodium 135 L Potassium 4.3 Chloride 106 Carbon Dioxide 15 L Anion Gap 14 H BUN 49 H Creatinine 6.96 H* Est Cr Clr Drug Dosing 7.7 Est GFR ( Amer) 8.5 Est GFR (Non-Af Amer) 7.3 BUN/Creatinine Ratio 7.0 L Glucose 115 H Lactate 1.2 Calcium 10.1 Phosphorus 3.2 Magnesium 1.4 L Total Bilirubin 0.4 AST 11 L ALT 16 Alkaline Phosphatase 58 Troponin I High Sens 9.1 Total Protein 7.4 Albumin 4.3 Globulin 3.1 Albumin/Globulin Ratio 1.4 Lipase 58 Procalcitonin 0.47 Urine Color Urine Appearance Urine pH Ur Specific Gray Urine Protein Urine Glucose (UA) Urine Ketones Urine Blood Urine Nitrite Urine Bilirubin Urine Urobilinogen Ur Leukocyte Esterase Urine WBC (Auto) Urine RBC (Auto) U Hyaline Cast (Auto) U Epithel Cells (Auto) Urine Bacteria (Auto) Ur Renal Epithelial Cell Urine Crystals Urine Yeast Urine Sodium Urine Potassium Urine Chloride Stl C. diff Tox B Gene Urine Opiates Screen Ur Methadone, Qual Urine Barbiturates Ur Phencyclidine (PCP) U Amphetamin/Meth Scrn MDMA (Ecstasy) Screen U Benzodiazepines Scrn Ur Cocaine Metabolite U Marijuana (THC) Screen U Marijuana THC Carboxy Drug Screen Comment Ethyl Alcohol mg/dL Adenovirus (PCR) Not Detected B. pertussis DNA (PCR) Not Detected B.parapertussis DNA PCR Not Detected C. pneumoniae DNA (PCR) Not Detected Coronavirus OC43 (PCR) Not Detected Coronavirus HKU1 (PCR) Not Detected Coronavirus 229E (PCR) Not Detected SARS-CoV-2 (PCR) Not Detected Coronavirus NL63 (PCR) Not Detected Human Metapneumovir PCR Not Detected Influenza Type A (PCR) Not Detected Influenza Type B (PCR) Not Detected M. pneumoniae (PCR) Not Detected Parainfluenza 1 (PCR) Not Detected Parainfluenza 2 (PCR) Not Detected Parainfluenza 3 (PCR) Not Detected Parainfluenza 4 (PCR) Not Detected RSV (PCR) Not Detected Entero/Rhino (PCR) Not Detected 08/25/23 08/25/23 08/25/23 11:59 19:17 Unknown WBC RBC Hgb Hct MCV MCH MCHC RDW Std Deviation RDW Coeff of Suresh Plt Count MPV Immature Gran % (Auto) Neut % (Auto) Lymph % (Auto) [place] % (Auto) Eos % (Auto) Baso % (Auto) Neut # (Auto) Lymph # (Auto) [place] # (Auto) Eos # (Auto) Baso # (Auto) Immature Gran # (Auto) PT INR Sodium 136 Potassium 4.2 Chloride 111 H Carbon Dioxide 15 L Anion Gap 10 BUN 47 H Creatinine 6.53 H* D Est Cr Clr Drug Dosing 8.2 Est GFR ( Amer) 9.2 Est GFR (Non-Af Amer) 7.9 BUN/Creatinine Ratio 7.2 L Glucose 112 H Lactate Calcium 8.7 Phosphorus Magnesium Total Bilirubin AST ALT Alkaline Phosphatase Troponin I High Sens Total Protein Albumin Globulin Albumin/Globulin Ratio Lipase Procalcitonin Urine Color Dark Yellow Urine Appearance Turbid A Urine pH 5.0 Ur Specific [place] 1.015 Urine Protein 2+ H Urine Glucose (UA) Negative Urine Ketones Negative Urine Blood 3+ H Urine Nitrite Negative Urine Bilirubin Negative Urine Urobilinogen Negative Ur Leukocyte Esterase Trace H Urine WBC (Auto) 5-10 H Urine RBC (Auto) 5-10 H U Hyaline Cast (Auto) 1-5 U Epithel Cells (Auto) >30 H Urine Bacteria (Auto) Negative Ur Renal Epithelial Cell Not Reportable Urine Crystals Not Reportable Urine Yeast Not Reportable Urine Sodium Urine Potassium Urine Chloride Stl C. diff Tox B Gene Urine Opiates Screen Neg Ur Methadone, Qual Neg Urine Barbiturates Neg Ur Phencyclidine (PCP) Neg U Amphetamin/Meth Scrn Neg MDMA (Ecstasy) Screen Neg U Benzodiazepines Scrn Neg Ur Cocaine Metabolite Neg U Marijuana (THC) Screen Pos H U Marijuana THC Carboxy Pending Drug Screen Comment Pending Ethyl Alcohol mg/dL < 10.0 Adenovirus (PCR) B. pertussis DNA (PCR) B.parapertussis DNA PCR C. pneumoniae DNA (PCR) Coronavirus OC43 (PCR) Coronavirus HKU1 (PCR) Coronavirus 229E (PCR) SARS-CoV-2 (PCR) Coronavirus NL63 (PCR) Human Metapneumovir PCR Influenza Type A (PCR) Influenza Type B (PCR) M. pneumoniae (PCR) Parainfluenza 1 (PCR) Parainfluenza 2 (PCR) Parainfluenza 3 (PCR) Parainfluenza 4 (PCR) RSV (PCR) Entero/Rhino (PCR) 08/26/23 08/26/23 08/26/23 06:40 07:33 Unknown WBC 9.49 RBC 3.52 L Hgb 12.0 L Hct 33.6 L MCV 95.5 MCH 34.1 H MCHC 35.7 RDW Std Deviation 43.8 RDW Coeff of Suresh 12.5 Plt Count 302 MPV 11.2 Immature Gran % (Auto) 0.5 Neut % (Auto) 70.4 Lymph % (Auto) 18.3 [place] % (Auto) 8.6 Eos % (Auto) 1.9 Baso % (Auto) 0.3 Neut # (Auto) 6.67 H Lymph # (Auto) 1.74 [place] # (Auto) 0.82 H Eos # (Auto) 0.18 Baso # (Auto) 0.03 Immature Gran # (Auto) 0.05 PT INR Sodium 139 Potassium 4.2 Chloride 113 H Carbon Dioxide 18 L Anion Gap 8 BUN 48 H Creatinine 5.47 H* D Est Cr Clr Drug Dosing 10.7 Est GFR ( Amer) 11.4 Est GFR (Non-Af Amer) 9.8 BUN/Creatinine Ratio 8.8 L Glucose 90 Lactate Calcium 8.5 L Phosphorus 3.4 Magnesium 1.8 Total Bilirubin 0.3 AST 13 ALT 11 Alkaline Phosphatase 45 Troponin I High Sens Total Protein 5.6 L D Albumin 3.3 L Globulin 2.3 L Albumin/Globulin Ratio 1.4 Lipase Procalcitonin Urine Color Yellow Urine Appearance Cloudy A Urine pH 5.5 Ur Specific Gray 1.008 Urine Protein Trace H Urine Glucose (UA) Negative Urine Ketones Negative Urine Blood 2+ H Urine Nitrite Negative Urine Bilirubin Negative Urine Urobilinogen Negative Ur Leukocyte Esterase 1+ H Urine WBC (Auto) 5-10 H Urine RBC (Auto) 5-10 H U Hyaline Cast (Auto) 5-10 H U Epithel Cells (Auto) 20-30 H Urine Bacteria (Auto) Negative Ur Renal Epithelial Cell Urine Crystals Urine Yeast Urine Sodium Pending Urine Potassium Pending Urine Chloride Pending Stl C. diff Tox B Gene Negative Cdiff Gene Urine Opiates Screen Ur Methadone, Qual Urine Barbiturates Ur Phencyclidine (PCP) U Amphetamin/Meth Scrn MDMA (Ecstasy) Screen U Benzodiazepines Scrn Ur Cocaine Metabolite U Marijuana (THC) Screen U Marijuana THC Carboxy Drug Screen Comment Ethyl Alcohol mg/dL Adenovirus (PCR) B. pertussis DNA (PCR) B.parapertussis DNA PCR C. pneumoniae DNA (PCR) Coronavirus OC43 (PCR) Coronavirus HKU1 (PCR) Coronavirus 229E (PCR) SARS-CoV-2 (PCR) Coronavirus NL63 (PCR) Human Metapneumovir PCR Influenza Type A (PCR) Influenza Type B (PCR) M. pneumoniae (PCR) Parainfluenza 1 (PCR) Parainfluenza 2 (PCR) Parainfluenza 3 (PCR) Parainfluenza 4 (PCR) RSV (PCR) Entero/Rhino (PCR) PG Care Time/CCT Total # of Minutes Spent Total Time Spent with Patient: Total time spent is greater than 50% in coordination of care (as documented) at patient's floor/unit and/or counseling patient: Coding Level of Care Code 84999 SUB INP/OBS CARE 3/50MIN Diagnoses Acute kidney injury superimposed on CKD N17.9; N18.9 Bladder outlet obstruction N32.0 HTN (hypertension) I10 Hypomagnesemia E83.42
[2023-08-26] MEDS: LIDOCAINE 2% JELLY 5 ML TUBE EXT PRN (16:12)
[2023-08-26] MEDS: ACETAMINOPHEN 325 MG TAB PO PRN (16:21)
[2023-08-26] MEDS ORDERED: MoRPHine SULFATE 2 MG/ML CARP IV PRN (16:52)
[2023-08-27] MEDS: MAGNESIUM OXIDE 400 MG TAB PO SCH (09:28)
[2023-08-27 09:36] LABS: Basophils # (auto) 0.02 K/uL (0.00-0.20); Basophils % (auto) 0.3 %; Eosinophils # (auto) 0.17 K/uL (0.00-0.50); Eosinophils % (auto) 2.3 %; Hematocrit (blood only) 36.5 % (42.0-52.0); Hemoglobin 13.1 g/dl (14.0-18.0); Immature Granulocytes # (auto) 0.01 K/uL (0.01-0.20); Immature Granulocytes % (auto) 0.1 %; Lymphocytes # (auto) 2.14 K/uL (1.20-3.40); Lymphocytes % (auto) 28.9 %; Mean Corpuscular Hemoglobin 33.9 pg (25.0-34.0); Mean Corpuscular Hgb Conc 35.9 g/dL (32.0-36.0); Mean Corpuscular Volume 94.3 fL (80.0-100.0); Mean Platelet Volume 11.6 fL (9.4-12.4); Monocytes # (auto) 0.63 K/uL (0.11-0.59); Monocytes % (auto) 8.5 %; Neutrophils # (auto) 4.43 K/uL (1.40-6.50); Neutrophils % (auto) 59.9 %; Platelet Count 295 K/uL (130-400); RDW Coefficient of Variation 12.1 % (11.5-14.5); RDW Standard Deviation 42.2 fL (36.4-46.3); Red Blood Count 3.87 M/uL (4.70-6.10)
[2023-08-27 09:56] LABS: Albumin Globulin Ratio 1.4 (0.9-2); Albumin Level 3.6 gm/dl (3.4-5.0); BUN Creatinine Ratio 14.8 (10-20); Bilirubin,Total 0.3 mg/dl (0.2-1.0); Creatinine Clr Calc Pharmacy 20.3 ml/min; Est GFR (African American) 24.5 ml/min; Est GFR (Non-African American) 21.1 ml/min; Globulin 2.6 gm/dl (2.5-4.0); Magnesium 1.6 mg/dl (1.7-2.4); Phosphorus 2.6 mg/dl (2.5-4.9); Potassium 4.2 mmol/L (3.5-5.1); Total Protein 6.2 gm/dl (6.0-8.3)
--- NOTE | 2023-08-27 10:02 | Nephrology Progress Note ---
Date of Service August 27, 2023 Assessment & Plan (1) Acute kidney injury superimposed on CKD: Plan: Baseline creatinine 1.2-1.5 mg/dL. No proteinuria by history. Creatinine improving. Adequate PO intake. Volume status acceptable. IVF will be stopped this AM. HUGO consistent with prerenal physiology complicated by lisinopril use. Obstruction was a concern during his recent admission. But this was not appreciated on CT during this admission and there was not an appreciable amount of urine in bladder when catheter was placed. It would be reasonable to remove the Sharma for a voiding trial. Remains non-oliguric. Electrolytes acceptable. UA notable for microscopic hematuria and hyaline casts. Continue to encourage an even to slightly positive fluid balance. Document strict I/O's. Repeat metabolic profile tomorrow AM. Medications are appropriately dosed for kidney function. Hold lisinopril. (2) Bladder outlet obstruction: Plan: Flomax started. CT did not demonstrate hydronephrosis or evidence of obstructive nephropathy. Sharma remains in place. Reasonable to consider voiding trial. (3) HTN (hypertension): Plan: BP acceptable. Lisinopril and HCTZ held. (4) Hypomagnesemia: Plan: Additional IV replacement requested this AM. Repeat labs tomorrow AM. Admission and Anticipated Discharge Date Admission Date: August 25, 2023 Subjective No acute events overnight. Haroon feels well this AM. He was eating breakfast during my assessment. Appetite is good. He denies fluid retention or edema. Sharma draining clear yellow urine. Review of Systems Review of Systems: All systems reviewed & are unremarkable except as noted in HPI & below Physical Exam Constitutional: well developed; no acute distress Eyes: no scleral abnormality and no corneal abnormality ENMT: Mouth: no oral mucosal abnormality and oral mucous membranes not dry Neck: normal visual inspection and trachea midline Respiratory: normal respiratory effort Auscultation: lungs clear to auscultation bilaterally Cardiovascular: Rate/Rhythm: regular rate Heart Sounds: normal S1 and normal S2 Extremities: no edema Musculoskeletal: Extremities: no cyanosis and no clubbing Skin: normal turgor; no jaundice Neurologic: Motor/Sensory: no tremor and no asterixis Psychiatric: Orientation: alert and oriented x 3 Results & Data Vital Signs (Past 12 Hours) Vital Signs Temp Pulse Pulse Resp BP Pulse Ox O2 Del Method 08/27/23 08:28 36.3 C L 62 20 104/66 98 Room Air 08/27/23 03:53 36.6 C 69 18 112/70 97 Room Air 08/26/23 23:33 61 08/26/23 23:25 36.5 C 66 18 107/71 98 Room Air Laboratory Results Laboratory Results - last 24 hr 08/26/23 08/27/23 Unknown 08:55 WBC 7.40 RBC 3.87 L Hgb 13.1 L Hct 36.5 L MCV 94.3 MCH 33.9 MCHC 35.9 RDW Std Deviation 42.2 RDW Coeff of Suresh 12.1 Plt Count 295 MPV 11.6 Immature Gran % (Auto) 0.1 Neut % (Auto) 59.9 Lymph % (Auto) 28.9 [place] % (Auto) 8.5 Eos % (Auto) 2.3 Baso % (Auto) 0.3 Neut # (Auto) 4.43 Lymph # (Auto) 2.14 [place] # (Auto) 0.63 H Eos # (Auto) 0.17 Baso # (Auto) 0.02 Immature Gran # (Auto) 0.01 Sodium 141 Potassium 4.2 Chloride 112 H Carbon Dioxide 23 Anion Gap 6 BUN 43 H Creatinine 2.90 H D Est Cr Clr Drug Dosing 20.3 Est GFR ( Amer) 24.5 Est GFR (Non-Af Amer) 21.1 BUN/Creatinine Ratio 14.8 Glucose 90 Calcium 9.0 Phosphorus 2.6 Magnesium 1.6 L Total Bilirubin 0.3 AST 13 ALT 10 Alkaline Phosphatase 47 Total Protein 6.2 Albumin 3.6 Globulin 2.6 Albumin/Globulin Ratio 1.4 Urine Sodium 58 Urine Potassium 9.0 Urine Chloride 51 PG Care Time/CCT Total # of Minutes Spent Total Time Spent with Patient: Total time spent is greater than 50% in coordination of care (as documented) at patient's floor/unit and/or counseling patient: Coding Level of Care Code 96757 SUB INP/OBS CARE 3/50MIN Diagnoses Acute kidney injury superimposed on CKD N17.9; N18.9 Bladder outlet obstruction N32.0 HTN (hypertension) I10 Hypomagnesemia E83.42
[2023-08-27] MEDS: MAGNESIUM SULFATE / D5W 1 GM/100 ML BAG IV SCH (11:23)
[2023-08-27 12:23] LABS: Marijuana Quant, GCMS Urine 9 ng/mL (<5)
--- NOTE | 2023-08-27 12:32 | Hospitalist Progress Note ---
Date of Service August 27, 2023 Assessment & Plan (1) Acute renal failure: (2) High anion gap metabolic acidosis: (3) Hypomagnesemia: (4) Generalized weakness: (5) Bladder outlet obstruction: (6) Leukocytosis: Plan Mr. Colmenares is a 67-year-old male who has a significant past medical history of recent diagnosis of CVA, HTN, hypothyroidism, BPH, depression with anxiety, alcohol abuse disorder, tobacco use disorder, IBS who presented to ED secondary to generalized weakness on 08/26/2023. Renal function slowly improving. Son provided a lot of information regarding nutritional status, noting that abdominal pain is contributing; however, extensive OP work up has been pursued and all tests (hydrogen breath tests, EGD, c-scopes negative). Son reports finding patient in status with poor nutrition. Family meeting revealed complex situation--two supportive sons, however, both are very busy with personal lives/recovery and unable to support father 01/02 at this time. Patient expresses and is honest about perceived limitations and wishes to get better and participate in rehab/PT, if that means he can feel more confident and safe at home. #Acute renal failure on CKDIII, recurrent; improved #High anion gap metabolic acidosis, improved #BPH Thought to be prerenal, complicated by ACEi Disntinue 1/2NS bicarb gtt 125cc/hr consult nephrology, reviewed recommendations -discontinue lisinopril CT a/p still w/o evidence of obstructive nephropathy, prostatomegaly noted avoid nephrotoxic agents Continue bauman, potentially discontinue in am Strict I/Os Ordered BMP in am #Hypomagnesemia replaced this am #Leukocytosis*downtrending Perinephric stranding on imaging bilaterally possible reactive empirically place on IV ceftriaxone await urine culture #Recent CVA MRI brain with punctate restricted diffusion in right cerebral hemisphere 07/2023 recent dx Continue ASA Patient would like to discuss potentially discontinuing the statin given weakness currently has ZIO monitor in place on LACW -Monitor on tele #Generalized weakness PT/OT Hold statin #Major depressive disorder #Anxiety -Continue home Buspar 15mg BID -Continue duloxetine 60mg qam #Alcohol use disorder reports being abstinent for 3 weeks, confirmed by son Continue thiamine and folic acid #Chronic IBS-C #Chronic abdominal pain -Follows [facility], IP c-scope scheduled -Previously on Linzess, now continues on Amitiza BID -Bentyl 10mg TID prn DVT ppx: SQ Heparin FULL CODE PCP: Kimberly Sidhu Dispo: monitor on tele Admission and Anticipated Discharge Date Admission Date: August 25, 2023 Subjective Patient evaluated at bedside Reports some flank/low back pain, but otherwise notes he is feeling much better. Denies any chest pain, palpitations or other acute concerns Reports feeling hesitant to return home given lack of confidence in physical capability and balance issues. Sons at bedside and emphasize that they cannot provide 24 hour, or even daily support. Patient states he would very much like to trial rehab to get stronger especially since he will not have that support at home Physical Exam Constitutional: WD/WN, vitals as above Respiratory: normal respiratory effort, lungs clear to auscultation Cardiovascular: RRR, no murmur, no edema Results & Data Results & Data Vital Signs (Past 12 Hours) Vital Signs Temp Pulse Resp BP Pulse Ox O2 Del Method 08/27/23 08:28 36.3 C L 62 20 104/66 98 Room Air 08/27/23 03:53 36.6 C 69 18 112/70 97 Room Air Laboratory Results Short CBC 08/27/23 Range/Units 08:55 WBC 7.40 (4.8-10.8) K/ul Hgb 13.1 L (14.0-18.0) g/dl Hct 36.5 L (42.0-52.0) % Plt Count 295 (130-400) K/uL BMP 08/27/23 08:55 Sodium 141 Potassium 4.2 Chloride 112 H Carbon Dioxide 23 BUN 43 H Creatinine 2.90 H D Glucose 90 Calcium 9.0 Liver Function 08/27/23 Range/Units 08:55 Total Bilirubin 0.3 (0.2-1.0) mg/dl AST 13 (13-39) U/L ALT 10 (7-52) U/L Alkaline Phosphatase 47 (34-104) U/L Albumin 3.6 (3.4-5.0) gm/dl Medications Administered Home Medications Medication Instructions Recorded Confirmed Last Taken dicyclomine 10 mg capsule 10 mg PO QID PRN Abdominal Pain 02/18/20 08/25/23 02/18/20 12:00 lubiprostone 24 mcg capsule 24 mcg PO BID 08/24/22 08/25/23 08/04/23 pantoprazole 40 mg tablet,delayed 40 mg PO QAM 08/24/22 08/25/23 08/04/23 release alfuzosin 10 mg tablet,extended 10 mg PO QAM 06/17/23 08/25/23 08/04/23 release 24 hr levothyroxine 25 mcg tablet 25 mcg PO QAM 06/17/23 08/25/23 08/04/23 magnesium chloride 71.5 mg 71.5 mg PO BID #60 tabs 06/28/23 08/25/23 08/04/23 (magnesium chloride) tablet,delayed release (Slow-Mag) buspirone 7.5 mg tablet 15 mg PO BID 08/05/23 08/25/23 08/04/23 duloxetine 60 mg capsule,delayed 60 mg PO QAM 08/05/23 08/25/23 08/04/23 release lisinopril 40 mg tablet 40 mg PO QAM 08/05/23 08/25/23 08/04/23 aspirin 81 mg tablet,delayed 81 mg PO QAM #30 tabs 08/11/23 08/25/23 Unknown release atorvastatin 40 mg tablet 40 mg PO HS #30 tabs 08/11/23 08/25/23 Unknown hydroxyzine HCl 10 mg tablet 10 mg PO BID PRN anxiety 08/25/23 08/25/23 Unknown Active Medications Generic Name Dose Route Start Last Admin Trade Name Freq PRN Reason Stop Dose Admin Acetaminophen 650 mg 08/25/23 15:26 08/27/23 07:51 Acetaminophen 325 Mg Tab PO 09/24/23 15:25 650 mg Q4H PRN Administration Pain or Fever Aspirin 81 mg 08/26/23 09:00 08/27/23 09:28 Aspirin 81 Mg Ectab PO 09/25/23 08:59 81 mg QAM SADIA Administration Atorvastatin Calcium 40 mg 08/25/23 21:00 08/26/23 20:14 Atorvastatin 40 Mg Tab PO 09/24/23 20:59 40 mg HS SADIA Administration Buspirone HCl 15 mg 08/25/23 21:00 08/27/23 09:28 Buspirone 7.5 Mg Tab PO 09/24/23 20:59 15 mg BID SADIA Administration Duloxetine HCl 60 mg 08/26/23 09:00 08/27/23 09:28 Duloxetine Hcl 60 Mg Cap PO 09/25/23 08:59 60 mg QAM SADIA Administration Folic Acid 1 mg 08/26/23 09:00 08/27/23 09:28 Folic Acid 1 Mg Tab PO 09/25/23 08:59 1 mg QAM SADIA Administration Heparin Sodium (Porcine) 5,000 units 08/25/23 22:00 08/27/23 05:33 Heparin Sod 5,000 Unit/0.5 Ml Vial SQ 09/24/23 21:59 5,000 units Q8 SADIA Administration Hydralazine HCl 10 mg 08/25/23 15:26 08/25/23 16:10 Hydralazine 10 Mg Tab PO 09/24/23 15:25 10 mg Q6 PRN Administration sbp > 180 Ceftriaxone Sodium 1,000 mg/ 50 mls @ 100 mls/hr 08/25/23 16:00 08/26/23 17:43 Dextrose IV 09/04/23 15:59 Infused Q24H SADIA Infusion Protocol Magnesium Sulfate/Dextrose 1 gm in 100 mls @ 50 mls/hr 08/27/23 10:15 08/27/23 11:23 Magnesium Sulfate / D5w IV 08/27/23 14:14 50 mls/hr Q2H SADIA Administration Levothyroxine Sodium 25 mcg 08/26/23 06:30 08/27/23 05:33 Levothyroxine Sodium 25 Mcg Tablet PO 09/25/23 06:29 25 mcg DAILYBB SADIA Administration Lidocaine HCl 1 ml 08/26/23 13:26 08/26/23 16:12 Lidocaine 2% Jelly 5 Ml Tube EXT 09/25/23 13:29 1 ml Q6H PRN Administration bauman discomfort, tip Lubiprostone 24 mcg 08/25/23 21:00 08/27/23 09:28 Lubiprostone 8 Mcg Cap PO 09/24/23 20:59 24 mcg BID SADIA Administration Magnesium Oxide 400 mg 08/27/23 09:00 08/27/23 09:28 Magnesium Oxide 400 Mg Tab PO 09/26/23 08:59 400 mg QAM SADIA Administration Pantoprazole Sodium 40 mg 08/26/23 09:00 08/27/23 09:28 Pantoprazole 40 Mg Tab PO 09/25/23 08:59 40 mg QAM SADIA Administration Polyethylene Glycol 17 gm 08/25/23 15:26 08/27/23 11:22 Polyethylene (Miralax) 17 Gm Pack PO 09/24/23 15:25 17 gm DAILY PRN Administration Constipation Tamsulosin HCl 0.4 mg 08/26/23 09:00 08/27/23 09:28 Tamsulosin Hcl 0.4 Mg Cap PO 09/25/23 08:59 0.4 mg QAM SADIA Administration Thiamine HCl 100 mg 08/26/23 09:00 08/27/23 09:28 Thiamine Hcl 100 Mg Tab PO 09/25/23 08:59 100 mg QAM SADIA Administration
[2023-08-28] MEDS: POLYETHYLENE (MIRALAX) 17 GM PACK PO STA (03:43)
--- NOTE | 2023-08-28 07:09 | Hospitalist Progress Note ---
Date of Service August 28, 2023 Assessment & Plan (1) Acute renal failure: (2) High anion gap metabolic acidosis: (3) Hypomagnesemia: (4) Generalized weakness: (5) Bladder outlet obstruction: (6) Leukocytosis: Plan Mr. Colmenares is a 67-year-old male who has a significant past medical history of recent diagnosis of CVA, HTN, hypothyroidism, BPH, depression with anxiety, alcohol abuse disorder, tobacco use disorder, IBS who presented to ED secondary to generalized weakness on 08/26/2023. Renal function slowly improving. Son provided a lot of information regarding nutritional status, noting that abdominal pain is contributing; however, extensive OP work up has been pursued and all tests (hydrogen breath tests, EGD, c-scopes negative). Son reports finding patient in status with poor nutrition. Family meeting revealed complex situation--two supportive sons, however, both are very busy with personal lives/recovery and unable to support father 01/02 at this time. Patient expresses and is honest about perceived limitations and wishes to get better and participate in rehab/PT, if that means he can feel more confident and safe at home. Patient's renal function is greatly improved and patient tolerated void trial. #Acute renal failure on CKDIII, recurrent; improved #High anion gap metabolic acidosis, improved #BPH Thought to be prerenal, complicated by ACEi Disntinue 1/2NS bicarb gtt 125cc/hr consult nephrology, reviewed recommendations -discontinue lisinopril CT a/p still w/o evidence of obstructive nephropathy, prostatomegaly noted avoid nephrotoxic agents Discontinued bauman, voiding well Strict I/Os Ordered BMP in am #Hypomagnesemia corrected #Leukocytosis*downtrending Perinephric stranding on imaging bilaterally possible reactive Negative UA, discontinued CTX #Recent CVA MRI brain with punctate restricted diffusion in right cerebral hemisphere 07/2023 recent dx Continue ASA Patient would like to discuss potentially discontinuing the statin given weakness currently has ZIO monitor in place on LACW -Monitor on tele #Generalized weakness PT/OT Hold statin #Major depressive disorder #Anxiety -Continue home Buspar 15mg BID -Continue duloxetine 60mg qam #Alcohol use disorder reports being abstinent for 3 weeks, confirmed by son Continue thiamine and folic acid #Chronic IBS-C #Chronic abdominal pain -Follows [facility], IP c-scope scheduled -Previously on Linzess, now continues on Amitiza BID -Bentyl 10mg TID prn DVT ppx: SQ Heparin FULL CODE PCP: Kimberly Sidhu Dispo: monitor on tele Admission and Anticipated Discharge Date Admission Date: August 25, 2023 Subjective Mr. Colmenares was evaluated in his hospital room this morning. He denies fever, angina, dyspnea or abdominal discomfort. He requests transfer to either [facility] or [facility] for physical therapy following his hospitalization. Mr. Colmenares reports that he has remained sober since his last hospitalization. Physical Exam Constitutional: WD/WN, vitals as above Respiratory: normal respiratory effort, lungs clear to auscultation Cardiovascular: RRR, no murmur, no edema Gastrointestinal (Abdomen): normal bowel sounds, soft, nontender, no hepatosplenomegaly Results & Data Results & Data Vital Signs (Past 12 Hours) Vital Signs Temp Pulse Pulse Resp BP Pulse Ox O2 Del Method 08/28/23 03:10 36.5 C 64 16 126/82 96 Room Air 08/27/23 23:12 36.6 C 65 16 105/66 97 Room Air 08/27/23 21:56 68 08/27/23 20:47 36.7 C 62 16 122/74 96 Room Air
[2023-08-28 08:40] LABS: Albumin Level 3.6 gm/dl (3.4-5.0); BUN Creatinine Ratio 21.2 (10-20); Calcium 9.2 mg/dl (8.6-10.3); Creatinine Clr Calc Pharmacy 30.4 ml/min; Est GFR (Non-African American) 34.5 ml/min; Magnesium 1.7 mg/dl (1.7-2.4); Phosphorus 2.3 mg/dl (2.5-4.9); Potassium 4.7 mmol/L (3.5-5.1)
[2023-08-28 08:45] LABS: Hematocrit (blood only) 36.2 % (42.0-52.0); Hemoglobin 12.4 g/dl (14.0-18.0); Mean Corpuscular Hgb Conc 34.3 g/dL (32.0-36.0); Mean Corpuscular Volume 96.3 fL (80.0-100.0); Mean Platelet Volume 11.6 fL (9.4-12.4); Platelet Count 283 K/uL (130-400); RDW Coefficient of Variation 12.1 % (11.5-14.5); RDW Standard Deviation 42.7 fL (36.4-46.3); Red Blood Count 3.76 M/uL (4.70-6.10); White Blood Count 6.38 K/ul (4.8-10.8)
--- NOTE | 2023-08-28 09:02 | Nephrology Progress Note ---
Date of Service August 28, 2023 Assessment & Plan (1) Acute kidney injury superimposed on CKD: Plan: * Baseline creatinine 1.2-1.5 mg/dL. No proteinuria by history * HUGO c/w prerenal physiology complicated by lisinopril use. No obstruction on CT imaging * Creatinine improving. Adequate PO intake. Volume status acceptable * Encouraged oral hydration (2) Bladder outlet obstruction: Plan: * Flomax started * CT did not demonstrate hydronephrosis or evidence of obstructive nephropathy (3) HTN (hypertension): Plan: * BP acceptable * Lisinopril and HCTZ held. No compelling indication for ACEi. Hold HCTZ due to recurrent dehydration. If BP continues to rise, consider low dose Amlodipine (4) Hypomagnesemia: Plan: * Corrected Admission and Anticipated Discharge Date Admission Date: August 25, 2023 Subjective Mr. Colmenares was evaluated in his hospital room this morning. He denies fever, angina, dyspnea or abdominal discomfort. He requests transfer to either [facility] or [facility] for physical therapy following his hospitalization. Mr. Colmenares reports that he has remained sober since his last hospitalization. Review of Systems Constitutional: no fever Eyes: no problem reported Ear, Nose, Mouth, Throat: no problem reported Respiratory: no cough and no dyspnea Cardiovascular: no chest pain Gastrointestinal: no abdominal pain, no nausea, no vomiting and no diarrhea/loose stools Genitourinary: no dysuria, no urinary frequency, no urinary hesitancy or no hematuria Integumentary: no rash Neurologic: no problem reported Physical Exam Constitutional: no acute distress Eyes: PERRL, conjunctivae normal, anicteric sclerae ENMT: external ear and nose normal, oropharynx normal Neck: trachea midline, no thyromegaly Respiratory: normal respiratory effort, lungs clear to auscultation Cardiovascular: RRR, no murmur, no edema Gastrointestinal (Abdomen): normal bowel sounds, soft, nontender, no hepatosplenomegaly Musculoskeletal: Extremities: no cyanosis and no clubbing Skin: no rashes, warm and dry Neurologic: no focal motor deficits Psychiatric: Orientation: alert and oriented x 3 Affect: euthymic affect Results & Data Vital Signs (Past 12 Hours) Vital Signs Temp Pulse Pulse Resp BP Pulse Ox O2 Del Method 08/28/23 07:44 36.5 C 64 18 134/84 96 Room Air 08/28/23 06:00 59 L 02/17/24 03:10 36.5 C 64 16 126/82 96 Room Air 08/27/23 23:12 36.6 C 65 16 105/66 97 Room Air 08/27/23 21:56 68 Laboratory Results Laboratory Results - last 24 hr 08/25/23 08/27/23 08/28/23 Unknown 08:55 07:16 WBC 7.40 6.38 RBC 3.87 L 3.76 L Hgb 13.1 L 12.4 L Hct 36.5 L 36.2 L MCV 94.3 96.3 MCH 33.9 33.0 MCHC 35.9 34.3 RDW Std Deviation 42.2 42.7 RDW Coeff of Suresh 12.1 12.1 Plt Count 295 283 MPV 11.6 11.6 Immature Gran % (Auto) 0.1 Neut % (Auto) 59.9 Lymph % (Auto) 28.9 Baxter % (Auto) 8.5 Eos % (Auto) 2.3 Baso % (Auto) 0.3 Neut # (Auto) 4.43 Lymph # (Auto) 2.14 Baxter # (Auto) 0.63 H Eos # (Auto) 0.17 Baso # (Auto) 0.02 Immature Gran # (Auto) 0.01 Sodium 141 140 Potassium 4.2 4.7 Chloride 112 H 108 H Carbon Dioxide 23 26 Anion Gap 6 6 BUN 43 H 41 H Creatinine 2.90 H D 1.93 H D Est Cr Clr Drug Dosing 20.3 30.4 Est GFR ( Amer) 24.5 40.0 Est GFR (Non-Af Amer) 21.1 34.5 BUN/Creatinine Ratio 14.8 21.2 H Glucose 90 88 Calcium 9.0 9.2 Phosphorus 2.6 2.3 L Magnesium 1.6 L 1.7 Total Bilirubin 0.3 AST 13 ALT 10 Alkaline Phosphatase 47 Total Protein 6.2 Albumin 3.6 3.6 Globulin 2.6 Albumin/Globulin Ratio 1.4 U Marijuana THC Carboxy 9 H Drug Screen Comment SEE NOTE PG Care Time/CCT Total # of Minutes Spent Total Time Spent with Patient: Total time spent is greater than 50% in coordination of care (as documented) at patient's floor/unit and/or counseling patient: Coding Level of Care Code 04932 SUB INP/OBS CARE 3/50MIN Diagnoses Acute kidney injury superimposed on CKD N17.9; N18.9 Bladder outlet obstruction N32.0 HTN (hypertension) I10 Hypomagnesemia E83.42
[2023-08-28] MEDS: bisacodyL 5 MG TABEC PO ONE (16:13)
[2023-08-28] MEDS: DOCUSATE SODIUM/SENNA 50/8.6MG TAB PO SCH (16:13)
--- NOTE | 2023-08-29 07:06 | Hospitalist Progress Note ---
Date of Service August 29, 2023 Assessment & Plan (1) Acute renal failure: (2) High anion gap metabolic acidosis: (3) Hypomagnesemia: (4) Generalized weakness: (5) Bladder outlet obstruction: (6) Leukocytosis: Plan Mr. Colmenares is a 67-year-old male who has a significant past medical history of recent diagnosis of CVA, HTN, hypothyroidism, BPH, depression with anxiety, alcohol abuse disorder, tobacco use disorder, IBS who presented to ED secondary to generalized weakness on 08/26/2023. Renal function slowly improving. Son provided a lot of information regarding nutritional status, noting that abdominal pain is contributing; however, extensive OP work up has been pursued and all tests (hydrogen breath tests, EGD, c-scopes negative). Son reports finding patient in status with poor nutrition. Family meeting revealed complex situation--two supportive sons, however, both are very busy with personal lives/recovery and unable to support father 01/02 at this time. Patient expresses and is honest about perceived limitations and wishes to get better and participate in rehab/PT, if that means he can feel more confident and safe at home. Patient's renal function is continues to improve and patient tolerated void trial. Patient passing stool and ambulating well. #Acute renal failure on CKDIII, recurrent; improved #High anion gap metabolic acidosis, improved #BPH Thought to be prerenal, complicated by ACEi Disntinue 1/2NS bicarb gtt 125cc/hr consult nephrology, reviewed recommendations -discontinue lisinopril CT a/p still w/o evidence of obstructive nephropathy, prostatomegaly noted avoid nephrotoxic agents Discontinued bauman, voiding well Strict I/Os Ordered BMP in am, continue to trend #Hypomagnesemia corrected #Leukocytosis*downtrending Perinephric stranding on imaging bilaterally possible reactive Negative UA, discontinued CTX #Recent CVA MRI brain with punctate restricted diffusion in right cerebral hemisphere 07/2023 recent dx Continue ASA Patient would like to discuss potentially discontinuing the statin given weakness currently has ZIO monitor in place on LACW -Monitor on tele #Generalized weakness PT/OT Hold statin #Major depressive disorder #Anxiety -Continue home Buspar 15mg BID -Continue duloxetine 60mg qam #Alcohol use disorder reports being abstinent for 3 weeks, confirmed by son Continue thiamine and folic acid #Chronic IBS-C #Chronic abdominal pain -Follows [facility], IP c-scope scheduled -Previously on Linzess, now continues on Amitiza BID -Bentyl 10mg TID prn DVT ppx: SQ Heparin FULL CODE PCP: Kimberly Sidhu Dispo: monitor on tele Admission and Anticipated Discharge Date Admission Date: August 25, 2023 Subjective NAEO Ambulating hallway with sons Reports feeling good today and motivated overall Urinating well, eating well, and denies any new concerns Physical Exam Constitutional: WD/WN, vitals as above Respiratory: normal respiratory effort, lungs clear to auscultation Cardiovascular: RRR, no murmur, no edema Gastrointestinal (Abdomen): normal bowel sounds, soft, nontender, no hepatosplenomegaly Results & Data Results & Data Vital Signs (Past 12 Hours) Vital Signs Temp Pulse Pulse Resp BP BP Pulse Ox 08/29/23 03:03 36.4 C L 57 L 18 137/85 99 08/28/23 22:45 36.5 C 60 16 113/75 96 08/28/23 21:57 60 08/28/23 19:09 36.7 C 72 18 124/68 98 O2 Del Method 08/29/23 03:03 Room Air 08/28/23 22:45 Room Air 08/28/23 21:57 08/28/23 19:09 Room Air Laboratory Results Short CBC 08/29/23 Range/Units 06:41 WBC 6.81 (4.8-10.8) K/ul Hgb 12.8 L (14.0-18.0) g/dl Hct 38.1 L (42.0-52.0) % Plt Count 289 (130-400) K/uL BMP 08/29/23 06:41 Sodium 139 Potassium 4.8 Chloride 107 Carbon Dioxide 28 BUN 37 H Creatinine 1.56 H D Glucose 90 Calcium 9.2 Medications Administered Home Medications Medication Instructions Recorded Confirmed Last Taken dicyclomine 10 mg capsule 10 mg PO QID PRN Abdominal Pain 02/18/20 08/25/23 12:00 lubiprostone 24 mcg capsule 24 mcg PO BID 08/24/22 08/25/23 08/04/23 pantoprazole 40 mg tablet,delayed 40 mg PO QAM 08/24/22 08/25/23 08/04/23 release alfuzosin 10 mg tablet,extended 10 mg PO QAM 06/17/23 08/25/23 08/04/23 release 24 hr levothyroxine 25 mcg tablet 25 mcg PO QAM 06/17/23 08/25/23 08/04/23 magnesium chloride 71.5 mg 71.5 mg PO BID #60 tabs 06/28/23 08/25/23 08/04/23 (magnesium chloride) tablet,delayed release (Slow-Mag) buspirone 7.5 mg tablet 15 mg PO BID 08/05/23 08/25/23 08/04/23 duloxetine 60 mg capsule,delayed 60 mg PO QAM 08/05/23 08/25/23 08/04/23 release lisinopril 40 mg tablet 40 mg PO QAM 08/05/23 08/25/23 08/04/23 aspirin 81 mg tablet,delayed 81 mg PO QAM #30 tabs 08/11/23 08/25/23 Unknown release atorvastatin 40 mg tablet 40 mg PO HS #30 tabs 08/11/23 08/25/23 Unknown hydroxyzine HCl 10 mg tablet 10 mg PO BID PRN anxiety 08/25/23 08/25/23 Unknown Active Medications Generic Name Dose Route Start Last Admin Trade Name Freq PRN Reason Stop Dose Admin Acetaminophen 650 mg 08/25/23 15:26 08/27/23 07:51 Acetaminophen 325 Mg Tab PO 09/24/23 15:25 650 mg Q4H PRN Administration Pain or Fever Aspirin 81 mg 08/26/23 09:00 08/29/23 09:26 Aspirin 81 Mg Ectab PO 09/25/23 08:59 81 mg QAM SADIA Administration Atorvastatin Calcium 40 mg 08/25/23 21:00 08/26/23 20:14 Atorvastatin 40 Mg Tab PO 09/24/23 20:59 40 mg HS SADIA Administration Buspirone HCl 15 mg 08/25/23 21:00 08/29/23 09:25 Buspirone 7.5 Mg Tab PO 09/24/23 20:59 15 mg BID SADIA Administration Duloxetine HCl 60 mg 08/26/23 09:00 08/29/23 09:26 Duloxetine Hcl 60 Mg Cap PO 09/25/23 08:59 60 mg QAM SADIA Administration Folic Acid 1 mg 08/26/23 09:00 08/29/23 09:26 Folic Acid 1 Mg Tab PO 09/25/23 08:59 1 mg QAM SADIA Administration Heparin Sodium (Porcine) 5,000 units 08/25/23 22:00 08/29/23 06:10 Heparin Sod 5,000 Unit/0.5 Ml Vial SQ 09/24/23 21:59 Not Given Q8 SADIA Hydralazine HCl 10 mg 08/25/23 15:26 08/29/23 09:26 Hydralazine 10 Mg Tab PO 09/24/23 15:25 10 mg Q6 PRN Administration sbp > 180 Levothyroxine Sodium 25 mcg 08/26/23 06:30 08/29/23 06:10 Levothyroxine Sodium 25 Mcg Tablet PO 09/25/23 06:29 25 mcg DAILYBB SADIA Administration Lidocaine HCl 1 ml 08/26/23 13:26 08/26/23 16:12 Lidocaine 2% Jelly 5 Ml Tube EXT 09/25/23 13:29 1 ml Q6H PRN Administration bauman discomfort, tip Lubiprostone 24 mcg 08/25/23 21:00 08/29/23 09:25 Lubiprostone 8 Mcg Cap PO 09/24/23 20:59 24 mcg BID SADIA Administration Magnesium Oxide 400 mg 08/27/23 09:00 08/29/23 09:26 Magnesium Oxide 400 Mg Tab PO 09/26/23 08:59 400 mg QAM SADIA Administration Pantoprazole Sodium 40 mg 08/26/23 09:00 08/29/23 09:26 Pantoprazole 40 Mg Tab PO 09/25/23 08:59 40 mg QAM SADIA Administration Polyethylene Glycol 17 gm 08/25/23 15:26 08/29/23 09:29 Polyethylene (Miralax) 17 Gm Pack PO 09/24/23 15:25 17 gm DAILY PRN Administration Constipation Senna/Docusate Sodium 1 tab 08/28/23 14:30 08/29/23 09:26 Docusate Sodium/Senna 50/8.6mg Tab PO 09/27/23 14:29 1 tab QAM SADIA Administration Tamsulosin HCl 0.4 mg 08/26/23 09:00 08/29/23 09:26 Tamsulosin Hcl 0.4 Mg Cap PO 09/25/23 08:59 0.4 mg QAM SADIA Administration Thiamine HCl 100 mg 08/26/23 09:00 08/29/23 09:26 Thiamine Hcl 100 Mg Tab PO 09/25/23 08:59 100 mg QAM SADIA Administration
[2023-08-29 07:45] LABS: BUN Creatinine Ratio 23.7 (10-20); Calcium 9.2 mg/dl (8.6-10.3); Creatinine Clr Calc Pharmacy 37.4 ml/min; Est GFR (African American) 51.8 ml/min; Est GFR (Non-African American) 44.7 ml/min; Potassium 4.8 mmol/L (3.5-5.1)
[2023-08-29 07:59] LABS: Hematocrit (blood only) 38.1 % (42.0-52.0); Hemoglobin 12.8 g/dl (14.0-18.0); Mean Corpuscular Hemoglobin 32.7 pg (25.0-34.0); Mean Corpuscular Hgb Conc 33.6 g/dL (32.0-36.0); Mean Corpuscular Volume 97.4 fL (80.0-100.0); Mean Platelet Volume 11.7 fL (9.4-12.4); Platelet Count 289 K/uL (130-400); RDW Coefficient of Variation 12.1 % (11.5-14.5); RDW Standard Deviation 43.8 fL (36.4-46.3); Red Blood Count 3.91 M/uL (4.70-6.10); White Blood Count 6.81 K/ul (4.8-10.8)
[2023-08-29 08:04] LABS: Ferritin 281.1 ng/ml (8-388)
--- NOTE | 2023-08-29 09:07 | Nephrology Progress Note ---
Date of Service August 29, 2023 Assessment & Plan (1) Acute kidney injury superimposed on CKD: Plan: * Resolved * Baseline creatinine 1.2-1.5 mg/dL. No proteinuria by history * HUGO c/w prerenal physiology complicated by lisinopril use. No obstruction on CT imaging * Kidney function has recovered. Continue to hold Lisinopril and HCTZ. BP remains acceptable off the medication and patient has remained euvolemic. If discharge is anticipated, please have patient follow up w/ Dr. Nguyen ([phone]) within the next two weeks (2) Bladder outlet obstruction: Plan: * Continue Flomax * CT did not demonstrate hydronephrosis or evidence of obstructive nephropathy (3) HTN (hypertension): Plan: * BP acceptable * No compelling indication for ACEi. HCTZ stopped due to recurrent dehydration. * If BP increases, consider low dose Amlodipine (4) Hypomagnesemia: Plan: * Corrected Admission and Anticipated Discharge Date Admission Date: August 25, 2023 Subjective Mr. Colmenares was evaluated in his hospital room this morning. He denies fever, angina, dyspnea or abdominal discomfort. He is awaiting transfer to either [facility] or [facility] for physical therapy following his hospitalization. He voices no new medical concerns Review of Systems Constitutional: no fever Eyes: no problem reported Ear, Nose, Mouth, Throat: no problem reported Respiratory: no cough and no dyspnea Cardiovascular: no chest pain Gastrointestinal: no abdominal pain, no nausea, no vomiting and no diarrhea/loose stools Genitourinary: no dysuria, no urinary frequency, no urinary hesitancy or no hematuria Integumentary: no rash Neurologic: no problem reported Physical Exam Constitutional: no acute distress Eyes: PERRL, conjunctivae normal, anicteric sclerae ENMT: external ear and nose normal, oropharynx normal Neck: trachea midline, no thyromegaly Respiratory: normal respiratory effort, lungs clear to auscultation Cardiovascular: RRR, no murmur, no edema Gastrointestinal (Abdomen): normal bowel sounds, soft, nontender, no hepatosplenomegaly Musculoskeletal: Extremities: no cyanosis and no clubbing Skin: no rashes, warm and dry Neurologic: no focal motor deficits Psychiatric: Orientation: alert and oriented x 3 Affect: euthymic affect Results & Data Vital Signs (Past 12 Hours) Vital Signs Temp Pulse Pulse Resp BP Pulse Ox O2 Del Method 02/18/24 08:00 36.3 C L 57 L 18 125/80 100 Room Air 08/29/23 03:03 36.4 C L 57 L 18 137/85 99 Room Air 08/28/23 22:45 36.5 C 60 16 113/75 96 Room Air 08/28/23 21:57 60 Laboratory Results Laboratory Results - last 24 hr 08/29/23 06:41 WBC 6.81 RBC 3.91 L Hgb 12.8 L Hct 38.1 L MCV 97.4 MCH 32.7 MCHC 33.6 RDW Std Deviation 43.8 RDW Coeff of Suresh 12.1 Plt Count 289 MPV 11.7 Sodium 139 Potassium 4.8 Chloride 107 Carbon Dioxide 28 Anion Gap 4 BUN 37 H Creatinine 1.56 H D Est Cr Clr Drug Dosing 37.4 Est GFR ( Amer) 51.8 Est GFR (Non-Af Amer) 44.7 BUN/Creatinine Ratio 23.7 H Glucose 90 Calcium 9.2 Iron 133 TIBC 246 L Unsaturated IBC 113 L Transferrin % Sat 54 H Ferritin 281.1 PG Care Time/CCT Total # of Minutes Spent Total Time Spent with Patient: Total time spent is greater than 50% in coordination of care (as documented) at patient's floor/unit and/or counseling patient: Coding Level of Care Code 86522 SUB INP/OBS CARE 3/50MIN Diagnoses Acute kidney injury superimposed on CKD N17.9; N18.9 Bladder outlet obstruction N32.0 HTN (hypertension) I10 Hypomagnesemia E83.42
[2023-08-29 14:13] LABS: Adenovirus F 40/41 PCR Not Detected (NotDetected); Astrovirus PCR Not Detected (NotDetected); Campylobacter PCR Not Detected (NotDetected); Cryptosporidium PCR Not Detected (NotDetected); Cyclospora cayetanensis PCR Not Detected (NotDetected); Entamoeba histolytica PCR Not Detected (NotDetected); Enteroaggregative E.coli(EAEC) Not Detected (NotDetected); Enteropathogenic E.coli (EPEC) Not Detected (NotDetected); Enterotoxigenic E.coli (ETEC) Not Detected (NotDetected); Giardia lamblia PCR Not Detected (NotDetected); Norovirus GI/GII PCR Not Detected (NotDetected); Plesiomonas shigelloides PCR Not Detected (NotDetected); Rotavirus A PCR Not Detected (NotDetected); Salmonella PCR Not Detected (NotDetected); Sapovirus PCR Not Detected (NotDetected); Shiga-like Toxin E.coli (STEC) Not Detected (NotDetected); Shigella/Enteroinvasive E.coli Not Detected (NotDetected); Vibrio cholerae PCR Not Detected (NotDetected); Vibrio species PCR Not Detected (NotDetected); Yersinia enterocolitica PCR Not Detected (NotDetected)
[2023-08-30 07:59] LABS: Hematocrit (blood only) 39.7 % (42.0-52.0); Hemoglobin 13.4 g/dl (14.0-18.0); Mean Corpuscular Hemoglobin 33.1 pg (25.0-34.0); Mean Corpuscular Hgb Conc 33.8 g/dL (32.0-36.0); Mean Platelet Volume 11.5 fL (9.4-12.4); Platelet Count 284 K/uL (130-400); RDW Coefficient of Variation 12.1 % (11.5-14.5); RDW Standard Deviation 43.9 fL (36.4-46.3); Red Blood Count 4.05 M/uL (4.70-6.10); White Blood Count 6.96 K/ul (4.8-10.8)
[2023-08-30 08:30] LABS: BUN Creatinine Ratio 21.3 (10-20); Calcium 9.5 mg/dl (8.6-10.3); Creatinine Clr Calc Pharmacy 37.7 ml/min; Est GFR (African American) 52.2 ml/min; Magnesium 1.5 mg/dl (1.7-2.4); Phosphorus 2.7 mg/dl (2.5-4.9); Potassium 4.4 mmol/L (3.5-5.1)
--- NOTE | 2023-08-30 08:43 | Nephrology Progress Note ---
Date of Service August 30, 2023 Assessment & Plan (1) Acute kidney injury superimposed on CKD: Plan: * Resolved * Baseline creatinine 1.2-1.5 mg/dL. No proteinuria by history * HUGO c/w prerenal physiology complicated by lisinopril use. No obstruction on CT imaging * Kidney function has recovered. Continue to hold Lisinopril and HCTZ. BP remains acceptable off the medication and patient has remained euvolemic. If discharge is anticipated, please have patient follow up w/ Dr. Nguyen ([phone]) within the next two weeks. Will sign off. Please call if further Nephrology assistance is needed (2) Bladder outlet obstruction: Plan: * Continue Flomax * CT did not demonstrate hydronephrosis or evidence of obstructive nephropathy (3) HTN (hypertension): Plan: * BP acceptable * No compelling indication for ACEi. HCTZ stopped due to recurrent dehydration. * If BP increases, consider low dose Amlodipine (4) Hypomagnesemia: Plan: * Corrected Admission and Anticipated Discharge Date Admission Date: August 25, 2023 Subjective Mr. Colmenares was evaluated in his hospital room this morning. He denies fever, angina, dyspnea or abdominal discomfort. He is awaiting transfer to either [facility] or [facility] for physical therapy following his hospitalization. He voices no new medical concerns Review of Systems Constitutional: no fever Eyes: no problem reported Ear, Nose, Mouth, Throat: no problem reported Respiratory: no cough and no dyspnea Cardiovascular: no chest pain Gastrointestinal: no abdominal pain, no nausea, no vomiting and no diarrhea/loose stools Genitourinary: no dysuria, no urinary frequency, no urinary hesitancy or no hematuria Integumentary: no rash Neurologic: no problem reported Physical Exam Constitutional: no acute distress Eyes: PERRL, conjunctivae normal, anicteric sclerae ENMT: external ear and nose normal, oropharynx normal Neck: trachea midline, no thyromegaly Respiratory: normal respiratory effort, lungs clear to auscultation Cardiovascular: RRR, no murmur, no edema Gastrointestinal (Abdomen): normal bowel sounds, soft, nontender, no hepatosplenomegaly Musculoskeletal: Extremities: no cyanosis and no clubbing Skin: no rashes, warm and dry Neurologic: no focal motor deficits Psychiatric: Orientation: alert and oriented x 3 Affect: euthymic affect Results & Data Vital Signs (Past 12 Hours) Vital Signs Temp Pulse Pulse Resp BP BP Pulse Ox 08/30/23 07:46 58 L 08/30/23 07:45 36.4 C L 60 17 116/76 100 08/30/23 03:37 36.5 C 64 18 95/56 L 94 08/30/23 00:12 78 08/29/23 23:14 36.6 C 64 18 102/59 L 96 O2 Del Method 08/30/23 07:46 08/30/23 07:45 Room Air 08/30/23 03:37 Room Air 08/30/23 00:12 08/29/23 23:14 Room Air Laboratory Results Laboratory Results - last 24 hr 08/29/23 08/30/23 11:26 07:26 WBC 6.96 RBC 4.05 L Hgb 13.4 L Hct 39.7 L MCV 98.0 MCH 33.1 MCHC 33.8 RDW Std Deviation 43.9 RDW Coeff of Suresh 12.1 Plt Count 284 MPV 11.5 Sodium 139 Potassium 4.4 Chloride 107 Carbon Dioxide 27 Anion Gap 5 BUN 33 H Creatinine 1.55 H Est Cr Clr Drug Dosing 37.7 Est GFR ( Amer) 52.2 Est GFR (Non-Af Amer) 45.0 BUN/Creatinine Ratio 21.3 H Glucose 88 Calcium 9.5 Phosphorus 2.7 Magnesium 1.5 L Stl C. cayetanensis PCR Not Detected Stool Rotavirus A PCR Not Detected Stl Adenov F 40/41 PCR Not Detected Stool Astrovirus (PCR) Not Detected Stool Campylobacter PCR Not Detected Stool Cryptosporidium PCR Not Detected Stl E.coli Shiga Tox PCR Not Detected Stl Enterotoxigenic E PCR Not Detected Stool EPEC (PCR) Not Detected Stool EAEC (PCR) Not Detected Stl E. histolytica PCR Not Detected Stool Giardia Lamblia PCR Not Detected Stool Salmonella PCR Not Detected Stool Sapovirus (PCR) Not Detected Stl P. shigelloides PCR Not Detected Stl Shigella/EIEC PCR Not Detected St Y.enterocolitica PCR Not Detected Stool Vibrio (PCR) Not Detected Stl Vibrio cholerae PCR Not Detected Stl Norovirus GI/GII PCR Not Detected PG Care Time/CCT Total # of Minutes Spent Total Time Spent with Patient: Total time spent is greater than 50% in coordination of care (as documented) at patient's floor/unit and/or counseling patient: Coding Level of Care Code 94580 SUB INP/OBS CARE 350MIN Diagnoses Acute kidney injury superimposed on CKD N17.9; N18.9 Bladder outlet obstruction N32.0 HTN (hypertension) I10 Hypomagnesemia E83.42
--- NOTE | 2023-08-30 12:27 | Hospitalist Progress Note ---
Date of Service August 30, 2023 Assessment & Plan (1) Acute renal failure: (2) High anion gap metabolic acidosis: (3) Hypomagnesemia: (4) Generalized weakness: (5) Bladder outlet obstruction: (6) Leukocytosis: Plan Mr. Colmenares is a 67-year-old male who has a significant past medical history of recent diagnosis of CVA, HTN, hypothyroidism, BPH, depression with anxiety, alcohol abuse disorder, tobacco use disorder, IBS who presented to ED secondary to generalized weakness on 08/26/2023. Renal function slowly improving. Son provided a lot of information regarding nutritional status, noting that abdominal pain is contributing; however, extensive OP work up has been pursued and all tests (hydrogen breath tests, EGD, c-scopes negative). Son reports finding patient in status with poor nutrition. Family meeting revealed complex situation--two supportive sons, however, both are very busy with personal lives/recovery and unable to support father 01/02 at this time. Patient expresses and is honest about perceived limitations and wishes to get better and participate in rehab/PT, if that means he can feel more confident and safe at home. Patient's renal function is continues to improve and patient tolerated void trial. Patient passing stool, but sensation of constipation Patient ambulating but has moments of unsteadiness. He is scared for home and eager for hopeful discharge to rehab to improve balance and coordinate. #Acute renal failure on CKDIII, recurrent; improved #High anion gap metabolic acidosis, improved #BPH Thought to be prerenal, complicated by ACEi Discontinue 1/2NS bicarb gtt 125cc/hr consult nephrology, reviewed recommendations -discontinue lisinopril CT a/p still w/o evidence of obstructive nephropathy, prostatomegaly noted avoid nephrotoxic agents Discontinued bauman, voiding well Strict I/Os Ordered BMP in am, continue to trend Reviewed final recommendations -No further bp managment at this time "please have patient follow up w/ Dr. Nguyen ([phone]) within the next two weeks. " #Hypomagnesemia corrected PO Mag supplement 400mg BID #Leukocytosis*downtrending Perinephric stranding on imaging bilaterally possible reactive Negative UA, discontinued CTX #Recent CVA MRI brain with punctate restricted diffusion in right cerebral hemisphere 07/2023 recent dx Continue ASA Patient would like to discuss potentially discontinuing the statin given weakness currently has ZIO monitor in place on LACW -Monitor on tele #Generalized weakness PT/OT Hold statin #Major depressive disorder #Anxiety -Continue home Buspar 15mg BID -Continue duloxetine 60mg qam #Alcohol use disorder reports being abstinent for 3 weeks, confirmed by son Continue thiamine and folic acid #Chronic IBS-C #Chronic abdominal pain -Follows [facility], IP c-scope scheduled -Previously on Linzess, now continues on Amitiza BID -Bentyl 10mg TID prn -Trial lactulose DVT ppx: SQ Heparin FULL CODE PCP: Kimberly Sidhu Dispo: monitor on tele Admission and Anticipated Discharge Date Admission Date: August 25, 2023 Subjective Patient evaluated at bedside Reports feeling well over all, but reports ongoing concerns with constipation, discussed various options and agreed for lactulose trial Physical Exam Constitutional: WD/WN, vitals as above Respiratory: normal respiratory effort, lungs clear to auscultation Cardiovascular: RRR, no murmur, no edema Gastrointestinal (Abdomen): normal bowel sounds, soft, nontender, no hepatosplenomegaly Results & Data Results & Data Vital Signs (Past 12 Hours) Vital Signs Temp Pulse Pulse Resp BP BP Pulse Ox 08/30/23 11:57 36.4 C L 68 17 99/61 L 97 08/30/23 07:46 58 L 08/30/23 07:45 36.4 C L 60 17 116/76 100 08/30/23 03:37 36.5 C 64 18 95/56 L 94 O2 Del Method 08/30/23 11:57 Room Air 08/30/23 07:46 08/30/23 07:45 Room Air 08/30/23 03:37 Room Air Laboratory Results Short CBC 08/30/23 Range/Units 07:26 WBC 6.96 (4.8-10.8) K/ul Hgb 13.4 L (14.0-18.0) g/dl Hct 39.7 L (42.0-52.0) % Plt Count 284 (130-400) K/uL BMP 08/30/23 07:26 Sodium 139 Potassium 4.4 Chloride 107 Carbon Dioxide 27 BUN 33 H Creatinine 1.55 H Glucose 88 Calcium 9.5 Medications Administered Home Medications Medication Instructions Recorded Confirmed Last Taken dicyclomine 10 mg capsule 10 mg PO QID PRN Abdominal Pain 02/18/20 08/25/23 02/18/20 12:00 lubiprostone 24 mcg capsule 24 mcg PO BID 08/24/22 08/25/23 08/04/23 pantoprazole 40 mg tablet,delayed 40 mg PO QAM 08/24/22 08/25/23 08/04/23 release alfuzosin 10 mg tablet,extended 10 mg PO QAM 06/17/23 08/25/23 08/04/23 release 24 hr levothyroxine 25 mcg tablet 25 mcg PO QAM 06/17/23 08/25/23 08/04/23 magnesium chloride 71.5 mg 71.5 mg PO BID #60 tabs 06/28/23 08/25/23 08/04/23 (magnesium chloride) tablet,delayed release (Slow-Mag) buspirone 7.5 mg tablet 15 mg PO BID 08/05/23 08/25/23 08/04/23 duloxetine 60 mg capsule,delayed 60 mg PO QAM 08/05/23 08/25/23 08/04/23 release lisinopril 40 mg tablet 40 mg PO QAM 08/05/23 08/25/23 08/04/23 aspirin 81 mg tablet,delayed 81 mg PO QAM #30 tabs 08/11/23 08/25/23 Unknown release atorvastatin 40 mg tablet 40 mg PO HS #30 tabs 08/11/23 08/25/23 Unknown hydroxyzine HCl 10 mg tablet 10 mg PO BID PRN anxiety 08/25/23 08/25/23 Unknown Active Medications Generic Name Dose Route Start Last Admin Trade Name Nevilleq PRN Reason Stop Dose Admin Acetaminophen 650 mg 08/25/23 15:26 08/27/23 07:51 Acetaminophen 325 Mg Tab PO 09/24/23 15:25 650 mg Q4H PRN Administration Pain or Fever Aspirin 81 mg 08/26/23 09:00 08/30/23 08:07 Aspirin 81 Mg Ectab PO 09/25/23 08:59 81 mg QAM SADIA Administration Atorvastatin Calcium 40 mg 08/25/23 21:00 08/26/23 20:14 Atorvastatin 40 Mg Tab PO 09/24/23 20:59 40 mg HS SADIA Administration Buspirone HCl 15 mg 08/25/23 21:00 08/30/23 08:05 Buspirone 7.5 Mg Tab PO 09/24/23 20:59 15 mg BID SADIA Administration Duloxetine HCl 60 mg 08/26/23 09:00 08/30/23 08:06 Duloxetine Hcl 60 Mg Cap PO 09/25/23 08:59 60 mg QAM SADIA Administration Folic Acid 1 mg 08/26/23 09:00 08/30/23 08:06 Folic Acid 1 Mg Tab PO 09/25/23 08:59 1 mg QAM SADIA Administration Heparin Sodium (Porcine) 5,000 units 08/25/23 22:00 08/30/23 05:27 Heparin Sod 5,000 Unit/0.5 Ml Vial SQ 09/24/23 21:59 Not Given Q8 SADIA Hydralazine HCl 10 mg 08/25/23 15:26 08/25/23 16:10 Hydralazine 10 Mg Tab PO 09/24/23 15:25 10 mg Q6 PRN Administration sbp > 180 Levothyroxine Sodium 25 mcg 08/26/23 06:30 08/30/23 05:50 Levothyroxine Sodium 25 Mcg Tablet PO 09/25/23 06:29 25 mcg DAILYBB SADIA Administration Lidocaine HCl 1 ml 08/26/23 13:26 08/26/23 16:12 Lidocaine 2% Jelly 5 Ml Tube EXT 09/25/23 13:29 1 ml Q6H PRN Administration bauman discomfort, tip Lubiprostone 24 mcg 08/25/23 21:00 08/30/23 08:05 Lubiprostone 8 Mcg Cap PO 09/24/23 20:59 24 mcg BID SADIA Administration Pantoprazole Sodium 40 mg 08/26/23 09:00 08/30/23 08:06 Pantoprazole 40 Mg Tab PO 09/25/23 08:59 40 mg QAM SADIA Administration Polyethylene Glycol 17 gm 08/25/23 15:26 08/30/23 08:10 Polyethylene (Miralax) 17 Gm Pack PO 09/24/23 15:25 17 gm DAILY PRN Administration Constipation Senna/Docusate Sodium 1 tab 08/28/23 14:30 08/30/23 08:06 Docusate Sodium/Senna 50/8.6mg Tab PO 09/27/23 14:29 1 tab QAM SADIA Administration Tamsulosin HCl 0.4 mg 08/26/23 09:00 08/30/23 08:07 Tamsulosin Hcl 0.4 Mg Cap PO 09/25/23 08:59 0.4 mg QAM SADIA Administration Thiamine HCl 100 mg 08/26/23 09:00 08/30/23 08:07 Thiamine Hcl 100 Mg Tab PO 09/25/23 08:59 100 mg QAM SADIA Administration
[2023-08-30] MEDS: LACTULOSE SYRUP 20 GM/30 ML UDC PO ONE (12:52)
[2023-08-30] MEDS: POLYETHYLENE (MIRALAX) 17 GM PACK PO SCH (12:52)
--- NOTE | 2023-08-30 13:37 | Discharge Summary ---
Discharge Summary Date of Service August 30, 2023 Notes For Next Care Provider Medication Changes From Visit Lisinopril discontinued 2/2 HUGO and hypotension Atorvastatin discontinued 2/2 weakness Admission HPI Per Admitting Provider This is a 67-year-old male who has a significant past medical history of recent diagnosis of CVA HTN, hypothyroidism, BPH, depression with anxiety, alcohol abuse disorder, tobacco use disorder, IBS who presents to ED secondary to generalized weakness. Of significance patient was recently hospitalized 08/04 to 08/11 secondary to dizziness, difficulty with balance and walking. On admission MRI was obtained which was suggestive of small embolic infarcts in the right peripheral cerebrum. He was also diagnosed with HUGO on admission with a creat inine at 6.26. It was felt this was secondary to use of HCTZ, lisinopril as well as overall poor nutrition status. Upon discharge patient creatinine had returned to baseline with IV hydration. He was seen and evaluated by nephrology. He also had a component of hyponatremia. He was also seen and evaluated by neurology during admission who recommended continuing with aspirin, statin and obtaining a Zio patch monitoring at discharge. An echocardiogram was obtained during that admission which revealed an EF of 60 to 65%, grade 1 diastolic dysfunction. He states he came to hospital because he, "passed out." This has been going on for a few weeks. After being discharged he feels he didn't get any better. He woke up this morning feeling generally unwell. According to ED provider history was provided by son that he went over to the patient's house and the patient was reporting he felt lightheaded. He was sitting on the ground and 1 son tried to help him get up states the patient's eyes rolled to the back of his head that he started falling backwards. He did not strike his head. He overall reports poor oral intake since discharge. He does live alone at home. He has a previous history of alcohol abuse but states he has been abstinent since the beginning of his last hospitalization. He currently denies any fever, chills, sweats, chest pain, shortness of breath, change in vision or hearing, nausea, vomiting, abdominal pain he is currently having excruciating pain in his penis. A Bauman catheter was placed in the ED as directed by ED provider for strict intake and output. He does admit to using marijuana but states it was last used months ago. In ED patient remained hemodynamically stable. Admission Exam Per Admitting Provider On exam patient is moderately built and nourished, mild distress secondary to catheter pain, normocephalic atraumatic, EOMI, normal breath sounds, clear to auscultation, S1-S2, no murmur, no pedal edema, abdomen soft, nontender, normal bowel sounds, alert, awake, oriented, grossly no focal deficits Principal Dx & Hospital Course #1 = Principal Diagnosis (1) Acute renal failure: (2) High anion gap metabolic acidosis: (3) Hypomagnesemia: (4) Generalized weakness: (5) Bladder outlet obstruction: (6) Leukocytosis: Plan Mr. Colmenares is a 67-year-old male who has a significant past medical history of recent diagnosis of CVA, HTN, hypothyroidism, BPH, depression with anxiety, alcohol abuse disorder, tobacco use disorder, IBS who presented to ED secondary to generalized weakness on 08/26/2023. Patient admitted for managament of HUGO on CKD thought to be secondary to poor nutrition and ACEi. Renal function slowly improving after time on bicarb drip. Son provided a lot of information regarding nutritional status, noting that abdominal pain is contributing; however, extensive OP work up has been pursued and all tests (hydrogen breath tests, EGD, c-scopes negative). Son reports finding patient in status with poor nutrition. Family meeting revealed complex situation--two supportive sons, however, both are very busy with personal lives/recovery and unable to support father 01/02 at this time. Patient expresses and is honest about perceived limitations and wishes to get better and participate in rehab/PT, if that means he can feel more confident and safe at home. Patient's renal function is continued to improve and patient tolerated void trial. Patient with notable progress in his strength and rehab declined Patient discharged home with Home PT/OT On day of discharge, patient voiding urine well, ambulating halls, and declined any further concerns. #Acute renal failure on CKDIII, recurrent; improved #High anion gap metabolic acidosis, improved #BPH Thought to be prerenal, complicated by ACEi Discontinue 1/2NS bicarb gtt 125cc/hr consult nephrology, reviewed recommendations -discontinue lisinopril CT a/p still w/o evidence of obstructive nephropathy, prostatomegaly noted avoid nephrotoxic agents Discontinued bauman, voiding well Reviewed final recommendations -No further bp managment at this time "please have patient follow up w/ Dr. Nguyen ([phone]) within the next two weeks. " -Avoid Dale, consider amlodipine if hypertensive in future #Hypomagnesemia corrected PO Mag supplement 400mg BID--resume home mag supplement on discharge #Leukocytosis*downtrending Perinephric stranding on imaging bilaterally possible reactive Negative UA, discontinued CTX #Recent CVA MRI brain with punctate restricted diffusion in right cerebral hemisphere 07/2023 recent dx Continue ASA Patient would like to discuss potentially discontinuing the statin given weakness currently has ZIO monitor in place on LACW -Monitor on tele #Generalized weakness PT/OT Hold statin #Major depressive disorder #Anxiety -Continue home Buspar 15mg BID -Continue duloxetine 60mg qam #Alcohol use disorder reports being abstinent for 3 weeks, confirmed by son Continue thiamine and folic acid #Chronic IBS-C #Chronic abdominal pain -Follows [facility], IP c-scope scheduled -Previously on Linzess, now continues on Amitiza BID -Bentyl 10mg TID prn -Trial lactulose Discharge Exam Constitutional WD/WN, vitals as above Respiratory normal respiratory effort, lungs clear to auscultation Cardiovascular RRR, no murmur, no edema Gastrointestinal (Abdomen) normal bowel sounds, soft, nontender, no hepatosplenomegaly Musculoskeletal no cyanosis or clubbing, extremities motor strength 5/5 Updated Medication List Medication Instructions Recorded Confirmed Type dicyclomine 10 mg capsule 10 mg PO QID PRN Abdominal Pain 02/18/20 08/25/23 History lubiprostone 24 mcg capsule 24 mcg PO BID 08/24/22 08/25/23 History pantoprazole 40 mg tablet,delayed 40 mg PO QAM 08/24/22 08/25/23 History release alfuzosin 10 mg tablet,extended 10 mg PO QAM 06/17/23 08/25/23 History release 24 hr levothyroxine 25 mcg tablet 25 mcg PO QAM 06/17/23 08/25/23 History magnesium chloride 71.5 mg 71.5 mg PO BID #60 tabs 06/28/23 08/25/23 Rx (magnesium chloride) tablet,delayed release (Slow-Mag) buspirone 7.5 mg tablet 15 mg PO BID 08/05/23 08/25/23 History duloxetine 60 mg capsule,delayed 60 mg PO QAM 08/05/23 08/25/23 History release aspirin 81 mg tablet,delayed 81 mg PO QAM #30 tabs 08/11/23 08/25/23 Rx release hydroxyzine HCl 10 mg tablet 10 mg PO BID PRN anxiety 08/25/23 08/25/23 History polyethylene glycol 3350 17 gram 17 g PO Q8 #100 ea 08/30/23 Rx oral powder packet (Miralax) sennosides 8.6 mg-docusate sodium 1 tab PO BID #60 tabs 08/30/23 Rx 50 mg tablet (Senokot-S) Hospital Stay Data Consultations 08/25/23 14:13 ED Decision to Admit Stat 08/25/23 14:53 Consult Urology Routine 08/25/23 14:53 Consult Nephrology Routine Diagnostic Imagining Performed 08/25/23 12:27 CT Abd and Pelvis [CT abd pelvis wo con] Stat Pending Results Patient Have Any Pending Studies at Discharge: No Discharge Instructions Given to Patient (Per Discharging Provider) You were admitted for work up of weakness and falls. You were found to have acute kidney injury, likely a combination of poor nutrition, medications, and deconditioning. It is pivotal that you continue to prioritize your nutrition and follow up with your providers. Here is your problem list Acute kidney injury superimposed on CKD: Plan: * Resolve, Baseline creatinine 1.2-1.5 mg/dL. * Kidney function has recovered. Discontinue Lisinopril. Your blood pressure remains acceptable off the medication * please follow up with Dr. Nguyen ([phone]) within the next two weeks [ Nephrology , kidney doctors] Bladder outlet obstruction, enlarged prostate * Continue Flomax HTN (hypertension): * If BP increases, consider low dose Amlodipine in the future as option to protect kidneys Hypomagnesemia: * Continue Magnesium supplement Atorvastatin discontinued given concern for contributing to weakness. Constipation: Outside of your Amitiza two times a day, most constipation medications are over the counter. Here is a regimen to start with: -Miralax: 3-4 servings a day -Senkot-S (docusate-senna) 1 tab two times a day You can use Fleet enemas and Bisacodyl (stimulant laxative) as you need if you do not have a bowel movement in 2-3 days. Fleet enemas and glycerin suppositories are great to help soften stool from the bottom if passing stool is the difficulty. Total Time Total Time Spent Total Time Spent (In Minutes): 55 Home Health Attestation I certify that this patient is under my care and that I, or a physicians shampoo assistant working with me, had a face to-face encounter that meets the home health [id number] encounter requirements with this patient. The encounter with the patient was in whole, or in part, for the following medical condition, which is the primary reason for home health care (list medical condition): HUGO I certify that, based on my findings, the following services are medically necessary home health services: My clinical findings support the need for the above services because: Home Safety Assessment Medication Compliance and Monitoring Effective of New Medications Medication Compliance PT Assessment for Endurance / Balance / Strength PT Eval for Safety and Mobility PT Eval for Safety, Gait Training, Assistive Devices PT Gait and Balance Training, Strengthening and Safety Safety Skilled Nsg Assessment Further, I certify that my clinical findings support that this patient is homebound (i.e. absences from home require considerable and taxing effort and are for medical reasons or hindu services or infrequently or of short duration when for other reasons) because: Transportation Assistance/Unable to Leave Home Unassisted Certification for Home Health Services: Based on the above findings, I certify that this patient is confined to the home and needs intermittent senior care care, physical therapy and/or speech therapy or continues to need occupational therapy. The patient is under my care, and I have initiated the establishment of the plan of care. This patient will be followed by a physician who will periodically review the plan of care.
[2023-08-30] MEDS ORDERED: MAGNESIUM OXIDE 400 MG TAB PO SCH (21:00)
== END 2023-08-30 14:36 | disposition home health service (06) | DRG 683 ==
LOC: ED 11:08 → SUATTDRO 14:31 → EDINP 14:31 → 2N 15:25
DX: Z79.82 Long term (current) use of aspirin; N17.9 Acute kidney failure, unspecified; K58.1 Irritable bowel syndrome with constipation; E03.9 Hypothyroidism, unspecified; Z86.73 Personal history of transient ischemic attack (TIA), and cerebral infarction without residual deficits; Z87.891 Personal history of nicotine dependence; N32.0 Bladder-neck obstruction; E83.42 Hypomagnesemia; F32.9 Major depressive disorder, single episode, unspecified; Z79.890 Hormone replacement therapy; N18.30 Chronic kidney disease, stage 3 unspecified; I12.9 Hypertensive chronic kidney disease with stage 1 through stage 4 chronic kidney disease, or unspecified chronic kidney disease; D72.829 Elevated white blood cell count, unspecified; F10.10 Alcohol abuse, uncomplicated; F10.11 Alcohol abuse, in remission; N40.1 Benign prostatic hyperplasia with lower urinary tract symptoms; I95.9 Hypotension, unspecified; E87.20 Acidosis, unspecified

== ENCOUNTER 2025-01-10 08:40 | Inpatient (IN) ==
--- NOTE | 2025-01-10 09:22 | Emergency Department Note ---
Impression & Plan Hyponatremia, Hypokalemia, AMS (altered mental status), CVA (cerebral vascular accident), HUGO (acute kidney injury) ED Provider Note NAME: JERONIMO DUBON AGE: 69 SEX: M : 1955 ARRIVES VIA: Walk-In INFORMANT: Patient ED PROVIDER(S): Kingsley Garcia DO CHIEF COMPLAINT: Altered mental status HPI: Patient is a 69-year-old male with a past medical history of ataxia, vertigo, hyponatremia and hypertension as well as MCA and alcohol use/abuse who presents to the ER for altered mental status which started 2 days ago and has been worsening. Son is present at bedside and gives the majority of the history. Patient drinks daily. His son believes that he stopped drinking recently. He believes that he drinks a boot leg daily if not more. He has had this before with withdrawal. He notes he is shaking a little bit. Patient denies any headache or change in vision. He denies any chest pain or shortness of breath. He admits to left lower quadrant abdominal pain which has been present for years but he notes it has gotten worse recently. Denies any dysuria, urgency, or frequency. No other exacerbating or remitting factors. ADDITIONAL HISTORY OBTAINED: Per HPI Chronic Medical/Social Conditions Affecting Care: Per HPI PAST MEDICAL HISTORY:See Below PAST SURGICAL HISTORY:See Below FAMILY HISTORY:See Below SOCIAL HISTORY:See Below HOME MEDICATIONS:See Below ALLERGIES:See Below VITALS:See Below PHYSICAL EXAMINATION: GENERAL: Sitting up in bed, alert, well appearing, well nourished, no distress, non-toxic EYE EXAM: normal conjunctiva. PERRL and EOM's grossly intact. OROPHARYNX: no exudate, no erythema, lips, buccal mucosa, and tongue normal and mucous membranes are moist NECK: supple, no nuchal rigidity, no adenopathy, non-tender LUNGS: Clear to auscultation. Normal chest wall mechanics HEART: no murmurs, S1 normal and S2 normal ABDOMEN: abdomen soft, non-tender, normo-active bowel sounds, no masses, no rebound or guarding. UPPER EXTREMITIES: upper extremities are grossly normal. LOWER EXTREMITIES: No pitting edema. NEURO EXAM: Awake alert oriented to person but not year or president, cranial nerves II-XII intact, normal speech, no weakness of arms, no weakness of legs. No drift. Finger to nose intact. Gross sensation intact. MEDICAL DECISION MAKING: Patient is a 69-year-old male who presents ER for the above-stated complaint. IV was established and blood work was obtained. Labs show mild leukocytosis of 12,000. No significant anemia. BMP with hyponatremia at 124. Hypokalemia at 2.6 and HUGO with a creatinine of 3.1 up from a baseline of 1.3. Patient was given 20 mill equivalents of potassium IV. LFTs and bilirubin unremarkable. Troponin normal. Lipase normal. UA was contaminated. Alcohol was negative. CT of the head did suggest new strokes which are not acute consequently did not require stroke alert and consideration for TNK. CT of the abdomen pelvis showed diverticulitis. He was given IV Zosyn. Chest x-ray was unremarkable. He was given IV fluids as well for the HUGO. Updated and discussed with the hospitalist for further evaluation management treatment. Consults/Care Managements Discussions: Per [facility] Triage Nursing notes reviewed. Limited review of prior medical records performed Vital Signs: reviewed and remarkable for no significant abnormalities Differential diagnosis: Differential diagnoses includes but is not limited to toxic, metabolic, infectious, traumatic, cardiac, neurologic, hematologic, psychiatric and inflammatory etiologies. ER treatment provided: See below Diagnostics interpreted by me include EKG and cardiac monitoring as listed below: -Cardiac Monitoring: An order was placed for continuous cardiac monitoring. The monitor shows a rate of 80 with sinus rhythm. -ECG: Sinus rhythm rate 86 Normal axis No PVCs QTc 493 -Laboratory studies:Interpreted by me as stated above in MDM and shown below. 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 CVA [facility] admission Disequilibrium 08/05/23 CVA [facility] admission Alcohol use disorder Bladder outlet obstruction following with [facility] Ataxia 08/05/23 CVA [facility] admission Ambulatory dysfunction (Acute) 08/05/23 CVA [facility] admission Vertigo (Acute) Hyponatremia (Acute) HTN (hypertension) Medical History Hyponatremia Alcohol use disorder per RN phone interview, pt states not currently drinking IBS (irritable bowel syndrome) Tobacco use disorder, continuous per RN phone interview, pt states no longer smoking CKD stage 3a, GFR 45-59 ml/min follows with [facility] Nephro; baseline creat 1.2-1.4; per 03/06/24 note, "Stage III A CKD b/l cr 1.2-1.4mg/dl with repeated episodes of HUGO and electrolyte abnormality in setting of volume depletion and bladder outlet obstruction since 06/2023 requiring multiple hospitalizations; kidney function rapidly improved with IV fluid' Major depressive disorder JANUARY (generalized anxiety disorder) Hypothyroidism Poor historian Hypertension Hematuria, microscopic Leukocytosis Generalized weakness s/p CVA 07/2023 (per chart review, b/l LE weakness) Hypomagnesemia 2/2 volume depletion per Nephro Acute kidney injury follows with [facility] Nephro; per 03/06/24 note, "Stage III A CKD b/l cr 1.2- 1.4mg/dl with repeated episodes of HUGO and electrolyte abnormality in setting of volume depletion and bladder outlet obstruction since 06/2023 requiring multiple hospitalizations; kidney function rapidly improved with IV fluid' 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: admitted to [facility]; small embolic infarcts R peripheral cerebrum; pt admits to ongoing b/l LE weakness; saw [facility] for f/u and was told to continue [id number] indefinitely; further mgmt deferred to PCP Diverticulitis Surgical History History of esophagogastroduodenoscopy (EGD) History of colonoscopy History of bilateral cataract extraction H/O hernia repair left History of ankle surgery bilateral Family History Other Mood disorder No family history of adverse response to anesthesia Social History Smoking Status: Former smoker Second Hand Exposure: Yes (work environment); Do You Dip or Chew Tobacco: No; Hx Alcohol Use: No Hx Substance Use: Yes (medical marijuana use (advised on policy)) Preferred Language: Macedonian Communication Ability: Effective Solution Director Required: No Beliefs That Will Affect Care: None Current Living Situation: Alone Other Information That Helps Us Care for You: No Feels Safe at Home: Yes Safety Concerns: Feels Safe At This Time Assistive Devices: Glasses Allergies Allergies Allergy/AdvReac Type Severity Reaction Status Date / Time No Known Allergies Allergy Verified 09/05/24 09:58 Home Meds Home Medications Medication Instructions Recorded Confirmed dicyclomine 10 mg capsule 10 mg PO QID PRN Abdominal Pain 02/18/20 01/10/25 pantoprazole 40 mg tablet,delayed 40 mg PO QAM 08/24/22 01/10/25 release alfuzosin 10 mg tablet,extended 10 mg PO QAM 06/17/23 01/10/25 release 24 hr levothyroxine 25 mcg tablet 25 mcg PO QAM 06/17/23 01/10/25 buspirone 7.5 mg tablet 15 mg PO BID 08/05/23 01/10/25 duloxetine 60 mg capsule,delayed 60 mg PO DAILY 08/05/23 01/10/25 release duloxetine 30 mg capsule,delayed 30 mg PO 1200 08/01/24 01/10/25 release escitalopram oxalate 20 mg tablet 20 mg PO QAM 08/01/24 01/10/25 folic acid 1 mg tablet 1 mg PO QAM 08/01/24 01/10/25 magnesium chloride 71.5 mg 71.5 mg PO QAM 08/01/24 01/10/25 (magnesium chloride) tablet,delayed release (Slow-Mag) polyethylene glycol 3350 17 gram 17 g PO Q8 PRN Constipation 08/01/24 01/10/25 oral powder packet (Miralax) chlorthalidone 25 mg tablet 25 mg PO DAILY 01/10/25 01/10/25 famotidine 20 mg tablet 20 mg PO DAILY 01/10/25 01/10/25 linaclotide 72 mcg capsule 72 mcg PO DAILY 01/10/25 01/10/25 (Linzess) Previous Rx's Medication Instructions Recorded aspirin 81 mg tablet,delayed 81 mg PO QAM #30 tabs 08/11/23 release sennosides 8.6 mg-docusate sodium 1 tab PO BID #60 tabs 08/30/23 50 mg tablet (Senokot-S) oxycodone-acetaminophen 5 mg-325 1 tab PO Q6H PRN pain #10 tabs 08/14/24 mg tablet (Percocet) lisinopril 20 mg tablet 20 mg PO QAM #90 tabs 09/07/24 Results & Data (ED) Vital Signs Vital Signs - 24 hr 01/10/25 08:47 01/10/25 09:01 01/10/25 09:01 Temperature 36.5 C Temperature Source Temporal Artery Scan Pulse Rate 96 H Pulse Rate from SpO2 Sensor Respiratory Rate 18 Respiratory Effort / Characteristics Non-Labored Spontaneous Respiratory Depth Normal Blood Pressure 102/68 119/77 119/77 Blood Pressure Mean 79 94 94 Pulse Oximetry 99 Oxygen Delivery Method Room Air Sepsis Recent Fever Within 48 Hours No Sepsis New/Unexplained Change in Mental Status N/A Sepsis Action Taken by Nursing No Action Required 01/10/25 09:09 01/10/25 09:20 01/10/25 09:27 Temperature Temperature Source Pulse Rate 86 86 Pulse Rate from SpO2 Sensor 86 Respiratory Rate 17 Respiratory Effort / Characteristics Respiratory Depth Blood Pressure Blood Pressure Mean Pulse Oximetry 97 99 Oxygen Delivery Method Room Air Sepsis Recent Fever Within 48 Hours Sepsis New/Unexplained Change in Mental Status Sepsis Action Taken by Nursing 01/10/25 09:30 01/10/25 09:31 01/10/25 09:42 Temperature Temperature Source Pulse Rate 85 80 Pulse Rate from SpO2 Sensor Respiratory Rate 21 21 Respiratory Effort / Characteristics Respiratory Depth Blood Pressure 116/77 Blood Pressure Mean 79 Pulse Oximetry 96 Oxygen Delivery Method Sepsis Recent Fever Within 48 Hours Sepsis New/Unexplained Change in Mental Status Sepsis Action Taken by Nursing 01/10/25 09:57 01/10/25 10:08 01/10/25 10:08 Temperature Temperature Source Pulse Rate 84 Pulse Rate from SpO2 Sensor Respiratory Rate 23 Respiratory Effort / Characteristics Respiratory Depth Blood Pressure 130/78 130/78 Blood Pressure Mean 103 103 Pulse Oximetry 99 Oxygen Delivery Method Sepsis Recent Fever Within 48 Hours Sepsis New/Unexplained Change in Mental Status Sepsis Action Taken by Nursing 01/10/25 10:08 01/10/25 10:09 01/10/25 10:12 Temperature Temperature Source Pulse Rate 73 76 Pulse Rate from SpO2 Sensor Respiratory Rate 18 22 Respiratory Effort / Characteristics Respiratory Depth Blood Pressure 130/78 Blood Pressure Mean 103 Pulse Oximetry 99 100 Oxygen Delivery Method Sepsis Recent Fever Within 48 Hours Sepsis New/Unexplained Change in Mental Status Sepsis Action Taken by Nursing 01/10/25 10:45 01/10/25 10:45 01/10/25 10:45 Temperature Temperature Source Pulse Rate Pulse Rate from SpO2 Sensor Respiratory Rate Respiratory Effort / Characteristics Respiratory Depth Blood Pressure 106/66 106/66 106/66 Blood Pressure Mean 85 85 85 Pulse Oximetry Oxygen Delivery Method Sepsis Recent Fever Within 48 Hours Sepsis New/Unexplained Change in Mental Status Sepsis Action Taken by Nursing 01/10/25 10:45 01/10/25 10:54 01/10/25 10:57 Temperature Temperature Source Pulse Rate 83 85 79 Pulse Rate from SpO2 Sensor Respiratory Rate 26 H 22 21 Respiratory Effort / Characteristics Respiratory Depth Blood Pressure Blood Pressure Mean Pulse Oximetry 100 Oxygen Delivery Method Sepsis Recent Fever Within 48 Hours Sepsis New/Unexplained Change in Mental Status Sepsis Action Taken by Nursing 01/10/25 11:02 01/10/25 11:02 01/10/25 11:02 Temperature Temperature Source Pulse Rate Pulse Rate from SpO2 Sensor Respiratory Rate Respiratory Effort / Characteristics Respiratory Depth Blood Pressure 112/56 L 112/56 L 112/56 L Blood Pressure Mean 92 92 92 Pulse Oximetry Oxygen Delivery Method Sepsis Recent Fever Within 48 Hours Sepsis New/Unexplained Change in Mental Status Sepsis Action Taken by Nursing 01/10/25 11:06 01/10/25 11:15 01/10/25 11:21 Temperature Temperature Source Pulse Rate 92 H 81 102 H Pulse Rate from SpO2 Sensor Respiratory Rate 29 H 27 H 27 H Respiratory Effort / Characteristics Respiratory Depth Blood Pressure Blood Pressure Mean Pulse Oximetry 99 100 Oxygen Delivery Method Sepsis Recent Fever Within 48 Hours Sepsis New/Unexplained Change in Mental Status Sepsis Action Taken by Nursing Laboratory Data 01/10/25 09:00 01/10/25 11:53 Lab Results 01/10/25 01/10/25 Range/Units 09:00 10:09 WBC 12.71 H (4.8-10.8) K/ul RBC 4.30 L (4.70-6.10) M/uL Hgb 14.0 (14.0-18.0) g/dl Hct 38.0 L (42.0-52.0) % MCV 88.4 (80.0-100.0) fL MCH 32.6 (25.0-34.0) pg MCHC 36.8 H (32.0-36.0) g/dL RDW Std Deviation 37.2 (36.4-46.3) fL RDW Coeff of Suresh 11.6 (11.5-14.5) % Plt Count 301 (130-400) K/uL MPV 10.7 (9.4-12.4) fL Immature Gran % (Auto) 1.0 % Neut % (Auto) 80.5 % Lymph % (Auto) 11.0 % Elk % (Auto) 7.1 % Eos % (Auto) 0.2 % Baso % (Auto) 0.2 % Neut # (Auto) 10.24 H (1.40-6.50) K/uL Lymph # (Auto) 1.40 (1.20-3.40) K/uL Elk # (Auto) 0.90 H (0.11-0.59) K/uL Eos # (Auto) 0.02 (0.00-0.50) K/uL Baso # (Auto) 0.02 (0.00-0.20) K/uL Immature Gran # (Auto) 0.13 (0.01-0.20) K/uL Sodium 124 L (136-145) mmol/L Potassium 2.6 L (3.5-5.1) mmol/L Chloride 83 L (98-107) mmol/L Carbon Dioxide 24 (21-32) mmol/L Anion Gap 17 H (3-11) BUN 35 H (6-23) mg/dl Creatinine 3.11 H (0.6-1.4) mg/dl Est Cr Clr Drug Dosing 16.8 ml/min eGFR 20.62 BUN/Creatinine Ratio 11.3 (10-20) Glucose 122 H (70-99(Fasting)) mg/dl Calcium 9.9 (8.6-10.3) mg/dl Magnesium 1.7 (1.7-2.4) mg/dl Total Bilirubin 1.0 (0.2-1.0) mg/dl AST 18 (13-39) U/L ALT 11 (7-52) U/L Alkaline Phosphatase 74 (34-104) U/L Troponin I High Sens 13.5 (0-20) pg/ml Total Protein 8.1 (6.0-8.3) gm/dl Albumin 4.5 (3.4-5.0) gm/dl Globulin 3.6 (2.5-4.0) gm/dl Albumin/Globulin Ratio 1.3 (0.9-2) Lipase 21 (11-82) U/L Urine Color Dark Yellow Urine Appearance Clear (Clear) Urine pH 6.0 (4.5-7.5) Ur Specific [place] 1.014 (1.000-1.030) Urine Protein 1+ H (Negative) Urine Glucose (UA) Negative (Negative) Urine Ketones 1+ H (Negative) Urine Blood Negative (Negative) Urine Nitrite Negative (Negative) Urine Bilirubin Negative (Negative) Urine Urobilinogen Negative (Negative) Ur Leukocyte Esterase Negative (Negative) Urine WBC (Auto) 0-5 (0-5) /hpf Urine RBC (Auto) 0-2 (0-2) /hpf U Hyaline Cast (Auto) 11-20 H (0-2) /lpf U Epithel Cells (Auto) 3-5 H (0-2) /hpf Urine Bacteria (Auto) None Seen (None Seen) Hyaline Casts Present A (None Presnt) /lpf Urine Osmolality 373 L (500-800) mOsm/kg Ur Random Sodium 33 mmol/L Urine Comment Ethyl Alcohol mg/dL < 10.0 (<10.0) mg/dl Administered Medications Potassium Chloride (K Noah / Wtr) 10 meq in 100 mls @ 100 mls/hr IV Q1H SADIA Stop: 01/10/25 14:59 Last Admin: 01/10/25 13:18 Dose: 100 mls/hr Documented By: PB Discontinued Medications Sodium Chloride (Nss) 1,000 mls @ 999 mls/hr IV .Q1H1M ONE Stop: 01/10/25 10:19 Last Infusion: 01/10/25 10:44 Dose: Infused Documented By: Admin: 01/10/25 09:28 Dose: 999 mls/hr Documented By: ML Potassium Chloride (K Noah / Wtr) 10 meq in 100 mls @ 100 mls/hr IV Q1H SADIA Stop: 01/10/25 12:14 Last Admin: 01/10/25 11:52 Dose: 100 mls/hr Documented By: Infusion: 01/10/25 11:49 Dose: Infused Documented By: Admin: 01/10/25 10:40 Dose: 100 mls/hr Documented By: [facility] [place] Piperacillin Sod/Tazobactam Sod (Zosyn) 4.5 gm in 100 mls @ 200 mls/hr IV NOW ONE; Protocol Stop: 01/10/25 11:29 Last Infusion: 01/10/25 11:57 Dose: Infused Documented By: Admin: 01/10/25 11:25 Dose: 200 mls/hr Documented By: ML Sodium Chloride (Nss) 1,000 mls @ 999 mls/hr IV .Q1H1M ONE Stop: 01/10/25 12:12 Last Admin: 01/10/25 11:24 Dose: 999 mls/hr Documented By: ML Imaging Data Radiologist's Impression: Chest X-Ray 01/10/25 09:17 XR chest 1V portable CLINICAL HISTORY: Chest pain, nonspecific COMPARISON STUDY: 01/15/2024 FINDINGS: Heart size and pulmonary vasculature are normal. No consolidation or pleural effusion. No pneumothorax. IMPRESSION: No acute findings. ACT 112: Negative or not required by law. Electronically signed by: Klaus Jose M.D. 01/10/2025 9:[address] 01/10/25 09:17 CT SCAN OF THE BRAIN WITHOUT IV CONTRAST CLINICAL HISTORY: Altered mental status. COMPARISON STUDY: MRI of the brain August 05, 2023. Head CT January 15, 2024. TECHNIQUE: Unenhanced axial CT scan of the brain was performed from the vertex to the skull base. A dose lowering technique was utilized adhering to the principles of ALARA. FINDINGS: Brain parenchyma: No acute intracranial hemorrhage, midline shift or mass effect is present. Maradiaga-white matter differentiation is preserved. There are no extra- axial fluid collections. There are no findings to suggest acute dural sinus thrombosis or acute territorial infarct. A a few hypodensities within the right frontal lobe are new since previous CT and MRI. The largest is on image 45, measuring approximate 3 cm. Ventricles, sulci, cisterns: There is no hydrocephalus. The basal cisterns are patent. Calvarium: Unremarkable. Sinuses and mastoids: The visualized paranasal sinuses are clear. The mastoid air cells are well pneumatized. Orbits: The bony orbits are grossly intact. IMPRESSION: 1. No acute intracranial findings. 2. A few hypodensities suggestive of encephalomalacia within the right frontal lobe. These are new since CT of January 15, 2024 although appear chronic. Old interval infarcts or interval remote trauma is favored. If indicated, MRI of the brain with and without contrast could be obtained for confirmation. ACT 112: Negative or not required by law. Electronically signed by: Luis Eduardo Dowling M.D. 01/10/2025 10:52 AM Abdomen/Pelvis CT 01/10/25 10:[address] WITHOUT CONTRAST CT DOSE: 1489.64 mGy.cm HISTORY: abd pain TECHNIQUE: Multiaxial CT images of the abdomen and pelvis were performed without contrast. A dose lowering technique was utilized adhering to the principles of ALARA. COMPARISON STUDY: 08/25/2023 FINDINGS: ABDOMEN: Liver, gallbladder, spleen, pancreas, and adrenal glands have an unremarkable noncontrast appearance. There is a tiny cyst at the right upper kidney. Kidneys show no hydronephrosis or calculi. No ureteral calculi seen. There are scattered atherosclerotic calcifications. No abdominal aortic aneurysm. Pelvis: Prostate is enlarged. Urinary bladder is mildly distended. There is moderate colonic diverticulosis. There is a small area of inflammation adjacent to a diverticulum at the hepatic flexure of the colon consistent with mild acute diverticulitis. No free fluid, free air, or abscess. Normal appendix. No other bowel inflammation or obstruction seen. No enlarged adenopathy. Osseous structures: There are mild lumbar degenerative changes. IMPRESSION: 1. Mild acute diverticulitis at the hepatic flexure of the colon. 2. No other acute findings seen. Otherwise as described. ACT 112: Negative or not required by law. The above report was generated using voice recognition software. It may contain grammatical, syntax or spelling errors. Electronically signed by: Klaus Jose M.D. 01/10/2025 10:48 AM Discharge Plan Visit Data Chief Complaint: Alcohol Withdrawal Stated Complaint: ALCOHOL WITHDRAWAL, HIGH BLOOD PRESSURE ED Provider: Kingsley Garcia Discharge Problem: Hyponatremia, Hypokalemia, AMS (altered mental status), CVA (cerebral vascular accident), HUGO (acute kidney injury) Patient Disposition: Admitted As Inpatient Condition: Serious Discharge Instructions Interventions: ED Discharge Assessment Last Done: 01/10/25 12:07 Discharge Problem: AMS (altered mental status) Qualifiers: Altered mental status type: unspecified Qualified Code(s): R41.82 - Altered mental status, unspecified CVA (cerebral vascular accident) Qualifiers: CVA mechanism: unspecified Qualified Code(s): I63.9 - Cerebral infarction, unspecified
[2025-01-10] MEDS: SODIUM CHLORIDE 0.9% 1,000 ML IV ONE ×2 (09:28→11:24)
--- NOTE | 2025-01-10 09:54 | XRay Report ---
XR chest 1V portable CLINICAL HISTORY: Chest pain, nonspecific COMPARISON STUDY: 01/15/2024 FINDINGS: Heart size and pulmonary vasculature are normal. No consolidation or pleural effusion. No p neumothorax. IMPRESSION: No acute findings. ACT 112: Negative or not required by law. Electronically signed by: Klaus Jose M.D. 01/10/2025 9:53 AM
[2025-01-10 10:07] LABS: Platelet Count 301 K/uL (130-400); White Blood Count 12.71 K/ul (4.8-10.8)
[2025-01-10 10:08] LABS: Alanine Aminotransferase 11.0 U/L (7-52); Albumin Globulin Ratio 1.3 (0.9-2); Alkaline Phosphatase 74.0 U/L (34-104); Anion Gap 17.0 (3-11); Bilirubin,Total 1.0 mg/dl (0.2-1.0); Blood Urea Nitrogen 35.0 mg/dl (6-23); Calcium 9.9 mg/dl (8.6-10.3); Carbon Dioxide 24.0 mmol/L (21-32); Chloride 83.0 mmol/L (98-107); Creatinine Clr Calc Pharmacy 16.8 ml/min; Globulin 3.6 gm/dl (2.5-4.0); Glucose 122.0 mg/dl (70-99(Fasting)); Lipase 21.0 U/L (11-82); Magnesium 1.7 mg/dl (1.7-2.4); Potassium 2.6 mmol/L (3.5-5.1); Sodium 124.0 mmol/L (136-145); Total Protein 8.1 gm/dl (6.0-8.3)
[2025-01-10 10:38] LABS: Appearance Urine Clear (Clear); Bacteria Urine Automated None Seen (None Seen); Glucose Urine UA Negative (Negative); RBC Urine Automated 0-2 /hpf (0-2); WBC Urine Automated 0-5 /hpf (0-5)
[2025-01-10] MEDS: POTASSIUM CHLORIDE / WTR 10 MEQ/100 ML PLCT IV SCH ×3 (10:40→19:50)
[2025-01-10 10:41] LABS: Hematocrit (blood only) 38.0 % (42.0-52.0); Hemoglobin 14.0 g/dl (14.0-18.0); Mean Corpuscular Hemoglobin 32.6 pg (25.0-34.0); Mean Corpuscular Volume 88.4 fL (80.0-100.0); RDW Standard Deviation 37.2 fL (36.4-46.3); Red Blood Count 4.30 M/uL (4.70-6.10)
[2025-01-10 10:42] LABS: Immature Granulocytes # (auto) 0.13 K/uL (0.01-0.20); Immature Granulocytes % (auto) 1.0 %
--- NOTE | 2025-01-10 10:50 | CT Scan Report ---
ABDOMEN AND PELVIS CT WITHOUT CONTRAST CT DOSE: 1489.64 mGy.cm HISTORY: abd pain TECHNIQUE: Multiaxial CT images of the abdomen and pelvis were performed without contrast. A dose lo wering technique was utilized adhering to the principles of ALARA. COMPARISON STUDY: 08/25/2023 FINDINGS: ABDOMEN: Liver, gallbladder, spleen, pancreas, and adrenal glands have an unremarkable noncontrast ap pearance. There is a tiny cyst at the right upper kidney. Kidneys show no hydronephrosis or calculi. No ureteral calculi seen. There are scattered atherosclerotic calcifications. No abdominal aortic ane urysm. Pelvis: Prostate is enlarged. Urinary bladder is mildly distended. There is moderate colonic divertic ulosis. There is a small area of inflammation adjacent to a diverticulum at the hepatic flexure of th e colon consistent with mild acute diverticulitis. No free fluid, free air, or abscess. Normal append ix. No other bowel inflammation or obstruction seen. No enlarged adenopathy. Osseous structures: There are mild lumbar degenerative changes. IMPRESSION: 1. Mild acute diverticulitis at the hepatic flexure of the colon. 2. No other acute findings seen. Otherwise as described. ACT 112: Negative or not required by law. The above report was generated using voice recognition software. It may contain grammatical, syntax o r spelling errors. Electronically signed by: Klaus Jose M.D. 01/10/2025 10:48 AM
--- NOTE | 2025-01-10 10:53 | CT Scan Report ---
CT SCAN OF THE BRAIN WITHOUT IV CONTRAST CLINICAL HISTORY: Altered mental status. COMPARISON STUDY: MRI of the brain August 05, 2023. Head CT January 15, 2024. TECHNIQUE: Unenhanced axial CT scan of the brain was performed from the vertex to the skull base. A dose lowering technique was utilized adhering to the principles of ALARA. FINDINGS: Brain parenchyma: No acute intracranial hemorrhage, midline shift or mass effect is present. Maradiaga-whi te matter differentiation is preserved. There are no extra-axial fluid collections. There are no find ings to suggest acute dural sinus thrombosis or acute territorial infarct. A a few hypodensities with in the right frontal lobe are new since previous CT and MRI. The largest is on image 45, measuring ap proximate 3 cm. Ventricles, sulci, cisterns: There is no hydrocephalus. The basal cisterns are patent. Calvarium: Unremarkable. Sinuses and mastoids: The visualized paranasal sinuses are clear. The mastoid air cells are well pneu matized. Orbits: The bony orbits are grossly intact. IMPRESSION: 1. No acute intracranial findings. 2. A few hypodensities suggestive of encephalomalacia within the right frontal lobe. These are new si nce CT of January 15, 2024 although appear chronic. Old interval infarcts or interval remote trauma is fa vored. If indicated, MRI of the brain with and without contrast could be obtained for confirmation. ACT 112: Negative or not required by law. Electronically signed by: Luis Eduardo Dowling M.D. 01/10/2025 10:52 AM
[2025-01-10] MEDS: PIPERACILLIN/TAZOBACTAM 4.5 GM/100 ML BAG IV ONE (11:25)
--- NOTE | 2025-01-10 11:31 | History & Physical Report ---
Date of Service January 10, 2025 Assessment & Plan (1) Acute worsening of stage 3 chronic kidney disease: (2) Chronic hyponatremia: (3) Hypokalemia: (4) Diverticulitis: (5) Alcohol use disorder: Plan This is a 69-year-old male who has a significant past medical history of HTN, CHF, CKD stage III, IBS with both constipation and diarrhea, BPH, acquired hypothyroidism, depression and anxiety, history of CVA, alcoholism and tobacco use disorder who presents to ED secondary to confusion. #Acute on Chronic CKD-3 #Acute on chronic hyponatremia #Acute hypokalemia #Acute metabolic encephalopathy 2/2 hugo, infection, worsening hyponatremia Pt admitted to PCU baseline cr 1.0-1.1 Cr 34 and 3.1 on admission, Na 124 Pt with Na levels of low 130s in November suspect 2/2 chlorthalidone and "tea/toast" diet from alcoholism will start on NSS + 20meq KCL @ 80cc/hr restrict free water to 1800ml consult [facility] nephro urine/serum osm and urine sodium ordered will also replace potassium via IV and oral supplementation BMP q6h, avoid nephrotoxic agents, hold JEANNETTE/Chlorthalidone, strict I and O #Hypomagnesemia mag 1.6, replace repeat mag in a.m. #Acute Diverticulitis pt with minimal abd pain will start on clear liquid diet, IV Zosyn consider diet advancement tomorrow if sx improving #Alcohol abuse pt with years of alcohol use Discussion with son - he feels pts chronic abd pain is in setting of chronic alcohol use and intermittently trying to wean self off of it, he feels his first signs of withdrawal are abd pain son hopeful pt would be agreeable to rehab as he is unsure what his true baseline is w/o alcohol, is hopeful for a collaborative approach to encourage this Librium taper, prn IV ativan #HTN #Chronic Diastolic CHF hold lisinopril monitor for volume overload #DVT ppx: SQ Heparin FULL CODE PCP: [facility] Dispo: admit to PCU until HUGO/electrolyte abn resolves and confusion improves Pt was seen and examined in collaboration with Dr. Glynn, please see addendum I spent a total of 76 minutes coordinating, documenting and providing care for this patient excluding time spent in the performance of separately billed services or time spent by another provider/QHP. History of Present Illness Chief Complaint: Progressively worsening confusion. Primary Care Provider: Kimberly Sidhu DO This is a 69-year-old male who has a significant past medical history of HTN, CHF, CKD stage III, IBS with both constipation and diarrhea, BPH, acquired hypothyroidism, depression and anxiety, history of CVA, alcoholism and tobacco use disorder who presents to ED secondary to confusion.History is obtained from patient, ED provider and discussion with son via telephone encounter. Patient states he has lower abdominal discomfort. "You know I have diverticulitis." He is unsure of the duration of his abdominal discomfort and is unable to quantify how long his pain has been present. He did move his bowels in the ED and reports moving them daily. He denies any significant nausea or vomiting. He denies any blood in his stool. He denies any known recent fever, chills, sweats, chest pain, shortness of breath, URI symptoms, lightheadedness or dizziness. He does live alone and ambulates without assistance. Son is local. He reports having a known alcohol addiction. He states that he drinks two 3 ounce bottles of fireball a day. His last drink was 2 days ago. After further discussion with his son on the telephone, he reports that he knows he drinks approximately 2 [employer] bootleggers a day which are 12-13% alcohol and ~ 6 oz. He is unsure if he drinks anything else. His father has had a known alcohol addiction for several years. Son states that he chronically has abdominal pain. He sees gastroenterology for this. He has been told he has IBS as well as occasional diverticulitis. Son feels that he has noted a change in his mental status over the last several weeks. Again he attributes this to his alcoholism. He feels that the patient is trying to self wean from alcohol and that is when he experiences worsening abdominal pain. He is aware his father does not eat enough and tends to drink most of his calories. In ED patient remained hemodynamically stable. His lab work was notable for a mild leukocytosis. His BMP revealed an HUGO with a creatinine of 3.1, hyponatremia with a sodium of 124 and hypokalemia with potassium of 2.6. CT abdomen pelvis concerning for a mild acute diverticulitis at the hepatic flexure. CT head without acute abnormality but does reveal some subtle new lesions in the right frontal lobe concerning for possible encephalomalacia or old infarct. This is new from previous imaging of July and January 2024. In ED he received 1 L of IV fluid along with KCl 10 mEq IV x 2. Allergies Allergy/AdvReac Type Severity Reaction Status Date / Time No Known Allergies Allergy Verified 09/05/24 09:58 Home Medications Medication Instructions Recorded Confirmed Type dicyclomine 10 mg capsule 10 mg PO QID PRN Abdominal Pain 02/18/20 01/10/25 History pantoprazole 40 mg tablet,delayed 40 mg PO QAM 08/24/22 01/10/25 History release alfuzosin 10 mg tablet,extended 10 mg PO QAM 06/17/23 01/10/25 History release 24 hr levothyroxine 25 mcg tablet 25 mcg PO QAM 06/17/23 01/10/25 History buspirone 7.5 mg tablet 15 mg PO BID 08/05/23 01/10/25 History duloxetine 60 mg capsule,delayed 60 mg PO DAILY 08/05/23 01/10/25 History release aspirin 81 mg tablet,delayed 81 mg PO QAM #30 tabs 08/11/23 01/10/25 Rx release sennosides 8.6 mg-docusate sodium 1 tab PO BID #60 tabs 08/30/23 01/10/25 Rx 50 mg tablet (Senokot-S) duloxetine 30 mg capsule,delayed 30 mg PO 1200 08/01/24 01/10/25 History release escitalopram oxalate 20 mg tablet 20 mg PO QAM 08/01/24 01/10/25 History folic acid 1 mg tablet 1 mg PO QAM 08/01/24 01/10/25 History magnesium chloride 71.5 mg 71.5 mg PO QAM 08/01/24 01/10/25 History (magnesium chloride) tablet,delayed release (Slow-Mag) polyethylene glycol 3350 17 gram 17 g PO Q8 PRN Constipation 08/01/24 01/10/25 History oral powder packet (Miralax) oxycodone-acetaminophen 5 mg-325 1 tab PO Q6H PRN pain #10 tabs 08/14/24 01/10/25 Rx mg tablet (Percocet) lisinopril 20 mg tablet 20 mg PO QAM #90 tabs 09/07/24 01/10/25 Rx chlorthalidone 25 mg tablet 25 mg PO DAILY 01/10/25 01/10/25 History famotidine 20 mg tablet 20 mg PO DAILY 01/10/25 01/10/25 History linaclotide 72 mcg capsule 72 mcg PO DAILY 01/10/25 01/10/25 History (Osvaldo) Past Med/Surg History Problem List (Updated 01/10/25 @ 12:25 by Kayla Merritt PA-C) Hypokalemia Chronic hyponatremia Acute worsening of stage 3 chronic kidney disease Right inguinal hernia Chronic kidney disease, stage 3a Vitamin D deficiency Acute right MCA stroke 08/05/23 [facility] admission Disequilibrium 08/05/23 [facility] admission Alcohol use disorder Bladder outlet obstruction following with [facility] Ataxia 08/05/23 [facility] admission Ambulatory dysfunction (Acute) 08/05/23 [facility] admission Vertigo (Acute) Hyponatremia (Acute) HTN (hypertension) Medical History Hyponatremia Alcohol use disorder per RN phone interview, pt states not currently drinking IBS (irritable bowel syndrome) Tobacco use disorder, continuous per RN phone interview, pt states no longer smoking CKD stage 3a, GFR 45-59 ml/min follows with [facility] Nephro; baseline creat 1.2-1.4; per 03/06/24 note, "Stage III A CKD b/l cr 1.2-1.4mg/dl with repeated episodes of HUGO and electrolyte abnormality in setting of volume depletion and bladder outlet obstruction since 06/2023 requiring multiple hospitalizations; kidney function rapidly improved with IV fluid' Major depressive disorder JANUARY (generalized anxiety disorder) Hypothyroidism Poor historian Hypertension Hematuria, microscopic Leukocytosis Generalized weakness s/p CVA 07/2023 (per chart review, b/l LE weakness) Hypomagnesemia 2/2 volume depletion per Nephro Acute kidney injury follows with [facility] Nephro; per 03/06/24 note, "Stage III A CKD b/l cr 1.2- 1.4mg/dl with repeated episodes of HUGO and electrolyte abnormality in setting of volume depletion and bladder outlet obstruction since 06/2023 requiring multiple hospitalizations; kidney function rapidly improved with IV fluid' 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: admitted to [facility]; small embolic infarcts R peripheral cerebrum; pt admits to ongoing b/l LE weakness; saw [facility] for f/u and was told to continue [id number] indefinitely; further mgmt deferred to PCP Diverticulitis Surgical History History of esophagogastroduodenoscopy (EGD) History of colonoscopy History of bilateral cataract extraction H/O hernia repair left History of ankle surgery bilateral Family History Other Mood disorder No family history of adverse response to anesthesia Social History Smoking Status: Former smoker Second Hand Exposure: Yes (work environment); Do You Dip or Chew Tobacco: No; Hx Alcohol Use: No Hx Substance Use: Yes (medical marijuana use (advised on policy)) Preferred Language: Finnish Communication Ability: Effective Airline Stewardess Required: No Beliefs That Will Affect Care: None Current Living Situation: Alone Feels Safe at Home: Yes Assistive Devices: Glasses Review of Systems Review of Systems: All systems reviewed & are unremarkable except as noted in HPI & below Physical Exam Physical Exam: Gen: WD/WN, appear stated age, NAD, A&O x2, person/place HEENT: Normocephalic, atraumatic, conjunctivae moist, sclerae anicteric, mucous membranes moist. Lung: CTAB no w/r/r Heart: RRR Abdomen: Soft, NT, ND +BS x 4 Extremities: No edema Skin: Warm, no rash, negative turgor. Results & Data Results & Data Vital Signs (Past 12 Hours) Vital Signs Temp Pulse Resp BP Pulse Ox O2 Del Method 01/10/25 09:20 97 Room Air 01/10/25 09:09 86 01/10/25 08:47 36.5 C 96 H 18 102/68 99 Room Air Laboratory Results I have independently reviewed and interpreted patient's admitting labs including CBC, CMP, troponin. Diagnostic Findings Chest X-Ray 01/10/25 09:17 XR chest 1V portable CLINICAL HISTORY: Chest pain, nonspecific COMPARISON STUDY: 01/15/2024 FINDINGS: Heart size and pulmonary vasculature are normal. No consolidation or pleural effusion. No pneumothorax. IMPRESSION: No acute findings. ACT 112: Negative or not required by law. Electronically signed by: Klaus Jose M.D. 01/10/2025 9:[address] 01/10/25 09:17 CT SCAN OF THE BRAIN WITHOUT IV CONTRAST CLINICAL HISTORY: Altered mental status. COMPARISON STUDY: MRI of the brain August 05, 2023. Head CT January 15, 2024. TECHNIQUE: Unenhanced axial CT scan of the brain was performed from the vertex to the skull base. A dose lowering technique was utilized adhering to the principles of ALARA. FINDINGS: Brain parenchyma: No acute intracranial hemorrhage, midline shift or mass effect is present. Maradiaga-white matter differentiation is preserved. There are no extra- axial fluid collections. There are no findings to suggest acute dural sinus thrombosis or acute territorial infarct. A a few hypodensities within the right frontal lobe are new since previous CT and MRI. The largest is on image 45, measuring approximate 3 cm. Ventricles, sulci, cisterns: There is no hydrocephalus. The basal cisterns are patent. Calvarium: Unremarkable. Sinuses and mastoids: The visualized paranasal sinuses are clear. The mastoid air cells are well pneumatized. Orbits: The bony orbits are grossly intact. IMPRESSION: 1. No acute intracranial findings. 2. A few hypodensities suggestive of encephalomalacia within the right frontal lobe. These are new since CT of January 15, 2024 although appear chronic. Old interval infarcts or interval remote trauma is favored. If indicated, MRI of the brain with and without contrast could be obtained for confirmation. ACT 112: Negative or not required by law. Electronically signed by: Luis Eduardo Dowling M.D. 01/10/2025 10:52 AM Abdomen/Pelvis CT 01/10/25 10:[address] WITHOUT CONTRAST CT DOSE: 1489.64 mGy.cm HISTORY: abd pain TECHNIQUE: Multiaxial CT images of the abdomen and pelvis were performed without contrast. A dose lowering technique was utilized adhering to the principles of ALARA. COMPARISON STUDY: 08/25/2023 FINDINGS: ABDOMEN: Liver, gallbladder, spleen, pancreas, and adrenal glands have an unremarkable noncontrast appearance. There is a tiny cyst at the right upper kidney. Kidneys show no hydronephrosis or calculi. No ureteral calculi seen. There are scattered atherosclerotic calcifications. No abdominal aortic aneurysm. Pelvis: Prostate is enlarged. Urinary bladder is mildly distended. There is moderate colonic diverticulosis. There is a small area of inflammation adjacent to a diverticulum at the hepatic flexure of the colon consistent with mild acute diverticulitis. No free fluid, free air, or abscess. Normal appendix. No other bowel inflammation or obstruction seen. No enlarged adenopathy. Osseous structures: There are mild lumbar degenerative changes. IMPRESSION: 1. Mild acute diverticulitis at the hepatic flexure of the colon. 2. No other acute findings seen. Otherwise as described. ACT 112: Negative or not required by law. The above report was generated using voice recognition software. It may contain grammatical, syntax or spelling errors. Electronically signed by: Klaus Jose M.D. 01/10/2025 10:48 AM Medications Administered Medication List Potassium Chloride (K Noah / Wtr) 10 meq in 100 mls @ 100 mls/hr IV Q1H SADIA Stop: 01/10/25 12:14 Last Admin: 01/10/25 10:40 Dose: 100 mls/hr Documented By: [facility] [place] Piperacillin Sod/Tazobactam Sod (Zosyn) 4.5 gm in 100 mls @ 200 mls/hr IV NOW ONE; Protocol Stop: 01/10/25 11:29 Last Admin: 01/10/25 11:25 Dose: 200 mls/hr Documented By: ML Sodium Chloride (Nss) 1,000 mls @ 999 mls/hr IV .Q1H1M ONE Stop: 01/10/25 12:12 Last Admin: 01/10/25 11:24 Dose: 999 mls/hr Documented By: ML Discontinued Medications Sodium Chloride (Nss) 1,000 mls @ 999 mls/hr IV .Q1H1M ONE Stop: 01/10/25 10:19 Last Infusion: 01/10/25 10:44 Dose: Infused Documented By: Admin: 01/10/25 09:28 Dose: 999 mls/hr Documented By: ML ECG Additional Comments: I have independently reviewed and interpreted patient's admitting EKG which revealed: NSR, 86bpm, qtc 493ms, no st or t wave changes COVID-19 Results Results COVID-19 Adm Lab Results: RBC 4.30 M/uL (4.70-6.10) L 01/10/25 WBC 12.71 K/ul (4.8-10.8) H 01/10/25 Hgb 14.0 g/dl (14.0-18.0) 01/10/25 Hct 38.0 % (42.0-52.0) L 01/10/25 Plt Count 301 K/uL (130-400) 01/10/25 Neutrophils (%) (Auto) 80.5 % 01/10/25 Lymphocytes (%) (Auto) 11.0 % 01/10/25 Monocytes # (Auto) 0.90 K/uL (0.11-0.59) H 01/10/25 Eosinophils # (Auto) 0.02 K/uL (0.00-0.50) 01/10/25 Immature Granulocyte % (Auto) 1.0 % 01/10/25 Neutrophils # (Auto) 10.24 K/uL (1.40-6.50) H 01/10/25 Lymphocytes # (Auto) 1.40 K/uL (1.20-3.40) 01/10/25 Monocytes # (Auto) 0.90 K/uL (0.11-0.59) H 01/10/25 Eosinophils # (Auto) 0.02 K/uL (0.00-0.50) 01/10/25 Basophils # (Auto) 0.02 K/uL (0.00-0.20) 01/10/25 Immature Granulocyte # (Auto) 0.13 K/uL (0.01-0.20) 5 Na 125 mmol/L (136-145) L 01/10/25 K 2.6 mmol/L (3.5-5.1) L 01/10/25 Cl 88 mmol/L (98-107) L 01/10/25 CO2 23 mmol/L (21-32) 01/10/25 Anion Gap 14 (3-11) H 01/10/25 BUN 34 mg/dl (6-23) H 01/10/25 Creatinine 2.79 mg/dl (0.6-1.4) H 01/10/25 BUN/Creatinine Ratio 12.2 (10-20) 01/10/25 Glucose Level 130 mg/dl (70-99(Fasting)) H 01/10/25 Ca 8.7 mg/dl (8.6-10.3) 01/10/25 Total Bilirubin 1.0 mg/dl (0.2-1.0) 01/10/25 AST/SGOT 18 U/L (13-39) 01/10/25 ALT/SGPT 11 U/L (7-52) 01/10/25 Alkaline Phosphatase 74 U/L (34-104) 01/10/25 Total Protein 8.1 gm/dl (6.0-8.3) 01/10/25 Albumin 4.5 gm/dl (3.4-5.0) 01/10/25 Globulin 3.6 gm/dl (2.5-4.0) 01/10/25 Albumin/Globulin Ratio 1.3 (0.9-2) 01/10/25 Chest X-Ray 01/10/25 Code Status & VTE Plan Code Status FULL CODE VTE Prophylaxis Plan VTE Prophylaxis will be ordered: Yes Supervising Physician Co-Signing Physician Notes Attending addendum: The patient was seen and examined in emergency room He was brought into the ER with increased confusion and noted to have HUGO on CKD and also electrolyte imbalance and diverticulitis Has been feeling better but remains pleasantly confused Does not have any specific symptoms On examination Hemodynamically stable in the emergency room Pleasantly confused Chestclear to auscultate bilaterally HeartS1-S2, regular Abdomen-benign and mildly tender in the left lower quadrant Extremities- no edema ELECTRONICS TECHNICIAN- alert and awake, pleasantly confused, moves all extremities His admission labs, EKG and imaging studies reviewed Has significant HUGO with electrolyte imbalance Acute confusion likely secondary to acute diverticulitis and dehydration Antibiotic has been started and electrolyte will be replaced and he will get cautious amount of fluid given the hyponatremia Agree with assessment and plan as outlined above by Rosie Merritt PA-C and take the full responsibility of care in the hospital Dr Cholo Glynn
[2025-01-10 12:37] LABS: Anion Gap 14.0 (3-11); Blood Urea Nitrogen 34.0 mg/dl (6-23); Calcium 8.7 mg/dl (8.6-10.3); Carbon Dioxide 23.0 mmol/L (21-32); Chloride 88.0 mmol/L (98-107); Creatinine Clr Calc Pharmacy 18.8 ml/min; Glucose 130.0 mg/dl (70-99(Fasting)); Magnesium 1.6 mg/dl (1.7-2.4); Potassium 2.6 mmol/L (3.5-5.1); Sodium 125.0 mmol/L (136-145)
[2025-01-10] MEDS ORDERED: PROMETHAZINE 6.25 MG/50.25 ML BAG IV PRN (12:51)
[2025-01-10] MEDS ORDERED: MELATONIN 3 MG TAB PO PRN (12:51)
[2025-01-10] MEDS ORDERED: ACETAMINOPHEN 325 MG TAB PO PRN (12:51)
[2025-01-10] MEDS: POTASSIUM CHLORIDE CRTAB 20 MEQ TABCR PO STA ×2 (13:23→19:33)
[2025-01-10] MEDS: MAGNESIUM SULFATE / D5W 1 GM/100 ML BAG IV SCH (13:26)
[2025-01-10] MEDS: chlordiazePOXIDE ALCOHOL WITHDRAWL 25MG PO STA (14:48)
--- NOTE | 2025-01-10 15:07 | Electrocardiogram Report ---
Test Reason : Blood Pressure : */* mmHG Vent. Rate : 86 BPM Atrial Rate : 86 BPM P-R Int : 168 ms QRS Dur : 90 ms QT Int : 412 ms P-R-T Axes : * -4 -14 degrees QTcB Int : 493 ms Normal sinus rhythm Inferior infarct , age undetermined Abnormal ECG When compared with ECG of 15-Jan-2024 08:51, Inferior infarct is now Present T wave inversion now evident in Inferior leads Confirmed by Dima Garcia ([id number]) on 01/10/2025 3:07:16 PM Referred By: Confirmed By: Dima Garcia
--- NOTE | 2025-01-10 15:59 | Nephrology Consultation ---
Date of Consultation January 10, 2025 Assessment & Plan (1) HUGO (acute kidney injury): Non-oliguric. Creatinine improving 3.11-->2.79 mg/dL with IVF. 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 CT did not demonstrate obstruction. Urine is acellular. Hyaline casts noted. Clinical presentation consistent with prerenal physiology from volume depletion. Lisinopril and chlorthalidone held. Medications are currently appropriately dosed for kidney function. Document I/Os. Repeat metabolic profile tomorrow AM. (2) Chronic hyponatremia: Chronic, moderate, symptomatic (however dysnatremia does not explain extent of his current symptoms or overall presentation). Sodium has started correcting with istonic fluids. Close monitoring is ordered with q 6 hour labs. Goal is correction rate of ~0.5 mmol/L/hr. Avoid correction of >8 mEq/L/he within the first 24 hours. Dysnatremia attributed to volume depletion, poor oral solute intake, excessive alcohol, and diarrhea. Continue NSS + KCl. Hyponatremia likely to improve with treatment of hypokalemia and rastafarian of intravascular fluid volume. Hold chlorthalidone. (3) Chronic kidney disease, stage 3a: Attributed to multiple episodes of ATN. Follows with Dr. Nguyen. Baseline creatinine 1.4-1.6 mg/dL. (4) Hypokalemia: Replacement and serial labs ordered. Check BMP + magnesium + phosphorus in the AM. (5) HTN (hypertension): Chlorthalidone and lisinopril held. (6) Bladder outlet obstruction: CT did not demonstrate evidence of obstruction. (7) Alcohol use disorder: Librium taper. Alcohol withdrawal protocol. Thiamine, folate, and MVI. Management per hospitalist team. History of Present Illness Reason for Consultation: HUGO, hyponatremia Requesting Physician: Miles Glynn MD Attending Physician: Miles Glynn MD History of Present Illness Mr. Haroon Colmenares is a 69 year-old male with chronic kidney disease who presented to [facility] ER today for evaluation of MS changes and abdominal discomfort. Laboratory studies obtained in the ER demonstrating hyponatremia and acute kidney injury. Haroon follows in the [facility] nephrology clinic with Dr. Nguyen. He has CKD IIIa A1. Baseline creatinine ~1.2-1.6 mg/dL. CKD has been attributed to multiple episodes of HUGO, hypertension, and chronic GILBERT. Medical history is notable for BPH with LUTS/GILBERT, chronic hyponatremia, hypertension, diverticulosis, IBS, hypothyroidism, history of CVA (July 2023), tobacco abuse, and alcohol abuse. Right inguinal hernia repair completed in August 2024. Haroon consumes at least 2-4 alcoholic beverages daily. His last drink was ~2 days ago. Evaluation in the ER also notable for CT abdomen demonstrating evidence of diverticulitis and CT head demonstrating right frontal lobe encephalomalacia. Zosyn provided in the ER. IV KCl has been provided for hypokalemia. IV magnesium provided for hypomagnesemia. IV NSS + KCl infusing. Serum creatinine on admission 3.11 mg/dL has improved to 2.79 mg/dL. Sodium 124-->125 mmol/L. Serial BMP q [address] abdomen did not demonstrate evidence of renal obstruction. Urine microscopy is acellular with hyaline casts noted. He has been initiated on a Librium taper with alcohol withdrawal protocol. Small amounts of diarrhea reported. No fevers. Haroon was sleeping following IV Ativan at the time of my assesssment. Allergies Allergy/AdvReac Type Severity Reaction Status Date / Time No Known Allergies Allergy Verified 09/05/24 09:58 Home Medications Medication Instructions Recorded Confirmed Type dicyclomine 10 mg capsule 10 mg PO QID PRN Abdominal Pain 02/18/20 01/10/25 History pantoprazole 40 mg tablet,delayed 40 mg PO QAM 08/24/22 01/10/25 History release alfuzosin 10 mg tablet,extended 10 mg PO QAM 06/17/23 01/10/25 History release 24 hr levothyroxine 25 mcg tablet 25 mcg PO QAM 06/17/23 01/10/25 History buspirone 7.5 mg tablet 15 mg PO BID 08/05/23 01/10/25 History duloxetine 60 mg capsule,delayed 60 mg PO DAILY 08/05/23 01/10/25 History release aspirin 81 mg tablet,delayed 81 mg PO QAM #30 tabs 08/11/23 01/10/25 Rx release sennosides 8.6 mg-docusate sodium 1 tab PO BID #60 tabs 08/30/23 01/10/25 Rx 50 mg tablet (Senokot-S) duloxetine 30 mg capsule,delayed 30 mg PO 1200 08/01/24 01/10/25 History release escitalopram oxalate 20 mg tablet 20 mg PO QAM 08/01/24 01/10/25 History folic acid 1 mg tablet 1 mg PO QAM 08/01/24 01/10/25 History magnesium chloride 71.5 mg 71.5 mg PO QAM 08/01/24 01/10/25 History (magnesium chloride) tablet,delayed release (Slow-Mag) polyethylene glycol 3350 17 gram 17 g PO Q8 PRN Constipation 08/01/24 01/10/25 History oral powder packet (Miralax) oxycodone-acetaminophen 5 mg-325 1 tab PO Q6H PRN pain #10 tabs 08/14/24 01/10/25 Rx mg tablet (Percocet) lisinopril 20 mg tablet 20 mg PO QAM #90 tabs 09/07/24 01/10/25 Rx chlorthalidone 25 mg tablet 25 mg PO DAILY 01/10/25 01/10/25 History famotidine 20 mg tablet 20 mg PO DAILY 01/10/25 01/10/25 History linaclotide 72 mcg capsule 72 mcg PO DAILY 01/10/25 01/10/25 History (Linzess) Patient History Medical History Hyponatremia Alcohol use disorder per RN phone interview, pt states not currently drinking IBS (irritable bowel syndrome) Tobacco use disorder, continuous per RN phone interview, pt states no longer smoking CKD stage 3a, GFR 45-59 ml/min follows with [facility]; baseline creat 1.2-1.4; per 03/06/24 note, "Stage III A CKD b/l cr 1.2-1.4mg/dl with repeated episodes of HUGO and electrolyte abnormality in setting of volume depletion and bladder outlet obstruction since 06/2023 requiring multiple hospitalizations; kidney function rapidly improved with IV fluid' Major depressive disorder JANUARY (generalized anxiety disorder) Hypothyroidism Poor historian Hypertension Hematuria, microscopic Leukocytosis Generalized weakness s/p CVA 07/2023 (per chart review, b/l LE weakness) Hypomagnesemia 2/2 volume depletion per Nephro Acute kidney injury follows with [facility]; per 03/06/24 note, "Stage III A CKD b/l cr 1.2- 1.4mg/dl with repeated episodes of HUGO and electrolyte abnormality in setting of volume depletion and bladder outlet obstruction since 06/2023 requiring multiple hospitalizations; kidney function rapidly improved with IV fluid' 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: admitted to [facility]; small embolic infarcts R peripheral cerebrum; pt admits to ongoing b/l LE weakness; saw [facility] for f/u and was told to continue [id number] indefinitely; further mgmt deferred to PCP Diverticulitis Surgical History History of esophagogastroduodenoscopy (EGD) History of colonoscopy History of bilateral cataract extraction H/O hernia repair left History of ankle surgery bilateral Family History Other Mood disorder No family history of adverse response to anesthesia Social History Smoking Status: Former smoker Second Hand Exposure: Yes (work environment); Do You Dip or Chew Tobacco: No; Hx Alcohol Use: No Hx Substance Use: Yes (medical marijuana use (advised on policy)) Preferred Language: Kittitian Communication Ability: Effective Cam Maker Required: No Beliefs That Will Affect Care: None Current Living Situation: Alone Other Information That Helps Us Care for You: No Feels Safe at Home: Yes Safety Concerns: Feels Safe At This Time Assistive Devices: Glasses Review of Systems Review of Systems: Unobtainable due to cognitive status Physical Exam Constitutional: well developed; no acute distress ENMT: external ear and nose normal, oropharynx normal Neck: normal visual inspection and trachea midline Respiratory: normal respiratory effort Auscultation: lungs clear to auscultation bilaterally Cardiovascular: Rate/Rhythm: regular rate Heart Sounds: normal S1 and normal S2 Extremities: no edema Musculoskeletal: Extremities: no cyanosis and no clubbing Skin: no jaundice Neurologic: Motor/Sensory: no tremor and no asterixis Results & Data Vital Signs (Past 12 Hours) Vital Signs Temp Pulse Resp BP Pulse Ox O2 Del Method 01/10/25 12:06 78 23 100 01/10/25 12:00 115/73 01/10/25 12:00 115/73 01/10/25 11:57 77 18 100 07/02/25 11:51 77 22 100 01/10/25 11:42 73 22 100 01/10/25 11:31 140/86 01/10/25 11:31 140/86 01/10/25 11:31 140/86 01/10/25 11:30 91 H 20 01/10/25 11:21 102 H 27 H 01/10/25 11:15 81 27 H 100 01/10/25 11:06 92 H 29 H 99 01/10/25 11:02 112/56 L 01/10/25 11:02 112/56 L 01/10/25 11:02 112/56 L 01/10/25 10:57 79 21 01/10/25 10:54 85 22 01/10/25 10:45 83 26 H 100 01/10/25 10:45 106/66 01/10/25 10:45 106/66 01/10/25 10:45 106/66 01/10/25 10:12 76 22 100 01/10/25 10:09 73 18 99 01/10/25 10:08 130/78 01/10/25 10:08 130/78 01/10/25 10:08 130/78 01/10/25 09:57 84 23 99 01/10/25 09:42 80 21 96 01/10/25 09:31 116/77 01/10/25 09:30 85 21 01/10/25 09:27 86 17 99 01/10/25 09:20 97 Room Air 01/10/25 09:09 86 01/10/25 09:01 119/77 01/10/25 09:01 119/77 01/10/25 08:47 36.5 C 96 H 18 102/68 99 Room Air Laboratory Results Laboratory Results - last 24 hr 01/10/25 01/10/25 01/10/25 09:00 10:09 11:53 WBC 12.71 H RBC 4.30 L Hgb 14.0 Hct 38.0 L MCV 88.4 MCH 32.6 MCHC 36.8 H RDW Std Deviation 37.2 RDW Coeff of Suresh 11.6 Plt Count 301 MPV 10.7 Immature Gran % (Auto) 1.0 Neut % (Auto) 80.5 Lymph % (Auto) 11.0 [place]cd[place] % (Auto) 7.1 Eos % (Auto) 0.2 Baso % (Auto) 0.2 Neut # (Auto) 10.24 H Lymph # (Auto) 1.40 Mcdonald # (Auto) 0.90 H Eos # (Auto) 0.02 Baso # (Auto) 0.02 Immature Gran # (Auto) 0.13 Sodium 124 L 125 L Potassium 2.6 L 2.6 L Chloride 83 L 88 L Carbon Dioxide 24 23 Anion Gap 17 H 14 H BUN 35 H 34 H Creatinine 3.11 H 2.79 H D Est Cr Clr Drug Dosing 16.8 18.8 eGFR 20.62 23.49 BUN/Creatinine Ratio 11.3 12.2 Glucose 122 H 130 H Osmolality 264 L Calcium 9.9 8.7 Magnesium 1.7 1.6 L Total Bilirubin 1.0 AST 18 ALT 11 Alkaline Phosphatase 74 Troponin I High Sens 13.5 Total Protein 8.1 Albumin 4.5 Globulin 3.6 Albumin/Globulin Ratio 1.3 Lipase 21 Urine Color Dark Yellow Urine Appearance Clear Urine pH 6.0 Ur Specific [place] 1.014 Urine Protein 1+ H Urine Glucose (UA) Negative Urine Ketones 1+ H Urine Blood Negative Urine Nitrite Negative Urine Bilirubin Negative Urine Urobilinogen Negative Ur Leukocyte Esterase Negative Urine WBC (Auto) 0-5 Urine RBC (Auto) 0-2 U Hyaline Cast (Auto) 11-20 H U Epithel Cells (Auto) 3-5 H Urine Bacteria (Auto) None Seen Hyaline Casts Present A Urine Osmolality 373 L Ur Random Sodium 33 Urine Comment Ethyl Alcohol mg/dL < 10.0 Diagnostic Findings ABDOMEN AND PELVIS CT WITHOUT CONTRAST COMPARISON STUDY: 08/25/2023 FINDINGS: ABDOMEN: Liver, gallbladder, spleen, pancreas, and adrenal glands have an unremarkable noncontrast appearance. There is a tiny cyst at the right upper kidney. Kidneys show no hydronephrosis or calculi. No ureteral calculi seen. There are scattered atherosclerotic calcifications. No abdominal aortic aneurysm. Pelvis: Prostate is enlarged. Urinary bladder is mildly distended. There is moderate colonic diverticulosis. There is a small area of inflammation adjacent to a diverticulum at the hepatic flexure of the colon consistent with mild acute diverticulitis. No free fluid, free air, or abscess. Normal appendix. No other bowel inflammation or obstruction seen. No enlarged adenopathy. Osseous structures: There are mild lumbar degenerative changes. IMPRESSION: 1. Mild acute diverticulitis at the hepatic flexure of the colon. 2. No other acute findings seen. Otherwise as described. PG Care Time/CCT Total # of Minutes Spent Total Time Spent with Patient: Total time spent is greater than 50% in coordination of care (as documented) at patient's floor/unit and/or counseling patient: Coding Level of Care Code 24069 IN/OBS CONSULT LVL 5,80M Diagnoses HUGO (acute kidney injury) N17.9 Chronic hyponatremia E87.1 Chronic kidney disease, stage 3a N18.31 Hypokalemia E87.6 HTN (hypertension) I10 Bladder outlet obstruction N32.0 Alcohol use disorder F10.90
[2025-01-10] MEDS: NSS + 20MEQ KCL 20 MEQ/1,000 ML BAG IV SCH (17:18)
[2025-01-10] MEDS: PIPERACILLIN/TAZOBACTAM 4.5 GM/100 ML BAG IV SCH (17:19)
--- NOTE | 2025-01-10 17:52 | Communication Note ---
Date of Service: January 10, 2025 CT Head reviewed 1. No acute intracranial findings. 2. A few hypodensities suggestive of encephalomalacia within the right frontal lobe. These are new since CT of January 15, 2024 although appear chronic. Old interval infarcts or interval remote trauma is favored. If indicated, MRI of the brain with and without contrast could be obtained for confirmation. Discussed with son. I would recommend ordering an MRI w and w/o contrast of brain once renal function improves, hopefully by tomorrow a.m. Per MRI GFR needs to be > 30ml/min. Bindu Merritt PA-C
[2025-01-10 18:35] LABS: Anion Gap 10.0 (3-11); Blood Urea Nitrogen 30.0 mg/dl (6-23); Calcium 8.5 mg/dl (8.6-10.3); Carbon Dioxide 25.0 mmol/L (21-32); Chloride 90.0 mmol/L (98-107); Creatinine Clr Calc Pharmacy 19.2 ml/min; Glucose 151.0 mg/dl (70-99(Fasting)); Potassium 3.0 mmol/L (3.5-5.1); Sodium 125.0 mmol/L (136-145)
[2025-01-10] MEDS: POTASSIUM CHLORIDE CRTAB 20 MEQ TABCR PO SCH (19:34)
[2025-01-10] MEDS: HEPARIN SOD 5,000 UNIT/0.5 ML VIAL SQ SCH (20:24)
[2025-01-10] MEDS: DOCUSATE SODIUM/SENNA 50/8.6MG TAB PO SCH (20:24)
[2025-01-10] MEDS ORDERED: Ativan IV Alcohol Withdrawal--Active Protocol IV PRN (20:58)
[2025-01-11 01:08] LABS: Anion Gap 10.0 (3-11); Blood Urea Nitrogen 31.0 mg/dl (6-23); Calcium 8.3 mg/dl (8.6-10.3); Carbon Dioxide 22.0 mmol/L (21-32); Chloride 96.0 mmol/L (98-107); Creatinine Clr Calc Pharmacy 21.9 ml/min; Glucose 102.0 mg/dl (70-99(Fasting)); Potassium 3.4 mmol/L (3.5-5.1); Sodium 128.0 mmol/L (136-145)
[2025-01-11 06:17] LABS: Hematocrit (blood only) 34.8 % (42.0-52.0); Hemoglobin 12.9 g/dl (14.0-18.0); Immature Granulocytes # (auto) 0.04 K/uL (0.01-0.20); Immature Granulocytes % (auto) 0.4 %; Mean Corpuscular Hemoglobin 34.4 pg (25.0-34.0); Mean Corpuscular Volume 92.8 fL (80.0-100.0); Platelet Count 253 K/uL (130-400); RDW Standard Deviation 40.8 fL (36.4-46.3); Red Blood Count 3.75 M/uL (4.70-6.10); White Blood Count 9.00 K/ul (4.8-10.8)
[2025-01-11 06:41] LABS: Alanine Aminotransferase 8.0 U/L (7-52); Albumin Globulin Ratio 1.4 (0.9-2); Alkaline Phosphatase 52.0 U/L (34-104); Anion Gap 7.0 (3-11); Bilirubin,Total 0.7 mg/dl (0.2-1.0); Blood Urea Nitrogen 29.0 mg/dl (6-23); Calcium 8.6 mg/dl (8.6-10.3); Carbon Dioxide 25.0 mmol/L (21-32); Chloride 98.0 mmol/L (98-107); Creatinine Clr Calc Pharmacy 22.9 ml/min; Globulin 2.6 gm/dl (2.5-4.0); Glucose 96.0 mg/dl (70-99(Fasting)); Magnesium 2.3 mg/dl (1.7-2.4); Potassium 4.1 mmol/L (3.5-5.1); Sodium 130.0 mmol/L (136-145); Total Protein 6.2 gm/dl (6.0-8.3)
[2025-01-11] MEDS: ADVANCED PROBIOTIC 625 MG CAPSULE PO SCH (08:26)
[2025-01-11] MEDS: MULTIVITAMIN TAB PO SCH (08:27)
[2025-01-11] MEDS: ASPIRIN 81 MG ECTAB PO SCH (08:27)
[2025-01-11] MEDS: LEVOTHYROXINE SODIUM 25 MCG TABLET PO SCH (08:27)
[2025-01-11] MEDS: ESCITALOPRAM OXALATE 20 MG TAB PO SCH (08:27)
[2025-01-11] MEDS: FOLIC ACID 1 MG TAB PO SCH (08:27)
[2025-01-11] MEDS: THIAMINE HCL 100 MG TAB PO SCH (08:27)
[2025-01-11] MEDS: TAMSULOSIN HCL 0.4 MG CAP PO SCH (08:27)
--- NOTE | 2025-01-11 09:48 | Nephrology Progress Note ---
Date of Service January 11, 2025 Assessment & Plan (1) HUGO (acute kidney injury): Plan: Non-oliguric. Creatinine continues downtrending with supportive care. 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 HUGO attributed to prerenal physiology from volume depletion/dehydration. CT did not demonstrate obstruction. Urine is acellular. Hyaline casts noted. Lisinopril and chlorthalidone held. Medications are currently appropriately dosed for kidney function. Document I/Os. Repeat metabolic profile tomorrow AM. (2) Chronic hyponatremia: Plan: Correcting at acceptable rate. Continue Isotonic fluids. Close monitoring with repeat BMP this afternoon (ordered). Dysnatremia attributed to volume depletion, poor oral solute intake, excessive alcohol, and diarrhea. Once current bag of NSS + KCl is complete may switch to LR (LR @125 ml/hr ordered x 2 L). Hyponatremia likely to improve with treatment of hypokalemia and worship of intravascular fluid volume. Hold chlorthalidone. (3) Chronic kidney disease, stage 3a: Plan: Attributed to multiple episodes of ATN. Follows with Dr. Nguyen. Baseline creatinine 1.4-1.6 mg/dL. (4) Hypokalemia: Plan: Replacement and serial labs ordered. Check BMP + magnesium + phosphorus in the AM. (5) HTN (hypertension): Plan: Chlorthalidone and lisinopril held. (6) Bladder outlet obstruction: Plan: CT did not demonstrate evidence of obstruction. (7) Alcohol use disorder: Plan: Librium taper. Alcohol withdrawal protocol. Thiamine, folate, and MVI. Management per hospitalist team. (8) AMS (altered mental status): Plan: MRI pending. Admission and Anticipated Discharge Date Admission Date: January 10, 2025 Subjective No acute events overnight. Haroon was sleeping soundly this AM. RN reports that Haroon is waking up but remains disoriented. He sat up in bed with therapy but is very shaky and weak. No focal neurologic deficits have been appreciated. Afebrile. Non-oliguric. Review of Systems Review of Systems: Unobtainable due to reduced consciousness Physical Exam Constitutional: no acute distress ENMT: external ear and nose normal, oropharynx normal Neck: normal visual inspection and trachea midline Respiratory: normal respiratory effort Auscultation: lungs clear to auscultation bilaterally Cardiovascular: Rate/Rhythm: regular rate Heart Sounds: normal S1 and normal S2 Extremities: no edema Musculoskeletal: Extremities: no cyanosis and no clubbing Skin: no jaundice Neurologic: Motor/Sensory: no tremor and no asterixis Results & Data Vital Signs (Past 12 Hours) Vital Signs Temp Pulse Pulse Resp BP Pulse Ox O2 Del Method 01/11/25 07:51 36.8 C 66 18 98/61 L 96 Room Air 01/11/25 02:53 36.5 C 64 18 102/67 96 Room Air 01/10/25 23:04 36.5 C 67 18 114/69 97 Room Air 01/10/25 22:31 73 Laboratory Results Laboratory Results - last 24 hr 01/10/25 01/10/25 01/10/25 09:00 10:09 11:53 WBC 12.71 H RBC 4.30 L Hgb 14.0 Hct 38.0 L MCV 88.4 MCH 32.6 MCHC 36.8 H RDW Std Deviation 37.2 RDW Coeff of Suresh 11.6 Plt Count 301 MPV 10.7 Immature Gran % (Auto) 1.0 Neut % (Auto) 80.5 Lymph % (Auto) 11.0 [place] % (Auto) 7.1 Eos % (Auto) 0.2 Baso % (Auto) 0.2 Neut # (Auto) 10.24 H Lymph # (Auto) 1.40 [place] # (Auto) 0.90 H Eos # (Auto) 0.02 Baso # (Auto) 0.02 Immature Gran # (Auto) 0.13 Sodium 124 L 125 L Potassium 2.6 L 2.6 L Chloride 83 L 88 L Carbon Dioxide 24 23 Anion Gap 17 H 14 H BUN 35 H 34 H Creatinine 3.11 H 2.79 H D Est Cr Clr Drug Dosing 16.8 18.8 eGFR 20.62 23.49 BUN/Creatinine Ratio 11.3 12.2 Glucose 122 H 130 H Osmolality 264 L Calcium 9.9 8.7 Magnesium 1.7 1.6 L Total Bilirubin 1.0 AST 18 ALT 11 Alkaline Phosphatase 74 Troponin I High Sens 13.5 Total Protein 8.1 Albumin 4.5 Globulin 3.6 Albumin/Globulin Ratio 1.3 Lipase 21 Vitamin B1 Urine Color Dark Yellow Urine Appearance Clear Urine pH 6.0 Ur Specific [place] 1.014 Urine Protein 1+ H Urine Glucose (UA) Negative Urine Ketones 1+ H Urine Blood Negative Urine Nitrite Negative Urine Bilirubin Negative Urine Urobilinogen Negative Ur Leukocyte Esterase Negative Urine WBC (Auto) 0-5 Urine RBC (Auto) 0-2 U Hyaline Cast (Auto) 11-20 H U Epithel Cells (Auto) 3-5 H Urine Bacteria (Auto) None Seen Hyaline Casts Present A Urine Osmolality 373 L Ur Random Sodium 33 Urine Comment Ethyl Alcohol mg/dL < 10.0 01/10/25 01/11/25 01/11/25 17:57 00:12 05:26 WBC 9.00 RBC 3.75 L Hgb 12.9 L Hct 34.8 L MCV 92.8 MCH 34.4 H MCHC 37.1 H RDW Std Deviation 40.8 RDW Coeff of Suresh 11.9 Plt Count 253 MPV 10.4 Immature Gran % (Auto) 0.4 Neut % (Auto) 71.6 Lymph % (Auto) 19.2 [place] % (Auto) 8.0 Eos % (Auto) 0.7 Baso % (Auto) 0.1 Neut # (Auto) 6.44 Lymph # (Auto) 1.73 [place] # (Auto) 0.72 H Eos # (Auto) 0.06 Baso # (Auto) 0.01 Immature Gran # (Auto) 0.04 Sodium 125 L 128 L 130 L Potassium 3.0 L 3.4 L 4.1 D Chloride 90 L 96 L 98 Carbon Dioxide 25 22 25 Anion Gap 10 10 7 BUN 30 H 31 H 29 H Creatinine 2.72 H 2.39 H D 2.28 H Est Cr Clr Drug Dosing 19.2 21.9 22.9 eGFR 24.22 28.28 29.93 BUN/Creatinine Ratio 11.0 13.0 12.7 Glucose 151 H 102 H 96 Osmolality Calcium 8.5 L 8.3 L 8.6 Magnesium 2.3 Total Bilirubin 0.7 AST 14 ALT 8 Alkaline Phosphatase 52 Troponin I High Sens Total Protein 6.2 D Albumin 3.6 Globulin 2.6 Albumin/Globulin Ratio 1.4 Lipase Vitamin B1 Pending Urine Color Urine Appearance Urine pH Ur Specific [place] Urine Protein Urine Glucose (UA) Urine Ketones Urine Blood Urine Nitrite Urine Bilirubin Urine Urobilinogen Ur Leukocyte Esterase Urine WBC (Auto) Urine RBC (Auto) U Hyaline Cast (Auto) U Epithel Cells (Auto) Urine Bacteria (Auto) Hyaline Casts Urine Osmolality Ur Random Sodium Urine Comment Ethyl Alcohol mg/dL PG Care Time/CCT Total # of Minutes Spent Total Time Spent with Patient: Total time spent is greater than 50% in coordination of care (as documented) at patient's floor/unit and/or counseling patient: Coding Level of Care Code 74228 SUB INP/OBS CARE 3/50MIN Diagnoses HUGO (acute kidney injury) N17.9 Chronic hyponatremia E87.1 Chronic kidney disease, stage 3a N18.31 Hypokalemia E87.6 HTN (hypertension) I10 Bladder outlet obstruction N32.0 Alcohol use disorder F10.90 AMS (altered mental status) R41.82 Altered mental status type: unspecified (8) AMS (altered mental status) Altered mental status type: unspecified Qualified Code(s): R41.82 - Altered mental status, unspecified
--- NOTE | 2025-01-11 12:11 | Magnetic Resonance Report ---
MR brain wo con CLINICAL HISTORY: infarcts COMPARISON STUDY: CT yesterday and MRI of 08/05/2023 FINDINGS: There is motion artifact. No restricted diffusion seen to suggest acute infarction. No mass effect, midline shift, or hydrocephalus. There is mild increased FLAIR signal in the periventricular white matter consistent with chronic small vessel ischemic changes. There is a small area of gliosis in inferior right frontal lobe, likely due to old infarction. IMPRESSION: No evidence of acute infarction. ACT 112: Negative or not required by law. Electronically signed by: Klaus Jose M.D. 01/11/2025 12:09 PM
--- NOTE | 2025-01-11 14:28 | Hospitalist Progress Note ---
Date of Service January 11, 2025 Assessment & Plan (1) Acute worsening of stage 3 chronic kidney disease: (2) Chronic hyponatremia: (3) Hypokalemia: (4) Diverticulitis: (5) Alcohol use disorder: Plan This is a 69-year-old male who has a significant past medical history of HTN, C HF, CKD stage III, IBS with both constipation and diarrhea, BPH, acquired hypothyroidism, depression and anxiety, history of CVA, alcoholism and tobacco use disorder who presents to ED secondary to confusion. #Acute on Chronic CKD-3 #Acute on chronic hyponatremia #Acute hypokalemia #Acute metabolic encephalopathy 2/2 margie, infection, worsening hyponatremia -baseline cr 1.0-1.1 -Pt with Na levels of low 130s in November -suspect 2/2 chlorthalidone and "tea/toast" diet from alcoholism -improving today Plan: -nephrology consulted, appreciate recs -patient improving today -stop zosyn, stop buspar, decrease duloxetine to 60 mg, avoid anticholinergics, continue thiamine/folic acid -schedule melatonin for sleep wake cycle -MRI today given concern for infarcts on CT head and provider discussion with family yesterday #Hypomagnesemia -resolved #Acute Diverticulitis -stop zosyn given risk of worsening mental status and mild diverticulitis #Alcohol abuse -pt with years of alcohol use -Discussion with son - he feels pts chronic abd pain is in setting of chronic alcohol use and intermittently trying to wean self off of it, he feels his first signs of withdrawal are abd pain son hopeful pt would be agreeable to rehab as he is unsure what his true baseline is w/o alcohol, is hopeful for a collaborative approach to encourage this -Librium taper, prn IV ativan #HTN #Chronic Diastolic CHF -hold lisinopril -monitor for volume overload I spent a total of 50 minutes in direct patient care, including [id number] time with the patient and/or family, reviewing medical records, ordering and reviewing diagnostic tests, and coordinating care with other healthcare providers. This time includes: history taking, physical examination, medical decision making, counseling, ECG interpretation, imaging interpretation, lab interpretation, orders, and education, excluding time spent in the performance of separately billed services. Admission and Anticipated Discharge Date Admission Date: January 10, 2025 Subjective Patient seen and examined at bedside. Patient comfortable on exam, no concerns at this time. Review of Systems Review of Systems: CONSTITUTIONAL: Patient denies fevers, chills, sweats and weight changes. EYES: Patient denies any visual symptoms. EARS, NOSE, AND THROAT: No difficulties with hearing. No symptoms of rhinitis or sore throat. CARDIOVASCULAR: Patient denies chest pains, palpitations, orthopnea and paroxysmal nocturnal dyspnea. RESPIRATORY: No dyspnea on exertion, no wheezing or cough. GI: No nausea, vomiting, diarrhea, constipation, abdominal pain, hematochezia or melena. : No urinary hesitancy or dribbling. No nocturia or urinary frequency. No abnormal urethral discharge. MUSCULOSKELETAL: No myalgias or arthralgias. NEUROLOGIC: No chronic headaches, no seizures. Patient denies numbness, tingling or weakness. PSYCHIATRIC: Patient denies problems with mood disturbance. No problems with anxiety. ENDOCRINE: No excessive urination or excessive thirst. DERMATOLOGIC: Patient denies any rashes or skin changes. Physical Exam Physical Exam: Gen: A&O 2 NAD HEENT: NCAT, EOMI, not icteric. External ears normal. No rhinorrhea. Moist mucous membranes. Neck: Supple, full range of motion, no observable masses, No meningeal sign. Lungs: No Respiratory distress. CV: RRR, no edema. Abdomen: Soft, nondistended, No rebound tenderness. MSK: No joint swelling, no redness. Skin: No rashes, petechiae, lesions. Normal color per patient. Neuro: Normal Gait, Grossly intact. Psych: Appropriate for situation. Results & Data Results & Data Vital Signs (Past 12 Hours) Vital Signs Temp Pulse Pulse Resp BP Pulse Ox O2 Del Method 01/11/25 14:16 81 01/11/25 12:04 36.5 C 71 19 106/72 97 Room Air 01/11/25 07:51 36.8 C 66 18 98/61 L 96 Room Air 01/11/25 02:53 36.5 C 64 18 102/67 96 Room Air Laboratory Results -personally reviewed, Hgb stable, creatinine downtrending, Na uptrending to 130 Medications Administered Aspirin (Aspirin 81 Mg Ectab) 81 mg PO [facility] [place] Stop: 02/10/25 08:59 Last Admin: 01/11/25 08:27 Dose: 81 mg Documented By: PB Buspirone HCl (Buspirone 7.5 Mg Tab) 15 mg PO BID [facility] Stop: 02/09/25 20:59 Last Admin: 01/11/25 08:27 Dose: 15 mg Documented By: Admin: 01/10/25 20:24 Dose: 15 mg Documented By: MAGALYS Chlordiazepoxide HCl (Chlordiazepoxide Hcl 25 Mg Cap) 25 mg PO Q8H [facility] Stop: 01/12/25 07:16 Last Admin: 01/10/25 13:23 Dose: 25 mg Documented By: PB Duloxetine HCl (Duloxetine Hcl 30 Mg Cap) 30 mg PO DAILY@1200 [facility] Stop: 02/10/25 11:59 Last Admin: 01/11/25 12:53 Dose: 30 mg Documented By: PB Duloxetine HCl (Duloxetine Hcl 60 Mg Cap) 60 mg PO DAILY [facility] Stop: 02/10/25 08:59 Last Admin: 01/11/25 08:27 Dose: 60 mg Documented By: PB Escitalopram Oxalate (Escitalopram Oxalate 20 Mg Tab) 20 mg PO [facility] Stop: 02/10/25 08:59 Last Admin: 01/11/25 08:27 Dose: 20 mg Documented By: PB Folic Acid (Folic Acid 1 Mg Tab) 1 mg PO [facility] Stop: 02/10/25 08:59 Last Admin: 01/11/25 08:27 Dose: 1 mg Documented By: PB Heparin Sodium (Porcine) (Heparin Sod 5,000 Unit/0.5 Ml Vial) 5,000 units SQ Q8H [facility] Stop: 02/09/25 20:59 Last Admin: 01/11/25 12:56 Dose: 5,000 units Documented By: Admin: 01/11/25 04:40 Dose: 5,000 units Documented By: Admin: 01/10/25 20:24 Dose: 5,000 units Documented By: MAGALYS Piperacillin Sod/Tazobactam Sod (Zosyn) 4.5 gm in 100 mls @ 25 mls/hr IV Q8H [facility]; Protocol Stop: 01/20/25 16:59 Last Infusion: 01/11/25 12:28 Dose: Infused Documented By: Admin: 01/11/25 08:28 Dose: 25 mls/hr Documented By: Infusion: 01/11/25 04:50 Dose: Infused Documented By: Admin: 01/11/25 00:50 Dose: 25 mls/hr Documented By: Infusion: 01/10/25 21:35 Dose: Infused Documented By: Admin: 01/10/25 17:19 Dose: 25 mls/hr Documented By: PB Lactobacillus Acidophilus (Advanced Probiotic 625 Mg Capsule) 1,250 mg PO DAILY [facility] Stop: 02/10/25 08:59 Last Admin: 01/11/25 08:26 Dose: 1,250 mg Documented By: PB Levothyroxine Sodium (Levothyroxine Sodium 25 Mcg Tablet) 25 mcg PO [facility] Stop: 02/10/25 08:59 Last Admin: 01/11/25 08:27 Dose: 25 mcg Documented By: PB Linaclotide (Linaclotide 72 Mcg Capsule) 72 mcg PO DAILY [facility] Stop: 02/10/25 08:59 Last Admin: 01/11/25 08:28 Dose: 72 mcg Documented By: PB Multivitamins (Multivitamin Tab) 1 tab PO [facility] Stop: 02/10/25 08:59 Last Admin: 01/11/25 08:27 Dose: 1 tab Documented By: PB Pantoprazole Sodium (Pantoprazole 40 Mg Tab) 40 mg PO [facility] Stop: 02/10/25 08:59 Last Admin: 01/11/25 08:27 Dose: 40 mg Documented By: PB Senna/Docusate Sodium (Docusate Sodium/Senna 50/8.6mg Tab) 1 tab PO BID [facility] Stop: 02/09/25 20:59 Last Admin: 01/11/25 08:28 Dose: Not Given Documented By: Admin: 01/10/25 20:24 Dose: 1 tab Documented By: MAGALYS Tamsulosin HCl (Tamsulosin Hcl 0.4 Mg Cap) 0.4 mg PO [facility] Stop: 02/10/25 08:59 Last Admin: 01/11/25 08:27 Dose: 0.4 mg Documented By: PB Thiamine HCl (Thiamine Hcl 100 Mg Tab) 100 mg PO [facility] Stop: 02/10/25 08:59 Last Admin: 01/11/25 08:27 Dose: 100 mg Documented By: PB
[2025-01-11 14:55] LABS: Anion Gap 9.0 (3-11); Blood Urea Nitrogen 22.0 mg/dl (6-23); Calcium 9.0 mg/dl (8.6-10.3); Carbon Dioxide 23.0 mmol/L (21-32); Chloride 101.0 mmol/L (98-107); Creatinine Clr Calc Pharmacy 26.0 ml/min; Glucose 88.0 mg/dl (70-99(Fasting)); Potassium 3.7 mmol/L (3.5-5.1); Sodium 133.0 mmol/L (136-145)
[2025-01-11] MEDS: LACTATED RINGER'S 1,000 ML IV SCH (17:14)
[2025-01-11] MEDS: MELATONIN 3 MG TAB PO SCH (21:57)
[2025-01-12 06:14] LABS: Alanine Aminotransferase 8.0 U/L (7-52); Albumin Globulin Ratio 1.4 (0.9-2); Alkaline Phosphatase 47.0 U/L (34-104); Anion Gap 7.0 (3-11); Bilirubin,Total 0.3 mg/dl (0.2-1.0); Blood Urea Nitrogen 22.0 mg/dl (6-23); Calcium 8.5 mg/dl (8.6-10.3); Carbon Dioxide 22.0 mmol/L (21-32); Chloride 103.0 mmol/L (98-107); Creatinine Clr Calc Pharmacy 28.0 ml/min; Globulin 2.4 gm/dl (2.5-4.0); Glucose 93.0 mg/dl (70-99(Fasting)); Magnesium 1.7 mg/dl (1.7-2.4); Potassium 3.7 mmol/L (3.5-5.1); Sodium 132.0 mmol/L (136-145); Total Protein 5.7 gm/dl (6.0-8.3)
[2025-01-12] MEDS: POTASSIUM CHLORIDE CRTAB 20 MEQ TABCR PO SCH (08:12)
--- NOTE | 2025-01-12 11:47 | Nephrology Progress Note ---
Date of Service January 12, 2025 Assessment & Plan (1) HUGO (acute kidney injury): Plan: Improving with hydration and supportive care. IVF stopped. Volume status acceptable. There is no indication for CUFF STITCHER. HUGO attributed to prerenal physiology from volume depletion/dehydration. CT did not demonstrate obstruction. Urine is acellular. Hyaline casts noted. Continue to hold lisinopril and chlorthalidone. Medications are currently appropriately dosed for kidney function. Document I/Os. Repeat metabolic profile tomorrow AM. (2) Chronic hyponatremia: Plan: Sodium corrected at an acceptable rate and has dropped slightly this AM. 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 Isotonic fluids have been stopped. Free water restricted to 1.8 L daily. Additional KCl supplementation provided this AM. NaCl 1 gram BID ordered. Repeat labs requested for this evening. Hyponatremia attributed to volume depletion, poor oral solute intake, excessive alcohol, and diarrhea. Documented history of SIADH. Hold chlorthalidone. (3) Chronic kidney disease, stage 3a: Plan: Attributed to multiple episodes of ATN. Follows with Dr. Nguyen. Baseline creatinine 1.4-1.6 mg/dL. (4) Hypokalemia: Plan: Improving with replacement. Recheck BMP + magnesium + phosphorus in the AM. (5) HTN (hypertension): Plan: Chlorthalidone and lisinopril held. Remains relatively hypotensive. BP acc eptable. (6) Bladder outlet obstruction: Plan: CT did not demonstrate evidence of obstruction. (7) Alcohol use disorder: Plan: Librium taper. Thiamine, folate, and MVI. Management per hospitalist team. Admission and Anticipated Discharge Date Admission Date: January 10, 2025 Subjective No acute events overnight. Haroon was resting comfortably in bed this AM. He feels well. No fluid retention or edema. Appetite is good. He denies any GI symptoms. Review of Systems Review of Systems: All systems reviewed & are unremarkable except as noted in HPI & below Physical Exam Constitutional: well developed; no acute distress Eyes: + anicteric sclerae ENMT: external ear and nose normal, oropharynx normal Neck: normal visual inspection and trachea midline Respiratory: normal respiratory effort Auscultation: lungs clear to auscu ltation bilaterally Cardiovascular: Rate/Rhythm: regular rate Heart Sounds: normal S1 and normal S2 Extremities: no edema Musculoskeletal: Extremities: no cyanosis and no clubbing Skin: no jaundice Neurologic: Motor/Sensory: no tremor and no asterixis Results & Data Vital Signs (Past 12 Hours) Vital Signs Temp Pulse Pulse Resp BP Pulse Ox O2 Del Method 01/12/25 11:20 36.5 C 68 18 101/67 100 Room Air 01/12/25 07:38 36.4 C L 50 L 18 111/69 98 Room Air 01/12/25 07:00 61 01/12/25 05:28 36.4 C L 71 16 117/77 98 Room Air Laboratory Results Laboratory Results - last 24 hr 01/11/25 01/12/25 13:54 05:23 Sodium 133 L 132 L Potassium 3.7 3.7 Chloride 101 103 Carbon Dioxide 23 22 Anion Gap 9 7 BUN 22 22 Creatinine 2.01 H 1.87 H Est Cr Clr Drug Dosing 26.0 28.0 eGFR 34.82 37.97 BUN/Creatinine Ratio 10.9 11.8 Glucose 88 93 Calcium 9.0 8.5 L Phosphorus 2.8 Magnesium 1.7 Total Bilirubin 0.3 AST 13 ALT 8 Alkaline Phosphatase 47 Total Protein 5.7 L Albumin 3.3 L Globulin 2.4 L Albumin/Globulin Ratio 1.4 PG Care Time/CCT Total # of Minutes Spent Total Time Spent with Patient: Total time spent is greater than 50% in coordination of care (as documented) at patient's floor/unit and/or counseling patient: Coding Level of Care Code 21657 SUB INP/OBS CARE 3/50MIN Diagnoses HUGO (acute kidney injury) N17.9 Chronic hyponatremia E87.1 Chronic kidney disease, stage 3a N18.31 Hypokalemia E87.6 HTN (hypertension) I10 Bladder outlet obstruction N32.0 Alcohol use disorder F10.90
[2025-01-12] MEDS: SODIUM CHLORIDE 1 GM TABLET PO SCH (12:21)
--- NOTE | 2025-01-12 17:26 | Hospitalist Progress Note ---
Date of Service January 12, 2025 Assessment & Plan (1) Acute worsening of stage 3 chronic kidney disease: (2) Chronic hyponatremia: (3) Hypokalemia: (4) Diverticulitis: (5) Alcohol use disorder: Plan This is a 69-year-old male who has a significant past medical history of HTN, C HF, CKD stage III, IBS with both constipation and diarrhea, BPH, acquired hypothyroidism, depression and anxiety, history of CVA, alcoholism and tobacco use disorder who presents to ED secondary to confusion. #Acute on Chronic CKD-3 #Acute on chronic hyponatremia #Acute hypokalemia #Acute metabolic encephalopathy 2/2 margie, infection, worsening hyponatremia -baseline cr 1.0-1.1 -Pt with Na levels of low 130s in November -suspect 2/ chlorthalidone and "tea/toast" diet from alcoholism -improving today Plan: -nephrology consulted, appreciate recs -patient improving today -continue duloxetine 60 mg, avoid anticholinergics, continue thiamine/folic acid -schedule melatonin for sleep wake cycle #Hypomagnesemia -resolved #Acute Diverticulitis -monitor #Alcohol abuse -pt with years of alcohol use -will need alcohol rehab at discharge -Librium taper, prn IV ativan #HTN #Chronic Diastolic CHF -hold lisinopril -monitor for volume overload I spent a total of 35 minutes in direct patient care, including [id number] time with the patient and/or family, reviewing medical records, ordering and reviewing diagnostic tests, and coordinating care with other healthcare providers. This time includes: history taking, physical examination, medical decision making, counseling, ECG interpretation, imaging interpretation, lab interpretation, orders, and education, excluding time spent in the performance of separately billed services. Admission and Anticipated Discharge Date Admission Date: January 10, 2025 Subjective Patient doing better mentally today. Physical Exam Physical Exam: Gen: A&O 2 NAD HEENT: NCAT, EOMI, not icteric. External ears normal. No rhinorrhea. Moist mucous membranes. Neck: Supple, full range of motion, no observable masses, No meningeal sign. Lungs: No Respiratory distress. CV: RRR, no edema. Abdomen: Soft, nondistended, No rebound tenderness. MSK: No joint swelling, no redness. Skin: No rashes, petechiae, lesions. Normal color per patient. Neuro: Normal Gait, Grossly intact. Psych: Appropriate for situation. Results & Data Results & Data Vital Signs (Past 12 Hours) Vital Signs Temp Pulse Pulse Resp BP Pulse Ox O2 Del Method 01/12/25 15:33 36.4 C L 63 19 106/69 97 Room Air 01/12/25 15:00 85 01/12/25 11:20 36.5 C 68 18 101/67 100 Room Air 01/12/25 07:38 36.4 C L 50 L 18 111/69 98 Room Air 01/12/25 07:00 61 01/12/25 05:28 36.4 C L 71 16 117/77 98 Room Air Laboratory Results -personally reviewed, Na 132 is improved from prior, creatinine downtrending today Medications Administered Aspirin (Aspirin 81 Mg Ectab) 81 mg PO [facility] Stop: 02/10/25 08:59 Last Admin: 01/12/25 08:06 Dose: 81 mg Documented By: Admin: 01/11/25 08:27 Dose: 81 mg Documented By: PB Chlordiazepoxide HCl (Chlordiazepoxide Hcl 10 Mg Cap) 10 mg PO Q8H [facility] Stop: 01/13/25 07:16 Last Admin: 01/12/25 15:06 Dose: 10 mg Documented By: EDITA Duloxetine HCl (Duloxetine Hcl 60 Mg Cap) 60 mg PO DAILY [facility] Stop: 02/10/25 08:59 Last Admin: 01/12/25 08:07 Dose: 60 mg Documented By: Admin: 01/11/25 08:27 Dose: 60 mg Documented By: PB Escitalopram Oxalate (Escitalopram Oxalate 20 Mg Tab) 20 mg PO [facility] Stop: 02/10/25 08:59 Last Admin: 01/12/25 08:06 Dose: 20 mg Documented By: Admin: 01/11/25 08:27 Dose: 20 mg Documented By: PB Folic Acid (Folic Acid 1 Mg Tab) 1 mg PO [facility] Stop: 02/10/25 08:59 Last Admin: 01/12/25 08:07 Dose: 1 mg Documented By: Admin: 01/11/25 08:27 Dose: 1 mg Documented By: PB Heparin Sodium (Porcine) (Heparin Sod 5,000 Unit/0.5 Ml Vial) 5,000 units SQ Q8H [facility] Stop: 02/09/25 20:59 Last Admin: 01/12/25 13:39 Dose: 5,000 units Documented By: Admin: 01/12/25 05:29 Dose: 5,000 units Documented By: Admin: 01/11/25 20:19 Dose: 5,000 units Documented By: Admin: 01/11/25 12:56 Dose: 5,000 units Documented By: Admin: 01/11/25 04:40 Dose: 5,000 units Documented By: Admin: 01/10/25 20:24 Dose: 5,000 units Documented By: MAGALYS Levothyroxine Sodium (Levothyroxine Sodium 25 Mcg Tablet) 25 mcg PO [facility] [place] Stop: 02/10/25 08:59 Last Admin: 01/12/25 08:08 Dose: 25 mcg Documented By: Admin: 01/11/25 08:27 Dose: 25 mcg Documented By: PB Linaclotide (Linaclotide 72 Mcg Capsule) 72 mcg PO DAILY [facility] Stop: 02/10/25 08:59 Last Admin: 01/12/25 08:06 Dose: 72 mcg Documented By: Admin: 01/11/25 08:28 Dose: 72 mcg Documented By: PB Melatonin (Melatonin 3 Mg Tab) 3 mg PO [facility] Stop: 02/10/25 20:59 Last Admin: 01/11/25 21:57 Dose: 3 mg Documented By: SABI Multivitamins (Multivitamin Tab) 1 tab PO [facility] [place] Stop: 02/10/25 08:59 Last Admin: 01/12/25 08:07 Dose: 1 tab Documented By: Admin: 01/11/25 08:27 Dose: 1 tab Documented By: PB Pantoprazole Sodium (Pantoprazole 40 Mg Tab) 40 mg PO [facility] Stop: 02/10/25 08:59 Last Admin: 01/12/25 08:05 Dose: 40 mg Documented By: Admin: 01/11/25 08:27 Dose: 40 mg Documented By: PB Potassium Chloride (Potassium Chloride Crtab 20 Meq Tabcr) 40 meq PO [facility] [place] Stop: 02/11/25 08:59 Last Admin: 01/12/25 08:12 Dose: 40 meq Documented By: EDITA Senna/Docusate Sodium (Docusate Sodium/Senna 50/8.6mg Tab) 1 tab PO BID [facility] Stop: 02/09/25 20:59 Last Admin: 01/12/25 08:06 Dose: Not Given Documented By: Admin: 01/11/25 20:13 Dose: Not Given Documented By: Admin: 01/11/25 08:28 Dose: Not Given Documented By: Admin: 01/10/25 20:24 Dose: 1 tab Documented By: MAGALYS Sodium Chloride (Sodium Chloride 1 Gm Tablet) 1 gm PO [id number] [facility] Stop: 02/11/25 11:49 Last Admin: 01/12/25 15:06 Dose: 1 gm Documented By: Admin: 01/12/25 12:21 Dose: 1 gm Documented By: EDITA Tamsulosin HCl (Tamsulosin Hcl 0.4 Mg Cap) 0.4 mg PO [facility] Stop: 02/10/25 08:59 Last Admin: 01/12/25 08:07 Dose: 0.4 mg Documented By: Admin: 01/11/25 08:27 Dose: 0.4 mg Documented By: PB Thiamine HCl (Thiamine Hcl 100 Mg Tab) 100 mg PO [facility] [place] Stop: 02/10/25 08:59 Last Admin: 01/12/25 08:07 Dose: 100 mg Documented By: Admin: 01/11/25 08:27 Dose: 100 mg Documented By: PB
[2025-01-12 18:41] LABS: Anion Gap 7.0 (3-11); Blood Urea Nitrogen 20.0 mg/dl (6-23); Calcium 8.9 mg/dl (8.6-10.3); Carbon Dioxide 23.0 mmol/L (21-32); Chloride 103.0 mmol/L (98-107); Creatinine Clr Calc Pharmacy 31.7 ml/min; Glucose 98.0 mg/dl (70-99(Fasting)); Potassium 3.9 mmol/L (3.5-5.1); Sodium 133.0 mmol/L (136-145)
[2025-01-13 05:57] LABS: Anion Gap 6.0 (3-11); Blood Urea Nitrogen 20.0 mg/dl (6-23); Calcium 8.5 mg/dl (8.6-10.3); Carbon Dioxide 24.0 mmol/L (21-32); Chloride 103.0 mmol/L (98-107); Creatinine Clr Calc Pharmacy 29.9 ml/min; Glucose 95.0 mg/dl (70-99(Fasting)); Magnesium 1.3 mg/dl (1.7-2.4); Potassium 3.7 mmol/L (3.5-5.1); Sodium 133.0 mmol/L (136-145)
[2025-01-13] MEDS ORDERED: SODIUM PHOSPHATE 3 MMOL/1 ML INFUSION IV STA (07:54)
[2025-01-13] MEDS: MAGNESIUM SULFATE / D5W 1 GM/100 ML BAG IV SCH (08:24)
[2025-01-13] MEDS: SODIUM PHOSPHATE 9 MMOL in SODIUM CHLORIDE 0.9% 250 ML IV ONE (08:24)
--- NOTE | 2025-01-13 12:50 | Hospitalist Progress Note ---
Date of Service January 13, 2025 Assessment & Plan (1) Acute worsening of stage 3 chronic kidney disease: (2) Chronic hyponatremia: (3) Hypokalemia: (4) Diverticulitis: (5) Alcohol use disorder: Plan This is a 69-year-old male who has a significant past medical history of HTN, C HF, CKD stage III, IBS with both constipation and diarrhea, BPH, acquired hypothyroidism, depression and anxiety, history of CVA, alcoholism and tobacco use disorder who presents to ED secondary to confusion. 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 Plan: -nephrology consulted, appreciate recs -continue duloxetine 60 mg, avoid anticholinergics, continue thiamine/folic acid -schedule melatonin for sleep wake cycle -will pursue SNF placement #Hypomagnesemia -resolved #Acute Diverticulitis -monitor #Alcohol abuse -pt with years of alcohol use -will need alcohol rehab at discharge -Librium taper, prn IV ativan #HTN #Chronic Diastolic CHF -hold lisinopril -monitor for volume overload I spent a total of 35 minutes in direct patient care, including [id number] time with the patient and/or family, reviewing medical records, ordering and reviewing diagnostic tests, and coordinating care with other healthcare providers. This time includes: history taking, physical examination, medical decision making, counseling, ECG interpretation, imaging interpretation, lab interpretation, orders, and education, excluding time spent in the performance of separately billed services. Admission and Anticipated Discharge Date Admission Date: January 10, 2025 Subjective Patient seen and examined at bedside. Doing well today. States he is willing to go to rehab to get stronger. Open to discussion about alcohol rehab as well. Review of Systems Review of Systems: CONSTITUTIONAL: Patient denies fevers, chills, sweats and weight changes. EYES: Patient denies any visual symptoms. EARS, NOSE, AND THROAT: No difficulties with hearing. No symptoms of rhinitis or sore throat. CARDIOVASCULAR: Patient denies chest pains, palpitations, orthopnea and paroxysmal nocturnal dyspnea. RESPIRATORY: No dyspnea on exertion, no wheezing or cough. GI: No nausea, vomiting, diarrhea, constipation, abdominal pain, hematochezia or melena. : No urinary hesitancy or dribbling. No nocturia or urinary frequency. No abnormal urethral discharge. MUSCULOSKELETAL: No myalgias or arthralgias. NEUROLOGIC: No chronic headaches, no seizures. Patient denies numbness, tingling or weakness. PSYCHIATRIC: Patient denies problems with mood disturbance. No problems with anxiety. ENDOCRINE: No excessive urination or excessive thirst. DERMATOLOGIC: Patient denies any rashes or skin changes. Physical Exam Physical Exam: Gen: A&O 3 NAD HEENT: NCAT, EOMI, not icteric. External ears normal. No rhinorrhea. Moist mucous membranes. Neck: Supple, full range of motion, no observable masses, No meningeal sign. Lungs: No Respiratory distress. CV: RRR, no edema. Abdomen: Soft, nondistended, No rebound tenderness. MSK: No joint swelling, no redness. Skin: No rashes, petechiae, lesions. Normal color per patient. Neuro: Normal Gait, Grossly intact. Psych: Appropriate for situation. Results & Data Results & Data Vital Signs (Past 12 Hours) Vital Signs Temp Pulse Pulse Resp BP Pulse Ox O2 Del Method 01/13/25 11:29 36.3 C L 70 22 128/84 98 Room Air 01/13/25 07:45 36.4 C L 62 21 111/77 98 Room Air 01/13/25 07:00 69 01/13/25 03:04 36.3 C L 79 14 94/51 L 97 Room Air Laboratory Results -personally reviewed, Na improved, creatinine stabilized Medications Administered Aspirin (Aspirin 81 Mg Ectab) 81 mg PO QAOK [facility] [place] Stop: 02/10/25 08:59 Last Admin: 01/13/25 08:26 Dose: 81 mg Documented By: Admin: 01/12/25 08:06 Dose: 81 mg Documented By: Admin: 01/11/25 08:27 Dose: 81 mg Documented By: PB Duloxetine HCl (Duloxetine Hcl 60 Mg Cap) 60 mg PO DAILY [facility] Stop: 02/10/25 08:59 Last Admin: 01/13/25 08:25 Dose: 60 mg Documented By: Admin: 01/12/25 08:07 Dose: 60 mg Documented By: Admin: 01/11/25 08:27 Dose: 60 mg Documented By: PB Escitalopram Oxalate (Escitalopram Oxalate 20 Mg Tab) 20 mg PO [facility] Stop: 02/10/25 08:59 Last Admin: 01/13/25 08:25 Dose: 20 mg Documented By: Admin: 01/12/25 08:06 Dose: 20 mg Documented By: Admin: 01/11/25 08:27 Dose: 20 mg Documented By: PB Folic Acid (Folic Acid 1 Mg Tab) 1 mg PO [facility] Stop: 02/10/25 08:59 Last Admin: 01/13/25 08:26 Dose: 1 mg Documented By: Admin: 01/12/25 08:07 Dose: 1 mg Documented By: Admin: 01/11/25 08:27 Dose: 1 mg Documented By: PB Heparin Sodium (Porcine) (Heparin Sod 5,000 Unit/0.5 Ml Vial) 5,000 units SQ Q8H [facility] Stop: 02/09/25 20:59 Last Admin: 01/13/25 04:28 Dose: 5,000 units Documented By: Admin: 01/12/25 21:25 Dose: 5,000 units Documented By: Admin: 01/12/25 13:39 Dose: 5,000 units Documented By: Admin: 01/12/25 05:29 Dose: 5,000 units Documented By: Admin: 01/11/25 20:19 Dose: 5,000 units Documented By: Admin: 01/11/25 12:56 Dose: 5,000 units Documented By: Admin: 01/11/25 04:40 Dose: 5,000 units Documented By: Admin: 01/10/25 20:24 Dose: 5,000 units Documented By: MAGALYS Magnesium Sulfate/Dextrose (Magnesium Sulfate / D5w) 1 gm in 100 mls @ 50 mls/hr IV Q2H [facility] Stop: 01/13/25 15:59 Last Admin: 01/13/25 12:40 Dose: 50 mls/hr Documented By: Infusion: 01/13/25 12:40 Dose: Infused Documented By: Admin: 01/13/25 10:41 Dose: 50 mls/hr Documented By: Infusion: 01/13/25 10:24 Dose: Infused Documented By: Admin: 01/13/25 08:24 Dose: 50 mls/hr Documented By: NAKUL Levothyroxine Sodium (Levothyroxine Sodium 25 Mcg Tablet) 25 mcg PO QAOK [facility] [place] Stop: 02/10/25 08:59 Last Admin: 01/13/25 08:26 Dose: 25 mcg Documented By: Admin: 01/12/25 08:08 Dose: 25 mcg Documented By: Admin: 01/11/25 08:27 Dose: 25 mcg Documented By: PB Linaclotide (Linaclotide 72 Mcg Capsule) 72 mcg PO DAILY [facility] Stop: 02/10/25 08:59 Last Admin: 01/13/25 08:25 Dose: 72 mcg Documented By: Admin: 01/12/25 08:06 Dose: 72 mcg Documented By: Admin: 01/11/25 08:28 Dose: 72 mcg Documented By: PB Lorazepam (Lorazepam 2 Mg/1 Ml Vial) 1 mg IV UD PRN; Protocol PRN Reason: EtOH Withdrawal AWSS Score 6,7 Stop: 02/09/25 20:57 Last Admin: 01/13/25 04:28 Dose: 1 mg Documented By: RICH Melatonin (Melatonin 3 Mg Tab) 3 mg PO [facility] Stop: 02/10/25 20:59 Last Admin: 01/12/25 21:25 Dose: 3 mg Documented By: Admin: 01/11/25 21:57 Dose: 3 mg Documented By: SABI Multivitamins (Multivitamin Tab) 1 tab PO [facility] Stop: 02/10/25 08:59 Last Admin: 01/13/25 08:26 Dose: 1 tab Documented By: Admin: 01/12/25 08:07 Dose: 1 tab Documented By: Admin: 01/11/25 08:27 Dose: 1 tab Documented By: PB Pantoprazole Sodium (Pantoprazole 40 Mg Tab) 40 mg PO [facility] Stop: 02/10/25 08:59 Last Admin: 01/13/25 08:25 Dose: 40 mg Documented By: Admin: 01/12/25 08:05 Dose: 40 mg Documented By: Admin: 01/11/25 08:27 Dose: 40 mg Documented By: PB Potassium Chloride (Potassium Chloride Crtab 20 Meq Tabcr) 40 meq PO [facility] Stop: 02/11/25 08:59 Last Admin: 01/13/25 08:24 Dose: 40 meq Documented By: Admin: 01/12/25 08:12 Dose: 40 meq Documented By: EDITA Senna/Docusate Sodium (Docusate Sodium/Senna 50/8.6mg Tab) 1 tab PO BID [facility] Stop: 02/09/25 20:59 Last Admin: 01/13/25 08:25 Dose: 1 tab Documented By: Admin: 01/12/25 19:57 Dose: Not Given Documented By: GTTito Admin: 01/12/25 08:06 Dose: Not Given Documented By: Admin: 01/11/25 20:13 Dose: Not Given Documented By: Admin: 01/11/25 08:28 Dose: Not Given Documented By: Admin: 01/10/25 20:24 Dose: 1 tab Documented By: MAGALYS Sodium Chloride (Sodium Chloride 1 Gm Tablet) 1 gm PO [id number] [facility] Stop: 02/11/25 11:49 Last Admin: 01/13/25 08:26 Dose: 1 gm Documented By: Admin: 01/12/25 15:06 Dose: 1 gm Documented By: Admin: 01/12/25 12:21 Dose: 1 gm Documented By: EDITA Tamsulosin HCl (Tamsulosin Hcl 0.4 Mg Cap) 0.4 mg PO QAOK [facility] [place] Stop: 02/10/25 08:59 Last Admin: 01/13/25 08:26 Dose: 0.4 mg Documented By: Admin: 01/12/25 08:07 Dose: 0.4 mg Documented By: Admin: 01/11/25 08:27 Dose: 0.4 mg Documented By: PB Thiamine HCl (Thiamine Hcl 100 Mg Tab) 100 mg PO QAM [facility] Stop: 02/10/25 08:59 Last Admin: 01/13/25 08:26 Dose: 100 mg Documented By: Admin: 01/12/25 08:07 Dose: 100 mg Documented By: Admin: 01/11/25 08:27 Dose: 100 mg Documented By: PB
[2025-01-14 05:47] LABS: Hematocrit (blood only) 33.3 % (42.0-52.0); Hemoglobin 11.7 g/dl (14.0-18.0); Mean Corpuscular Hemoglobin 33.8 pg (25.0-34.0); Mean Corpuscular Volume 96.2 fL (80.0-100.0); Platelet Count 280 K/uL (130-400); RDW Standard Deviation 43.1 fL (36.4-46.3); Red Blood Count 3.46 M/uL (4.70-6.10); White Blood Count 8.13 K/ul (4.8-10.8)
[2025-01-14 06:38] LABS: Anion Gap 5.0 (3-11); Blood Urea Nitrogen 17.0 mg/dl (6-23); Calcium 8.8 mg/dl (8.6-10.3); Carbon Dioxide 24.0 mmol/L (21-32); Chloride 104.0 mmol/L (98-107); Creatinine Clr Calc Pharmacy 40.4 ml/min; Glucose 95.0 mg/dl (70-99(Fasting)); Magnesium 1.9 mg/dl (1.7-2.4); Potassium 4.7 mmol/L (3.5-5.1); Sodium 133.0 mmol/L (136-145)
[2025-01-14] MEDS: POLYETHYLENE (MIRALAX) 17 GM PACK PO PRN (09:24)
--- NOTE | 2025-01-14 12:52 | Hospitalist Progress Note ---
Date of Service January 14, 2025 Assessment & Plan (1) Acute worsening of stage 3 chronic kidney disease: (2) Chronic hyponatremia: (3) Hypokalemia: (4) Diverticulitis: (5) Alcohol use disorder: Plan This is a 69-year-old male who has a significant past medical history of HTN, C HF, CKD stage III, IBS with both constipation and diarrhea, BPH, acquired hypothyroidism, depression and anxiety, history of CVA, alcoholism and tobacco use disorder who presents to ED secondary to confusion. 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 Plan: -nephrology consulted, appreciate recs -continue duloxetine 60 mg, avoid anticholinergics, continue thiamine/folic acid -schedule melatonin for sleep wake cycle -will pursue SNF placement, medically stable for SNF when accepted #Hypomagnesemia -resolved #Acute Diverticulitis -monitor #Alcohol abuse -pt with years of alcohol use -will need alcohol rehab at discharge -Librium taper, prn IV ativan #HTN #Chronic Diastolic CHF -hold lisinopril I spent a total of 35 minutes in direct patient care, including [id number] time with the patient and/or family, reviewing medical records, ordering and reviewing diagnostic tests, and coordinating care with other healthcare providers. This time includes: history taking, physical examination, medical decision making, counseling, ECG interpretation, imaging interpretation, lab interpretation, orders, and education, excluding time spent in the performance of separately billed services. Admission and Anticipated Discharge Date Admission Date: January 10, 2025 Subjective Patient seen and examined at bedside. Doing well today, no concerns at this time. Looking forward to going to rehab. Review of Systems Review of Systems: CONSTITUTIONAL: Patient denies fevers, chills, sweats and weight changes. EYES: Patient denies any visual symptoms. EARS, NOSE, AND THROAT: No difficulties with hearing. No symptoms of rhinitis or sore throat. CARDIOVASCULAR: Patient denies chest pains, palpitations, orthopnea and paroxysmal nocturnal dyspnea. RESPIRATORY: No dyspnea on exertion, no wheezing or cough. GI: No nausea, vomiting, diarrhea, constipation, abdominal pain, hematochezia or melena. : No urinary hesitancy or dribbling. No nocturia or urinary frequency. No abnormal urethral discharge. MUSCULOSKELETAL: No myalgias or arthralgias. NEUROLOGIC: No chronic headaches, no seizures. Patient denies numbness, tingling or weakness. PSYCHIATRIC: Patient denies problems with mood disturbance. No problems with anxiety. ENDOCRINE: No excessive urination or excessive thirst. DERMATOLOGIC: Patient denies any rashes or skin changes. Physical Exam Physical Exam: Gen: A&O 3 NAD HEENT: NCAT, EOMI, not icteric. External ears normal. No rhinorrhea. Moist mucous membranes. Neck: Supple, full range of motion, no observable masses, No meningeal sign. Lungs: No Respiratory distress. CV: RRR, no edema. Abdomen: Soft, nondistended, No rebound tenderness. MSK: No joint swelling, no redness. Skin: No rashes, petechiae, lesions. Normal color per patient. Neuro: Normal Gait, Grossly intact. Psych: Appropriate for situation. Results & Data Results & Data Vital Signs (Past 12 Hours) Vital Signs Temp Pulse Resp BP BP Pulse Ox O2 Del Method 01/14/25 10:58 36.5 C 66 18 134/78 100 Room Air 01/14/25 07:44 36.7 C 58 L 18 132/83 98 Room Air 01/14/25 02:57 36.4 C L 54 L 16 114/72 98 Room Air Laboratory Results -personally reviewed, leukocytosis downtrended, Hgb slightly downtrended likely hemodilution, Na stabilized, creatinine improving Medications Administered Aspirin (Aspirin 81 Mg Ectab) 81 mg PO QAM [facility] Stop: 02/10/25 08:59 Last Admin: 01/14/25 09:26 Dose: 81 mg Documented By: Admin: 01/13/25 08:26 Dose: 81 mg Documented By: Admin: 01/12/25 08:06 Dose: 81 mg Documented By: Admin: 01/11/25 08:27 Dose: 81 mg Documented By: PB Duloxetine HCl (Duloxetine Hcl 60 Mg Cap) 60 mg PO DAILY [facility] Stop: 02/10/25 08:59 Last Admin: 01/14/25 09:25 Dose: 60 mg Documented By: Admin: 01/13/25 08:25 Dose: 60 mg Documented By: Admin: 01/12/25 08:07 Dose: 60 mg Documented By: Admin: 01/11/25 08:27 Dose: 60 mg Documented By: PB Escitalopram Oxalate (Escitalopram Oxalate 20 Mg Tab) 20 mg PO [facility] Stop: 02/10/25 08:59 Last Admin: 01/14/25 09:25 Dose: 20 mg Documented By: Admin: 01/13/25 08:25 Dose: 20 mg Documented By: Admin: 01/12/25 08:06 Dose: 20 mg Documented By: Admin: 01/11/25 08:27 Dose: 20 mg Documented By: PB Folic Acid (Folic Acid 1 Mg Tab) 1 mg PO [facility] Stop: 02/10/25 08:59 Last Admin: 01/14/25 09:25 Dose: 1 mg Documented By: Admin: 01/13/25 08:26 Dose: 1 mg Documented By: Admin: 01/12/25 08:07 Dose: 1 mg Documented By: Admin: 01/11/25 08:27 Dose: 1 mg Documented By: PB Heparin Sodium (Porcine) (Heparin Sod 5,000 Unit/0.5 Ml Vial) 5,000 units SQ Q8H [facility] Stop: 02/09/25 20:59 Last Admin: 01/14/25 04:13 Dose: Not Given Documented By: GT Admin: 01/13/25 19:56 Dose: 5,000 units Documented By: Admin: 01/13/25 14:38 Dose: 5,000 units Documented By: Admin: 01/13/25 04:28 Dose: 5,000 units Documented By: Admin: 01/12/25 21:25 Dose: 5,000 units Documented By: Admin: 01/12/25 13:39 Dose: 5,000 units Documented By: Admin: 01/12/25 05:29 Dose: 5,000 units Documented By: Admin: 01/11/25 20:19 Dose: 5,000 units Documented By: Admin: 01/11/25 12:56 Dose: 5,000 units Documented By: Admin: 01/11/25 04:40 Dose: 5,000 units Documented By: Admin: 01/10/25 20:24 Dose: 5,000 units Documented By: MAGALYS Levothyroxine Sodium (Levothyroxine Sodium 25 Mcg Tablet) [facility] [place] Stop: 02/10/25 08:59 Last Admin: 01/14/25 09:25 Dose: 25 mcg Documented By: Admin: 01/13/25 08:26 Dose: 25 mcg Documented By: Admin: 01/12/25 08:08 Dose: 25 mcg Documented By: Admin: 01/11/25 08:27 Dose: 25 mcg Documented By: PB Linaclotide (Linaclotide 72 Mcg Capsule) 72 mcg PO DAILY [facility] Stop: 02/10/25 08:59 Last Admin: 01/14/25 09:24 Dose: 72 mcg Documented By: Admin: 01/13/25 08:25 Dose: 72 mcg Documented By: Admin: 01/12/25 08:06 Dose: 72 mcg Documented By: Admin: 01/11/25 08:28 Dose: 72 mcg Documented By: PB Lorazepam (Lorazepam 2 Mg/1 Ml Vial) 1 mg IV UD PRN; Protocol PRN Reason: EtOH Withdrawal AWSS Score 6,7 Stop: 02/09/25 20:57 Last Admin: 01/13/25 04:28 Dose: 1 mg Documented By: RICH Melatonin (Melatonin 3 Mg Tab) 3 mg PO [facility] Stop: 02/10/25 20:59 Last Admin: 01/13/25 19:56 Dose: 3 mg Documented By: Admin: 01/12/25 21:25 Dose: 3 mg Documented By: Admin: 01/11/25 21:57 Dose: 3 mg Documented By: SABI Multivitamins (Multivitamin Tab) [facility] [place] Stop: 02/10/25 08:59 Last Admin: 01/14/25 09:26 Dose: 1 tab Documented By: Admin: 01/13/25 08:26 Dose: 1 tab Documented By: Admin: 01/12/25 08:07 Dose: 1 tab Documented By: Admin: 01/11/25 08:27 Dose: 1 tab Documented By: PB Pantoprazole Sodium (Pantoprazole 40 Mg Tab) [facility] [place] Stop: 02/10/25 08:59 Last Admin: 01/14/25 09:25 Dose: 40 mg Documented By: Admin: 01/13/25 08:25 Dose: 40 mg Documented By: Admin: 01/12/25 08:05 Dose: 40 mg Documented By: Admin: 01/11/25 08:27 Dose: 40 mg Documented By: PB Polyethylene Glycol (Polyethylene (Miralax) 17 Gm Pack) 17 gm PO DAILY PRN PRN Reason: Constipation Stop: 02/09/25 12:50 Last Admin: 01/14/25 09:24 Dose: 17 gm Documented By: NAKUL Potassium Chloride (Potassium Chloride Crtab 20 Meq Tabcr) 40 meq PO QAM [facility] Stop: 02/11/25 08:59 Last Admin: 01/14/25 09:24 Dose: 40 meq Documented By: Admin: 01/13/25 08:24 Dose: 40 meq Documented By: Admin: 01/12/25 08:12 Dose: 40 meq Documented By: EDITA Senna/Docusate Sodium (Docusate Sodium/Senna 50/8.6mg Tab) 1 tab PO BID [facility] Stop: 02/09/25 20:59 Last Admin: 01/14/25 09:24 Dose: 1 tab Documented By: Admin: 01/13/25 19:56 Dose: Not Given Documented By: Admin: 01/13/25 08:25 Dose: 1 tab Documented By: Admin: 01/12/25 19:57 Dose: Not Given Documented By: Admin: 01/12/25 08:06 Dose: Not Given Documented By: Admin: 01/11/25 20:13 Dose: Not Given Documented By: Admin: 01/11/25 08:28 Dose: Not Given Documented By: Admin: 01/10/25 20:24 Dose: 1 tab Documented By: NAB Sodium Chloride (Sodium Chloride 1 Gm Tablet) 1 gm PO [id number] [facility] Stop: 02/11/25 11:49 Last Admin: 01/14/25 09:25 Dose: 1 gm Documented By: Admin: 01/13/25 14:38 Dose: 1 gm Documented By: Admin: 01/13/25 08:26 Dose: 1 gm Documented By: Admin: 01/12/25 15:06 Dose: 1 gm Documented By: Admin: 01/12/25 12:21 Dose: 1 gm Documented By: EDITA Tamsulosin HCl (Tamsulosin Hcl 0.4 Mg Cap) 0.4 mg PO [facility] Stop: 02/10/25 08:59 Last Admin: 01/14/25 09:25 Dose: 0.4 mg Documented By: Admin: 01/13/25 08:26 Dose: 0.4 mg Documented By: Admin: 01/12/25 08:07 Dose: 0.4 mg Documented By: Admin: 01/11/25 08:27 Dose: 0.4 mg Documented By: PB Thiamine HCl (Thiamine Hcl 100 Mg Tab) 100 mg PO [facility] Stop: 02/10/25 08:59 Last Admin: 01/14/25 09:25 Dose: 100 mg Documented By: Admin: 01/13/25 08:26 Dose: 100 mg Documented By: Admin: 01/12/25 08:07 Dose: 100 mg Documented By: Admin: 01/11/25 08:27 Dose: 100 mg Documented By: PB
[2025-01-14 19:48] VITALS: O2SAT 100
[2025-01-15 07:09] LABS: Anion Gap 7.0 (3-11); Blood Urea Nitrogen 19.0 mg/dl (6-23); Calcium 9.5 mg/dl (8.6-10.3); Carbon Dioxide 24.0 mmol/L (21-32); Chloride 104.0 mmol/L (98-107); Creatinine Clr Calc Pharmacy 41.3 ml/min; Glucose 81.0 mg/dl (70-99(Fasting)); Magnesium 1.5 mg/dl (1.7-2.4); Potassium 4.4 mmol/L (3.5-5.1); Sodium 135.0 mmol/L (136-145)
[2025-01-15 07:15] VITALS: BP 156/94; PULSE 64; RESP 18; TEMP 97.3
[2025-01-15] MEDS ORDERED: SODIUM PHOSPHATE 3 MMOL/1 ML INFUSION IV STA (07:59)
[2025-01-15] MEDS: MAGNESIUM SULFATE / D5W 1 GM/100 ML BAG IV SCH (08:17)
[2025-01-15] MEDS: POT PHOSPHATE MONOBASIC W/ SOD TAB PO SCH (08:25)
--- NOTE | 2025-01-15 15:25 | Discharge Summary ---
Discharge Summary Date of Service January 15, 2025 Principal Dx & Hospital Course #1 = Principal Diagnosis (1) Acute worsening of stage 3 chronic kidney disease: (2) Chronic hyponatremia: (3) Hypokalemia: (4) Diverticulitis: (5) Alcohol use disorder: Plan This is a 69-year-old male who has a significant past medical history of HTN, CHF, CKD stage III, IBS with both constipation and diarrhea, BPH, acquired hypothyroidism, depression and anxiety, history of CVA, alcoholism and tobacco use disorder who presents to ED secondary to confusion. 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 Plan: -nephrology consulted, appreciate recs -continue duloxetine 60 mg, avoid anticholinergics, continue thiamine/folic acid -schedule melatonin for sleep wake cycle -will pursue SNF placement, medically stable for SNF when accepted #Hypomagnesemia -resolved #Acute Diverticulitis -monitor #Alcohol abuse -pt with years of alcohol use -will need alcohol rehab at discharge -Librium taper, prn IV ativan #HTN #Chronic Diastolic CHF -hold lisinopril I spent a total of 35 minutes in direct patient care, including [id number] time with the patient and/or family, reviewing medical records, ordering and reviewing diagnostic tests, and coordinating care with other healthcare providers. This time includes: history taking, physical examination, medical decision making, counseling, ECG interpretation, imaging interpretation, lab interpretation, orders, and education, excluding time spent in the performance of separately billed services. Notes For Next Care Provider This is a 69-year-old male who has a significant past medical history of HTN, CHF, CKD stage III, IBS with both constipation and diarrhea, BPH, acquired hypothyroidism, depression and anxiety, history of CVA, alcoholism and tobacco use disorder who presents to ED secondary to confusion. Found to be in alcohol withdrawal, admitted to medicine. On medicine given librium taper with improvement in symptoms. Nephrology consulted for hyponatremia likely 2/2 alcohol use and SIADH which improved with treatment. PT/OT recommended SNF, patient declined. Given list of outpatient alcohol rehab programs. ON 01/15/2025 [facility]. To do: [ ] f/u with alcohol rehab Medication Changes From Visit -see below Admission HPI Per Admitting Provider This is a 69-year-old male who has a significant past medical history of HTN, CHF, CKD stage III, IBS with both constipation and diarrhea, BPH, acquired hypothyroidism, depression and anxiety, history of CVA, alcoholism and tobacco use disorder who presents to ED secondary to confusion.History is obtained from patient, ED provider and discussion with son via telephone encounter. Patient states he has lower abdominal discomfort. "You know I have diverticulitis." He is unsure of the duration of his abdominal discomfort and is unable to quantify how long his pain has been present. He did move his bowels in the ED and reports moving them daily. He denies any significant nausea or vomiting. He denies any blood in his stool. He denies any known recent fever, chills, sweats, chest pain, shortness of breath, URI symptoms, lightheadedness or dizziness. He does live alone and ambulates without assistance. Son is local. He reports having a known alcohol addiction. He states that he drinks two 3 ounce bottles of fireball a day. His last drink was 2 days ago. After further discussion with his son on the telephone, he reports that he knows he drinks approximately 2 [employer] a day which are 12-13% alcohol and ~ 6 oz. He is unsure if he drinks anything else. His father has had a k nown alcohol addiction for several years. Son states that he chronically has abdominal pain. He sees gastroenterology for this. He has been told he has IBS as well as occasional diverticulitis. Son feels that he has noted a change in his mental status over the last several weeks. Again he attributes this to his alcoholism. He feels that the patient is trying to self wean from alcohol and that is when he experiences worsening abdominal pain. He is aware his father does not eat enough and tends to drink most of his calories. In ED patient remained hemodynamically stable. His lab work was notable for a mild leukocytosis. His BMP revealed an HUGO with a creatinine of 3.1, hyponatremia with a sodium of 124 and hypokalemia with potassium of 2.6. CT abdomen pelvis concerning for a mild acute diverticulitis at the hepatic flexure. CT head without acute abnormality but does reveal some subtle new lesions in the right frontal lobe concerning for possible encephalomalacia or old infarct. This is new from previous imaging of July and January 2024. In ED he received 1 L of IV fluid along with KCl 10 mEq IV x 2. Discharge Exam Gen: A&O 3 NAD HEENT: NCAT, EOMI, not icteric. External ears normal. No rhinorrhea. Moist mucous membranes. Neck: Supple, full range of motion, no observable masses, No meningeal sign. Lungs: No Respiratory distress. CV: RRR, no edema. Abdomen: Soft, nondistended, No rebound tenderness. MSK: No joint swelling, no redness. Skin: No rashes, petechiae, lesions. Normal color per patient. Neuro: Normal Gait, Grossly intact. Psych: Appropriate for situation. Updated Medication List Medication Instructions Recorded Confirmed Type pantoprazole 40 mg tablet,delayed 40 mg PO QAM 08/24/22 01/10/25 History release alfuzosin 10 mg tablet,extended 10 mg PO QAM 06/17/23 01/10/25 History release 24 hr levothyroxine 25 mcg tablet 25 mcg PO QAM 06/17/23 01/10/25 History duloxetine 60 mg capsule,delayed 60 mg PO DAILY 08/05/23 01/10/25 History release aspirin 81 mg tablet,delayed 81 mg PO QAM #30 tabs 08/11/23 01/10/25 Rx release sennosides 8.6 mg-docusate sodium 1 tab PO BID #60 tabs 08/30/23 01/10/25 Rx 50 mg tablet (Senokot-S) escitalopram oxalate 20 mg tablet 20 mg PO QAM 08/01/24 01/10/25 History folic acid 1 mg tablet 1 mg PO QAM 08/01/24 01/10/25 History polyethylene glycol 3350 17 gram 17 g PO Q8 PRN Constipation 08/01/24 01/10/25 History oral powder packet (Miralax) lisinopril 20 mg tablet 20 mg PO QAM #90 tabs 09/07/24 01/10/25 Rx linaclotide 72 mcg capsule 72 mcg PO DAILY 01/10/25 01/10/25 History (Linzess) multivitamin with folic acid 400 1 tab PO QAM #30 tabs 01/15/25 Rx mcg tablet (Daily-Efrain (with folic acid)) ondansetron 4 mg disintegrating 4 mg PO Q8H PRN nausea and 01/15/25 Rx tablet vomiting #14 tabs potassium chloride 20 mEq 40 meq (2 x 20 mEq) PO QAM 14 days 01/15/25 Rx tablet,extended release(part/cryst) #28 tabs sodium chloride 1,000 mg soluble 1,000 mg PO BID 14 days #28 tabs 01/15/25 Rx tablet sodium di- and 1 tab PO Q8H 14 days #42 tabs 01/15/25 Rx monophosphate-potassium phos monobasic 250 mg tablet (Phospha Neutral) thiamine HCl (vitamin B1) 100 mg 100 mg PO QAM #30 tabs 01/15/25 Rx tablet Hospital Stay Data Consultations 01/10/25 11:00 ED Decision to Admit Stat 01/10/25 12:03 Consult Nephrology Routine Diagnostic Imagining Performed 01/10/25 09:17 CT head/brain wo con Stat 01/10/25 10:10 CT abd pelvis wo con Stat 01/11/25 08:02 MR brain wo con Urgent Pending Results Patient Have Any Pending Studies at Discharge: No Discharge Instructions Given to Patient (Per Discharging Provider) 1. Please follow up with outpatient alcohol rehabs! 2. Please take medications as prescribed. 3. Please keep taking your salt tabs and other medications, if you stop them your sodium level will drop again. 4. Please stay sober. Total Time Total Time Spent Total Time Spent (In Minutes): I spent a total of 35 minutes in direct patient care, including [id number] time with the patient and/or family, reviewing medical records, ordering and reviewing diagnostic tests, and coordinating care with other healthcare providers. This time includes: history taking, physical examination, medical decision making, counseling, ECG interpretation, imaging interpretation, lab interpretation, orders, and education, excluding time spent in the performance of separately billed services.
== END 2025-01-15 15:25 | disposition home or self-care (01) | DRG 682 ==
LOC: ED 08:40 → SUATTDRO 11:23 → 4W 11:23 → 3E 01-14 10:53